=== PATIENT | male | born 1945 | race Caucasian/White ===

== ENCOUNTER 2020-09-01 19:18 | Inpatient (IN) | payer OTHER, SELFPAY ==
--- NOTE | ~2020-09-01 | CT_ITS ---
EXAMINATION: CT HEAD WITHOUT CONTRAST CLINICAL INFORMATION: Status post fall COMPARISON: None TECHNIQUE: Contiguous axial imaging was performed from the skull base to vertex without intravenous administration of contrast. This CT examination was performed using dose optimization techniques as appropriate, variously including the following: *Automated exposure control *Adjustment of mA and/or kV according to patient size (this includes techniques or standardized protocols for targeted exams where dose is matched to indication/reason for exam; i.e. extremities or head) *Use of iterative reconstruction technique DLP: 903 mGy-cm FINDINGS: No midline shift. No mass effect. No hemorrhage. Basal cisterns appear patent. The posterior fossa is grossly within normal limits. There is no extra-axial collection. There is atrophy and scattered white matter ischemic changes. 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 No evidence for fracture on the bone windows. The visualized airspaces are clear CT/CT head/brain wo con IMPRESSION: No acute intracranial pathology. Atrophy and white matter ischemic changes are present. 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
--- NOTE | ~2020-09-01 | XR_ITS ---
EXAMINATION: XR CHEST CLINICAL INFORMATION: CHF COMPARISON: None TECHNIQUE: Frontal view of the chest was obtained. FINDINGS: Mild prominence of the vasculature but no overt failure. There is no infiltrate. No effusion. The mediastinal contour within normal limits for AP study. XR/XR chest 1V IMPRESSION: Mild cephalization of the vasculature. No overt failure.
[2020-09-01 19:24] VITALS: BP 133/61; BP 142/78; PULSE 117; PULSE 91; RESP 20; TEMP 36.8; O2SAT 95; O2SAT 98; BMI 31.1
--- NOTE | 2020-09-01 19:43 | ECG_ITS ---
Test Reason : FALL Blood Pressure : / mmHG Vent. Rate : 095 BPM Atrial Rate : 227 BPM P-R Int : 000 ms QRS Dur : 152 ms QT Int : 364 ms P-R-T Axes : 000 -52 099 degrees QTc Int : 457 ms Atrial fibrillation with premature ventricular or aberrantly conducted complexes Left axis deviation Left bundle branch block Abnormal ECG No previous ECGs available Referred By: Pranay Green Electronically Signed By:ANABEL HAN MD
--- NOTE | 2020-09-01 19:59 | ED.FALL ---
HPI - Fall General Chief Complaint: Fall Stated Complaint: FALLS Time Seen by Provider: 09/01/20 19:59 Source: patient and family Mode of arrival: EMS Limitations: no limitations History of Present Illness HPI Narrative: patient is 75 years old with history of atrial fibrillation, diabetes on Eliquis been feeling weak for last 2 months used to live in [place] admitted to the hospital 2 months ago for weakness and fall sent to rehab, daughter brought him from [place] to [place] on 08/19 to keep him with her, since then patient felt to 3 times feels legs are weak walks with walker even then he cannot hold his body weight and falls, no significant head injury patient also complaining of increased leg swelling and shortness of breath on exertion. No chest pain no fever also patient has difficulty in memory. Family is looking for placement in rehab here Related Data Home Medications Medication Instructions Recorded Confirmed Eliquis 5 mg PO BID 09/01/20 09/01/20 Fish Oil 1,000 mg PO DAILY 09/01/20 09/01/20 atorvastatin 10 mg PO 09/01/20 digoxin 0.125 mg PO DAILY 09/01/20 09/01/20 glimepiride 2 mg PO 09/01/20 levothyroxine 88 mcg PO DAILY 09/01/20 09/01/20 pregabalin 100 mg PO DAILY 09/01/20 09/01/20 Senna with Docusate Sodium 8.6 - 50 mg PO NEEDED 09/02/20 09/02/20 Tylenol 650 mg PRN 09/02/20 polyethylene glycol 3350 09/02/20 Allergies Allergy/AdvReac Type Severity Reaction Status Date / Time epinephrine Allergy Anaphylaxis Verified 09/01/20 21:03 Review of Systems Review of Systems: Constitutional : No Weight loss, No Fever, No Chills ENT/Mouth : No sore throat, No Rhinorrhea Eyes: No Eye Pain, No Swelling Cardiovascular : No Chest Pain, no palpitations Respiratory : No Cough, No Sputum, no shortness of breath Gastrointestinal : no Nausea, No Vomiting, No Diarrhea, No abdominal Pain, no black stools Genitourinary : No Dysuria, No Urinary Frequency Musculoskeletal : No joint pain, No Myalgias, No Joint Swelling Skin : No Skin Lesions, No rash Neuro : ++ Weakness, No Numbness, No Dizziness, No Headache Psych : No Anxiety/Panic, No Depression Heme/Lymph: No Bruising, No Lymphadenopathy Endocrine : No Polyuria, No Polydipsia All other systems reviewed and are negative [facility] Past Medical History Medical History Afib CHF (congestive heart failure) Hematuria HTN (hypertension) Osteomyelitis Surgical History History of urostomy Social History Social History Advance Directives: No Advance Directives Information Provided: No Physical Exam Vital Signs: Vital Signs: Last Vital Signs Temp 98.3 F 09/01/20 19:24 Pulse 78 09/02/20 00:00 Resp 20 09/02/20 00:00 BP 111/58 L 09/02/20 00:00 Pulse Ox 96 09/02/20 00:00 Body Mass Index 31.1 Appearance: Alert. Oriented X3. No acute distress. Eyes: PERRLA, No Nystagmus ENT: Pharynx normal. Oral Mucosa moist Neck: Normal inspection. Neck supple. CVS: irregularly irregular heart rate, no murmur rub or gallop Pulses normal. Respiratory: No respiratory distress. Equal air entry bilateral, no wheezing/rhonchi , bilateral basal crackles+ Abdomen: Soft and nontender. Bowel sounds are present, no mass palpable, no CVA tenderness Skin: Skin warm and dry. Normal skin color. Normal skin turgor. Extremities: trace lower extremity edema. No calf tenderness Neuro: Oriented X 3. No motor deficit. No sensory deficit.No cerebellar signs , cranial nerves II-XII intact MDM - Fall MDM Narrative Medical decision making narrative: patient with frequent falls with chronic leg weakness unsteady on his feet was in rehab in [place] came here for stay with her daughter patient still been falling a lot, family and patient wants to go to rehab for strengthening patient denies any chest pain no significant delta change in troponin Lab Data Attestation: I reviewed the patient's lab results. Result diagrams: 09/01/20 20:42 09/01/20 20:41 Labs: Lab Results 09/01/20 09/01/20 09/01/20 Range/Units 20:41 20:41 20:41 WBC (4.8-10.8) X10*3/uL RBC (4.60-5.80) X10*6/uL Hgb (14.0-18.0) g/dl Hct (42-52) % MCV (80-98) fL MCH (27.0-33.0) pg MCHC (31.0-36.0) g/dl RDW (11.0-16.0) % Plt Count (160-400) X10*3/uL MPV (9.4-12.4) fL Immature Gran % (Auto) (0.0-0.4) % Neut % (Auto) (45-73) % Lymph % (Auto) (20-40) % [place] % (Auto) (2-11) % Eos % (Auto) (0-4) % Baso % (Auto) (0-2) % Lymph # (Auto) (1.2-4.9) X10*3/uL [place] # (Auto) (0.1-1.2) X10*3/uL Eos # (Auto) (0.0-0.4) X10*3/uL Baso # (Auto) (0.0-0.2) X10*3/uL Abs Immat Gran (auto) (0.00-0.03) X10*3/uL Absolute Neuts (auto) (2.0-8.3) X10*3/uL Absolute Nucleated RBC (0.0-0.012) X10*3/uL Nucleated RBC % (auto) (0.0-0.2) /100WBC PT 18.7 H (10.8-13.0) SEC INR 1.6 H (0.9-1.1) Sodium 141 (135-145) mmol/L Potassium 4.4 (3.3-5.1) mmol/L Chloride 110 H (96-108) mmol/L Carbon Dioxide 20 L (22-29) mmol/L Anion Gap 15 (12-20) BUN 14 (9-16) mg/dL Creatinine 1.32 (0.5-1.4) mg/dL Estim Creat Clear Calc 54.3 Estimated GFR 53 Random Glucose 77 (60-115) mg/dL Calcium 9.0 (8.4-10.2) mg/dL Total Bilirubin 1.7 H (0.0-1.0) mg/dL Direct Bilirubin 0.8 H (0.0-0.5) mg/dL AST 21 (5-37) U/L ALT 12 (0-40) U/L Alkaline Phosphatase 102 (39-117) U/L Troponin I High Sens (<3.5-35.0) ng/L B-Natriuretic Peptide (<100) pg/mL Total Protein 6.4 L (6.5-8.0) g/dL Albumin 3.4 L (3.5-5.0) g/dL Urine Color Urine Appearance Urine pH (5.0-8.0) Ur Specific [place] (1.005-1.025) Urine Protein (NEG-TRACE) MG/DL Urine Glucose (UA) (NEG) MG/DL Urine Ketones (NEG) MG/DL Urine Blood (NEG) Urine Nitrite (NEG) Ur Leukocyte Esterase (NEG) Urine RBC (0) /HPF Urine WBC (0-4) /HPF Urine WBC Clumps Ur Squamous Epith Cells /LPF Amorphous Sediment /LPF Urine Bacteria /LPF Digoxin 0.7 L (0.8-2.0) ng/mL COVID-19 ([facility]) (Negative) COVID-19 Clin Com 09/01/20 09/01/20 09/01/20 Range/Units 20:42 20:42 20:42 WBC 12.6 H (4.8-10.8) X10*3/uL RBC 4.65 (4.60-5.80) X10*6/uL Hgb 13.0 L (14.0-18.0) g/dl Hct 40.6 L (42-52) % MCV 87.3 (80-98) fL MCH 28.0 (27.0-33.0) pg MCHC 32.0 (31.0-36.0) g/dl RDW 16.6 H (11.0-16.0) % Plt Count 250 (160-400) X10*3/uL MPV 11.1 (9.4-12.4) fL Immature Gran % (Auto) 0.4 (0.0-0.4) % Neut % (Auto) 77.0 H (45-73) % Lymph % (Auto) 8.9 L (20-40) % [place] % (Auto) 11.2 H (2-11) % Eos % (Auto) 2.1 (0-4) % Baso % (Auto) 0.4 (0-2) % Lymph # (Auto) 1.1 L (1.2-4.9) X10*3/uL [place] # (Auto) 1.4 H (0.1-1.2) X10*3/uL Eos # (Auto) 0.3 (0.0-0.4) X10*3/uL Baso # (Auto) 0.1 (0.0-0.2) X10*3/uL Abs Immat Gran (auto) 0.05 H (0.00-0.03) X10*3/uL Absolute Neuts (auto) 9.7 H (2.0-8.3) X10*3/uL Absolute Nucleated RBC 0.000 (0.0-0.012) X10*3/uL Nucleated RBC % (auto) 0.0 (0.0-0.2) /100WBC PT (10.8-13.0) SEC INR (0.9-1.1) Sodium (135-145) mmol/L Potassium (3.3-5.1) mmol/L Chloride (96-108) mmol/L Carbon Dioxide (22-29) mmol/L Anion Gap (12-20) BUN (9-16) mg/dL Creatinine (0.5-1.4) mg/dL Estim Creat Clear Calc Estimated GFR Random Glucose (60-115) mg/dL Calcium (8.4-10.2) mg/dL Total Bilirubin (0.0-1.0) mg/dL Direct Bilirubin (0.0-0.5) mg/dL AST (5-37) U/L ALT (0-40) U/L Alkaline Phosphatase (39-117) U/L Troponin I High Sens 97.7 H* (<3.5-35.0) ng/L B-Natriuretic Peptide 360 H (<100) pg/mL Total Protein (6.5-8.0) g/dL Albumin (3.5-5.0) g/dL Urine Color Urine Appearance Urine pH (5.0-8.0) Ur Specific [place] (1.005-1.025) Urine Protein (NEG-TRACE) MG/DL Urine Glucose (UA) (NEG) MG/DL Urine Ketones (NEG) MG/DL Urine Blood (NEG) Urine Nitrite (NEG) Ur Leukocyte Esterase (NEG) Urine RBC (0) /HPF Urine WBC (0-4) /HPF Urine WBC Clumps Ur Squamous Epith Cells /LPF Amorphous Sediment /LPF Urine Bacteria /LPF Digoxin (0.8-2.0) ng/mL COVID-19 ([facility]) Negative (Negative) COVID-19 Clin Com See Note 09/01/20 09/01/20 Range/Units 23:49 23:55 WBC (4.8-10.8) X10*3/uL RBC (4.60-5.80) X10*6/uL Hgb (14.0-18.0) g/dl Hct (42-52) % MCV (80-98) fL MCH (27.0-33.0) pg MCHC (31.0-36.0) g/dl RDW (11.0-16.0) % Plt Count (160-400) X10*3/uL MPV (9.4-12.4) fL Immature Gran % (Auto) (0.0-0.4) % Neut % (Auto) (45-73) % Lymph % (Auto) (20-40) % [place] % (Auto) (2-11) % Eos % (Auto) (0-4) % Baso % (Auto) (0-2) % Lymph # (Auto) (1.2-4.9) X10*3/uL [place] # (Auto) (0.1-1.2) X10*3/uL Eos # (Auto) (0.0-0.4) X10*3/uL Baso # (Auto) (0.0-0.2) X10*3/uL Abs Immat Gran (auto) (0.00-0.03) X10*3/uL Absolute Neuts (auto) (2.0-8.3) X10*3/uL Absolute Nucleated RBC (0.0-0.012) X10*3/uL Nucleated RBC % (auto) (0.0-0.2) /100WBC PT (10.8-13.0) SEC INR (0.9-1.1) Sodium (135-145) mmol/L Potassium (3.3-5.1) mmol/L Chloride (96-108) mmol/L Carbon Dioxide (22-29) mmol/L Anion Gap (12-20) BUN (9-16) mg/dL Creatinine (0.5-1.4) mg/dL Estim Creat Clear Calc Estimated GFR Random Glucose (60-115) mg/dL Calcium (8.4-10.2) mg/dL Total Bilirubin (0.0-1.0) mg/dL Direct Bilirubin (0.0-0.5) mg/dL AST (5-37) U/L ALT (0-40) U/L Alkaline Phosphatase (39-117) U/L Troponin I High Sens 108.3 H* (<3.5-35.0) ng/L B-Natriuretic Peptide (<100) pg/mL Total Protein (6.5-8.0) g/dL Albumin (3.5-5.0) g/dL Urine Color YELLOW Urine Appearance HAZY Urine pH 6.0 (5.0-8.0) Ur Specific [place] 1.010 (1.005-1.025) Urine Protein TRACE (NEG-TRACE) MG/DL Urine Glucose (UA) NEG (NEG) MG/DL Urine Ketones NEG (NEG) MG/DL Urine Blood 1+ H (NEG) Urine Nitrite POS H (NEG) Ur Leukocyte Esterase 3+ H (NEG) Urine RBC 5-9 H (0) /HPF Urine WBC 15-29 H (0-4) /HPF Urine WBC Clumps NOTED Ur Squamous Epith Cells TRACE /LPF Amorphous Sediment 1+ /LPF Urine Bacteria 2+ /LPF Digoxin (0.8-2.0) ng/mL COVID-19 ([facility]) (Negative) COVID-19 Clin Com ECG Data Attestation: I personally reviewed and interpreted this ECG as follows: Interpretation: atrial fibrillation ventricular rate 95 beats per minute left axis deviation left bundle-branch block no acute ST T wave changes no acute ischemia Discharge Plan Discharge Clinical Impression: Multiple falls, Weakness Prescriptions: No Action atorvastatin 10 mg 10 mg PO RF: 0 glimepiride 2 mg powder 2 mg PO RF: 0 levothyroxine 88 mcg powder 88 mcg PO DAILY RF: 0 pregabalin 100 mg powder 100 mg PO DAILY RF: 0 Eliquis 5 mg powder 5 mg PO BID RF: 0 digoxin 0.125 mg powder 0.125 mg PO DAILY RF: 0 Fish Oil 1,000 mg bottle 1,000 mg PO DAILY RF: 0 Senna with Docusate Sodium 8.6 mg tablet 8.6 - 50 mg PO NEEDED RF: 0 polyethylene glycol 3350 RF: 0 Tylenol 650 mg tablet 650 mg PRN (Reason: Pain) RF: 0
[2020-09-01 20:47] LABS: MANUAL DIFF FLAG NO
[2020-09-01 20:49] LABS: Basophils Absolute Auto 0.1 X10*3/uL (0.0-0.2); Basophils Percent Auto 0.4 % (0-2); Eosinophils Absolute Auto 0.3 X10*3/uL (0.0-0.4); Eosinophils Percent Auto 2.1 % (0-4); Hematocrit 40.6 % (42-52); Imm Gran Abs Auto 0.05 X10*3/uL (0.00-0.03); Imm Gran Pct Auto 0.4 % (0.0-0.4); Lymphocytes Absolute Auto 1.1 X10*3/uL (1.2-4.9); Lymphocytes Percent Auto 8.9 % (20-40); Mean Corpuscular Volume 87.3 fL (80-98); Mean Platelet Volume 11.1 fL (9.4-12.4); Monocytes Absolute Auto 1.4 X10*3/uL (0.1-1.2); Monocytes Percent Auto 11.2 % (2-11); Neutrophils Absolute Auto 9.7 X10*3/uL (2.0-8.3); Platelet Count 250 X10*3/uL (160-400); Red Blood Count 4.65 X10*6/uL (4.60-5.80); Red Cell Distribution Width 16.6 % (11.0-16.0); White Blood Count 12.6 X10*3/uL (4.8-10.8)
[2020-09-01 20:55] LABS: INTERNATIONAL NORM RATIO 1.6 (0.9-1.1); Prothrombin Time 18.7 SEC (10.8-13.0)
[2020-09-01 21:06] LABS: COVID-19 Test Negative (Negative)
[2020-09-01 21:29] LABS: Alanine Aminotransferase 12 U/L (0-40); Albumin Level 3.4 g/dL (3.5-5.0); Alkaline Phosphatase 102 U/L (39-117); Anion Gap 15 (12-20); Aspartate Amino Transferase 21 U/L (5-37); Bilirubin Direct 0.8 mg/dL (0.0-0.5); Bilirubin Total 1.7 mg/dL (0.0-1.0); Blood Urea Nitrogen 14 mg/dL (9-16); Carbon Dioxide 20 mmol/L (22-29); Chloride 110 mmol/L (96-108); Creatinine Clr Calc Pharmacy 54.3; Estimated Glomerular Filt Rate 53; Glucose Random 77 mg/dL (60-115); Potassium 4.4 mmol/L (3.3-5.1); Sodium 141 mmol/L (135-145); Total Protein 6.4 g/dL (6.5-8.0)
[2020-09-01 21:31] LABS: Digoxin 0.7 ng/mL (0.8-2.0)
[2020-09-01 21:36] LABS: Troponin-I High Sensitivity 97.7 ng/L (<3.5-35.0)
[2020-09-01 21:37] LABS: B Type Natriuretic Peptide 360 pg/mL (<100)
[2020-09-01 22:00] VITALS: BP 121/54; PULSE 72; RESP 20; O2SAT 95
--- NOTE | 2020-09-01 22:49 | MHC.CM.ED ---
CM met with pt. Very pleasant. Has been falling, States his right side is weak and gives out on him. Pt recently moved here with daughter from [place] on August 22. States father fell in June at his home and was on the floor for 5 days. Pt was hospitalized and spent 1 month in a rehab facility in [place]. Daughter flew to [place] and bring her father here so she could better care for him. Pt is living with her partner in [place]. Pt lives in [place]. CM called and spoke to Leona Smith (daughter) [phone]. Leona tells CM that pt has fallen 6 times in past 2 weeks. There isn't any insurance listed. When CM asked, daughter stated she told them at the desk, but didn't given any insurance cards. CM explained that pt insurance cards are needed to put into system for STR facilities. Explained that pt is listed as self pay. Leona tells CM that her father has his insurance cards in his wallet. CM spoke with patient and he went through his entire wallet, without finding any insurance cards. CM called Leona back and left a message for her to bring her father's insurance cards to the hospital when she returns in the am. Leona tells CM she has POA. When asked if that includes HCP, Leona is unsure and a copy of the POA was also requested. If not, Leona reassured that a HCP can be completed tomorrow. PT evaluation is ordered for the am. Pt and daughter aware. Daughter has no choices for referrals to STR. Requests facilities in [place]. Referrals placed locally. CM to follow for d/c needs.
[2020-09-02] VITALS (12 sets, daily range): BP systolic 109–135; BP diastolic 48–93; PULSE 77–113; RESP 16–23; TEMP 36.3–37; O2SAT 90–99; BMI 32.2
[2020-09-02 00:01] LABS: Glucose Urine UA NEG (NEG); Leukocyte Esterase Urine 3+ (NEG); Nitrite Urine POS (NEG); UACC Culture Trigger YES; Urine Blood 1+ (NEG); Urine Ketones NEG (NEG); Urine Protein TRACE MG/DL (NEG-TRACE)
[2020-09-02 00:06] LABS: Appearance Urine HAZY; Color Urine YELLOW
[2020-09-02 00:20] LABS: Amorphous Sediment Urine 1+ /LPF; Bacteria Urine 2+ /LPF; Squamous Epithelial Cell Urine TRACE /LPF
[2020-09-02 00:20] LABS: Troponin-I High Sensitivity 108.3 ng/L (<3.5-35.0)
[2020-09-02 00:21] LABS: WBC Clumps Urine NOTED
[2020-09-02] MEDS: Furosemide 20 MG/2 ML VIAL IVPUSH (00:23)
[2020-09-02] MEDS: Apixaban 5 MG TABLET PO ×3 (02:19→20:34)
--- NOTE | 2020-09-02 04:30 | PC.NURSE ---
pt was incont of urine due to pt took his urostomy appliance off. bed change and new appliance applied pt annette well.
--- NOTE | 2020-09-02 04:53 | PC.NURSE ---
pt denies chest pain thur the night. pt has pulled the monitor leads off and are reapplied. pt has dementia and forgets. provider aware of the 10 beat vt that was not mentioned to either this rn or the provider.
[2020-09-02] MEDS: Levothyroxine Sodium 88 MCG TABLET PO (07:38)
[2020-09-02 08:36] LABS: Lactic Acid 1.6 mmol/L (0.5-2.0)
[2020-09-02 08:46] LABS: Troponin-I High Sensitivity 96.2 ng/L (<3.5-35.0)
[2020-09-02] MEDS: cefTRIAXone sodium 1 GM in 0.9 % Sodium Chloride 50 ML IV (08:49)
--- NOTE | 2020-09-02 08:50 | MHC.PT.DC ---
[facility] [place] [facility] [place] [facility] [place] [facility] [address] Gavin Johnston 140 [facility] [phone] F: [phone] F: [phone] F: [phone] F: [phone] Physical Therapy Discharge Report Diagnosis: Date of Surgery: Date of Evaluation: Date of Discharge: Treatments to Date: Cancellations to Date: No Shows to Date: Discharge Status: Discharge Summary: Electronically signed by: RAY THAKUR PT, DSc - 09/02/20 Please sign and return to therapist. Thank you for your referral.
--- NOTE | 2020-09-02 08:50 | PC.NURSE ---
blood cultures and lactic drawn and sent. Pt ambulated to bathroom, now back in room and ABX started
[2020-09-02] MEDS: Digoxin 0.125 MG TABLET PO (10:18)
[2020-09-02] MEDS: Pregabalin 100 MG CAPSULE PO (10:18)
--- NOTE | 2020-09-02 11:19 | P.HPHOSP_ITS ---
History of Present Illness Date of Service: 09/02/20 Chief Complaint: Falls This is a 75-year-old male with a past medical history of diabetes, atrial fibrillation, hypothyroid, bladder cancer status post resection and creation of a ostomy, probable undiagnosed dementia/ cognitive impairment who presents to the hospital after being brought in for frequent falls. History is obtained from the ED provider and the patient's daughter with minimal contribution from the patient himself. He endorses that he moved from [place] to [place] within the last 3-4 weeks but does not know why he moved here. He does report that he has had frequent falls but he is unable to tell me why these occur. He denies any loss of consciousness. He does endorse some right ankle pain but otherwise denies any chest pain, shortness of breath, headache. Upon further discussion with his daughter, she endorses that the patient was moved to the [place] due to further declining health. In regards to his medical history she reports that she has access to his medical records but she is not fully aware of his medical history. In the emergency room the patient was evaluated and found to have a UA suggestive of possible urinary tract infection, leukocytosis of 12,000 and elevated high sensitivity troponin ( 97, 108, 96). there was consideration for possible physical therapy evaluation case management consultation for placement, however patient was noted to have a short run of NSVT and so admission was re quested. Review of Systems Review of Systems: General - denies fevers or chills, denies weakness or fatigue, +falls HEENT -denies blurred vision, denies headache, denies sore throat Cardiovascular - denies chest pain or palpitations, denies edema Respiratory - denies shortness of breath, coughing, wheezing Gastrointestinal - denies abdominal pain, nausea, vomiting, diarrhea - denies flank pain, denies dysuria, denies frequency or urgency Musculoskeletal - denies back pain, denies hip pain, denies knee pain, denies shoulder pain; +R foot pain Neurological - denies any focal weakness or numbness Skin, denies any bruising or redness Psychiatric - denies any suicidal ideation, hallucinations, homicidal ideation Endocrinology - denies intolerance to hot / cold temperatures [facility] Medical History (Updated 09/02/20 @ 11:24 by Eitan Blanco MD) Afib CHF (congestive heart failure) Hematuria HTN (hypertension) Osteomyelitis Pertinent family history: unable to determined, patient does not know Surgical History History of urostomy Social History Alcohol intake: never Patient Tobacco Use Status: Never used Tobacco Use of substances other than those prescribed or required for medical reasons: No Advance Directives: No Advance Directives Information Provided: No Meds Allergies Allergy/AdvReac Type Severity Reaction Status Date / Time epinephrine Allergy Anaphylaxis Verified 09/01/20 21:03 Active Medications: Current Medications Generic Name Dose Route Start Last Admin Trade Name Freq PRN Reason Stop Dose Admin Apixaban 5 mg 09/02/20 01:00 09/02/20 07:38 Apixaban 5 Mg Tablet PO 5 mg BID SAMY Administration Digoxin 0.125 mg 09/02/20 10:00 09/02/20 10:18 Digoxin 0.125 Mg Tablet PO 0.125 mg DAILY@1000 SAMY Administration Levothyroxine Sodium 88 mcg 09/02/20 06:30 09/02/20 07:38 Levothyroxine Sodium 88 Mcg Tablet PO 88 mcg DAILY@0630 SAMY Administration Pregabalin 100 mg 09/02/20 09:00 09/02/20 10:18 Pregabalin 100 Mg Capsule PO 100 mg DAILY SAMY Administration Home Medications Medication Instructions Recorded Confirmed Last Taken Type Eliquis 5 mg PO BID 09/01/20 09/01/20 09/01/20 History 0800 Fish Oil 1,000 mg PO DAILY 09/01/20 09/01/20 09/01/20 History 0800 atorvastatin 10 mg PO 09/01/20 08/31/20 History 2200 digoxin 0.125 mg PO DAILY 09/01/20 09/01/20 09/01/20 History 0800 glimepiride 2 mg PO 09/01/20 09/01/20 History 0800 levothyroxine 88 mcg PO DAILY 09/01/20 09/01/20 09/01/20 History 0800 pregabalin 100 mg PO DAILY 09/01/20 09/01/20 09/01/20 History 0800 Senna with Docusate Sodium 8.6 - 50 mg PO NEEDED 09/02/20 09/02/20 Unknown History Tylenol 650 mg PRN 09/02/20 Unknown History polyethylene glycol 3350 09/02/20 Unknown History Physical Exam Vital Signs and Narrative: Vital Signs: Last Vital Signs Temp 98.3 F 09/01/20 19:24 Pulse 82 09/02/20 10:20 Resp 16 09/02/20 10:20 BP 114/52 L 09/02/20 10:20 Pulse Ox 97 09/02/20 10:20 Body Mass Index 31.1 Const: Other: Constitutional - Awake and Alert, No apparent distress Eyes - PERRLA, EOMI Cardiovascular - IRR Respiratory - No distress, lung diminished Gastrointestinal - NT / ND; +BS; No rebound or guarding - No CVA tenderness Extremities - no calf tenderness bilaterally, no swelling Musculoskeletal - Normal inspection, normal ROM; RLE -- no bony tenderness at ankle joint Skin - Warm/Dry Neurological - No focal deficits Psychological - Appropriate affect Results Labs CBC and Chem 7: 09/01/20 20:42 09/01/20 20:41 Labs: Laboratory Results - last 24 hr 09/01/20 09/01/20 09/01/20 20:41 20:41 20:41 MCV MCH MCHC RDW Plt Count MPV Immature Gran % (Auto) Neut % (Auto) Lymph % (Auto) [place] % (Auto) Eos % (Auto) Baso % (Auto) Lymph # (Auto) [place] # (Auto) Eos # (Auto) Baso # (Auto) Abs Immat Gran (auto) Absolute Neuts (auto) Absolute Nucleated RBC Nucleated RBC % (auto) PT 18.7 H INR 1.6 H Anion Gap 15 Estim Creat Clear Calc 54.3 Estimated GFR 53 Random Glucose 77 Lactic Acid Calcium 9.0 Total Bilirubin 1.7 H Direct Bilirubin 0.8 H AST 21 ALT 12 Alkaline Phosphatase 102 Troponin I High Sens B-Natriuretic Peptide Total Protein 6.4 L Albumin 3.4 L Urine Color Urine Appearance Urine pH Ur Specific [place] Urine Protein Urine Glucose (UA) Urine Ketones Urine Blood Urine Nitrite Ur Leukocyte Esterase Urine RBC Urine WBC Urine WBC Clumps Ur Squamous Epith Cells Amorphous Sediment Urine Bacteria Digoxin 0.7 L COVID-19 ([facility]) COVID-19 Clin Com 09/01/20 09/01/20 09/01/20 20:42 20:42 20:42 MCV 87.3 MCH 28.0 MCHC 32.0 RDW 16.6 H Plt Count 250 MPV 11.1 Immature Gran % (Auto) 0.4 Neut % (Auto) 77.0 H Lymph % (Auto) 8.9 L [place] % (Auto) 11.2 H Eos % (Auto) 2.1 Baso % (Auto) 0.4 Lymph # (Auto) 1.1 L [place] # (Auto) 1.4 H Eos # (Auto) 0.3 Baso # (Auto) 0.1 Abs Immat Gran (auto) 0.05 H Absolute Neuts (auto) 9.7 H Absolute Nucleated RBC 0.000 Nucleated RBC % (auto) 0.0 PT INR Anion Gap Estim Creat Clear Calc Estimated GFR Random Glucose Lactic Acid Calcium Total Bilirubin Direct Bilirubin AST ALT Alkaline Phosphatase Troponin I High Sens 97.7 H* B-Natriuretic Peptide 360 H Total Protein Albumin Urine Color Urine Appearance Urine pH Ur Specific [place] Urine Protein Urine Glucose (UA) Urine Ketones Urine Blood Urine Nitrite Ur Leukocyte Esterase Urine RBC Urine WBC Urine WBC Clumps Ur Squamous Epith Cells Amorphous Sediment Urine Bacteria Digoxin COVID-19 ([facility]) Negative COVID-19 Clin Com See Note 09/01/20 09/01/20 09/02/20 23:49 23:55 08:13 MCV MCH MCHC RDW Plt Count MPV Immature Gran % (Auto) Neut % (Auto) Lymph % (Auto) [place] % (Auto) Eos % (Auto) Baso % (Auto) Lymph # (Auto) [place] # (Auto) Eos # (Auto) Baso # (Auto) Abs Immat Gran (auto) Absolute Neuts (auto) Absolute Nucleated RBC Nucleated RBC % (auto) PT INR Anion Gap Estim Creat Clear Calc Estimated GFR Random Glucose Lactic Acid 1.6 Calcium Total Bilirubin Direct Bilirubin AST ALT Alkaline Phosphatase Troponin I High Sens 108.3 H* B-Natriuretic Peptide Total Protein Albumin Urine Color YELLOW Urine Appearance HAZY Urine pH 6.0 Ur Specific [place] 1.010 Urine Protein TRACE Urine Glucose (UA) NEG Urine Ketones NEG Urine Blood 1+ H Urine Nitrite POS H Ur Leukocyte Esterase 3+ H Urine RBC 5-9 H Urine WBC 15-29 H Urine WBC Clumps NOTED Ur Squamous Epith Cells TRACE Amorphous Sediment 1+ Urine Bacteria 2+ Digoxin COVID-19 ([facility]) COVID-19 Clin Com 09/02/20 08:13 MCV MCH MCHC RDW Plt Count MPV Immature Gran % (Auto) Neut % (Auto) Lymph % (Auto) [place] % (Auto) Eos % (Auto) Baso % (Auto) Lymph # (Auto) [place] # (Auto) Eos # (Auto) Baso # (Auto) Abs Immat Gran (auto) Absolute Neuts (auto) Absolute Nucleated RBC Nucleated RBC % (auto) PT INR Anion Gap Estim Creat Clear Calc Estimated GFR Random Glucose Lactic Acid Calcium Total Bilirubin Direct Bilirubin AST ALT Alkaline Phosphatase Troponin I High Sens 96.2 H* B-Natriuretic Peptide Total Protein Albumin Urine Color Urine Appearance Urine pH Ur Specific [place] Urine Protein Urine Glucose (UA) Urine Ketones Urine Blood Urine Nitrite Ur Leukocyte Esterase Urine RBC Urine WBC Urine WBC Clumps Ur Squamous Epith Cells Amorphous Sediment Urine Bacteria Digoxin COVID-19 ([facility]) COVID-19 Clin Com Imaging Radiologist's Impressions: Impressions Chest X-Ray 09/01/20 20:07 IMPRESSION: Mild cephalization of the vasculature. No overt failure. Head CT 09/01/20 20:08 IMPRESSION: No acute intracranial pathology. Atrophy and white matter ischemic changes are present. 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 Assessment and Plan (1) Diabetes mellitus: Status: Acute (2) Urinary tract infection: Status: Acute This is a 75 yo M with a presumed PMH of DM, A. Fib on ELiquis, ? 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 While awaiting in the ED, the patient was noted to have NSVT runs and will be subsequently admitted. 1. NSVT check lytes -- K / Mg daughter to bring in medical records -- if no recent echo, may need to evaluate if has multiple sustained runs 2. Possible UTI has chronic ostomy, so this may be colonization but given his confusion (no reported history of dementia) + mild leukocytosis -- jennifer empirically treat with rocephin and see what grows f/u urine and blood cx no evidence of sepsis 3. Toxic/Metabolic Encephalopathy again, could be from acute UTI vs undiagnosed dementia 4. Hypothyroidism synthroid 5. A. Fib continue dig and eliquis HCP unknown Presumed Full Code until daughter / patient have discussion Quality Stroke Does the patient have a stroke diagnosis?: No VTE Prior VTE?: No VTE Risk Level:: Medical - moderate - high VTE Device Contraindication: Treatment Not Tolerated VTE Drug Contraindication: N/A - Med Ordered
[2020-09-02 11:51] LABS: Anion Gap 14 (12-20); Blood Urea Nitrogen 16 mg/dL (9-16); Calcium 8.9 mg/dL (8.4-10.2); Carbon Dioxide 25 mmol/L (22-29); Chloride 106 mmol/L (96-108); Creatinine Clr Calc Pharmacy 53.1; Estimated Glomerular Filt Rate 52; Glucose Random 132 mg/dL (60-115); Magnesium 1.8 mg/dL (1.6-2.6); Potassium 3.9 mmol/L (3.3-5.1); Sodium 141 mmol/L (135-145)
--- NOTE | 2020-09-02 11:53 | MHC.CM.ED ---
Patient will be admitted to the hospital. Insurance information and copy of HCP obtained from SNF in [place] and added to chart. Continue to monitor for d/c needs.
--- NOTE | 2020-09-02 12:27 | CA_ITS ---
Transthoracic Echocardiogram Patient (Last, First, Middle): Nagi Roblero, Gender: Male Date of : 1945 Age: 75 Procedure Date: 09/02/2020 Procedure Type: Transthoracic Echocardiogram Location: [facility] [place] Height: 172.72 cm Weight: 92.99 kg BSA: 2.07 m2 Heart Rate: bpm BP: 114 / 52 mmHg Reports Analysis Manager: Referring MD: Eitan Blanco MD Consumer Affairs Director: Omar Ramos MD Symptoms: NSVT, eval for EF Study Quality: Fair ECG Rhythm: Atrial Fibrillation Conclusions: - 1. Severe LV systolic dysfunction with LVEF of 15-20% with mild LVH 2. Severely dilated left atrium 3. Mild aortic and mitral regurgitation 4. Moderately elevated right ventricular systolic pressure 5. No gross pericardial effusion Findings Left Ventricle Normal left ventricular cavity size. There is mildly increased left ventricular wall thickness. The left ventricular systolic function is severely decreased. The visually estimated ejection fraction is between 15 20%. There is severe global hypokinesis. Diastolic function is indeterminate on the basis of available data. Right Ventricle Mildly increased right ventricular cavity size. There is mild to moderately decreased right ventricular systolic function. Atria The left atrium is severely dilated. There is no evidence of interatrial shunt. The right atrium is mildly dilated. Aortic Valve There is mild calcification of the aortic valve. There is mild thickening of the aortic valve. There is no aortic valve stenosis. There is mild aortic valve regurgitation. Mitral Valve There is mild anterior and posterior mitral leaflet thickening. There is mild mitral annular calcification. There is mild mitral valve regurgitation. There is no mitral valve stenosis. Pulmonic Valve The pulmonic valve was not well visualized. Tricuspid Valve Likely normal tricuspid valve structure and function. There is mild tricuspid valve regurgitation. Mildly elevated right atrial pressure. Moderate pulmonary hypertension is present. Great Vessels All visible segments of the aorta are normal in size. The pulmonary artery was not well visualized. Venous The inferior vena cava is mildly dilated and collapses greater than 50% with inspiration. Pericardium/Pleural There is no evidence of pericardial effusion. Prior Study Comparison No prior study available for comparison. Measurements 2D Linear Measurements IVSd: 1.32 0.6-0.9/0.6-1.0 cm LVIDd: 5.49 3.9-5.3/4.2-5.9 cm LVIDd Index: 2.65 2.4-3.2/2.2-3.1 cm/m2 LVIDs: 4.83 2.0-3.6 cm LVPWd: 1.24 0.7-1.1 cm Ao Root: 3.50 2.1-3.5 cm LA Diam: 4.90 2.7-3.8/3.0-4.0 cm LAIDs Index: 2.37 1.5-2.3 cm/m2 LV Mass: 370.44 67-162/88-224 g LV Mass Index: 178.96 43-95/49-115 g/m2 LVOT Diam: 2.00 3.0+(-)1.3 cm 2D Systolic Function EF 4C: 16.90 >55% EF 2C: 10.80 >55% Mitral Valve MV Pk E: 1.07 MV Decel Time: 158.00 E'Lateral: 10.10 E'Medial: 3.15 E/E' Med: 34.00 E/E' Lat: 10.60 PHT: 46.00 MVA PHT: 4.78 Decel [place]: 6.76 Aortic Valve AoV Pk [place]: 1.79 AoV Mn [place]: 1.17 AoV VTI: 0.30 AoV Pk Grad: 13.00 Aov Mn Grad: 6.00 BREEZY Cont.VTI: 2.03 LVOT LVOT Pk [place]: 1.02 LVOT Mn [place]: 0.60 LVOT VTI: 0.20 LVOT Pk Grad: 4.00 LVOT Mn Grad: 2.00 LVOT Diam: 2.00 LVOT Area: 3.14 Diastolic Function MV Pk E: 1.07 E'Medial: 3.15 E/E' Med: 34.00 E' Laterial: 10.10 E/E' Lat: 10.60 Tricuspid Valve TR Pk [place]: 3.11 TR Pk Grad: 39.00 RA Press: 8.00 RVSP: 47.00 Great Vessels Aorta Ao Root-2D: 3.50 2.0-3.7 cm Pulmonary Valve PV Pk [place]: 1.09 Peak PV Grad: 5.00 Updated in Other Vendor System with Status of Final Omar Ramos MD electronically signed on 09/03/2020 12:27:32 PM with status of Final
--- NOTE | 2020-09-02 13:48 | PC.NURSE ---
pt has been ambulatory to bathroom with walker and steady gait. Attempted to call report to floor for admission. will reattempt
[2020-09-02] MEDS: Metoprolol Tartrate 12.5 MG HALFTAB PO ×2 (14:55→20:34)
[2020-09-02 16:30] LABS: Glucose, Whole Blood 76 mg/dL (60-115)
--- NOTE | 2020-09-02 17:47 | PC.NURSE ---
Pt arrived to unit 1500 from ED by sharron Noland. HOme meds accounted for and placed in locked cabinet at [facility]. Pt has a colostomy bag over his urostomy stoma that he refused to let me change. He states he is going to change it himself. Pt does appear to becoming somewhat confused as told in report from ED. Nurse. Pt highfall risk, bed locked and in lowest position, call flowers in reach.
[2020-09-02 20:17] LABS: Glucose, Whole Blood 140 mg/dL (60-115)
[2020-09-02] MEDS: 0.9 % Sodium Chloride Flush 3 ML SYRINGE IVFLUSH (20:35)
[2020-09-03] VITALS (8 sets, daily range): BP systolic 97–132; BP diastolic 51–60; PULSE 70–89; RESP 18–20; TEMP 36.2–36.9; O2SAT 95–97
[2020-09-03 06:44] LABS: MANUAL DIFF FLAG NO
[2020-09-03 06:54] LABS: Basophils Absolute Auto 0.1 X10*3/uL (0.0-0.2); Basophils Percent Auto 0.6 % (0-2); Eosinophils Absolute Auto 0.5 X10*3/uL (0.0-0.4); Eosinophils Percent Auto 6.1 % (0-4); Hematocrit 42.5 % (42-52); Hemoglobin 13.3 g/dl (14.0-18.0); Imm Gran Abs Auto 0.03 X10*3/uL (0.00-0.03); Imm Gran Pct Auto 0.3 % (0.0-0.4); Lymphocytes Absolute Auto 1.1 X10*3/uL (1.2-4.9); Lymphocytes Percent Auto 11.9 % (20-40); Mean Corpuscular HGB Conc 31.3 g/dl (31.0-36.0); Mean Corpuscular Hemoglobin 27.4 pg (27.0-33.0); Mean Corpuscular Volume 87.6 fL (80-98); Mean Platelet Volume 12.9 fL (9.4-12.4); Monocytes Absolute Auto 1.4 X10*3/uL (0.1-1.2); Monocytes Percent Auto 15.6 % (2-11); Neutrophils Absolute Auto 5.8 X10*3/uL (2.0-8.3); Neutrophils Percent Auto 65.5 % (45-73); Platelet Count 226 X10*3/uL (160-400); Red Blood Count 4.85 X10*6/uL (4.60-5.80); Red Cell Distribution Width 16.6 % (11.0-16.0); White Blood Count 8.9 X10*3/uL (4.8-10.8)
[2020-09-03] MEDS: Levothyroxine Sodium 88 MCG TABLET PO (07:00)
[2020-09-03 07:29] LABS: Anion Gap 18 (12-20); Blood Urea Nitrogen 18 mg/dL (9-16); Calcium 8.8 mg/dL (8.4-10.2); Carbon Dioxide 20 mmol/L (22-29); Chloride 106 mmol/L (96-108); Estimated Glomerular Filt Rate 50; Glucose Random 80 mg/dL (60-115); Potassium 4.8 mmol/L (3.3-5.1); Sodium 139 mmol/L (135-145)
[2020-09-03 07:33] LABS: Glucose, Whole Blood 98 mg/dL (60-115)
[2020-09-03] MEDS: cefTRIAXone sodium 1 GM in 0.9 % Sodium Chloride 50 ML IV (08:47)
[2020-09-03] MEDS: Pregabalin 100 MG CAPSULE PO (08:47)
[2020-09-03] MEDS: Metoprolol Tartrate 12.5 MG HALFTAB PO (08:47)
[2020-09-03] MEDS: 0.9 % Sodium Chloride Flush 3 ML SYRINGE IVFLUSH ×3 (08:47→23:51)
[2020-09-03] MEDS: Apixaban 5 MG TABLET PO ×2 (08:47→20:52)
[2020-09-03] MEDS: Digoxin 0.125 MG TABLET PO (08:47)
[2020-09-03 11:00] LABS: Glucose, Whole Blood 194 mg/dL (60-115)
[2020-09-03] MEDS: Insulin Lispro 100 UNIT/ML 3 ML VIAL SUBCUT (11:03)
--- NOTE | 2020-09-03 11:51 | HO.PM.IMPN ---
Subjective Subjective Date of Service: 09/03/20 Interval History: Seen in f/u AFIB, NSVT resolved. Review of Systems Gen: no fever Resp: no sob, no cough CV: no chest, no ODELL, no leg edema GI: No n/v, no abd pain Neuro: No confusion Physical Exam Vital Signs: Vital Signs: Last Vital Signs Temp 98.5 F 09/03/20 10:48 Pulse 74 09/03/20 10:48 Resp 20 09/03/20 10:48 BP 97/55 L 09/03/20 10:48 Pulse Ox 96 09/03/20 10:48 Body Mass Index 32.2 Const: Other: Constitutional Awake and Alert, No apparent distress Neck Supple, No lymphadenopathy Cardiovascular RRR, No M/R/G, S1 S2, No S3 S4, No pedal edema Respiratory Lungs clear, No respiratory distress Gastrointestinal Non tender, Non-distended Skin No rash Neurological Alert & oriented x3 Psychological Appropriate affect Objective Data Current Medications Generic Name Dose Route Start Last Admin Trade Name Freq PRN Reason Stop Dose Admin Acetaminophen 650 mg 09/02/20 13:36 Acetaminophen 325 Mg Tablet PO Q6H PRN Pain, Mild (Pain Scale 1-3) Apixaban 5 mg 09/02/20 01:00 09/03/20 08:47 Apixaban 5 Mg Tablet PO 5 mg BID SAMY Administration Digoxin 0.125 mg 09/02/20 10:00 09/03/20 08:47 Digoxin 0.125 Mg Tablet PO 0.125 mg DAILY@1000 SAMY Administration Ceftriaxone Sodium 1 gm/ 50 mls @ 100 mls/hr 09/03/20 08:00 09/03/20 09:20 Sodium Chloride IV Infused Q24H SAMY Infusion Insulin Human Lispro 0 unit 09/02/20 16:30 09/03/20 11:03 Insulin Lispro 100 Unit/Ml 3 Ml Vial SUBCUT 2 unit QIDACHS SAMY Administration Protocol Levothyroxine Sodium 88 mcg 09/02/20 06:30 09/03/20 07:00 Levothyroxine Sodium 88 Mcg Tablet PO 88 mcg DAILY@0630 SAMY Administration Metoprolol Tartrate 12.5 mg 09/02/20 15:00 09/03/20 08:47 Metoprolol Tartrate 12.5 Mg Halftab PO 12.5 mg TID SAMY Administration Protocol Ondansetron HCl 4 mg 09/02/20 13:36 Ondansetron Hcl 4 Mg/2 Ml Vial IVPUSH Q8H PRN Nausea and Vomiting Pharmacy Consult 1 each 09/02/20 13:36 Consult Rx Perform Med Rec MISCELLANE ONCE PRN Consult order Pregabalin 100 mg 09/02/20 09:00 09/03/20 08:47 Pregabalin 100 Mg Capsule PO 100 mg DAILY SAMY Administration Sodium Chloride 3 ml 09/02/20 16:00 09/03/20 08:47 0.9 % Sodium Chloride Flush 3 Ml Syringe IVFLUSH 3 ml QSHIFT SAMY Administration Labs CBC & Chem 7: 09/03/20 05:26 09/03/20 05:26 Labs: Laboratory Results - last 24 hr 09/02/20 09/02/20 09/02/20 11:14 16:24 20:13 WBC RBC Hgb Hct MCV MCH MCHC RDW Plt Count MPV Immature Gran % (Auto) Neut % (Auto) Lymph % (Auto) [place] % (Auto) Eos % (Auto) Baso % (Auto) Lymph # (Auto) [place] # (Auto) Eos # (Auto) Baso # (Auto) Abs Immat Gran (auto) Absolute Neuts (auto) Absolute Nucleated RBC Nucleated RBC % (auto) Sodium 141 Potassium 3.9 Chloride 106 Carbon Dioxide 25 Anion Gap 14 BUN 16 Creatinine 1.35 Estim Creat Clear Calc 53.1 Estimated GFR 52 POC Glucose 76 140 H Random Glucose 132 H D Calcium 8.9 Magnesium 1.8 09/03/20 09/03/20 09/03/20 05:26 05:26 07:20 WBC 8.9 RBC 4.85 Hgb 13.3 L Hct 42.5 MCV 87.6 MCH 27.4 MCHC 31.3 RDW 16.6 H Plt Count 226 MPV 12.9 H Immature Gran % (Auto) 0.3 Neut % (Auto) 65.5 Lymph % (Auto) 11.9 L [place] % (Auto) 15.6 H Eos % (Auto) 6.1 H Baso % (Auto) 0.6 Lymph # (Auto) 1.1 L [place] # (Auto) 1.4 H Eos # (Auto) 0.5 H Baso # (Auto) 0.1 Abs Immat Gran (auto) 0.03 Absolute Neuts (auto) 5.8 Absolute Nucleated RBC 0.000 Nucleated RBC % (auto) 0.0 Sodium 139 Potassium 4.8 D Chloride 106 Carbon Dioxide 20 L Anion Gap 18 BUN 18 H Creatinine 1.40 Estim Creat Clear Calc 52.0 Estimated GFR 50 POC Glucose 98 Random Glucose 80 D Calcium 8.8 Magnesium 09/03/20 10:47 WBC RBC Hgb Hct MCV MCH MCHC RDW Plt Count MPV Immature Gran % (Auto) Neut % (Auto) Lymph % (Auto) [place] % (Auto) Eos % (Auto) Baso % (Auto) Lymph # (Auto) [place] # (Auto) Eos # (Auto) Baso # (Auto) Abs Immat Gran (auto) Absolute Neuts (auto) Absolute Nucleated RBC Nucleated RBC % (auto) Sodium Potassium Chloride Carbon Dioxide Anion Gap BUN Creatinine Estim Creat Clear Calc Estimated GFR POC Glucose 194 H Random Glucose Calcium Magnesium Microbiology Microbiology Results: Microbiology 09/02/20 08:13 Blood Culture - Preliminary Blood - Venous No growth after 24 hours. 09/02/20 08:13 Blood Culture - Preliminary Blood - Venous No growth after 24 hours. 09/01/20 19:48 Urine Culture - Final Urine Other - Nephrostomy Quality Stroke Does the patient have a stroke diagnosis?: No VTE Prior VTE?: No VTE Risk Level:: Medical - moderate - high VTE Device Contraindication: Treatment Not Indicated VTE Drug Contraindication: N/A - Med Ordered Assessment and Plan (1) Diabetes mellitus: Status: Acute (2) Urinary tract infection: Status: Acute Assessment and Plan: 75 yo M with a presumed PMH of DM, A. Fib on ELiquis, ? 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 While awaiting in the ED, the patient was noted to have NSVT runs and will be subsequently admitted. 1. NSVT, normal mag. Starting on Metoprolol, may need echo. So far no further episode of arythmia 2. Possible UTI has chronic ostomy, so this may be colonization but given his confusion (no reported history of dementia) + mild leukocytosis -- jennifer empirically treat with rocephin and see what grows f/u urine and blood cx no evidence of sepsis 3. Toxic/Metabolic Encephalopathy again, could be from acute UTI vs undiagnosed dementia, seems to be very lucid today 4. Hypothyroidism synthroid 5. A. Fib continue dig and eliquis and now metoprolol HCP unknown Presumed Full Code until daughter / patient have discussion
--- NOTE | 2020-09-03 13:08 | P.CONCA_ITS ---
History of Present Illness History of Present Illness Date of Service: 09/03/20 Requesting physician: Eitan Blanco Consult reason: atrial fibrillation and other ( Nonsustained ventricular tachycardia) Chief complaint: FALLS, UTI, NSVT Narrative: I was requested to see Nagi in cardiology consultation today as he was noted on admission to have nonsustained ventricular tachycardia. He also has atrial fibrillation. He has recently moved from [place] to [place], most of his past medical history is not available to us. He said about 5 years ago is a last time he saw his survival equipment repairer in [place], he had cardioversion performed at that time for atrial fibrillation. He has been on oral anticoagulation with Eliquis since then. Since then he has been told that his heart has been in rhythm but he is not sure about the same. He also denies any prior history of congestive heart failure, coronary artery disease, myocardial infarction, stenting. He denies any hospitalization with congestive heart failure. He has history of hypertension. History of urostomy. He came to the hospital brought by the daughter because of frequent falls. No loss of consciousness reported. Patient says he has right ankle pain and numbness which prevents him from walking normally. He also has increased swelling in his right ankle. Patient on admission was noted to have UTI. Troponin was mildly elevated but flat. He was noted to be in atrial fibrillation and was also noted to have nonsustained VT about 10 beats. Cardiology consult was sought for the same. Denies any palpitations. Denies any recent worsening shortness of breath, orthopnea, PND, worsening leg edema. Denies any lightheadedness or loss of consciousness. Review of Systems Constitutional: Constitutional: Reports no additional constitutional complaints Cardiovascular: Cardiovascular: Reports no additional cardiovascular complaints Respiratory: Respiratory: Reports no additional respiratory complaints Gastrointestinal: Gastrointestinal: Reports no additional gastrointestinal complaints Neurologic: Reports system reviewed and no additional complaints, except as documented Psychiatric: Psychiatric: Reports no additional psychiatric complaints Endocrine: Endocrine: Reports no additional endocrine complaints Hematologic/Lymphatic: Hematologic/Lymphatic: Reports no additional hematologic/lymphatic complaints [facility] Past Medical History Medical History (Updated 09/03/20 @ 13:14 by Omar Ramos MD) Afib CHF (congestive heart failure) Hematuria HTN (hypertension) Osteomyelitis Surgical History Surgical History History of urostomy Social History Social History Household Members: Children Housing: House Alcohol intake: never Patient Tobacco Use Status: Never used Tobacco Use of substances other than those prescribed or required for medical reasons: No Currently Displaying Signs/Symptoms of Drug Intoxication Withdrawal: No Have you been hit, kicked, punched, or otherwise hurt by someone within the past year? If so, by whom?: No Do you feel safe in your current relationship?: No Current Relationship Is there a partner from a previous relationship who is making you feel unsafe now?: No Are you made to feel afraid or neglected: No Advance Directives: No Advance Directives Information Provided: No Do you have thoughts of harming others: None Do you have a plan to hurt others: No Plan Recently lost weight without trying: No Eating poorly because of decreased appetite: No Nutrition Risks: No Nutritional Risk Poor oral hygiene: No Meds Allergies Allergy/AdvReac Type Severity Reaction Status Date / Time epinephrine Allergy Anaphylaxis Verified 09/01/20 21:03 Active Medications: Current Medications Generic Name Dose Route Start Last Admin Trade Name Freq PRN Reason Stop Dose Admin Acetaminophen 650 mg 09/02/20 13:36 Acetaminophen 325 Mg Tablet PO Q6H PRN Pain, Mild (Pain Scale 1-3) Apixaban 5 mg 09/02/20 01:00 09/03/20 08:47 Apixaban 5 Mg Tablet PO 5 mg BID SAMY Administration Digoxin 0.125 mg 09/02/20 10:00 09/03/20 08:47 Digoxin 0.125 Mg Tablet PO 0.125 mg DAILY@1000 SAMY Administration Ceftriaxone Sodium 1 gm/ 50 mls @ 100 mls/hr 09/03/20 08:00 09/03/20 09:20 Sodium Chloride IV Infused Q24H SAMY Infusion Insulin Human Lispro 0 unit 09/02/20 16:30 09/03/20 11:03 Insulin Lispro 100 Unit/Ml 3 Ml Vial SUBCUT 2 unit QIDACHS SAMY Administration Protocol Levothyroxine Sodium 88 mcg 09/02/20 06:30 09/03/20 07:00 Levothyroxine Sodium 88 Mcg Tablet PO 88 mcg DAILY@0630 SAMY Administration Metoprolol Tartrate 12.5 mg 09/02/20 15:00 09/03/20 08:47 Metoprolol Tartrate 12.5 Mg Halftab PO 12.5 mg TID SAMY Administration Protocol Ondansetron HCl 4 mg 09/02/20 13:36 Ondansetron Hcl 4 Mg/2 Ml Vial IVPUSH Q8H PRN Nausea and Vomiting Pharmacy Consult 1 each 09/02/20 13:36 Consult Rx Perform Med Rec MISCELLANE ONCE PRN Consult order Pregabalin 100 mg 09/02/20 09:00 09/03/20 08:47 Pregabalin 100 Mg Capsule PO 100 mg DAILY [facility] Administration Sodium Chloride 3 ml 09/02/20 16:00 09/03/20 08:47 0.9 % Sodium Chloride Flush 3 Ml Syringe IVFLUSH 3 ml QSHIFT [facility] Administration Home Medications Medication Instructions Recorded Confirmed Last Taken Type apixaban [Eliquis] 5 mg PO BID 09/02/20 09/02/20 09/01/20 History atorvastatin 10 mg PO BEDTIME 09/02/20 09/02/20 08/31/20 History digoxin 125 mcg PO DAILY 09/02/20 09/02/20 09/01/20 History glimepiride 2 mg PO QAM 09/02/20 09/02/20 09/01/20 History levothyroxine 88 mcg PO DAILY 09/02/20 09/02/20 09/01/20 History omega [id number] oil [Fish Oil] 1 cap PO DAILY 09/02/20 09/02/20 09/01/20 History polyethylene glycol 3350 17 g PO DAILY PRN 09/02/20 09/02/20 09/01/20 History pregabalin 100 mg PO DAILY 09/02/20 09/02/20 09/01/20 History sennosides-docusate sodium [Senna 1 tab-cap PO BEDTIME PRN 09/02/20 09/02/20 09/01/20 History Laxative-Stool Softener] Physical Exam Vital Signs: Vital Signs: Last Vital Signs Temp 98.5 F 09/03/20 10:48 Pulse 74 09/03/20 10:48 Resp 20 09/03/20 10:48 BP 97/55 L 09/03/20 10:48 Pulse Ox 96 09/03/20 10:48 Body Mass Index 32.2 Const: General: cooperative, comfortable, no acute distress, alert and awake Nutritional Appearance: overweight Orientation/consciousness: patient oriented x3 HENMT: Head: Yes normocephalic and Yes atraumatic Neck: Neck: Yes trachea midline, Yes supple and Yes no JVD Resp: Effort & Inspection: normal respiratory effort Auscultation: clear to auscultation bilaterally Cardio: Jugular venous distension: no JVD Palpation: abnormal PMI displaced PMI Rhythm: abnormal rhythm irregularly irregular Heart sounds: S1 normal heart sound present and S2 normal heart sound present Skin: General skin exam: no rashes or lesions noted Neuro: General: patient oriented x3 and no focal motor deficits Extrem: General: Yes no clubbing, cyanosis or edema Results Labs and Meds Result diagrams: 09/03/20 05:26 09/03/20 05:26 Lab results: Laboratory Results - last 24 hr 09/02/20 09/02/20 09/03/20 16:24 20:13 05:26 WBC 8.9 RBC 4.85 Hgb 13.3 L Hct 42.5 MCV 87.6 MCH 27.4 MCHC 31.3 RDW 16.6 H Plt Count 226 MPV 12.9 H Immature Gran % (Auto) 0.3 Neut % (Auto) 65.5 Lymph % (Auto) 11.9 L Childress % (Auto) 15.6 H Eos % (Auto) 6.1 H Baso % (Auto) 0.6 Lymph # (Auto) 1.1 L Child[place] # (Auto) 1.4 H Eos # (Auto) 0.5 H Baso # (Auto) 0.1 Abs Immat Gran (auto) 0.03 Absolute Neuts (auto) 5.8 Absolute Nucleated RBC 0.000 Nucleated RBC % (auto) 0.0 Sodium Potassium Chloride Carbon Dioxide Anion Gap BUN Creatinine Estim Creat Clear Calc Estimated GFR POC Glucose 76 140 H Random Glucose Calcium 09/03/20 09/03/20 09/03/20 05:26 07:20 10:47 WBC RBC Hgb Hct MCV MCH MCHC RDW Plt Count MPV Immature Gran % (Auto) Neut % (Auto) Lymph % (Auto) Childress % (Auto) Eos % (Auto) Baso % (Auto) Lymph # (Auto) Childress # (Auto) Eos # (Auto) Baso # (Auto) Abs Immat Gran (auto) Absolute Neuts (auto) Absolute Nucleated RBC Nucleated RBC % (auto) Sodium 139 Potassium 4.8 D Chloride 106 Carbon Dioxide 20 L Anion Gap 18 BUN 18 H Creatinine 1.40 Estim Creat Clear Calc 52.0 Estimated GFR 50 POC Glucose 98 194 H Random Glucose 80 D Calcium 8.8 EKG shows atrial fibrillation with PVC with left bundle-branch block Assessment and Plan (1) Ventricular tachycardia: Status: Acute patient with nonsustained ventricular tachycardia noted on admission. No symptoms related to it. Noted to have severe LV systolic dysfunction which is most likely cause for his nonsustained ventricular tachycardia. Will require ischemic workup which can be performed as outpatient. Start on metoprolol low dose 12.5 mg b.i.d.. Monitor closely for blood pressure and maximize as tolerated. Will follow closely. Continue full disclosure cardiac telemetry. Follow electrolytes closely. (2) Cardiomyopathy: Status: Acute Cardiomyopathy, patient has no idea of prior LV systolic dysfunction. Will require ischemic workup. Add metoprolol for neurohormonal modulation as well as for arrhythmias. Will also add low-dose Diovan therapy for neurohormonal modulation. Continue monitor for blood pressure. Okay to have systolic blood pressure up to 90 as long as patient is asymptomatic. Clinically appears to be euvolemic. There is no clear need for diuretic therapy. Closely watch for fluid status. Signs and symptoms of heart failure were discussed. (3) Afib: Status: Acute Atrial fibrillation appears to be chronic. Patient is currently not having any symptoms. Unclear as how long as he has been in persistent chronic atrial fibrillation. Continue rate control strategy for now especially given severely dilated left atrium. Will need to obtain old records from his prior survival equipment repairer in [place]. Continue full oral anticoagulation, currently on Eliquis 5 mg b.i.d.. Continue to monitor renal function closely. Also on digoxin for rate control, use metoprolol as above. If becomes bradycardic discontinue digoxin therapy. Will follow the patient. Procedures Date of Service Date of Service: 09/03/20
[2020-09-03 15:58] LABS: Glucose, Whole Blood 111 mg/dL (60-115)
--- NOTE | 2020-09-03 18:11 | PC.NURSE ---
Patient in recliner for majority of the day. Empties urostomy independently, standby assist to bathroom with walker. No complaints, no complications.
[2020-09-03 20:11] LABS: Glucose, Whole Blood 107 mg/dL (60-115)
[2020-09-03] MEDS: Metoprolol Tartrate 25 MG TABLET PO (20:44)
[2020-09-03] MEDS: Valsartan 40 MG TABLET 20 MG PO (20:44)
[2020-09-04] VITALS (10 sets, daily range): BP systolic 97–115; BP diastolic 47–58; PULSE 69–86; RESP 18–20; TEMP 36.2–37.4; O2SAT 95–99
[2020-09-04] MEDS: Levothyroxine Sodium 88 MCG TABLET PO (05:45)
[2020-09-04 07:31] LABS: Glucose, Whole Blood 89 mg/dL (60-115)
[2020-09-04] MEDS: Valsartan 40 MG TABLET 20 MG PO (08:22)
[2020-09-04] MEDS: 0.9 % Sodium Chloride Flush 3 ML SYRINGE IVFLUSH ×3 (08:22→21:12)
[2020-09-04] MEDS: cefTRIAXone sodium 1 GM in 0.9 % Sodium Chloride 50 ML IV (08:22)
[2020-09-04] MEDS: Apixaban 5 MG TABLET PO ×2 (08:23→21:11)
[2020-09-04] MEDS: Metoprolol Tartrate 25 MG TABLET PO (08:23)
[2020-09-04] MEDS: Pregabalin 100 MG CAPSULE PO (08:23)
[2020-09-04] MEDS: Digoxin 0.125 MG TABLET PO (08:23)
[2020-09-04 11:13] LABS: Glucose, Whole Blood 206 mg/dL (60-115)
--- NOTE | 2020-09-04 12:09 | P.PNCA_ITS ---
Subjective Subjective Date of Service: 09/04/20 Principal diagnosis: Atrial fibrillation, cardiomyopathy, nonsustained VT Interval history: atrial fibrillation rate overall is well control and at nighttime slightly on the bradycardic side. No further ventricular tachycardia noted. Echocardiogram shows severely depressed LV ejection fraction. Patient has no ID or clue about it. Denies any cardiovascular symptoms at current time. Review of Systems Constitutional: Reports no additional constitutional complaints Cardiovascular: Reports no additional cardiovascular complaints Respiratory: Reports no additional respiratory complaints Gastrointestinal: Reports no additional gastrointestinal complaints Genitourinary: Reports no additional male genitourinary complaints Reports system reviewed and no additional complaints, except as documented Psychiatric: Reports no additional psychiatric complaints Endocrine: Reports no additional endocrine complaints Physical Exam Vital Signs: Last Vital Signs Temp 98.2 F 09/04/20 08:00 Pulse 76 09/04/20 08:23 Resp 18 09/04/20 08:00 BP 115/57 L 09/04/20 08:23 Pulse Ox 95 09/04/20 08:00 Body Mass Index 32.2 Const General: cooperative, comfortable, no acute distress, alert, awake and tired a ppearing Nutritional Appearance: overweight Orientation/consciousness: patient oriented x3 Neck Neck: Yes trachea midline, Yes supple and Yes no JVD Resp Effort & Inspection: decreased respiratory effort Auscultation: clear to auscultation bilaterally Cardio Palpation: abnormal PMI displaced PMI Rhythm: abnormal rhythm irregularly irregular Heart sounds: S1 normal heart sound present and S2 normal heart sound present GI Auscultation: normal bowel sounds Skin General skin exam: no rashes or lesions noted Neuro General: patient oriented x3 Extrem General: Yes no clubbing, cyanosis or edema Results Labs and Meds Result diagrams: 09/03/20 05:26 09/03/20 05:26 Lab results: Laboratory Results - last 24 hr 09/03/20 09/03/20 09/04/20 15:52 19:59 07:24 POC Glucose 111 107 89 09/04/20 11:02 POC Glucose 206 H Progress Note: A&P Assessment and plan (1) Ventricular tachycardia: Status: Acute Assessment and Plan: Nonsustained ventricular tachycardia without any recurrence. Continue maximize metoprolol therapy. Will increase to 50 mg b.i.d.. Outpatient ischemic workup will be pursued. (2) Cardiomyopathy: Status: Acute Assessment and Plan: Cardiomyopathy of unclear etiology. Patient is not aware of his prior diagnosis of cardiomyopathy. He does carry diagnosis of CHF. Currently not on diuretic therapy. Clinically euvolemic and well compensated. Heart failure symptoms were discussed. Continue maximize neurohormonal modulation. Will incr ease valsartan to 40 mg b.i.d. and metoprolol to 50 mg b.i.d.. Outpatient ischemic workup. (3) Afib: Status: Acute Assessment and Plan: Atrial fibrillation, currently rate control may be over rate control. Discontinue digoxin therapy. Maximize metoprol[facility] therapy. [facility] Continue full oral anticoagulation as prescribed. PT consultation for fall prevention. Will sign of the case. Will follow up as outpatient. Fall Risk Details Current Medications: Current Medications Generic Name Dose Route Start Last Admin Trade Name Freq PRN Reason Stop Dose Admin Acetaminophen 650 mg 09/02/20 13:36 Acetaminophen 325 Mg Tablet PO Q6H PRN Pain, Mild (Pain Scale 1-3) Apixaban 5 mg 09/02/20 01:00 09/04/20 08:23 Apixaban 5 Mg Tablet PO 5 mg BID SAMY Administration Digoxin 0.125 mg 09/02/20 10:00 09/04/20 08:23 Digoxin 0.125 Mg Tablet PO 0.125 mg DAILY@1000 SAMY Administration Ceftriaxone Sodium 1 gm/ 50 mls @ 100 mls/hr 09/03/20 08:00 09/04/20 09:35 Sodium Chloride IV Infused Q24H SAMY Infusion Insulin Human Lispro 0 unit 09/02/20 16:30 09/04/20 08:13 Insulin Lispro 100 Unit/Ml 3 Ml Vial SUBCUT Not Given QIDACHS SAMY Protocol Levothyroxine Sodium 88 mcg 09/02/20 06:30 09/04/20 05:45 Levothyroxine Sodium 88 Mcg Tablet PO 88 mcg DAILY@0630 SAMY Administration Metoprolol Tartrate 25 mg 09/03/20 21:00 09/04/20 08:23 Metoprolol Tartrate 25 Mg Tablet PO 25 mg BID SAMY Administration Protocol Ondansetron HCl 4 mg 09/02/20 13:36 Ondansetron Hcl 4 Mg/2 Ml Vial IVPUSH Q8H PRN Nausea and Vomiting Pharmacy Consult 1 each 09/02/20 13:36 Consult Rx Perform Med Rec MISCELLANE ONCE PRN Consult order Pregabalin 100 mg 09/02/20 09:00 09/04/20 08:23 Pregabalin 100 Mg Capsule PO 100 mg DAILY [facility]Y Administration Sodium Chloride 3 ml 09/02/20 16:00 09/04/20 08:22 0.9 % Sodium Chloride Flush 3 Ml Syringe IVFLUSH 3 ml QSHIFT [facility] Administration Valsartan 20 mg 09/03/20 21:00 09/04/20 08:22 Valsartan 40 Mg Tablet PO 20 mg BID SAMY Administration Protocol Time Spent With Patient Time: Total time spent is greater than 50% in coordination of care (as documented) at patient's floor/unit and/or counseling patient: Time with patient: 25 - 35 minutes Progress Note: Quality Stroke Does the patient have a stroke diagnosis?: No Procedures Date of Service Date of Service: 09/04/20
--- NOTE | 2020-09-04 12:25 | HO.PM.IMPN ---
Subjective Subjective Date of Service: 09/04/20 Interval History: Seen in f/u AFIB, NSVT--no further episodes Review of Systems Gen: no fever Resp: no sob, no cough CV: no chest, no ODELL, no leg edema GI: No n/v, no abd pain Neuro: No confusion Physical Exam Vital Signs: Vital Signs: Last Vital Signs Temp 98.2 F 09/04/20 08:00 Pulse 76 09/04/20 08:23 Resp 18 09/04/20 08:00 BP 115/57 L 09/04/20 08:23 Pulse Ox 95 09/04/20 08:00 Body Mass Index 32.2 Const: Other: Constitutional Awake and Alert, No apparent distress Neck Supple, No lymphadenopathy Cardiovascular RRR, No M/R/G, S1 S2, No S3 S4, No pedal edema Respiratory Lungs clear, No respiratory distress Gastrointestinal Non tender, Non-distended Skin No rash Neurological Alert & oriented x3 Psychological Appropriate affect Objective Data Current Medications Generic Name Dose Route Start Last Admin Trade Name Freq PRN Reason Stop Dose Admin Acetaminophen 650 mg 09/02/20 13:36 Acetaminophen 325 Mg Tablet PO Q6H PRN Pain, Mild (Pain Scale 1-3) Apixaban 5 mg 09/02/20 01:00 09/04/20 08:23 Apixaban 5 Mg Tablet PO 5 mg BID SAMY Administration Ceftriaxone Sodium 1 gm/ 50 mls @ 100 mls/hr 09/03/20 08:00 09/04/20 09:35 Sodium Chloride IV Infused Q24H SAMY Infusion Insulin Human Lispro 0 unit 09/02/20 16:30 09/04/20 08:13 Insulin Lispro 100 Unit/Ml 3 Ml Vial SUBCUT Not Given QIDACHS [facility] Protocol Levothyroxine Sodium 88 mcg 09/02/20 06:30 09/04/20 05:45 Levothyroxine Sodium 88 Mcg Tablet PO 88 mcg DAILY@0630 SAMY Administration Metoprolol Tartrate 50 mg 09/04/20 21:00 Metoprolol Tartrate 50 Mg Tablet PO BID [facility] Protocol Ondansetron HCl 4 mg 09/02/20 13:36 Ondansetron Hcl 4 Mg/2 Ml Vial IVPUSH Q8H PRN Nausea and Vomiting Pharmacy Consult 1 each 09/02/20 13:36 Consult Rx Perform Med Rec MISCELLANE ONCE PRN Consult order Pregabalin 100 mg 09/02/20 09:00 09/04/20 08:23 Pregabalin 100 Mg Capsule PO 100 mg DAILY SAMY Administration Sodium Chloride 3 ml 09/02/20 16:00 09/04/20 08:22 0.9 % Sodium Chloride Flush 3 Ml Syringe IVFLUSH 3 ml QSHIFT SAMY Administration Valsartan 40 mg 09/04/20 21:00 Valsartan 40 Mg Tablet PO BID [facility] Protocol Labs CBC & Chem 7: 09/03/20 05:26 09/03/20 05:26 Labs: Laboratory Results - last 24 hr 09/03/20 09/03/20 09/04/20 15:52 19:59 07:24 POC Glucose 111 107 89 09/04/20 11:02 POC Glucose 206 H Microbiology Microbiology Results: Microbiology 09/02/20 08:13 Blood Culture - Preliminary Blood - Venous No growth after 48 hours. 09/02/20 08:13 Blood Culture - Preliminary Blood - Venous No growth after 48 hours. Quality Stroke Does the patient have a stroke diagnosis?: No VTE Prior VTE?: No VTE Risk Level:: Medical - moderate - high VTE Device Contraindication: Treatment Not Indicated VTE Drug Contraindication: N/A - Med Ordered Assessment and Plan (1) Diabetes mellitus: Status: Acute (2) Urinary tract infection: Status: Acute Assessment and Plan: 75 yo M with a presumed PMH of DM, A. Fib on ELiquis, ? 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 While awaiting in the ED, the patient was noted to have NSVT runs and will be subsequently admitted. 1. NSVT, normal mag. Started on Metoprolol, increasing dose to 50 bid 2. Possible UTI has chronic ostomy, so this may be colonization but given his confusion (no reported history of dementia) + mild leukocytosis -- emparic rocephin and see what grows f/u urine and blood cx no evidence of sepsis 3. Toxic/Metabolic Encephalopathy again, could be from acute UTI vs undiagnosed dementia, seems to be very lucid now 4. Hypothyroidism synthroid 5. A. Fib continue eliquis and now metoprolol. DC dig with increasing dose of Metoprolol HCP unknown Presumed Full Code until, probably home tomorrow
[2020-09-04] MEDS: Insulin Lispro 100 UNIT/ML 3 ML VIAL SUBCUT (12:30)
[2020-09-04 16:07] LABS: Glucose, Whole Blood 104 mg/dL (60-115)
[2020-09-04 20:05] LABS: Glucose, Whole Blood 148 mg/dL (60-115)
[2020-09-05] VITALS (10 sets, daily range): BP systolic 101–124; BP diastolic 50–63; PULSE 58–89; RESP 18–20; TEMP 36.1–36.9; O2SAT 95–98
[2020-09-05] MEDS: Levothyroxine Sodium 88 MCG TABLET PO (06:04)
[2020-09-05 07:18] LABS: Glucose, Whole Blood 98 mg/dL (60-115)
[2020-09-05] MEDS: Apixaban 5 MG TABLET PO ×2 (08:30→21:27)
[2020-09-05] MEDS: 0.9 % Sodium Chloride Flush 3 ML SYRINGE IVFLUSH ×3 (08:30→21:28)
[2020-09-05] MEDS: Pregabalin 100 MG CAPSULE PO (08:30)
[2020-09-05] MEDS: cefTRIAXone sodium 1 GM in 0.9 % Sodium Chloride 50 ML IV (08:31)
[2020-09-05] MEDS: Valsartan 40 MG TABLET PO (08:31)
[2020-09-05] MEDS: Metoprolol Tartrate 50 MG TABLET PO (08:31)
--- NOTE | 2020-09-05 11:10 | PM.PNCARD ---
Subjective Subjective Date of Service: 09/05/20 Principal diagnosis: Atrial fibrillation, cardiomyopathy, nonsustained VT Interval history: No further ventricular arrhythmias. Remains in atrial fibrillation with controlled ventricular response. No heart failure symptoms. Review of Systems Constitutional: Reports no additional constitutional complaints Cardiovascular: Reports no additional cardiovascular complaints Respiratory: Reports no additional respiratory complaints Gastrointestinal: Reports no additional gastrointestinal complaints Reports system reviewed and no additional complaints, except as documented Physical Exam Vital Signs: Last Vital Signs Temp 98.4 F 09/05/20 08:00 Pulse 76 09/05/20 08:31 Resp 20 09/05/20 08:00 BP 110/60 09/05/20 08:31 Pulse Ox 96 09/05/20 08:00 Body Mass Index 32.2 Const General: cooperative, comfortable, alert and awake Nutritional Appearance: overweight Neck Neck: Yes trachea midline, Yes supple and Yes no JVD Resp Effort & Inspection: normal respiratory effort Auscultation: clear to auscultation bilaterally Cardio Palpation: abnormal PMI displaced PMI Rhythm: abnormal rhythm irregularly irregular Heart sounds: S1 normal heart sound present, S2 normal heart sound present, no click, no gallops and no murmurs GI Auscultation: normal bowel sounds Neuro General: no focal motor deficits Extrem General: Yes no clubbing, cyanosis or edema Results Labs and Meds Result diagrams: 09/03/20 05:26 09/03/20 05:26 Lab results: Laboratory Results - last 24 hr 09/04/20 09/04/20 09/04/20 11:02 16:02 20:00 POC Glucose 206 H 104 148 H 09/05/20 07:13 POC Glucose 98 Progress Note: A&P Assessment and plan (1) Cardiomyopathy: Status: Acute Assessment and Plan: Cardiomyopathy without overt congestive heart failure. Etiology is unclear. Will workup outpatient with ischemic workup. continue neurohormonal modulation with valsartan as well as metoprolol therapy. Discontinue digoxin therapy. (2) Afib: Status: Acute Assessment and Plan: Chronic atrial fibrillation, currently rate control. Discontinue digoxin. Continue metoprolol therapy for rate control. Will follow up with outpatient Holter monitor. Continue full oral anticoagulation with Eliquis 5 mg b.i.d.. PT consultation for gait evaluation and fall prevention. Will follow up as outpatient. Thank you for allowing me to partake in his care Fall Risk Details Current Medications: Current Medications Generic Name Dose Route Start Last Admin Trade Name Johann PRN Reason Stop Dose Admin Acetaminophen 650 mg 09/02/20 13:36 Acetaminophen 325 Mg Tablet PO Q6H PRN Pain, Mild (Pain Scale 1-3) Apixaban 5 mg 09/02/20 01:00 09/05/20 08:30 Apixaban 5 Mg Tablet PO 5 mg BID SAMY Administration Ceftriaxone Sodium 1 gm/ 50 mls @ 100 mls/hr 09/03/20 08:00 09/05/20 09:32 Sodium Chloride IV Infused Q24H [facility]Y Infusion Insulin Human Lispro 0 unit 09/02/20 16:30 09/05/20 07:23 Insulin Lispro 100 Unit/Ml 3 Ml Vial SUBCUT Not Given QIDACHS [facility] Protocol Levothyroxine Sodium 88 mcg 09/02/20 06:30 09/05/20 06:04 Levothyroxine Sodium 88 Mcg Tablet PO 88 mcg DAILY@0630 SAMY Administration Metoprolol Tartrate 50 mg 09/04/20 21:00 09/05/20 08:31 Metoprolol Tartrate 50 Mg Tablet PO 50 mg BID [facility]Y Administration Protocol Ondansetron HCl 4 mg 09/02/20 13:36 Ondansetron Hcl 4 Mg/2 Ml Vial IVPUSH Q8H PRN Nausea and Vomiting Pharmacy Consult 1 each 09/02/20 13:36 Consult Rx Perform Med Rec MISCELLANE ONCE PRN Consult order Pregabalin 100 mg 09/02/20 09:00 09/05/20 08:30 Pregabalin 100 Mg Capsule PO 100 mg DAILY [facility] Administration Sodium Chloride 3 ml 09/02/20 16:00 09/05/20 08:30 0.9 % Sodium Chloride Flush 3 Ml Syringe IVFLUSH 3 ml QSHIFT [facility] Administration Valsartan 40 mg 09/04/20 21:00 09/05/20 08:31 Valsartan 40 Mg Tablet PO 40 mg BID SAMY Administration Protocol Time Spent With Patient Time: Total time spent is greater than 50% in coordination of care (as documented) at patient's floor/unit and/or counseling patient: Time with patient: 25 - 35 minutes Progress Note: Quality Stroke Does the patient have a stroke diagnosis?: No Procedures Date of Service Date of Service: 09/05/20
[2020-09-05 11:17] LABS: Glucose, Whole Blood 245 mg/dL (60-115)
[2020-09-05] MEDS: Insulin Lispro 100 UNIT/ML 3 ML VIAL SUBCUT (12:15)
--- NOTE | 2020-09-05 13:10 | P.DS_ITS ---
DS: Providers Provider Date of Service: 09/07/20 Date of admission: 09/02/20 12:09 Primary care physician: Unknown Physician Consults: 09/02/20 12:26 Consult to Cardiology Routine Consulting Provider: [facility] Cardiovascular Services Reason for consultation: NSVT, Elevated trop-I, PAF DS: Diagnosis Discharge Diagnosis (1) Cardiomyopathy: Status: Acute (2) Afib: Status: Acute DS: Medications Discharge Medications Home Medications: Home Medications Medication Instructions Recorded Confirmed apixaban [Eliquis] 5 mg PO BID 09/02/20 09/02/20 atorvastatin 10 mg PO BEDTIME 09/02/20 09/02/20 digoxin 125 mcg PO DAILY 09/02/20 09/02/20 glimepiride 2 mg PO QAM 09/02/20 09/02/20 levothyroxine 88 mcg PO DAILY 09/02/20 09/02/20 omega 9-xew-mjf-fish oil [Fish Oil] 1 cap PO DAILY 09/02/20 09/02/20 polyethylene glycol 3350 17 g PO DAILY PRN 09/02/20 09/02/20 pregabalin 100 mg PO DAILY 09/02/20 09/02/20 sennosides-docusate sodium [Senna 1 tab-cap PO BEDTIME PRN 09/02/20 09/02/20 Laxative-Stool Softener] DS: Summary Hospital Course Hospital Course: Chief Complaint: Falls This is a 75-year-old male with a past medical history of diabetes, atrial fibrillation, hypothyroid, bladder cancer status post resection and creation of a ostomy, probable undiagnosed dementia/ cognitive impairment who presents to the hospital after being brought in for frequent falls. History is obtained from the ED provider and the patient's daughter with minimal contribution from the patient himself. He endorses that he moved from [place] to [place] within the last 3-4 weeks but does not know why he moved here. He does report that he has had frequent falls but he is unable to tell me why these occur. He denies any loss of consciousness. He does endorse some right ankle pain but otherwise denies any chest pain, shortness of breath, headache. Upon further discussion with his daughter, she endorses that the patient was moved to the [place] due to further declining health. In regards to his medical history she reports that she has access to his medical records but she is not fully aware of his medical history. In the emergency room the patient was evaluated and found to have a UA suggestive of possible urinary tract infection, leukocytosis of 12,000 and elevated high sensitivity troponin ( 97, 108, 96). there was consideration for possible physical therapy evaluation case management consultation for placement, however patient was noted to have a short run of NSVT and so admission was requested. Hospital course: NSVT work up included normal magnesium, Echo showed 1. Severe LV systolic dysfunction with LVEF of 15-20% with mild LVH 2. Severely dilated left atrium 3. Mild aortic and mitral regurgitation 4. Moderately elevated right ventricular systolic pressure 5. No gross pericardial effusion He was seen by Dr. Ramos and treated with metoprolol that has been adjusted up to 50 mg bid. He was on telemetry and has not had any further episodes Possible UTI has chronic ostomy, so this may be colonization but given his confusion (no reported history of dementia) + mild leukocytosis --Treated with Rocephin for possible UTI for 3 days, has no fever. Urine culture is negative and so no further antibiotics Toxic/Metabolic Encephalopathy--proably from underlying dementia and resolved and appear to be at his baseline Hypothyroidism--continue synthroid A. Fib--continue eliquis and now metoprolol. DC dig with increasing dose of Metoprolol Cardiomyopathy with low EF as stated above, euvolemic. Started Metorprolol 50 bid and Diovan 40 bid and should follow up with Dr. Ramos for further management and work up. Falls, PT is recommending STR Final Diagnoses: Non sustained Ventricular tachycardia Possible UTI Cardiomyopathy with chronic systolic heart failure Falls toxic metabolic encephalopathy This summery was prepare in advance and has been update today 09/07/20 to reflect current clinical cause and Date of Service is today 09/07/20, Time Spent with Patient Time attestation: Total time spent providing and/or coordinating discharge services: Discharge coordination time: Greater than 30 minutes Quality: Stroke Does the patient have a stroke diagnosis?: No Physical Exam Vital Signs: Vital Signs: Selected Entries 09/07/20 07:20 Temperature 96.6 F L Pulse Rate 66 Respiratory Rate 14 Blood Pressure 100/50 L Pulse Oximetry 98 Oxygen Delivery Me thod Room Air Body Mass Index 32.2 Const: Other: General: AO X 2, no acute distress Resp: CTA bilateral CVS: S1,S2,RRR GI: +BS, NT, no distention Skin: No rash Neuro: motor grossly intact Psych: appropriate affect DS: Data Data Completed and Pending Labs on day of discharge: Laboratory Results - last 24 hr 09/04/20 09/04/20 09/05/20 16:02 20:00 07:13 POC Glucose 104 148 H 98 09/05/20 11:14 POC Glucose 245 H Preliminary micro results at discharge 09/02/20 08:13 Blood Culture - Preliminary Blood - Venous No growth after 48 hours. 09/02/20 08:13 Blood Culture - Preliminary Blood - Venous No growth after 48 hours. Discharge Plan Discharge Anticipated Discharge Date/Time: 09/07/20 09:26 Patient Disposition: er [facility] Discharge Diagnosis: Ventricular Tachycardia, UTI Referrals: Kamran Acosta [Outside] - 1 Week Physician,Unknown [Primary Care Provider] - 1 Week Discharge Medications: New metoprolol tartrate 50 mg Tablet 50 mg PO BID Qty: 60 RF: 0 valsartan 40 mg Tablet 40 mg PO BID Qty: 60 RF: 0 Continued atorvastatin 10 mg Tablet 10 mg PO BEDTIME RF: 0 digoxin 125 mcg (0.125 mg) Tablet 125 mcg PO DAILY RF: 0 Eliquis 5 mg Tablet 5 mg PO BID RF: 0 omega 3-log-qdb-fish oil [Fish Oil] 1,000 mg (120 mg-180 mg) Capsule 1 cap PO DAILY RF: 0 polyethylene glycol 3350 17 gram Powder In Packet 17 g PO DAILY PRN (Reason: Constipation) RF: 0 pregabalin 100 mg Capsule 100 mg PO DAILY RF: 0 sennosides-docusate sodium 8.6-50 mg Tablet 1 tab-cap PO BEDTIME PRN (Reason: Constipation) RF: 0 glimepiride 2 mg Tablet 2 mg PO QAM RF: 0 levothyroxine 88 mcg Tablet 88 mcg PO DAILY RF: 0 Discharge Orders: Discharge Order (Routine); Ordered 09/07/20 Ordered By: Chaz Wei Diet: diabetic diet Activity on Discharge: As tolerated Stand Alone Forms: Patient Portal Discharge page Care Plan Goals: Full recovery from UTI, and ventricular tachycrdia Health Concerns: Ventricular tachyhcardia, falls, and UTI Plan of Treatment: Take Cefuroxime for UTI and follow up with your Doctor in a week Assessment: As above
--- NOTE | 2020-09-05 13:33 | HO.PM.IMPN ---
Subjective Subjective Date of Service: 09/05/20 Interval History: Seen in f/u AFIB, NSVT--no further episodes Physical Exam Vital Signs: Vital Signs: Last Vital Signs Temp 97.9 F 09/05/20 11:41 Pulse 62 09/05/20 11:41 Resp 20 09/05/20 11:41 BP 101/50 L 09/05/20 11:41 Pulse Ox 96 09/05/20 11:41 Body Mass Index 32.2 Const: Other: General: AO X 2, no acute distress Resp: CTA bilateral CVS: S1,S2,RRR GI: +BS, NT, no distention Skin: No rash Neuro: motor grossly intact Psych: appropriate affect Objective Data Current Medications Generic Name Dose Route Start Last Admin Trade Name Freq PRN Reason Stop Dose Admin Acetaminophen 650 mg 09/02/20 13:36 Acetaminophen 325 Mg Tablet PO Q6H PRN Pain, Mild (Pain Scale 1-3) Apixaban 5 mg 09/02/20 01:00 09/05/20 08:30 Apixaban 5 Mg Tablet PO 5 mg BID SAMY Administration Ceftriaxone Sodium 1 gm/ 50 mls @ 100 mls/hr 09/03/20 08:00 09/05/20 09:32 Sodium Chloride IV Infused Q24H SAMY Infusion Insulin Human Lispro 0 unit 09/02/20 16:30 09/05/20 12:15 Insulin Lispro 100 Unit/Ml 3 Ml Vial SUBCUT 4 unit QIDACHS SAMY Administration Protocol Levothyroxine Sodium 88 mcg 09/02/20 06:30 09/05/20 06:04 Levothyroxine Sodium 88 Mcg Tablet PO 88 mcg DAILY@0630 SAMY Administration Metoprolol Tartrate 50 mg 09/04/20 21:00 09/05/20 08:31 Metoprolol Tartrate 50 Mg Tablet PO 50 mg BID SAMY Administration Protocol Ondansetron HCl 4 mg 09/02/20 13:36 Ondansetron Hcl 4 Mg/2 Ml Vial IVPUSH Q8H PRN Nausea and Vomiting Pharmacy Consult 1 each 09/02/20 13:36 Consult Rx Perform Med Rec MISCELLANE ONCE PRN Consult order Pregabalin 100 mg 09/02/20 09:00 09/05/20 08:30 Pregabalin 100 Mg Capsule PO 100 mg DAILY SAMY Administration Sodium Chloride 3 ml 09/02/20 16:00 09/05/20 08:30 0.9 % Sodium Chloride Flush 3 Ml Syringe IVFLUSH 3 ml QSHIFT SAMY Administration Valsartan 40 mg 09/04/20 21:00 09/05/20 08:31 Valsartan 40 Mg Tablet PO 40 mg BID SAMY Administration Protocol Labs CBC & Chem 7: 09/03/20 05:26 09/03/20 05:26 Labs: Laboratory Results - last 24 hr 09/04/20 09/04/20 09/05/20 16:02 20:00 07:13 POC Glucose 104 148 H 98 09/05/20 11:14 POC Glucose 245 H Microbiology Microbiology Results: Microbiology 09/02/20 08:13 Blood Culture - Preliminary Blood - Venous No growth after 48 hours. 09/02/20 08:13 Blood Culture - Preliminary Blood - Venous No growth after 48 hours. Quality Stroke Does the patient have a stroke diagnosis?: No VTE Prior VTE?: No VTE Risk Level:: Medical - moderate - high VTE Device Contraindication: Treatment Not Indicated VTE Drug Contraindication: N/A - Med Ordered Assessment and Plan (1) Cardiomyopathy: Status: Acute (2) Afib: Status: Acute Assessment and Plan: 75 yo M with a presumed PMH of DM, A. Fib on ELiquis, ? 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 While awaiting in the ED, the patient was noted to have NSVT runs and will be subsequently admitted. NSVT work up included normal magnesium, Echo showed 1. Severe LV systolic dysfunction with LVEF of 15-20% with mild LVH 2. Severely dilated left atrium 3. Mild aortic and mitral regurgitation 4. Moderately elevated right ventricular systolic pressure 5. No gross pericardial effusion He was seen by Dr. Ramos and treated with metoprolol that has been adjusted up to 50 mg bid. He was on telemetry and has not had any further episodes Possible UTI has chronic ostomy, so this may be colonization but given his confusion (no reported history of dementia) + mild leukocytosis --Treated with Rocephin for possible UTI for 3 days, has no fever. Urine culture is negative and so no further antibiotics Toxic/Metabolic Encephalopathy--proably from underlying dementia and resolved and appear to be at his baseline Hypothyroidism--continue synthroid A. Fib--continue eliquis and now metoprolol. DC dig stopped with addition of Metoprolol Cardiomyopathy with low EF as stated above, euvolemic. Started Metorprolol 50 bid and Diovan 40 bid and should follow up with Dr. Ramos for further management and work up for ischemia. Falls, PT is recommending STR
[2020-09-05 16:09] LABS: Glucose, Whole Blood 74 mg/dL (60-115)
[2020-09-05 20:04] LABS: Glucose, Whole Blood 111 mg/dL (60-115)
[2020-09-06] VITALS (11 sets, daily range): BP systolic 91–134; BP diastolic 43–86; PULSE 57–79; RESP 18–20; TEMP 36.3–37.2; O2SAT 96–98
[2020-09-06] MEDS: Levothyroxine Sodium 88 MCG TABLET PO (06:07)
[2020-09-06 07:26] LABS: Glucose, Whole Blood 92 mg/dL (60-115)
[2020-09-06] MEDS: 0.9 % Sodium Chloride Flush 3 ML SYRINGE IVFLUSH ×3 (09:16→21:12)
[2020-09-06] MEDS: cefTRIAXone sodium 1 GM in 0.9 % Sodium Chloride 50 ML IV (09:16)
[2020-09-06] MEDS: Metoprolol Tartrate 50 MG TABLET PO ×2 (09:17→21:11)
[2020-09-06] MEDS: Apixaban 5 MG TABLET PO ×2 (09:17→21:11)
[2020-09-06] MEDS: Valsartan 40 MG TABLET PO ×2 (09:17→21:10)
[2020-09-06] MEDS: Pregabalin 100 MG CAPSULE PO (09:17)
[2020-09-06 11:13] LABS: Glucose, Whole Blood 132 mg/dL (60-115)
[2020-09-06 16:19] LABS: Glucose, Whole Blood 95 mg/dL (60-115)
--- NOTE | 2020-09-06 17:24 | HO.PM.IMPN ---
Subjective Subjective Date of Service: 09/06/20 Interval History: Seen in f/u AFIB, NSVT--no new issues Review of Systems Gen: no fever Resp: no sob, no cough CV: no chest, no ODELL, no leg edema GI: No n/v, no abd pain Neuro: No confusion Physical Exam Vital Signs: Vital Signs: Last Vital Signs Temp 97.6 F 09/06/20 15:27 Pulse 68 09/06/20 15:27 Resp 20 09/06/20 15:27 BP 114/43 L 09/06/20 15:27 Pulse Ox 98 09/06/20 15:27 Body Mass Index 32.2 Const: Other: General: AO X 2, no acute distress Resp: CTA bilateral CVS: S1,S2,RRR GI: +BS, NT, no distention Skin: No rash Neuro: motor grossly intact Psych: appropriate affect Objective Data Current Medications Generic Name Dose Route Start Last Admin Trade Name Freq PRN Reason Stop Dose Admin Acetaminophen 650 mg 09/02/20 13:36 Acetaminophen 325 Mg Tablet PO Q6H PRN Pain, Mild (Pain Scale 1-3) Apixaban 5 mg 09/02/20 01:00 09/06/20 09:17 Apixaban 5 Mg Tablet PO 5 mg BID SAMY Administration Ceftriaxone Sodium 1 gm/ 50 mls @ 100 mls/hr 09/03/20 08:00 09/06/20 10:41 Sodium Chloride IV Infused Q24H SAMY Infusion Insulin Human Lispro 0 unit 09/02/20 16:30 09/06/20 16:59 Insulin Lispro 100 Unit/Ml 3 Ml Vial SUBCUT Not Given QIDACHS SAMY Protocol Levothyroxine Sodium 88 mcg 09/02/20 06:30 09/06/20 06:07 Levothyroxine Sodium 88 Mcg Tablet PO 88 mcg DAILY@0630 SAMY Administration Metoprolol Tartrate 50 mg 09/04/20 21:00 09/06/20 09:17 Metoprolol Tartrate 50 Mg Tablet PO 50 mg BID SAMY Administration Protocol Ondansetron HCl 4 mg 09/02/20 13:36 Ondansetron Hcl 4 Mg/2 Ml Vial IVPUSH Q8H PRN Nausea and Vomiting Pharmacy Consult 1 each 09/02/20 13:36 Consult Rx Perform Med Rec MISCELLANE ONCE PRN Consult order Pregabalin 100 mg 09/02/20 09:00 09/06/20 09:17 Pregabalin 100 Mg Capsule PO 100 mg DAILY SAMY Administration Sodium Chloride 3 ml 09/02/20 16:00 09/06/20 09:16 0.9 % Sodium Chloride Flush 3 Ml Syringe IVFLUSH 3 ml QSHIFT SAMY Administration Valsartan 40 mg 09/04/20 21:00 09/06/20 09:17 Valsartan 40 Mg Tablet PO 40 mg BID SAMY Administration Protocol Labs CBC & Chem 7: 09/03/20 05:26 09/03/20 05:26 Labs: Laboratory Results - last 24 hr 09/05/20 09/06/20 09/06/20 19:58 07:16 11:09 POC Glucose 111 92 132 H 09/06/20 16:16 POC Glucose 95 Quality Stroke Does the patient have a stroke diagnosis?: No VTE Prior VTE?: No VTE Risk Level:: Medical - moderate - high VTE Device Contraindication: Treatment Not Indicated VTE Drug Contraindication: N/A - Med Ordered Assessment and Plan (1) Cardiomyopathy: Status: Acute (2) Afib: Status: Acute Assessment and Plan: 75 yo M with a presumed PMH of DM, A. Fib on ELiquis, ? 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 While awaiting in the ED, the patient was noted to have NSVT runs and will be subsequently admitted. NSVT work up included normal magnesium, Echo showed 1. Severe LV systolic dysfunction with LVEF of 15-20% with mild LVH 2. Severely dilated left atrium 3. Mild aortic and mitral regurgitation 4. Moderately elevated right ventricular systolic pressure 5. No gross pericardial effusion He was seen by Dr. Ramos and being managed with metoprolol which seem to have suppresed arrythmia. Possible UTI has chronic ostomy, so this may be colonization but given his confusion (no reported history of dementia) + mild leukocytosis --Treated with Rocephin for possible UTI for 3 days, has no fever. Urine culture is negative and so no further antibiotics Toxic/Metabolic Encephalopathy--proably from underlying dementia and resolved and appear to be at his baseline Hypothyroidism--continue synthroid A. Fib--continue eliquis and now metoprolol. DC dig stopped with addition of Metoprolol Cardiomyopathy with low EF as stated above, euvolemic. Started Metorprolol 50 bid and Diovan 40 bid and should follow up with Dr. Ramos for further management and work up for ischemia. Falls, to short term rehab tomorrow
[2020-09-06 19:59] LABS: Glucose, Whole Blood 149 mg/dL (60-115)
[2020-09-07 03:20] VITALS: BP 106/53; PULSE 64; RESP 18; TEMP 36.6; O2SAT 95
[2020-09-07] MEDS: Levothyroxine Sodium 88 MCG TABLET PO (06:20)
[2020-09-07 07:20] VITALS: BP 100/50; PULSE 66; RESP 14; TEMP 35.9; O2SAT 98
[2020-09-07 07:53] LABS: Glucose, Whole Blood 107 mg/dL (60-115)
--- NOTE | 2020-09-07 08:32 | MHC.CM.PN ---
dc plan is to go [facility] [place]. ref. has been made. cm to cont. to follow.
[2020-09-07] MEDS: cefTRIAXone sodium 1 GM in 0.9 % Sodium Chloride 50 ML IV (09:18)
[2020-09-07] MEDS: Pregabalin 100 MG CAPSULE PO (09:18)
[2020-09-07] MEDS: Apixaban 5 MG TABLET PO (09:18)
[2020-09-07] MEDS: Valsartan 40 MG TABLET PO (09:18)
[2020-09-07] MEDS: 0.9 % Sodium Chloride Flush 3 ML SYRINGE IVFLUSH (09:18)
[2020-09-07] MEDS: Metoprolol Tartrate 50 MG TABLET PO (09:18)
[2020-09-07 11:36] VITALS: BP 90/51; PULSE 50; RESP 18; TEMP 36.8; O2SAT 98
[2020-09-07 11:42] LABS: Glucose, Whole Blood 181 mg/dL (60-115)
[2020-09-07] MEDS: Insulin Lispro 100 UNIT/ML 3 ML VIAL SUBCUT (11:59)
[2020-09-07 12:37] LABS: COVID-19 Test Negative (Negative); IDNOW Serial# 9DD0AD1C
[2020-09-07 15:16] VITALS: BP 120/57; PULSE 77; RESP 20; TEMP 36.2; O2SAT 98
[2020-09-07 16:05] LABS: Glucose, Whole Blood 95 mg/dL (60-115)
== END 2020-09-07 17:00 | disposition skilled nursing facility (03) | DRG 309 ==
LOC: HO.ED 09-02 10:53 → HO.IMC 09-02 12:11
PROVIDERS: Internal Medicine; Student in an Organized Health Care Education/Training Program; Admitting Provider Family Medicine; Emergency Provider Emergency Medicine Emergency Medical Services; Visit Provider Internal Medicine
DX: I47.1 Supraventricular tachycardia (principal); N39.0 Urinary tract infection, site not specified; I42.9 Cardiomyopathy, unspecified; I50.22 Chronic systolic (congestive) heart failure; I48.20 Chronic atrial fibrillation, unspecified; E11.9 Type 2 diabetes mellitus without complications; R29.6 Repeated falls; F03.90 Unspecified dementia, unspecified severity, without behavioral disturbance, psychotic disturbance, mood disturbance, and anxiety; E03.9 Hypothyroidism, unspecified; Z20.822 Contact with and (suspected) exposure to COVID-19; Z93.6 Other artificial openings of urinary tract status; Z91.81 History of falling; Z79.01 Long term (current) use of anticoagulants; Z79.890 Hormone replacement therapy; Z79.899 Other long term (current) drug therapy
CPT/HCPCS: 36415; 70450; 71045; 80048; 80076; 80162; 81001; 81003; 82947; 83605; 83735; 83880; 84484; 85025; 85610; 87040; 87086; 87635; 93005; 93306; 97110; 97116; 97163; 99285; J0696; J1940; Q9957

== ENCOUNTER → 2020-09-27 10:02 | Outpatient (REF) | payer OTHER, SELFPAY ==
--- NOTE | ~2020-09-27 | NM_ITS ---
Myocardial perfusion study Indication: Cardiomyopathy and atrial fibrillation to evaluate for myocardial ischemia Technique: The patient was brought in for a Lexiscan perfusion study on 09/27/2020. Patient performed low-level exercise and was injected 0.4 mg of Lexiscan intravenously. Within a minute of injection, 30 mCi of sestamibi was given intravenously. Images were obtained using the SPECT gamma camera interlaced with the gating device. Images were obtained in supine position. Resting perfusion study was performed on 09/28/2020. Patient was administered 30 mCi of sestamibi intravenously at rest. Images were then obtained in supine position. Images obtained with and without CT attenuation. Total DLP 109 mGy-cm. Images were processed with the software and compared side to side in short axis, horizontal long axis and vertical long axis views. Findings: The stress perfusion study showed nonattenuated images show moderate to severely reduced uptake in the inferior wall, severely reduced uptake in the inferoapical and apical wall of the LV myocardium as well as mildly reduced uptake in the basal inferolateral wall of the LV myocardium. Attenuation corrected images show severely reduced uptake in the apex extending into the inferoapical wall of the LV myocardium. Inferior wall uptake. There is normal with some thinning of the basal inferior wall, particularly corrected. The gated study shows reduced LV systolic function with calculated LVEF of 42%. LV cavity is mildly to moderately dilated size. The gated study shows reduced inferior wall thickening and contraction of segments. Resting study shows nonattenuated images show moderately to severely reduced uptake in the inferior wall and severely reduced uptake in the inferoapical and apical wall of the LV myocardium with mild reversibility in the inferoapical wall.. Gating at rest reveals inferior wall motion with ejection fraction at 44%. The findings are consistent with mostly fixed inferior and inferoapical and apical defect suggestive of infarcted myocardium, nontransmural in the basal and mid inferior wall no clear reversible ischemia. NM/NM ruel perf SPECT rest & str Impression: 1. Myocardial perfusion imaging study shows fixed defect suggestive microinfarction of the inferior and inferoapical and apical wall in the RCA distribution reversible ischemia 2. Gated LVEF is 42% 3. Transient ischemic dilatation present with mildly dilated LV cavity EKG is nondiagnostic for ischemia
--- NOTE | 2020-09-27 10:07 | CA_ITS ---
Acquisition Time: 2020-09-27 10:35:34 Total Exercise Time: 00:02:00 Test Indications: unspecified afib, ventricular ta Medications: Protocol: LEXISCAN Max HR: 080 BPM 54% of Pred: 146 BPM Max BP: 102/056 mmHG Max Work Load: 1.0 METS Pharmacological stres test wth Lexiscan injection, while sitting, without anginal symptoms, with isolated PVC, with normotensive response to injection, with nondiagnostic EKG for ischemia. In recover BP was on low side which was treated with Aminophyllne 75mg IVP and 150cc of normal saline. Nuclear images pending. Test reviewed with Dr Chou. Referred By: Omar Ramos Overread By: ERNIE JOHNSTON
--- NOTE | 2020-09-27 14:50 | ECG_ITS ---
Hook-up date: 2020-09-27 09:46:00 Duration: 46:02:00 Test Indications: UNSPEC. AFIB Medications: 373028 QRS complexes 1503 Ventricular ectopics which represent 1 % of total QRS comp. * Supraventricular ectopics which represent % of total QRS comp. * Paced QRS complexs which represent % of total QRS comp. VENTRICULAR ECTOPY 1451 Isolated 0 Bigeminal Cycles 16 Couplets 4 Runs 20 Beats in Runs 7 Beats LONGEST at 98 BPM at 15:14:58 2020-09-27 3 Beats FASTEST at 202 BPM at 12:00:40 2020-09-28 SUPRAVENTRICULAR ECTOPY * Isolated * Couplets * Runs * Beats in Runs * Beats LONGEST at * BPM at :: -- * Beats FASTEST at * BPM at :: -- HEART RATES 36 MIN at 22:43:34 2020-09-27 69 AVG 157 MAX at 14:23:45 2020-09-28 LONGEST RR 2.8240 secs at 03:28:00 2020-09-28 S-T LEVELS Channel 1 - 128 mm at 09:46:00 2020-09-27 - 128 mm at 09:46:00 2020-09-27 Channel 2 - 128 mm at 09:46:00 2020-09-27 - 128 mm at 09:46:00 2020-09-27 Channel 3 - 128 mm at 02:90:51 -- - 128 mm at 02:90:51 Underlying rhyhm is atrial fibrillation; Average ventricular rate 69/min; range 36-157/min; About 4% of the time, rate >100/min; Longest pause 2.8 sec during sleep hours; Frequent Premature ventricular complexes (1%); mostly isolated, longest run 7 beats; Patient did not return diary Referred By: Omar Ramos Overread By: NUBIA RICHMOND
== END ==
LOC: HO.CARD 10:02
PROVIDERS: Visit Provider Internal Medicine Cardiovascular Disease
DX: I48.91 Unspecified atrial fibrillation (principal); I47.2 Ventricular tachycardia; I42.9 Cardiomyopathy, unspecified
CPT/HCPCS: 78452; 93017; 93226; A9500; J0280; J2785

== ENCOUNTER 2021-01-03 14:11 | Outpatient (REF) | payer OTHER, SELFPAY ==
[2021-01-03 15:27] LABS: MANUAL DIFF FLAG NO
[2021-01-03 15:35] LABS: Basophils Percent Auto 0.5 % (0-2); Eosinophils Absolute Auto 0.6 X10*3/uL (0.0-0.4); Eosinophils Percent Auto 6.6 % (0-4); Hematocrit 42.1 % (42.0-52.0); Hemoglobin 13.4 g/dl (14.0-18.0); Imm Gran Abs Auto 0.04 X10*3/uL (0.00-0.03); Imm Gran Pct Auto 0.5 % (0.0-0.4); Lymphocytes Absolute Auto 1.4 X10*3/uL (1.2-4.9); Lymphocytes Percent Auto 16.7 % (20-40); Mean Corpuscular HGB Conc 31.8 g/dl (31.0-36.0); Mean Corpuscular Hemoglobin 27.6 pg (27.0-33.0); Mean Corpuscular Volume 86.6 fL (80.0-98.0); Mean Platelet Volume 11.1 fL (9.4-12.4); Monocytes Absolute Auto 1.3 X10*3/uL (0.1-1.2); Monocytes Percent Auto 15.5 % (2-11); Neutrophils Percent Auto 60.2 % (45-73); Platelet Count 184 X10*3/uL (160-400); Red Blood Count 4.86 X10*6/uL (4.60-5.80); Red Cell Distribution Width 15.5 % (11.0-16.0); White Blood Count 8.5 X10*3/uL (4.8-10.8)
[2021-01-03 15:38] LABS: INTERNATIONAL NORM RATIO 1.5 (0.9-1.1); Prothrombin Time 17.5 SEC (9.9-13.0)
[2021-01-03 15:56] LABS: Anion Gap 12 (12-20); Blood Urea Nitrogen 35 mg/dL (9-16); Calcium 8.8 mg/dL (8.4-10.2); Carbon Dioxide 21 mmol/L (22-29); Chloride 112 mmol/L (96-108); Estimated Glomerular Filt Rate 38; Glucose Random 136 mg/dL (60-115); Potassium 5.2 mmol/L (3.3-5.1); Sodium 140 mmol/L (135-145)
== END 2021-01-03 14:12 | disposition home or self-care (01) ==
LOC: HO.LAB 14:11
PROVIDERS: PCP Family Medicine; Visit Provider Nurse Practitioner Family
DX: I42.9 Cardiomyopathy, unspecified (principal); I47.2 Ventricular tachycardia; I50.9 Heart failure, unspecified; I48.91 Unspecified atrial fibrillation; R94.39 Abnormal result of other cardiovascular function study; Z79.899 Other long term (current) drug therapy
CPT/HCPCS: 36415; 80048; 85025; 85610

== ENCOUNTER 2021-01-10 11:01 | Outpatient (REF) | payer MEDICARE, SELFPAY ==
[2021-01-10 12:39] LABS: Anion Gap 14 (12-20); Blood Urea Nitrogen 34 mg/dL (9-16); Calcium 9.1 mg/dL (8.4-10.2); Carbon Dioxide 19 mmol/L (22-29); Chloride 111 mmol/L (96-108); Estimated Glomerular Filt Rate 40; Glucose Fasting 271 mg/dL (60-99); Potassium 5.6 mmol/L (3.3-5.1); Sodium 138 mmol/L (135-145)
== END 2021-01-10 11:02 | disposition home or self-care (01) ==
LOC: HO.LAB 11:01
PROVIDERS: PCP Family Medicine; Visit Provider Internal Medicine Cardiovascular Disease
DX: I50.9 Heart failure, unspecified (principal)
CPT/HCPCS: 36415; 80048

== ENCOUNTER → 2021-02-14 14:01 | Outpatient (BNVA) | payer MEDICARE, BC, SELFPAY | PROVIDERS: PCP Family Medicine; Visit Provider Nurse Practitioner Family | DX: I42.9 Cardiomyopathy, unspecified (principal); I50.9 Heart failure, unspecified; I47.2 Ventricular tachycardia; I48.91 Unspecified atrial fibrillation; I44.7 Left bundle-branch block, unspecified; R94.39 Abnormal result of other cardiovascular function study; Z98.890 Other specified postprocedural states | CPT/HCPCS: 99212 ==

== ENCOUNTER → 2021-04-20 11:29 | Outpatient (REF) | payer OTHER, SELFPAY ==
--- NOTE | 2021-04-20 11:35 | CA_ITS ---
Transthoracic Echocardiogram Patient (Last, First, Middle): Nagi Roblero, Gender: Male Date of : 1945 Age: 76 Procedure Date: 04/20/2021 Procedure Type: Transthoracic Echocardiogram Location: OP Height: 177.8 cm Weight: 93.9 kg BSA: 2.12 m2 Heart Rate: bpm BP: 126 / 70 mmHg Wire Communications Engineer: ASIF Referring MD: Mariana Rodriguez POLE SETTER-C Process Control Specialist: Omar Ramos MD Symptoms: I50.9 - Heart failure, unspecified Study Quality: Fair/contrast ECG Rhythm: Atrial Fibrillation Conclusions: - Mildly reduced LVEF of 45-50% Findings Procedure Information Contrast agent, definity, is being given per protocol without apparent complications. Left Ventricle Normal left ventricular cavity size. There is mildly increased left ventricular wall thickness. The left ventricular systolic function is mildly decreased. The visually estimated ejection fraction is between 45-50%. Diastolic function is indeterminate on the basis of available data. Pericardium/Pleural There is no evidence of pericardial effusion. Prior Study Comparison Changes noted compared to prior study dated: 09/02/2020. LV systolic function is improved Measurements 2D Linear Measurements IVSd: 1.32 0.6-0.9/0.6-1.0 cm LVIDd: 4.57 3.9-5.3/4.2-5.9 cm LVIDd Index: 2.16 2.4-3.2/2.2-3.1 cm/m2 LVIDs: 3.70 2.0-3.6 cm LVPWd: 1.20 0.7-1.1 cm LV Mass: 271.40 67-162/88-224 g LV Mass Index: 128.02 43-95/49-115 g/m2 2D Systolic Function EF 4C: 45.80 >55% EF 2C: 53.40 >55% Mitral Valve MV Pk E: 1.24 MV PK A: 0.53 MV Decel Time: 230.00 E/A: 2.30 E'Lateral: 10.80 E'Medial: 5.77 E/E' Med: 21.50 E/E' Lat: 11.50 PHT: 67.00 MVA PHT: 3.28 Decel Van Zandt: 5.42 Diastolic Function MV Pk E: 1.24 MV Pk A: 0.53 E/A: 2.30 E'Medial: 5.77 E/E' Med: 21.50 E' Laterial: 10.80 E/E' Lat: 11.50 Updated in Other Vendor System with Status of Final Omar Ramos MD electronically signed on 04/21/2021 4:09:39 PM with status of Final
== END ==
LOC: HO.CARD 11:29
PROVIDERS: Visit Provider Nurse Practitioner Family
DX: I50.9 Heart failure, unspecified (principal)
CPT/HCPCS: 93005; 93308; 99212; Q9957

== ENCOUNTER 2021-07-26 17:07 | Emergency (ER) | payer OTHER, SELFPAY ==
--- NOTE | ~2021-07-26 | CT_ITS ---
EXAMINATION: CT CERVICAL SPINE WITHOUT CONTRAST CLINICAL INFORMATION: Increasing pain and paresthesias of neck and arms COMPARISON: None TECHNIQUE: Axial images through cervical spine without contrast. Sagittal and coronal reconstructions on the technologist workstation were performed. This CT examination was performed using dose optimization techniques as appropriate, variously including the following: *Automated exposure control *Adjustment of mA and/or kV according to patient size (this includes techniques or standardized protocols for targeted exams where dose is matched to indication/reason for exam; i.e. extremities or head) *Use of iterative reconstruction technique DLP: 673 mGy-cm FINDINGS: There is mild 2 mm anterior subluxation of C4 with respect to C5. Bone alignment is otherwise normal. No fracture or dislocation is seen. There is degenerative spondylosis and degenerative disc disease at C3-C4 C5-C6 and C6-C7. At C2-C3 there is no disc herniation protrusion or bulge. Spinal canal, lateral recesses and neural foramen are patent. At C3-C4 there is left paracentral disc osteophyte complex. There is bilateral lateral recess narrowing from bony osteophyte. At C4-C5 there is no disc herniation protrusion or bulge. Spinal canal and neural foramen are patent. C5-C6 there is left paracentral disc osteophyte complex. There is left lateral recess neural foraminal narrowing from bony osteophyte. At C6-C7 there is mild disc bulge osteophyte complex. Spinal canal neuroforamen lateral recesses and neural foramen are patent. C7-T1 there is left paracentral disc bulge. Spinal canal, lateral recesses and neural foramen are patent There is aberrant medial course of the right internal carotid artery. Prevertebral soft tissues are otherwise normal. Lung apices are clear. CT/CT cervical spine wo con IMPRESSION: Degenerative changes changes. Fleischner guidelines were followed.
--- NOTE | ~2021-07-26 | XR_ITS ---
EXAMINATION: XR CHEST CLINICAL INFORMATION: Chest pain COMPARISON: X-ray 09/01/2020 TECHNIQUE: Frontal view of the chest was obtained. FINDINGS: The cardiomediastinal silhouette is within normal limits. The lungs are well expanded. There is no focal consolidation, edema, or effusion. No pneumothorax. No acute osseous abnormality. XR/XR chest 1V IMPRESSION: No acute pulmonary finding seen.
[2021-07-26 17:14] VITALS: BP 147/93; PULSE 100; RESP 18; TEMP 36.7; O2SAT 98; BMI 33.1
--- NOTE | 2021-07-26 17:18 | ECG_ITS ---
Test Reason : chest pain Blood Pressure : / mmHG Vent. Rate : 093 BPM Atrial Rate : 000 BPM P-R Int : 000 ms QRS Dur : 154 ms QT Int : 376 ms P-R-T Axes : 000 -62 103 degrees QTc Int : 467 ms Atrial fibrillation Left axis deviation Left bundle branch block Abnormal ECG When compared with ECG of 01-SEP-2020 19:47, No significant change was found Referred By: Generic ED Physician Electronically Signed By:Arya Galicia
[2021-07-26 18:18] LABS: MANUAL DIFF FLAG NO
[2021-07-26 18:29] LABS: Basophils Percent Auto 0.4 % (0-2); Eosinophils Absolute Auto 0.4 X10*3/uL (0.0-0.4); Hematocrit 48.5 % (42.0-52.0); Hemoglobin 15.8 g/dl (14.0-18.0); Imm Gran Abs Auto 0.04 X10*3/uL (0.00-0.03); Imm Gran Pct Auto 0.4 % (0.0-0.4); Lymphocytes Percent Auto 9.4 % (20-40); Mean Corpuscular HGB Conc 32.6 g/dl (31.0-36.0); Mean Corpuscular Hemoglobin 29.6 pg (27.0-33.0); Mean Corpuscular Volume 90.8 fL (80.0-98.0); Mean Platelet Volume 10.8 fL (9.4-12.4); Monocytes Absolute Auto 1.5 X10*3/uL (0.1-1.2); Monocytes Percent Auto 14.6 % (2-11); Neutrophils Absolute Auto 7.5 x10*3/uL (2.0-8.3); Neutrophils Percent Auto 71.2 % (45-73); Platelet Count 211 X10*3/uL (160-400); Red Blood Count 5.34 X10*6/uL (4.60-5.80); Red Cell Distribution Width 13.6 % (11.0-16.0); SCAN SMEAR FLAG 1; White Blood Count 10.5 X10*3/uL (4.8-10.8)
[2021-07-26 18:41] LABS: COVID-19 Test Invalid (Negative)
[2021-07-26 18:42] LABS: Anion Gap 13 (12-20); Blood Urea Nitrogen 36 mg/dL (9-16); Calcium 9.4 mg/dL (8.4-10.2); Carbon Dioxide 21 mmol/L (22-29); Chloride 111 mmol/L (96-108); Creatinine Clr Calc Pharmacy 40.7; Estimated Glomerular Filt Rate 36; Glucose Random 193 mg/dL (60-115); Potassium 5.9 mmol/L (3.3-5.1); Sodium 139 mmol/L (135-145)
[2021-07-26 18:47] LABS: Troponin-I High Sensitivity 40.9 ng/L (<3.5-35.0)
[2021-07-26 19:49] LABS: COVID-19 Test Invalid (Negative); IDNOW Serial# 55D5AD1C
--- NOTE | 2021-07-26 20:11 | PC.NURSE ---
patient had a second covid swab done, lab called a second time stating that the test was invalid with the aden swab, if provider wants a covid test the lab suggests doing a sars/cov/flu test instead
--- NOTE | 2021-07-26 21:39 | ED.CHESTPAIN ---
HPI - Chest Pain General Chief Complaint: Chest Pain Stated Complaint: burning feeling in shoulders and neck Time Seen by Provider: 07/26/21 21:39 Source: patient Mode of arrival: ambulatory Limitations: no limitations History of Present Illness HPI narrative: neck pain 2 months, patient comes because he was not sleeping. patient having radiation to both arms, it was worst last night. No history of chest pain Timing of current episode: episodic Prior episodes: Yes Onset: other (moving neck) Pain radiation: right arm and left arm Severity: moderate Risk Factors Coronary artery disease risk factors: diabetes, hyperlipidemia and hypertension Related Data Home Medications Medication Instructions Recorded Confirmed digoxin 125 mcg (0.125 mg) tablet 125 mcg PO DAILY 09/02/20 04/20/21 glimepiride 2 mg tablet 2 mg PO QAM 09/02/20 04/20/21 levothyroxine 88 mcg tablet 88 mcg PO DAILY 09/02/20 04/20/21 omega 9-icp-pdv-fish oil 1,000 mg 1 cap PO DAILY 09/02/20 04/20/21 (120 mg-180 mg) capsule (Fish Oil) polyethylene glycol 3350 17 gram 17 g PO DAILY PRN Constipation 09/02/20 04/20/21 oral powder packet pregabalin 100 mg capsule 100 mg PO DAILY 09/02/20 04/20/21 sennosides 8.6 mg-docusate sodium 1 tab-cap PO BEDTIME PRN 09/02/20 04/20/21 50 mg tablet Constipation Previous Rx's Medication Instructions Recorded apixaban 5 mg tablet (Eliquis) 5 mg PO BID 90 days #180 tabs 09/19/20 metoprolol tartrate 50 mg tablet 50 mg PO BID 90 days #180 tabs 09/19/20 furosemide 20 mg tablet (Lasix) 20 mg PO DAILY PRN edema #30 tabs 02/14/21 atorvastatin 10 mg tablet 10 mg PO BEDTIME 90 days #90 tabs 07/26/21 valsartan 40 mg tablet 40 mg PO BID 90 days #180 tabs 07/26/21 cyclobenzaprine 10 mg tablet 10 mg PO TID #10 tabs 07/27/21 Allergies Allergy/AdvReac Type Severity Reaction Status Date / Time epinephrine Allergy Anaphylaxis Verified 07/26/21 17:13 - Pt states he can have in low doses Review of Systems Constitutional: Constitutional: Reports no additional constitutional complaints Eyes: Eyes: Reports no additional eye complaints ENT: Denies dizziness Cardiovascular: Cardiovascular: Reports no additional cardiovascular complaints Respiratory: Respiratory: Reports as per HPI Gastrointestinal: Gastrointestinal: Reports no additional gastrointestinal complaints Musculoskeletal: Musculoskeletal: Reports no additional musculoskeletal complaints Integumentary/Breasts: Skin/Breast: Denies rash Neurologic: Reports system reviewed and no additional complaints, except as documented, Denies dizziness and Denies Sensory deficit (Neuro) Psychiatric: Psychiatric: Denies anxiety [facility] Past Medical History Medical History Afib Bladder cancer Cardiomyopathy CHF (congestive heart failure) Diabetes mellitus Hematuria HTN (hypertension) Osteomyelitis Surgical History History of cardiac catheterization (~01/31/21) History of urostomy Status post cardiac catheterization Family History Family History Father No problems noted. Mother No problems noted. Social History Social History Household Members: Children Housing: House Alcohol intake: never Patient Tobacco Use Status: Former Tobacco user Physical Exam Vital Signs: Vital Signs: Last Vital Signs Temp 99.1 F 07/27/21 02:00 Pulse 83 07/27/21 02:00 Resp 14 07/27/21 02:00 BP 95/58 L 07/27/21 02:00 Pulse Ox 97 07/27/21 02:00 O2 Del Method 07/27/21 02:00 BMI result Body Mass Index 33.1 Const: Other: elderly male Nutritional Appearance: average body habitus Orientation/consciousness: oriented to person and patient oriented x3 Limitations: no limitations HEENT: Head: Yes normal to inspection Ears: external ears normal General nose exam: Normal external nose present Mouth: Normal oral and palatal mucosa present and oropharynx normal Throat: Yes posterior oropharynx normal Eyes: General: appearance normal, both eyes and all related structures Neck: Other: radicular pain with movement Neck: Yes normal visual inspection Chest: Chest palpation & inspection: normal inspection of the chest Resp: Auscultation: clear to auscultation bilaterally Cardio: Jugular venous distension: no JVD Rate: regular rate Rhythm: regular rhythm Heart sounds: S1 normal heart sound present and S2 normal heart sound present GI: Inspection: Yes normal to inspection Palpation (GI): Soft to palpation, nontender and No hepatosplenomegaly present Auscultation: normal bowel sounds : General: Yes no CVA tenderness Back/Spine/Pelvis: Back: no CVA tenderness Skin: General skin exam: no rashes or lesions noted Neuro: General: oriented to person and patient oriented x3 Cranial nerves: Yes CN's II-XII intact bilaterally Motor exam (neuro): 5/5 motor strength present throughout Sensory Exam: No Sensory deficit (Neuro) Extrem: General: Yes normal to inspection Psych: Appearance: grossly normal Course Reevaluation(s) Reevaluation #1: Patients potassium and troponin are trending down, will treat cspine pain with NSAIDs and flexeril and dc home Time: 05:36 MDM - Chest Pain Lab Data Result diagrams: 07/26/21 18:11 07/27/21 03:19 Labs: Lab Results 07/26/21 07/26/21 07/26/21 Range/Units 18:11 18:11 18:11 WBC 10.5 (4.8-10.8) X10*3/uL RBC 5.34 (4.60-5.80) X10*6/uL Hgb 15.8 (14.0-18.0) g/dl Hct 48.5 (42.0-52.0) % MCV 90.8 (80.0-98.0) fL MCH 29.6 (27.0-33.0) pg MCHC 32.6 (31.0-36.0) g/dl RDW 13.6 (11.0-16.0) % Plt Count 211 (160-400) X10*3/uL MPV 10.8 (9.4-12.4) fL Immature Gran % (Auto) 0.4 (0.0-0.4) % Neut % (Auto) 71.2 (45-73) % Lymph % (Auto) 9.4 L (20-40) % [place] % (Auto) 14.6 H (2-11) % Eos % (Auto) 4.0 (0-4) % Baso % (Auto) 0.4 (0-2) % Lymph # (Auto) 1.0 L (1.2-4.9) X10*3/uL [place] # (Auto) 1.5 H (0.1-1.2) X10*3/uL Eos # (Auto) 0.4 (0.0-0.4) X10*3/uL Baso # (Auto) 0.0 (0.0-0.2) X10*3/uL Abs Immat Gran (auto) 0.04 H (0.00-0.03) X10*3/uL Absolute Neuts (auto) 7.5 (2.0-8.3) x10*3/uL Absolute Nucleated RBC 0.000 (0.0-0.012) X10*3/uL Nucleated RBC % (auto) 0.0 (0.0-0.2) /100WBC Sodium 139 (135-145) mmol/L Potassium 5.9 H (3.3-5.1) mmol/L Chloride 111 H (96-108) mmol/L Carbon Dioxide 21 L (22-29) mmol/L Anion Gap 13 (12-20) BUN 36 H (9-16) mg/dL Creatinine 1.84 H (0.5-1.4) mg/dL Estim Creat Clear Calc 40.7 Estimated GFR 36 Random Glucose 193 H D (60-115) mg/dL Calcium 9.4 (8.4-10.2) mg/dL Troponin I High Sens 40.9 H (<3.5-35.0) ng/L Digoxin (0.8-2.0) ng/mL COVID-19 ([facility]) (Negative) COVID-19 Clin Com Influenza Type A (PCR) (Negative) Influenza Type B (PCR) (Negative) RSV RNA Qual (PCR) (Negative) SARS-CoV-2 RNA (RT-PCR) (Negative) 07/26/21 07/26/21 07/26/21 Range/Units 18:11 19:14 21:27 WBC (4.8-10.8) X10*3/uL RBC (4.60-5.80) X10*6/uL Hgb (14.0-18.0) g/dl Hct (42.0-52.0) % MCV (80.0-98.0) fL MCH (27.0-33.0) pg MCHC (31.0-36.0) g/dl RDW (11.0-16.0) % Plt Count (160-400) X10*3/uL MPV (9.4-12.4) fL Immature Gran % (Auto) (0.0-0.4) % Neut % (Auto) (45-73) % Lymph % (Auto) (20-40) % [place] % (Auto) (2-11) % Eos % (Auto) (0-4) % Baso % (Auto) (0-2) % Lymph # (Auto) (1.2-4.9) X10*3/uL [place] # (Auto) (0.1-1.2) X10*3/uL Eos # (Auto) (0.0-0.4) X10*3/uL Baso # (Auto) (0.0-0.2) X10*3/uL Abs Immat Gran (auto) (0.00-0.03) X10*3/uL Absolute Neuts (auto) (2.0-8.3) x10*3/uL Absolute Nucleated RBC (0.0-0.012) X10*3/uL Nucleated RBC % (auto) (0.0-0.2) /100WBC Sodium (135-145) mmol/L Potassium (3.3-5.1) mmol/L Chloride (96-108) mmol/L Carbon Dioxide (22-29) mmol/L Anion Gap (12-20) BUN (9-16) mg/dL Creatinine (0.5-1.4) mg/dL Estim Creat Clear Calc Estimated GFR Random Glucose (60-115) mg/dL Calcium (8.4-10.2) mg/dL Troponin I High Sens (<3.5-35.0) ng/L Digoxin (0.8-2.0) ng/mL COVID-19 ([facility]) Invalid Invalid (Negative) COVID-19 Clin Com See Note See Note Influenza Type A (PCR) NEGATIVE (Negative) Influenza Type B (PCR) NEGATIVE (Negative) RSV RNA Qual (PCR) NEGATIVE (Negative) SARS-CoV-2 RNA (RT-PCR) NEGATIVE (Negative) 05/25/22 05/25/22 05/25/22 Range/Units 22:32 22:32 22:32 WBC (4.8-10.8) X10*3/uL RBC (4.60-5.80) X10*6/uL Hgb (14.0-18.0) g/dl Hct (42.0-52.0) % MCV (80.0-98.0) fL MCH (27.0-33.0) pg MCHC (31.0-36.0) g/dl RDW (11.0-16.0) % Plt Count (160-400) X10*3/uL MPV (9.4-12.4) fL Immature Gran % (Auto) (0.0-0.4) % Neut % (Auto) (45-73) % Lymph % (Auto) (20-40) % [place] % (Auto) (2-11) % Eos % (Auto) (0-4) % Baso % (Auto) (0-2) % Lymph # (Auto) (1.2-4.9) X10*3/uL [place] # (Auto) (0.1-1.2) X10*3/uL Eos # (Auto) (0.0-0.4) X10*3/uL Baso # (Auto) (0.0-0.2) X10*3/uL Abs Immat Gran (auto) (0.00-0.03) X10*3/uL Absolute Neuts (auto) (2.0-8.3) x10*3/uL Absolute Nucleated RBC (0.0-0.012) X10*3/uL Nucleated RBC % (auto) (0.0-0.2) /100WBC Sodium 140 (135-145) mmol/L Potassium 4.8 (3.3-5.1) mmol/L Chloride 111 H (96-108) mmol/L Carbon Dioxide 20 L (22-29) mmol/L Anion Gap 14 (12-20) BUN 34 H (9-16) mg/dL Creatinine 1.74 H (0.5-1.4) mg/dL Estim Creat Clear Calc 43.1 Estimated GFR 38 Random Glucose 97 D (60-115) mg/dL Calcium 9.2 (8.4-10.2) mg/dL Troponin I High Sens 61.7 H D (<3.5-35.0) ng/L Digoxin 0.6 L (0.8-2.0) ng/mL COVID-19 ([facility]) (Negative) COVID-19 Clin Com Influenza Type A (PCR) (Negative) Influenza Type B (PCR) (Negative) RSV RNA Qual (PCR) (Negative) SARS-CoV-2 RNA (RT-PCR) (Negative) 07/27/21 07/27/21 07/27/21 Range/Units 01:59 03:19 03:19 WBC (4.8-10.8) X10*3/uL RBC (4.60-5.80) X10*6/uL Hgb (14.0-18.0) g/dl Hct (42.0-52.0) % MCV (80.0-98.0) fL MCH (27.0-33.0) pg MCHC (31.0-36.0) g/dl RDW (11.0-16.0) % Plt Count (160-400) X10*3/uL MPV (9.4-12.4) fL Immature Gran % (Auto) (0.0-0.4) % Neut % (Auto) (45-73) % Lymph % (Auto) (20-40) % [place] % (Auto) (2-11) % Eos % (Auto) (0-4) % Baso % (Auto) (0-2) % Lymph # (Auto) (1.2-4.9) X10*3/uL [place] # (Auto) (0.1-1.2) X10*3/uL Eos # (Auto) (0.0-0.4) X10*3/uL Baso # (Auto) (0.0-0.2) X10*3/uL Abs Immat Gran (auto) (0.00-0.03) X10*3/uL Absolute Neuts (auto) (2.0-8.3) x10*3/uL Absolute Nucleated RBC (0.0-0.012) X10*3/uL Nucleated RBC % (auto) (0.0-0.2) /100WBC Sodium 138 (135-145) mmol/L Potassium 4.4 (3.3-5.1) mmol/L Chloride 112 H (96-108) mmol/L Carbon Dioxide 17 L (22-29) mmol/L Anion Gap 13 (12-20) BUN 31 H (9-16) mg/dL Creatinine 1.56 H (0.5-1.4) mg/dL Estim Creat Clear Calc 48.1 Estimated GFR 44 Random Glucose 145 H D (60-115) mg/dL Calcium 9.5 (8.4-10.2) mg/dL Troponin I High Sens 78.9 H 75.9 H (<3.5-35.0) ng/L Digoxin (0.8-2.0) ng/mL COVID-19 ([facility]) (Negative) COVID-19 Clin Com Influenza Type A (PCR) (Negative) Influenza Type B (PCR) (Negative) RSV RNA Qual (PCR) (Negative) SARS-CoV-2 RNA (RT-PCR) (Negative) Imaging Data cervical CT: Radiologist's impression: FINDINGS: There is mild 2 mm anterior subluxation of C4 with respect to C5. Bone alignment is otherwise normal. No fracture or dislocation is seen. There is degenerative spondylosis and degenerative disc disease at C3-C4 C5-C6 and C6-C7. At C2-C3 there is no disc herniation protrusion or bulge. Spinal canal, lateral recesses and neural foramen are patent. At C3-C4 there is left paracentral disc osteophyte complex. There is bilateral lateral recess narrowing from bony osteophyte. At C4-C5 there is no disc herniation protrusion or bulge. Spinal canal and neural foramen are patent. C5-C6 there is left paracentral disc osteophyte complex. There is left lateral recess neural foraminal narrowing from bony osteophyte. At C6-C7 there is mild disc bulge osteophyte complex. Spinal canal neuroforamen lateral recesses and neural foramen are patent. C7-T1 there is left paracentral disc bulge. Spinal canal, lateral recesses and neural foramen are patent There is aberrant medial course of the right internal carotid artery. Prevertebral soft tissues are otherwise normal. Lung apices are clear. CT/CT cervical spine wo con IMPRESSION: Degenerative changes changes. ? Fleischner guidelines were followed. Discharge Plan Discharge Clinical Impression: Cervical radiculopathy, Acute hyperkalemia Patient Disposition: Home, Self-Care Instructions: Hyperkalemia (ED), Cervical Radiculopathy (ED), Chronic Neck Pain (DC) Prescriptions: New cyclobenzaprine 10 mg tablet 10 mg PO TID Qty: 10 0RF No Action Eliquis 5 mg tablet 5 mg PO BID 90 Days Qty: 180 0RF metoprolol tartrate 50 mg tablet 50 mg PO BID 90 Days Qty: 180 0RF Protocol: Hold for SBP/HR < HOLD for SBP < : 90 HOLD for HR < : 60 atorvastatin 10 mg tablet 10 mg PO BEDTIME 90 Days Qty: 90 2RF valsartan 40 mg tablet 40 mg PO BID 90 Days Qty: 180 2RF Protocol: Hold for SBP< HOLD for SBP < : 90 digoxin 125 mcg (0.125 mg) Tablet 125 mcg PO DAILY omega 8-pwr-wig-fish oil [Fish Oil] 1,000 mg (120 mg-180 mg) Capsule 1 cap PO DAILY polyethylene glycol 3350 17 gram Powder In Packet 17 g PO DAILY PRN (Reason: Constipation) pregabalin 100 mg Capsule 100 mg PO DAILY sennosides-docusate sodium 8.6-50 mg Tablet 1 tab-cap PO BEDTIME PRN (Reason: Constipation) glimepiride 2 mg Tablet 2 mg PO QAM levothyroxine 88 mcg Tablet 88 mcg PO DAILY furosemide [Lasix] 20 mg tablet 20 mg PO DAILY PRN (Reason: edema) Qty: 30 1RF Referrals: Indu Swain MD [Primary Care Provider] - Interventions: ED Discharge Assessment Last Done: 07/27/21 07:08 Discharge Date/Time: 07/27/21 07:09
[2021-07-26 22:25] LABS: Influenza A PCR NEGATIVE (Negative); Influenza B PCR NEGATIVE (Negative); Resp Syncy Virus RNA Qual PCR NEGATIVE (Negative); SARS COV2 PCR INHOUSE NEGATIVE (Negative)
[2021-07-26] MEDS: Sodium Bicarbonate 8.4% 50 MEQ/50 ML SYRINGE IVPUSH (22:48)
[2021-07-26] MEDS: Calcium Chloride 1 GM/10 ML SYRINGE IVPUSH (22:50)
[2021-07-26] MEDS: Dextrose 50 % 25 GM/50 ML SYRINGE IVPUSH (22:51)
[2021-07-26] MEDS: Insulin Regular, Human 100 UNIT/ML 3 ML VIAL 10 UNIT IVPUSH (22:53)
[2021-07-26] MEDS: Sodium Polystyrene Sulfon/Sorb 15 GM/60 ML ORAL.SUSP 30 GM PO (22:54)
[2021-07-26 22:56] LABS: Anion Gap 14 (12-20); Blood Urea Nitrogen 34 mg/dL (9-16); Calcium 9.2 mg/dL (8.4-10.2); Carbon Dioxide 20 mmol/L (22-29); Chloride 111 mmol/L (96-108); Creatinine Clr Calc Pharmacy 43.1; Estimated Glomerular Filt Rate 38; Glucose Random 97 mg/dL (60-115); Potassium 4.8 mmol/L (3.3-5.1); Sodium 140 mmol/L (135-145)
[2021-07-26 23:00] LABS: Digoxin 0.6 ng/mL (0.8-2.0)
[2021-07-26 23:02] LABS: Troponin-I High Sensitivity 61.7 ng/L (<3.5-35.0)
[2021-07-27] VITALS: BP 110/44; PULSE 76; RESP 16; TEMP 36.9; O2SAT 97
[2021-07-27 02:00] VITALS: BP 95/58; PULSE 83; RESP 14; TEMP 37.3; O2SAT 97
--- NOTE | 2021-07-27 02:15 | PC.NURSE ---
Patient during rounds said I have neck pain all around giving the pain a # 10. Nurse aware.
[2021-07-27 02:26] LABS: Troponin-I High Sensitivity 78.9 ng/L (<3.5-35.0)
[2021-07-27 03:40] LABS: Anion Gap 13 (12-20); Blood Urea Nitrogen 31 mg/dL (9-16); Calcium 9.5 mg/dL (8.4-10.2); Carbon Dioxide 17 mmol/L (22-29); Chloride 112 mmol/L (96-108); Creatinine Clr Calc Pharmacy 48.1; Estimated Glomerular Filt Rate 44; Glucose Random 145 mg/dL (60-115); Potassium 4.4 mmol/L (3.3-5.1); Sodium 138 mmol/L (135-145)
[2021-07-27 03:43] LABS: Troponin-I High Sensitivity 75.9 ng/L (<3.5-35.0)
[2021-07-27] MEDS: Ketorolac Tromethamine 30 MG/ML VIAL IVPUSH (05:48)
[2021-07-27] MEDS: Cyclobenzaprine HCl 10 MG TABLET PO (05:48)
== END 2021-07-27 07:09 | disposition home or self-care (01) ==
PROVIDERS: Emergency Provider Emergency Medicine; PCP Family Medicine
DX: R07.89 Other chest pain (principal); M54.2 Cervicalgia; M79.602 Pain in left arm; M79.601 Pain in right arm; I10 Essential (primary) hypertension; Z79.899 Other long term (current) drug therapy; Z87.891 Personal history of nicotine dependence; Z20.822 Contact with and (suspected) exposure to COVID-19
CPT/HCPCS: 0241U; 36415; 71045; 72125; 80048; 80162; 84484; 85025; 87635; 93005; 96374; 96375; 99283; 99284; J1885

== ENCOUNTER → 2021-09-25 15:00 | Outpatient (BNVA) | payer OTHER, SELFPAY | PROVIDERS: PCP Family Medicine; Referring Provider Family Medicine; Visit Provider Internal Medicine Cardiovascular Disease | DX: I42.9 Cardiomyopathy, unspecified (principal); I48.91 Unspecified atrial fibrillation; Z79.01 Long term (current) use of anticoagulants; Z79.899 Other long term (current) drug therapy | CPT/HCPCS: 99212 ==

== ENCOUNTER 2021-12-03 14:15 | Inpatient (IN) | payer OTHER, SELFPAY ==
--- NOTE | 2021-12-03 | ECG_ITS ---
Test Reason : LOW HEART RAT Blood Pressure : / mmHG Vent. Rate : 052 BPM Atrial Rate : 000 BPM P-R Int : 000 ms QRS Dur : 166 ms QT Int : 488 ms P-R-T Axes : 000 -61 135 degrees QTc Int : 453 ms Atrial fibrillation with slow ventricular response Left axis deviation Left bundle branch block Abnormal ECG When compared with ECG of 03-DEC-2021 16:23, Vent. rate has decreased BY 61 BPM T wave inversion more evident in Lateral leads Referred By: Brody Collado Electronically Signed By:WILY WALLS
--- NOTE | ~2021-12-03 | CT_ITS ---
EXAMINATION: CT HEAD WITHOUT CONTRAST CLINICAL INFORMATION: Head injury. COMPARISON: 09/01/[address] scan. TECHNIQUE: Contiguous axial imaging was performed from the skull base to vertex without intravenous administration of contrast. Coronal and sagittal reformatted images were obtained. This CT examination was performed using dose optimization techniques as appropriate, variously including the following: *Automated exposure control *Adjustment of mA and/or kV according to patient size (this includes techniques or standardized protocols for targeted exams where dose is matched to indication/reason for exam; i.e. extremities or head) *Use of iterative reconstruction technique DLP: 1672 mGy-cm FINDINGS: There is mild widening of the cortical sulci and associated ventriculomegaly. The lateral ventricles are symmetrical. The third and fourth ventricles are in their normal midline position. The basilar and prepontine cisterns are unremarkable. There is no acute intra or extracerebral abnormality. There is no mass effect or midline shift. Sections through the bony calvarium are unremarkable. The orbits are intact. The paranasal sinuses show complete opacification of the left maxillary sinus extending to the ostiomeatal complex. Mild mucosal thickening in the left ethmoid air cells. Small retention cyst versus inflammatory polyp in the left sphenoid sinus. The mastoid air cells are clear. Old mid nasal septal deviation, apex the left. CT/CT head/brain wo IV con IMPRESSION: 1. No acute intracranial abnormality. 2. Complete opacification of the left maxillary sinus. There is possible communication with a left posterior molar apex suggesting this is odontogenic. Dental consultation is recommended.
--- NOTE | ~2021-12-03 | CT_ITS ---
EXAMINATION: CT CERVICAL SPINE WITHOUT CONTRAST CLINICAL INFORMATION: Neck pain. COMPARISON: Cervical spine CT scan dated 07/26/2021. TECHNIQUE: Multiple axial images of the cervical spine were obtained without the administration of intravenous contrast. Coronal and sagittal reformatted images were obtained. This CT examination was performed using dose optimization techniques as appropriate, variously including the following: *Automated exposure control *Adjustment of mA and/or kV according to patient size (this includes techniques or standardized protocols for targeted exams where dose is matched to indication/reason for exam; i.e. extremities or head) *Use of iterative reconstruction technique DLP: 1672 mGy-cm with PET CT scan from today. FINDINGS: There is straightening of the normal cervical lordosis with normal spinal alignment. Mild to moderate degenerative disc disease is seen most pronounced at C3-C4 and C6-C7. Mild bilateral neural foraminal narrowing is seen at C5-C6 and C6-C7. Facet joints are unremarkable. The spinous processes are intact. The odontoid process is intact. The cervical soft tissues are unremarkable. There is no lymphadenopathy. The thyroid gland is unremarkable. The visualized lung apices are clear. CT/CT cervical spine wo IV con IMPRESSION: 1. Straightening of the normal cervical lordosis may be secondary to positioning and/or muscle spasm. 2. Mild to moderate degenerative disc disease. No acute abnormality. No significant change.
--- NOTE | ~2021-12-03 | XR_ITS ---
EXAMINATION: XR CHEST CLINICAL INFORMATION: Chest pain COMPARISON: 07/26/2021 TECHNIQUE: Frontal view of the chest was obtained. FINDINGS: No significant abnormality is noted involving the heart, lungs, mediastinum, bony thorax or soft tissues. XR/XR chest 1V IMPRESSION: No acute pulmonary disease.
--- NOTE | 2021-12-03 11:13 | ECG_ITS ---
Test Reason : arrhythmia Blood Pressure : / mmHG Vent. Rate : 113 BPM Atrial Rate : 000 BPM P-R Int : 000 ms QRS Dur : 158 ms QT Int : 362 ms P-R-T Axes : 000 -77 096 degrees QTc Int : 496 ms Atrial fibrillation with rapid ventricular response Left axis deviation Non-specific intra-ventricular conduction block Minimal voltage criteria for LVH, may be normal variant ( Usraj product ) Abnormal ECG When compared with ECG of 03-DEC-2021 15:22, Vent. rate has increased BY 42 BPM Referred By: Tara Dougherty Electronically Signed By:WILY WALLS
[2021-12-03 14:27] VITALS: BP 130/70; PULSE 90; O2SAT 96
[2021-12-03 14:28] VITALS: BP 133/66; PULSE 88; RESP 20; TEMP 36.5; O2SAT 96; BMI 30.2
--- NOTE | 2021-12-03 14:35 | ECG_ITS ---
Test Reason : Syncope Blood Pressure : / mmHG Vent. Rate : 071 BPM Atrial Rate : 000 BPM P-R Int : 000 ms QRS Dur : 160 ms QT Int : 426 ms P-R-T Axes : 000 264 118 degrees QTc Int : 462 ms Atrial fibrillation Right superior axis deviation Left bundle branch block Minimal voltage criteria for LVH, may be normal variant ( Suraj product ) Abnormal ECG When compared with ECG of 26-JUL-2021 17:19, No significant change was found Referred By: Tara Dougherty Electronically Signed By:WILY WALLS
--- NOTE | 2021-12-03 14:48 | ED_ITS ---
HPI - Syncope General Chief Complaint: Syncope Stated Complaint: syncope Time Seen by Provider: 12/03/21 14:28 History of Present Illness HPI narrative: This is a 76-year-old male with a history atrial fibrillation history of left bundle-branch block history of nonsustained V-tach, history of being on Eliquis. Patient had a syncopal episode today. Did not have any chest pain or shortness of breath prior. Had the syncopal same episode. No chest pain or shortness breath no nausea no vomiting no diaphoresis. Positive hitting his head. Unsure of his tetanus status. No abdominal pain. Patient had a history of colostomy. History of bladder cancer over 10 years ago. Related Data Home Medications Medication Instructions Recorded Confirmed digoxin 125 mcg (0.125 mg) tablet 125 mcg PO DAILY 09/02/20 12/03/21 glimepiride 2 mg tablet 2 mg PO DAILY 09/02/20 12/03/21 levothyroxine 88 mcg tablet 88 mcg PO DAILY 09/02/20 12/03/21 omega 3-ghf-fgc-fish oil 1,000 mg 1 cap PO DAILY 09/02/20 12/03/21 (120 mg-180 mg) capsule (Fish Oil) pregabalin 100 mg capsule 100 mg PO DAILY 09/02/20 12/03/21 sennosides 8.6 mg-docusate sodium 1 tab-cap PO BEDTIME PRN 09/02/20 12/03/21 50 mg tablet Constipation Previous Rx's Medication Instructions Recorded apixaban 5 mg tablet (Eliquis) 5 mg PO BID 90 days #180 tabs 09/19/20 metoprolol tartrate 50 mg tablet 50 mg PO BID 90 days #180 tabs 09/19/20 atorvastatin 10 mg tablet 10 mg PO BEDTIME 90 days #90 tabs 07/26/21 Allergies Allergy/AdvReac Type Severity Reaction Status Date / Time epinephrine Allergy Anaphylaxis Verified 07/26/21 17:13 - Pt states he can have in low doses Review of Systems Review of Systems: Positive syncope Positive head injury Yes all other systems are reviewed and are negative [facility] Past Medical History Attestation statement: The following information was validated with the patient. Medical History Afib Bladder cancer Cardiomyopathy CHF (congestive heart failure) Diabetes mellitus Hematuria HTN (hypertension) Osteomyelitis Surgical History History of cardiac catheterization (~01/31/21) History of urostomy Status post cardiac catheterization Family History Family History Father No problems noted. Mother No problems noted. Social History Social History Household Members: Children Housing: House Alcohol intake: current Alcohol intake frequency: a few times a week Alcohol type: wine Patient Tobacco Use Status: Former Tobacco user Advance Directives: Yes Advance Directives Information Provided: No Advance Directives on File: No Physical Exam Vital Signs: Vital Signs: Last Vital Signs Temp 97.7 F 12/03/21 14:28 Pulse 88 12/03/21 14:28 Resp 20 12/03/21 14:28 BP 133/66 12/03/21 14:28 Pulse Ox 96 12/03/21 14:28 O2 Del Method 12/03/21 14:28 BMI result Body Mass Index 30.2 Appearance: Alert. Oriented X3. No acute distress. Eyes: Pupils equal, round and reactive to light. ENT: Pharynx normal. Positive abrasion to the left maxillary area Neck: Normal inspection. Neck supple. No lymph nodes noted. No crepitus CVS: Normal heart rate and rhythm. Pulses normal. Normal S1 and S2 Respiratory: No respiratory distress. Breath sounds normal. No Wheezing. No rales Abdomen: Soft and nontender. No rigidity. No distention. good BS x4 Skin: Skin warm and dry. Normal skin color. Normal skin turgor. Extremities: No lower extremity edema. Neurovascular intact to all extremities. No Lacerations. No Rash Neuro: Oriented X 3. No motor deficit. No sensory deficit. Moving all extermities. No slurred speech MDM - Syncope MDM Narrative Medical decision making narrative: Patient's EKG shows an atrial fibrillation pattern. Heart rate was approximately 70. There is LVH. There is a left bundle branch block which is old. The EKG is grossly approximately the same compared to 1 from July 2021. Patient had a syncopal episode. On blood thinners. Had no prodrome. Has a history of nonsustained V-tach. Will require admission for further monitoring. In stable condition. CT scan the head showed no evidence of acute bleeding. No acute fracture. Question opacifications secondary to dental issues to the left maxillary sinuses. Scan of the C-spine showed no acute fracture no malalignment. Labs are pending. Will most likely require admission. Patient case discussed with hospitalist team preliminarily. Will require additional phone call after labs come back. Medical Records Attestation: I reviewed the patient's medical records. Lab Data Attestation: I reviewed the patient's lab results. Result diagrams: 12/03/21 15:53 12/03/21 15:52 Labs: Lab Results 12/03/21 Range/Units 15:53 WBC 13.3 H (4.8-10.8) X10*3/uL RBC 5.02 (4.60-5.80) X10*6/uL Hgb 13.6 L (14.0-18.0) g/dl Hct 43.6 (42.0-52.0) % MCV 86.9 (80.0-98.0) fL MCH 27.1 (27.0-33.0) pg MCHC 31.2 (31.0-36.0) g/dl RDW 17.1 H (11.0-16.0) % Plt Count 182 (160-400) X10*3/uL MPV 11.4 (9.4-12.4) fL Immature Gran % (Auto) 0.5 H (0.0-0.4) % Neut % (Auto) 81.8 H (45-73) % Lymph % (Auto) 6.9 L (20-40) % [place] % (Auto) 8.6 (2-11) % Eos % (Auto) 1.7 (0-4) % Baso % (Auto) 0.5 (0-2) % Lymph # (Auto) 0.9 L (1.2-4.9) X10*3/uL [place] # (Auto) 1.2 (0.1-1.2) X10*3/uL Eos # (Auto) 0.2 (0.0-0.4) X10*3/uL Baso # (Auto) 0.1 (0.0-0.2) X10*3/uL Abs Immat Gran (auto) 0.07 H (0.00-0.03) X10*3/uL Absolute Neuts (auto) 10.9 H (2.0-8.3) x10*3/uL Absolute Nucleated RBC 0.000 (0.0-0.012) X10*3/uL Nucleated RBC % (auto) 0.0 (0.0-0.2) /100WBC ECG Data Attestation: I personally reviewed and interpreted this ECG as follows: Discharge Plan Discharge Clinical Impression: Afib, Syncope Patient Disposition: Admitted As Inpatient
--- NOTE | 2021-12-03 15:06 | PC.NURSE ---
Pt is A/O x 4. Respiration is even and non labored. Lung sounds clear in all lobes, heart sound regular,C-COLLAR intact, skin is pink, warm and dry. + 1 edema noted in both ankles and cool to touch, strength equal in all extremities. approximately 1 inch of abrasion noted at the corner of the right eye. Bowel sounds present in all quads, pt has a urostomy, which is draining light yellow. Pt Denies SOB or dizziness. Pt aware of plan of care.
[2021-12-03 15:58] LABS: MANUAL DIFF FLAG NO
[2021-12-03 16:02] LABS: Basophils Absolute Auto 0.1 X10*3/uL (0.0-0.2); Basophils Percent Auto 0.5 % (0-2); Eosinophils Absolute Auto 0.2 X10*3/uL (0.0-0.4); Eosinophils Percent Auto 1.7 % (0-4); Hematocrit 43.6 % (42.0-52.0); Hemoglobin 13.6 g/dl (14.0-18.0); Imm Gran Abs Auto 0.07 X10*3/uL (0.00-0.03); Imm Gran Pct Auto 0.5 % (0.0-0.4); Lymphocytes Absolute Auto 0.9 X10*3/uL (1.2-4.9); Lymphocytes Percent Auto 6.9 % (20-40); Mean Corpuscular HGB Conc 31.2 g/dl (31.0-36.0); Mean Corpuscular Hemoglobin 27.1 pg (27.0-33.0); Mean Corpuscular Volume 86.9 fL (80.0-98.0); Mean Platelet Volume 11.4 fL (9.4-12.4); Monocytes Absolute Auto 1.2 X10*3/uL (0.1-1.2); Monocytes Percent Auto 8.6 % (2-11); Neutrophils Absolute Auto 10.9 x10*3/uL (2.0-8.3); Neutrophils Percent Auto 81.8 % (45-73); Platelet Count 182 X10*3/uL (160-400); Red Blood Count 5.02 X10*6/uL (4.60-5.80); Red Cell Distribution Width 17.1 % (11.0-16.0); White Blood Count 13.3 X10*3/uL (4.8-10.8)
--- NOTE | 2021-12-03 16:10 | PHA.MEDREC ---
Pharmacy Consult ? Medication Reconciliation Pharmacy has completed the medication reconciliation. Patient's daughter Leona ([phone]) was at bedside with pillbox of medications. Knew patient's medications and was able to cross-verify meds.
[2021-12-03 16:19] LABS: B Type Natriuretic Peptide 383 pg/mL (<100)
[2021-12-03 16:20] LABS: Digoxin 0.9 ng/mL (0.8-2.0); Troponin-I High Sensitivity 56.4 ng/L (<3.5-35.0)
[2021-12-03 16:21] LABS: COVID-19 Test Negative (Negative); IDNOW Serial# 16C4AD1C
[2021-12-03 16:27] LABS: Glucose, Whole Blood 170 mg/dL (60-115)
[2021-12-03] MEDS: levETIRAcetam in NaCl (iso-os) 500 MG/100 ML PIGGYBACK 400 MG IV (16:29)
[2021-12-03] MEDS: 0.9 % Sodium Chloride 500 ML 999 ML IV ×2 (16:31→17:39)
[2021-12-03 16:35] LABS: Alanine Aminotransferase 18 U/L (0-40); Albumin Level 4.1 g/dL (3.5-5.0); Alkaline Phosphatase 93 U/L (39-117); Anion Gap 18 (12-20); Aspartate Amino Transferase 25 U/L (5-37); Bilirubin Direct 0.4 mg/dL (0.0-0.5); Bilirubin Total 0.6 mg/dL (0.0-1.0); Blood Urea Nitrogen 34 mg/dL (9-16); Calcium 9.2 mg/dL (8.4-10.2); Carbon Dioxide 15 mmol/L (22-29); Chloride 111 mmol/L (96-108); Creatinine Clr Calc Pharmacy 34.4; Estimated Glomerular Filt Rate 30; Glucose Random 166 mg/dL (60-115); Potassium 6.4 mmol/L (3.3-5.1); Sodium 138 mmol/L (135-145); Total Protein 8.2 g/dL (6.5-8.0)
[2021-12-03] MEDS: Sodium Polystyrene Sulfon/Sorb 15 GM/60 ML ORAL.SUSP 30 GM PO (16:45)
[2021-12-03] MEDS: Insulin Regular, Human 100 UNIT/ML 3 ML VIAL IVPUSH (16:46)
[2021-12-03] MEDS: Dextrose 50 % 25 GM/50 ML SYRINGE IVPUSH ×2 (16:46→18:40)
--- NOTE | 2021-12-03 16:59 | PM.IMHP ---
History of Present Illness Date of Service: 12/03/21 Chief Complaint: syncope 76M with a past medical history of nonischemic cardiomyopathy, permanent atrial fibrillation, left bundle-branch block, NSVT, bladder cancer status post urostomy, diabetes, and CKD 3, presented with syncope. Patient does not remember event. He says he was at home. Most of passed out. He hit his head and had a laceration and left eye. He denies any chest pain, shortness of breath, fever, chills. Patient is on Eliquis for atrial fibrillation, CT head was negative, C-spine was negative. EKG showed left bundle-branch block, AFib. In ED patient had another syncopal episode, fortunately he was not on the monitor during this episode. It was brief, came back to baseline fairly quickly. Labs significant for a potassium of 6.4, creatinine 2.15 higher than baseline of about 1.5. Review of Systems Review of Systems: Constitutional: Denies fever, denies Chills Eyes: denies blurry vision ENT: denies sore throat CVS: denies chest pain Respiratory: Denies dyspnea GI: no abdominal pain : denies dysuria MSK: denies neck pain Skin: denies rash Neuro: denies specific motor weakness Psych: denies suicidal ideation Endocrine: denies heat/cold intolerance Hematologic: denies easy bleeding Allergy: denies hives [facility] Medical History Afib Bladder cancer Cardiomyopathy CHF (congestive heart failure) Diabetes mellitus Hematuria HTN (hypertension) Osteomyelitis Family History Father No problems noted. Mother No problems noted. Surgical History History of cardiac catheterization (~01/31/21) History of urostomy Status post cardiac catheterization Social History Household Members: Children Housing: House Alcohol intake: current Alcohol intake frequency: a few times a week Alcohol type: wine Patient Tobacco Use Status: Former Tobacco user Advance Directives: Yes Advance Directives Information Provided: No Advance Directives on File: No Meds Allergies Allergy/AdvReac Type Severity Reaction Status Date / Time epinephrine Allergy Anaphylaxis Verified 07/26/21 17:13 - Pt states he can have in low doses Active Medications: Current Medications Apixaban (Apixaban 5 Mg Tablet) 5 mg PO BID [facility] Atorvastatin Calcium (Atorvastatin Calcium 10 Mg Tablet) 10 mg PO BEDTIME [facility] Dextrose (Dextrose 50 % 25 Gm/50 Ml Syringe) 25 gm IVPUSH Q15M PRN; Protocol PRN Reason: per Hypoglycemia Standing Ord. Digoxin (Digoxin 0.125 Mg Tablet) 0.125 mg PO DAILY [facility] Glucose (Glucose Gel 15 Gm Gel..Gram.) 15 gm PO Q15M PRN; Protocol PRN Reason: per Hypoglycemia Standing Ord. Sodium Chloride (Ns) 500 mls @ 999 mls/hr IV .Q31M [facility] Stop: 12/03/21 17:15 Insulin Human Lispro (Insulin Lispro 100 Unit/Ml 3 Ml Vial) 0 unit SUBCUT QIDACHS [facility]; Protocol Levothyroxine Sodium (Levothyroxine Sodium 88 Mcg Tablet) 88 mcg PO DAILY@0600 [facility] Metoprolol Tartrate (Metoprolol Tartrate 50 Mg Tablet) 50 mg PO BID [facility]; Protocol Pharmacy Consult (Consult Rx Perform Med Rec) 1 each MISCELLANE ONCE PRN PRN Reason: Consult order Pregabalin (Pregabalin 100 Mg Capsule) 100 mg PO DAILY [facility] Senna/Docusate Sodium (Sennosides/Docusate Sodium Tablet) 1 tab PO BEDTIME PRN PRN Reason: Constipation Home Medications Medication Instructions Recorded Confirmed Last Taken Type digoxin 125 mcg (0.125 mg) tablet 125 mcg PO DAILY 09/02/20 12/03/21 12/03/21 History glimepiride 2 mg tablet 2 mg PO DAILY 09/02/20 12/03/21 12/03/21 History levothyroxine 88 mcg tablet 88 mcg PO DAILY 09/02/20 12/03/21 12/03/21 History omega 9-kil-dqu-fish oil 1,000 mg 1 cap PO DAILY 09/02/20 12/03/21 12/03/21 History (120 mg-180 mg) capsule (Fish Oil) pregabalin 100 mg capsule 100 mg PO DAILY 09/02/20 12/03/21 12/03/21 History sennosides 8.6 mg-docusate sodium 1 tab-cap PO BEDTIME PRN 0712/03/21 09/01/20 History 50 mg tablet Constipation Physical Exam Vital Signs and Narrative: Vital Signs: Last Vital Signs Temp 97.7 F 12/03/21 14:28 Pulse 88 12/03/21 14:28 Resp 20 12/03/21 14:28 BP 133/66 12/03/21 14:28 Pulse Ox 96 12/03/21 14:28 O2 Del Method 12/03/21 14:28 BMI result Body Mass Index 30.2 General: no acute distress HEENT: left eye abrasion Neck: normal to visual inspection CVS: S1, S2, RRR Resp: CTA bilateral Chest: non tender GI: soft, non tender, non distended : urostomy Skin: no rashes Extremities: no edema Neuro: Oriented X3, grossly intact Psych: cooperative Results Labs CBC and Chem 7: 12/03/21 15:53 12/03/21 15:52 Labs: Laboratory Results - last 24 hr 12/03/21 12/03/21 12/03/21 15:52 15:52 15:52 MCV MCH MCHC RDW Plt Count MPV Immature Gran % (Auto) Neut % (Auto) Lymph % (Auto) [place] % (Auto) Eos % (Auto) Baso % (Auto) Lymph # (Auto) [place] # (Auto) Eos # (Auto) Baso # (Auto) Abs Immat Gran (auto) Absolute Neuts (auto) Absolute Nucleated RBC Nucleated RBC % (auto) Anion Gap 18 Estim Creat Clear Calc 34.4 Estimated GFR 30 POC Glucose Random Glucose 166 H Calcium 9.2 Total Bilirubin 0.6 Direct Bilirubin 0.4 AST 25 ALT 18 Alkaline Phosphatase 93 Troponin I High Sens 56.4 H B-Natriuretic Peptide Total Protein 8.2 H D Albumin 4.1 D Digoxin COVID-19 ([facility]) Negative COVID-19 Clin Com See Note 12/03/21 12/03/21 12/03/21 15:52 15:52 15:53 MCV 86.9 MCH 27.1 MCHC 31.2 RDW 17.1 H Plt Count 182 MPV 11.4 Immature Gran % (Auto) 0.5 H Neut % (Auto) 81.8 H Lymph % (Auto) 6.9 L [place] % (Auto) 8.6 Eos % (Auto) 1.7 Baso % (Auto) 0.5 Lymph # (Auto) 0.9 L [place] # (Auto) 1.2 Eos # (Auto) 0.2 Baso # (Auto) 0.1 Abs Immat Gran (auto) 0.07 H Absolute Neuts (auto) 10.9 H Absolute Nucleated RBC 0.000 Nucleated RBC % (auto) 0.0 Anion Gap Estim Creat Clear Calc Estimated GFR POC Glucose Random Glucose Calcium Total Bilirubin Direct Bilirubin AST ALT Alkaline Phosphatase Troponin I High Sens B-Natriuretic Peptide 383 H Total Protein Albumin Digoxin 0.9 COVID-19 ([facility]) COVID-19 Clin Com 12/03/21 16:23 MCV MCH MCHC RDW Plt Count MPV Immature Gran % (Auto) Neut % (Auto) Lymph % (Auto) [place] % (Auto) Eos % (Auto) Baso % (Auto) Lymph # (Auto) [place] # (Auto) Eos # (Auto) Baso # (Auto) Abs Immat Gran (auto) Absolute Neuts (auto) Absolute Nucleated RBC Nucleated RBC % (auto) Anion Gap Estim Creat Clear Calc Estimated GFR POC Glucose 170 H Random Glucose Calcium Total Bilirubin Direct Bilirubin AST ALT Alkaline Phosphatase Troponin I High Sens B-Natriuretic Peptide Total Protein Albumin Digoxin COVID-19 ([facility]) COVID-19 Clin Com Imaging Radiologist's Impressions: Impressions Cervical Spine CT 12/03/21 15:14 IMPRESSION: 1. Straightening of the normal cervical lordosis may be secondary to positioning and/or muscle spasm. 2. Mild to moderate degenerative disc disease. No acute abnormality. No significant change. Head CT 12/03/21 15:14 IMPRESSION: 1. No acute intracranial abnormality. 2. Complete opacification of the left maxillary sinus. There is possible communication with a left posterior molar apex suggesting this is odontogenic. Dental consultation is recommended. Assessment and Plan (1) Syncope: Status: Acute Plan 76M with a past medical history of nonischemic cardiomyopathy, permanent atrial fibrillation, left bundle-branch block, NSVT, bladder cancer status post urostomy, diabetes, and CKD 3, presented with syncope. syncope in the setting of non ischemic cardiomyopathy concerning for cardiac arrythmia telemetry, echo, cardiology continue beta jamie follow electrolytes hyperkalemia given kayexylate and insulin follow up repeat cesario on ckd III given ivf in ED, monitor permanent afib metoprolol, eliquis, digoxin hypothyroid synthroid bladder ca s/p urostomy DM holding glimerpiride insulin sliding scale full code patient with syncopal episode concerning for life threatening cardiac arrythmia, severe hyperkalemia, CESARIO requiring close monitoring, with risk factors of advanced age, DM, cardiomyopathy therefore, expected to require atleast 2 midnights in hospital Quality Stroke Does the patient have a stroke diagnosis?: No VTE Prior VTE?: No VTE Risk Level:: Medical - moderate - high VTE Device Contraindication: Treatment Not Indicated VTE Drug Contraindication: N/A - Med Ordered
[2021-12-03 17:56] LABS: Anion Gap 18 (12-20); Blood Urea Nitrogen 35 mg/dL (9-16); Calcium 8.6 mg/dL (8.4-10.2); Carbon Dioxide 11 mmol/L (22-29); Chloride 114 mmol/L (96-108); Creatinine Clr Calc Pharmacy 36.3; Estimated Glomerular Filt Rate 32; Glucose Random 235 mg/dL (60-115); Potassium 6.3 mmol/L (3.3-5.1); Sodium 137 mmol/L (135-145)
[2021-12-03] MEDS: Sodium Bicarbonate 8.4% 150 MEQ in Dextrose 5 % 850 ML 100 MEQ IV (18:40)
[2021-12-03] MEDS: Insulin Regular, Human 100 UNIT/ML 3 ML VIAL 10 UNIT IVPUSH (18:41)
[2021-12-03 20:16] LABS: Anion Gap 18 (12-20); Blood Urea Nitrogen 33 mg/dL (9-16); Calcium 8.7 mg/dL (8.4-10.2); Carbon Dioxide 13 mmol/L (22-29); Chloride 113 mmol/L (96-108); Creatinine Clr Calc Pharmacy 36.5; Estimated Glomerular Filt Rate 32; Glucose Random 226 mg/dL (60-115); Potassium 5.2 mmol/L (3.3-5.1); Sodium 139 mmol/L (135-145)
[2021-12-03 21:08] VITALS: BP 134/62; PULSE 52; RESP 16; TEMP 36.4; O2SAT 97
[2021-12-03] MEDS: Apixaban 5 MG TABLET PO (21:16)
[2021-12-03] MEDS: Atorvastatin Calcium 10 MG TABLET PO (21:16)
[2021-12-03 21:46] LABS: Glucose, Whole Blood 167 mg/dL (60-115)
[2021-12-03 22:32] LABS: Potassium 5.9 mmol/L (3.3-5.1)
[2021-12-03 23:42] VITALS: BP 131/54; PULSE 53; RESP 19; TEMP 37.1; O2SAT 97
[2021-12-04] VITALS (9 sets, daily range): BP systolic 112–139; BP diastolic 50–65; PULSE 71–84; RESP 12–20; TEMP 36.4; O2SAT 96
[2021-12-04] MEDS: Insulin Regular, Human 100 UNIT/ML 3 ML VIAL IVPUSH (01:10)
[2021-12-04] MEDS: Dextrose 50 % 25 GM/50 ML SYRINGE IVPUSH (01:10)
[2021-12-04 05:04] LABS: Appearance Urine Cloudy; Color Urine Yellow; Glucose Urine UA Negative (Negative); Leukocyte Esterase Urine Moderate (2+) (Negative); Nitrite Urine Positive (Negative); Specific Gravity - Urine 1.015 (1.005-1.025); UMIC TRIGGER UACC YES; Urine Blood Moderate (2+) (Negative); Urine Ketones Negative (Negative); Urine Protein 30 (1+) mg/dL (Neg-Trace)
[2021-12-04 05:16] LABS: Bacteria Urine 4+ (None Seen); UACC Culture Trigger YES; WBC Urine 21-50 /HPF (0-5)
[2021-12-04 05:20] LABS: Hematocrit 42.6 % (42.0-52.0); Hemoglobin 13.1 g/dl (14.0-18.0); Mean Corpuscular HGB Conc 30.8 g/dl (31.0-36.0); Mean Corpuscular Hemoglobin 26.6 pg (27.0-33.0); Mean Corpuscular Volume 86.6 fL (80.0-98.0); Mean Platelet Volume 11.1 fL (9.4-12.4); Platelet Count 150 X10*3/uL (160-400); Red Blood Count 4.92 X10*6/uL (4.60-5.80); Red Cell Distribution Width 17.1 % (11.0-16.0); White Blood Count 8.4 X10*3/uL (4.8-10.8)
[2021-12-04] MEDS: Levothyroxine Sodium 88 MCG TABLET PO (05:37)
[2021-12-04 05:46] LABS: Anion Gap 15 (12-20); Blood Urea Nitrogen 32 mg/dL (9-16); Calcium 8.6 mg/dL (8.4-10.2); Carbon Dioxide 20 mmol/L (22-29); Chloride 111 mmol/L (96-108); Creatinine Clr Calc Pharmacy 42.1; Estimated Glomerular Filt Rate 38; Glucose Fasting 85 mg/dL (60-99); Magnesium 1.8 mg/dL (1.6-2.6); Potassium 4.2 mmol/L (3.3-5.1); Sodium 142 mmol/L (135-145)
--- NOTE | 2021-12-04 07:00 | CA_ITS ---
Transthoracic Echocardiogram Patient (Last, First, Middle): Nagi Roblero, Gender: Male Date of : 1945 Age: 76 Procedure Date: 12/04/2021 Procedure Type: Transthoracic Echocardiogram Location: ER Height: 177.8 cm Weight: 95.71 kg BSA: 2.14 m2 Heart Rate: bpm BP: 125 / 65 mmHg Quality Control Microbiology Supervisor: Referring MD: Eber Schmitt MD Delinquency Prevention Social Worker: Omar Ramos MD Symptoms: sycnope, history of cardiomyopathy Study Quality: Fair ECG Rhythm: Sinus with extra beats Conclusions: - 1. Moderately reduced LV systolic function with LVEF of 35-40% 2. Moderate left atrial enlargement 3. [id number] tricuspid regurgitation 4. Cnoa-nv-fsnnovsw elevation of right ventricular systolic pressure 5. Mildly dilated ascending aorta at 3.9 cm 6. No gross pericardial effusion Findings Procedure Information Contrast agent, definity, is being given per protocol without apparent complications. Left Ventricle Normal left ventricular cavity size. There is mildly increased left ventricular wall thickness. The left ventricular systolic function is moderately decreased. The visually estimated ejection fraction is between 35 40%. There is moderate global hypokinesis. There is paradoxical septal motion consistent with a left bundle branch block. E/E prime ratio is between 8 and 15 consistent with indeterminate filling pressures. Right Ventricle Mildly increased right ventricular cavity size. There is normal right ventricular systolic function. Atria The left atrium is moderately dilated. Interatrial shunt cannot be excluded. The right atrium was not well visualized. Aortic Valve The aortic valve was not well visualized. There is mild calcification of the aortic valve. There is no aortic valve stenosis. There is mild aortic valve regurgitation. Mitral Valve The mitral valve was not well visualized. There is mild anterior and posterior mitral leaflet thickening. There is mild mitral annular calcification. There is trace mitral valve regurgitation. There is no mitral valve stenosis. Tricuspid Valve Likely normal tricuspid valve structure and function. There is mild to moderate tricuspid valve regurgitation. Mildly elevated right atrial pressure. Mild to moderate pulmonary hypertension is present. Great Vessels The pulmonary artery was not well visualized. There is mild dilatation of the ascending aorta measuring 3.90 cm. Venous The inferior vena cava is moderately dilated and collapses less than 50% with inspiration. Pericardium/Pleural There is no evidence of pericardial effusion. Prior Study Comparison Changes noted compared to prior study dated: 04/20/2021. LV systolic function is further depressed Measurements 2D Linear Measurements IVSd: 1.21 0.6-0.9/0.6-1.0 cm LVIDd: 5.27 3.9-5.3/4.2-5.9 cm LVIDd Index: 2.46 2.4-3.2/2.2-3.1 cm/m2 LVIDs: 3.75 2.0-3.6 cm LVPWd: 1.23 0.7-1.1 cm Ao Root: 3.30 2.1-3.5 cm LA Diam: 5.50 2.7-3.8/3.0-4.0 cm LAIDs Index: 2.57 1.5-2.3 cm/m2 LV Mass: 324.43 67-162/88-224 g LV Mass Index: 151.60 43-95/49-115 g/m2 LVOT Diam: 2.00 3.0+(-)1.3 cm 2D Systolic Function EF 4C: 31.10 >55% EF 2C: 47.40 >55% EF BiP: 37.20 >55% Mitral Valve MV Pk E: 1.11 MV Decel Time: 162.00 E'Lateral: 10.20 E'Medial: 5.33 E/E' Med: 20.80 E/E' Lat: 10.90 PHT: 47.00 MVA PHT: 4.68 Decel Bladen: 6.87 Aortic Valve AoV Pk Faraz: 1.60 AoV Mn Faraz: 1.20 AoV VTI: 0.31 AoV Pk Grad: 10.00 Aov Mn Grad: 6.00 BREEZY Cont.VTI: 1.86 LVOT LVOT Pk [place]az: 0.98 LVOT Mn Faraz: 0.60 LVOT VTI: 0.18 LVOT Pk Grad: 4.00 LVOT Mn Grad: 2.00 LVOT Diam: 2.00 LVOT Area: 3.14 Diastolic Function MV Pk E: 1.11 E'Medial: 5.33 E/E' Med: 20.80 E' Laterial: 10.20 E/E' Lat: 10.90 Right Ventricle TAPSE (mm): 20.00 Tricuspid Valve TR Pk Faraz: 3.07 TR Pk Grad: 38.00 RA Press: 8.00 RVSP: 46.00 Great Vessels Aorta Ao Root-2D: 3.30 2.0-3.7 cm Ao Asc: 3.90 2.1-3.4 cm Pulmonary Valve PV Pk Faraz: 0.93 Peak PV Grad: 3.00 Updated in Other Vendor System with Status of Final Omar Ramos MD electronically signed on 12/04/2021 5:43:04 PM with status of Final
[2021-12-04 07:08] LABS: Glucose, Whole Blood 51 mg/dL (60-115)
[2021-12-04 07:53] LABS: Glucose, Whole Blood 91 mg/dL (60-115)
[2021-12-04] MEDS: Metoprolol Tartrate 50 MG TABLET PO ×2 (08:27→20:59)
[2021-12-04] MEDS: Pregabalin 100 MG CAPSULE PO (08:27)
[2021-12-04] MEDS: Apixaban 5 MG TABLET PO ×2 (08:27→21:00)
[2021-12-04] MEDS: 0.9 % Sodium Chloride Flush 3 ML SYRINGE IVFLUSH ×2 (08:28→14:51)
--- NOTE | 2021-12-04 10:07 | PM.CNCAR ---
History of Present Illness History of Present Illness Date of Service: 12/04/21 Requesting physician: Brody Collado Consult reason: other (Syncope) Chief complaint: Syncope Nathan Hyperkalemia Narrative: I was consulted to see Nagi in cardiology consultation today for syncope. Patient came to the hospital yesterday after coming from grocery shop he was carrying the groceries into the house he got short of breath. He said down and any started to go to the kitchen and then he does not remember passing out. He said when he woke up his sister and [id number] our next to him and multiple police officers and ambulant dressed with therapy. He does not recall the event exactly. He has had history of chronic atrial fibrillation mild cardiomyopathy with left bundle-branch block. Last echocardiogram was April of this year which had shown LVEF of 45-50% which has significantly improved compared to the past and is LVEF of 15-20%. Undergone cardiac catheterization for that reason and he had normal coronary arteries. Was managed medically for nonischemic cardiomyopathy. He has never had any history of overt heart failure. He has had history of hyperkalemia for which is valsartan was withheld. I had seen him recently in September in the office and he was doing well except for complain of NYHA class 2 shortness of breath which is chronic related to deconditioning. He had no heart failure symptoms at that point in time. He had no lightheadedness or syncope or palpitations. He is managed with rate control with metoprolol and digoxin and his digoxin level yesterday was 0.9. He is also on oral anticoagulation Eliquis. Denies any recent illness with no while syndrome or nausea vomiting diarrhea. Denies any recent bleeding. He denies any recent changes in medications. When he came in yesterday was noted to have atrial fibrillation slightly rapid ventricular response. Subsequently his heart rate was in the 50s. However overnight on monitoring there is no significant tachy or Griffin arrhythmias noted. Isolated PVCs noted. He does say that he drinks enough fluids in the day. However he was noted to have a care with creatinine up to 2. He has received IV fluids and his creatinine is down trended more closer to his baseline. Review of Systems Constitutional: Constitutional: Reports no additional constitutional complaints Eyes: Eyes: Reports no additional eye complaints Cardiovascular: Cardiovascular: Denies chest pain, Reports syncope, Denies lightheadedness, Reports Loss of Consciousness, Denies palpitations and Reports dyspnea on exertion Respiratory: Respiratory: Reports no additional respiratory complaints and Reports dyspnea on exertion Gastrointestinal: Gastrointestinal: Reports no additional gastrointestinal complaints Genitourinary: Genitourinary: Reports no additional male genitourinary complaints Musculoskeletal: Musculoskeletal: Reports no additional musculoskeletal complaints Integumentary/Breasts: Skin/Breast: Reports system reviewed and no additional complaints, except as docu Neurologic: Reports system reviewed and no additional complaints, except as documented and Reports syncope Psychiatric: Psychiatric: Reports no additional psychiatric complaints Endocrine: Endocrine: Reports no additional endocrine complaints and Denies palpitations Hematologic/Lymphatic: Hematologic/Lymphatic: Reports no additional hematologic/lymphatic complaints Allergic/Immunologic: Allergic/Immunologic: Reports no additional allergic/immunologic complaints PMFSH Past Medical History Medical History Afib Bladder cancer Cardiomyopathy CHF (congestive heart failure) Diabetes mellitus Hematuria HTN (hypertension) Osteomyelitis Family History Family History Father No problems noted. Mother No problems noted. Surgical History Surgical History History of cardiac catheterization (~01/31/21) History of urostomy Status post cardiac catheterization Social History Social History Household Members: Children Housing: House Alcohol intake: current Alcohol intake frequency: a few times a week Alcohol type: wine Patient Tobacco Use Status: Former Tobacco user Advance Directives: Yes Advance Directives Information Provided: No Advance Directives on File: No Meds Allergies Allergy/AdvReac Type Severity Reaction Status Date / Time No Known Allergies Allergy Verified 12/04/21 10:09 Active Medications: Current Medications Apixaban (Apixaban 5 Mg Tablet) 5 mg PO BID [facility] Last Admin: 12/04/21 08:27 Dose: 5 mg Atorvastatin Calcium (Atorvastatin Calcium 10 Mg Tablet) 10 mg PO BEDTIME [facility] Last Admin: 12/03/21 21:16 Dose: 10 mg Dextrose (Dextrose 50 % 25 Gm/50 Ml Syringe) 25 gm IVPUSH Q15M PRN; Protocol PRN Reason: per Hypoglycemia Standing Ord. Glucose (Glucose Gel 15 Gm Gel..Gram.) 15 gm PO Q15M PRN; Protocol PRN Reason: per Hypoglycemia Standing Ord. Insulin Human Lispro (Insulin Lispro 100 Unit/Ml 3 Ml Vial) 0 unit SUBCUT QIDACHS [facility]; Protocol Last Admin: 12/04/21 07:22 Dose: Not Given Levothyroxine Sodium (Levothyroxine Sodium 88 Mcg Tablet) 88 mcg PO DAILY@0600 [facility] Last Admin: 12/04/21 05:37 Dose: 88 mcg Metoprolol Tartrate (Metoprolol Tartrate 50 Mg Tablet) 50 mg PO BID [facility]; Protocol Last Admin: 12/04/21 08:27 Dose: 50 mg Pharmacy Consult (Consult Rx Perform Med Rec) 1 each MISCELLANE ONCE PRN PRN Reason: Consult order Pregabalin (Pregabalin 100 Mg Capsule) 100 mg PO DAILY [facility] Last Admin: 12/04/21 08:27 Dose: 100 mg Senna/Docusate Sodium (Sennosides/Docusate Sodium Tablet) 1 tab PO BEDTIME PRN PRN Reason: Constipation Sodium Chloride (0.9 % Sodium Chloride Flush 3 Ml Syringe) 3 ml IVFLUSH QSHIFT [facility] Last Admin: 12/04/21 08:28 Dose: 3 ml Home Medications Medication Instructions Recorded Confirmed Last Taken Type digoxin 125 mcg (0.125 mg) tablet 125 mcg PO DAILY 09/02/20 12/03/21 12/03/21 History glimepiride 2 mg tablet 2 mg PO DAILY 09/02/20 12/03/21 12/03/21 History levothyroxine 88 mcg tablet 88 mcg PO DAILY 09/02/20 12/03/21 12/03/21 History omega [id number]-[id number]-fish oil 1,000 mg 1 cap PO DAILY 09/02/20 12/03/21 12/03/21 History (120 mg-180 mg) capsule (Fish Oil) pregabalin 100 mg capsule 100 mg PO DAILY 09/02/20 12/03/21 12/03/21 History sennosides 8.6 mg-docusate sodium 1 tab-cap PO BEDTIME PRN 09/02/20 12/03/21 09/01/20 History 50 mg tablet Constipation Physical Exam Vital Signs: Vital Signs: Last Vital Signs Temp 97.5 F 12/04/21 06:19 Pulse 79 12/04/21 07:45 Resp 20 12/04/21 07:45 BP 126/62 12/04/21 07:45 Pulse Ox 96 12/04/21 07:45 O2 Del Method 12/04/21 07:45 BMI result Body Mass Index 30.2 Const: General: cooperative, comfortable, no acute distress, alert and awake Nutritional Appearance: obese Orientation/consciousness: patient oriented x3 HEENT: Head: Yes normocephalic, Yes laceration and Yes other Neck: Neck: Yes trachea midline, Yes supple and Yes no JVD Resp: Effort & Inspection: normal respiratory effort Auscultation: clear to auscultation bilaterally Cardio: Jugular venous distension: no JVD Palpation: normal PMI Rate: regular rate Rhythm: abnormal rhythm irregularly irregular Heart sounds: S1 normal heart sound present, S2 normal heart sound present, no click, no gallops and no murmurs GI: Inspection: Yes obesity Auscultation: normal bowel sounds Skin: General skin exam: no rashes or lesions noted Neuro: General: patient oriented x3 and no focal motor deficits Extrem: General: Yes no clubbing, cyanosis or edema Objective Labs and Meds Result diagrams: 12/04/21 05:14 12/04/21 05:14 Lab results: Laboratory Results - last 24 hr 12/03/21 12/03/21 12/03/21 15:52 15:52 15:52 WBC RBC Hgb Hct MCV MCH MCHC RDW Plt Count MPV Immature Gran % (Auto) Neut % (Auto) Lymph % (Auto) [place] % (Auto) Eos % (Auto) Baso % (Auto) Lymph # (Auto) [place] # (Auto) Eos # (Auto) Baso # (Auto) Abs Immat Gran (auto) Absolute Neuts (auto) Absolute Nucleated RBC Nucleated RBC % (auto) Sodium 138 Potassium 6.4 H* D Chloride 111 H Carbon Dioxide 15 L Anion Gap 18 BUN 34 H Creatinine 2.15 H Estim Creat Clear Calc 34.4 Estimated GFR 30 POC Glucose Random Glucose 166 H Fasting Glucose Calcium 9.2 Magnesium Total Bilirubin 0.6 Direct Bilirubin 0.4 AST 25 ALT 18 Alkaline Phosphatase 93 Troponin I High Sens 56.4 H B-Natriuretic Peptide Total Protein 8.2 H D Albumin 4.1 D Urine Color Urine Appearance Urine pH Ur Specific [place] Urine Protein Urine Glucose (UA) Urine Ketones Urine Blood Urine Nitrite Ur Leukocyte Esterase Urine RBC Urine WBC Ur Squamous Epith Cells Urine Bacteria Hyaline Casts Digoxin COVID-19 ([facility]) Negative COVID-19 Clin Com See Note 12/03/21 12/03/21 12/03/21 15:52 15:52 15:53 WBC 13.3 H RBC 5.02 Hgb 13.6 L Hct 43.6 MCV 86.9 MCH 27.1 MCHC 31.2 RDW 17.1 H Plt Count 182 MPV 11.4 Immature Gran % (Auto) 0.5 H Neut % (Auto) 81.8 H Lymph % (Auto) 6.9 L [place] % (Auto) 8.6 Eos % (Auto) 1.7 Baso % (Auto) 0.5 Lymph # (Auto) 0.9 L [place] # (Auto) 1.2 Eos # (Auto) 0.2 Baso # (Auto) 0.1 Abs Immat Gran (auto) 0.07 H Absolute Neuts (auto) 10.9 H Absolute Nucleated RBC 0.000 Nucleated RBC % (auto) 0.0 Sodium Potassium Chloride Carbon Dioxide Anion Gap BUN Creatinine Estim Creat Clear Calc Estimated GFR POC Glucose Random Glucose Fasting Glucose Calcium Magnesium Total Bilirubin Direct Bilirubin AST ALT Alkaline Phosphatase Troponin I High Sens B-Natriuretic Peptide 383 H Total Protein Albumin Urine Color Urine Appearance Urine pH Ur Specific [place] Urine Protein Urine Glucose (UA) Urine Ketones Urine Blood Urine Nitrite Ur Leukocyte Esterase Urine RBC Urine WBC Ur Squamous Epith Cells Urine Bacteria Hyaline Casts Digoxin 0.9 COVID-19 ([facility]) COVID-19 Clin Com 12/03/21 12/03/21 12/03/21 16:23 17:30 19:52 WBC RBC Hgb Hct MCV MCH MCHC RDW Plt Count MPV Immature Gran % (Auto) Neut % (Auto) Lymph % (Auto) [place] % (Auto) Eos % (Auto) Baso % (Auto) Lymph # (Auto) [place] # (Auto) Eos # (Auto) Baso # (Auto) Abs Immat Gran (auto) Absolute Neuts (auto) Absolute Nucleated RBC Nucleated RBC % (auto) Sodium 137 139 Potassium 6.3 H* 5.2 H Chloride 114 H 113 H Carbon Dioxide 11 L 13 L Anion Gap 18 18 BUN 35 H 33 H Creatinine 2.04 H 2.03 H Estim Creat Clear Calc 36.3 36.5 Estimated GFR 32 32 POC Glucose 170 H Random Glucose 235 H D 226 H Fasting Glucose Calcium 8.6 D 8.7 Magnesium 2.0 Total Bilirubin Direct Bilirubin AST ALT Alkaline Phosphatase Troponin I High Sens B-Natriuretic Peptide Total Protein Albumin Urine Color Urine Appearance Urine pH Ur Specific [place] Urine Protein Urine Glucose (UA) Urine Ketones Urine Blood Urine Nitrite Ur Leukocyte Esterase Urine RBC Urine WBC Ur Squamous Epith Cells Urine Bacteria Hyaline Casts Digoxin COVID-19 ([facility]) COVID-19 [facility] Com 12/03/21 12/03/21 12/04/21 21:41 22:08 04:55 WBC RBC Hgb Hct MCV MCH MCHC RDW Plt Count MPV Immature Gran % (Auto) Neut % (Auto) Lymph % (Auto) [place] % (Auto) Eos % (Auto) Baso % (Auto) Lymph # (Auto) [place] # (Auto) Eos # (Auto) Baso # (Auto) Abs Immat Gran (auto) Absolute Neuts (auto) Absolute Nucleated RBC Nucleated RBC % (auto) Sodium Potassium 5.9 H Chloride Carbon Dioxide Anion Gap BUN Creatinine Estim Creat Clear Calc Estimated GFR POC Glucose 167 H Random Glucose Fasting Glucose Calcium Magnesium Total Bilirubin Direct Bilirubin AST ALT Alkaline Phosphatase Troponin I High Sens B-Natriuretic Peptide Total Protein Albumin Urine Color Yellow Urine Appearance Cloudy Urine pH 7.0 Ur Specific [place] 1.015 Urine Protein 30 (1+) H Urine Glucose (UA) Negative Urine Ketones Negative Urine Blood Moderate (2+) H Urine Nitrite Positive H Ur Leukocyte Esterase Moderate (2+) H Urine RBC 6-10 H Urine WBC 21-50 H Ur Squamous Epith Cells 3-5 Urine Bacteria 4+ Hyaline Casts 3-5 Digoxin COVID-19 ([facility]) COVID-19 [facility] 12/04/21 12/04/21 12/04/21 05:14 05:14 07:02 WBC 8.4 RBC 4.92 Hgb 13.1 L Hct 42.6 MCV 86.6 MCH 26.6 L MCHC 30.8 L RDW 17.1 H Plt Count 150 L MPV 11.1 Immature Gran % (Auto) Neut % (Auto) Lymph % (Auto) [place] % (Auto) Eos % (Auto) Baso % (Auto) Lymph # (Auto) [place] # (Auto) Eos # (Auto) Baso # (Auto) Abs Immat Gran (auto) Absolute Neuts (auto) Absolute Nucleated RBC 0.000 Nucleated RBC % (auto) 0.0 Sodium 142 Potassium 4.2 D Chloride 111 H Carbon Dioxide 20 L Anion Gap 15 BUN 32 H Creatinine 1.76 H Estim Creat Clear Calc 42.1 Estimated GFR 38 POC Glucose 51 L* Random Glucose Fasting Glucose 85 D Calcium 8.6 Magnesium 1.8 Total Bilirubin Direct Bilirubin AST ALT Alkaline Phosphatase Troponin I High Sens B-Natriuretic Peptide Total Protein Albumin Urine Color Urine Appearance Urine pH Ur Specific [place] Urine Protein Urine Glucose (UA) Urine Ketones Urine Blood Urine Nitrite Ur Leukocyte Esterase Urine RBC Urine WBC Ur Squamous Epith Cells Urine Bacteria Hyaline Casts Digoxin COVID-19 ([facility]) COVID-19 Clin Com 12/04/21 07:41 WBC RBC Hgb Hct MCV MCH MCHC RDW Plt Count MPV Immature Gran % (Auto) Neut % (Auto) Lymph % (Auto) [place] % (Auto) Eos % (Auto) Baso % (Auto) Lymph # (Auto) [place] # (Auto) Eos # (Auto) Baso # (Auto) Abs Immat Gran (auto) Absolute Neuts (auto) Absolute Nucleated RBC Nucleated RBC % (auto) Sodium Potassium Chloride Carbon Dioxide Anion Gap BUN Creatinine Estim Creat Clear Calc Estimated GFR POC Glucose 91 Random Glucose Fasting Glucose Calcium Magnesium Total Bilirubin Direct Bilirubin AST ALT Alkaline Phosphatase Troponin I High Sens B-Natriuretic Peptide Total Protein Albumin Urine Color Urine Appearance Urine pH Ur Specific [place] Urine Protein Urine Glucose (UA) Urine Ketones Urine Blood Urine Nitrite Ur Leukocyte Esterase Urine RBC Urine WBC Ur Squamous Epith Cells Urine Bacteria Hyaline Casts Digoxin COVID-19 ([facility]) COVID-19 Clin Com Imaging Radiologist's impression: Impressions Cervical Spine CT 12/03/21 15:14 IMPRESSION: 1. Straightening of the normal cervical lordosis may be secondary to positioning and/or muscle spasm. 2. Mild to moderate degenerative disc disease. No acute abnormality. No significant change. Head CT 12/03/21 15:14 IMPRESSION: 1. No acute intracranial abnormality. 2. Complete opacification of the left maxillary sinus. There is possible communication with a left posterior molar apex suggesting this is odontogenic. Dental consultation is recommended. Chest X-Ray 12/03/21 17:00 IMPRESSION: No acute pulmonary disease. Assessment and Plan (1) Syncope: Status: Acute Syncope in this elderly gentleman could be due to multiple different reasons. He present with acute kidney injury and there is high likelihood of underlying poor oral intake and dehydration and likelihood of orthostatic hypotension. He has been hydrated his creatinine is improved. Please check orthostatic vitals and assess for evidence of orthostatic hypertension that may need to be treated alternatively. He is currently blood pressure is well optimized. Other possible etiologies including tachy-griffin arrhythmias up possible and may require pacing therapy. Also possible lady of ventricular arrhythmias is high given his prior history of cardiomyopathy. Agree with echocardiogram to assess LV systolic function. If his significant recurrent LV systolic dysfunction which is likely given his prior history of severe LV systolic dysfunction left bundle-branch block and currently not being on valsartan therapy. He may require further treatment options with ICD placement at that point time. If his LV systolic function is reasonable consider implantable loop recorder placement on discharge. Continue metoprolol and digoxin therapy. Digoxin levels are within therapeutic range. Continue full oral anticoagulation with Eliquis. Continue full disclosure cardiac telemetry for 24-48 hours for syncopal as he is at high risk for cardiac arrhythmias. Will continue to follow with you. Thank you for allowing me to partake in his care Procedures Date of Service Date of Service: 12/04/21
--- NOTE | 2021-12-04 10:10 | P.PNIM_ITS ---
Subjective Subjective Date of Service: 12/04/21 Interval History: cc: syncope interval history: no further events Cardiovascular Cardiovascular: Reports no additional cardiovascular complaints Respiratory Respiratory: Reports no additional respiratory complaints Physical Exam Vital Signs: Vital Signs: Last Vital Signs Temp 97.5 F 12/04/21 06:19 Pulse 79 12/04/21 07:45 Resp 20 12/04/21 07:45 BP 126/62 12/04/21 07:45 Pulse Ox 96 12/04/21 07:45 O2 Del Method 12/04/21 07:45 BMI result Body Mass Index 30.2 General: AO X 3, no acute distress Resp: CTA bilateral, no accessory muscles used CVS: S1,S2,RRR GI: soft, non tender, non distended Neuro: motor grossly intact, alert Psych: appropriate affect, appropriate insight Objective Data Active Medications Apixaban (Apixaban 5 Mg Tablet) 5 mg PO BID [facility] Last Admin: 12/04/21 08:27 Dose: 5 mg Documented By: TIGIST Atorvastatin Calcium (Atorvastatin Calcium 10 Mg Tablet) 10 mg PO BEDTIME [facility] Last Admin: 12/03/21 21:16 Dose: 10 mg Documented By: JORDI Dextrose (Dextrose 50 % 25 Gm/50 Ml Syringe) 25 gm IVPUSH Q15M PRN; Protocol PRN Reason: per Hypoglycemia Standing Ord. Glucose (Glucose Gel 15 Gm Gel..Gram.) 15 gm PO Q15M PRN; Protocol PRN Reason: per Hypoglycemia Standing Ord. Insulin Human Lispro (Insulin Lispro 100 Unit/Ml 3 Ml Vial) 0 unit SUBCUT QIDACHS [facility]; Protocol Last Admin: 12/04/21 07:22 Dose: Not Given Documented By: NEERU Non-Admin Reason: No Insulin Coverage Levothyroxine Sodium (Levothyroxine Sodium 88 Mcg Tablet) 88 mcg PO DAILY@0600 [facility] Last Admin: 12/04/21 05:37 Dose: 88 mcg Documented By: NEERU Metoprolol Tartrate (Metoprolol Tartrate 50 Mg Tablet) 50 mg PO BID [facility]; Protocol Last Admin: 12/04/21 08:27 Dose: 50 mg Documented By: TIGIST Pharmacy Consult (Consult Rx Perform Med Rec) 1 each MISCELLANE ONCE PRN PRN Reason: Consult order Pregabalin (Pregabalin 100 Mg Capsule) 100 mg PO DAILY [facility] Last Admin: 12/04/21 08:27 Dose: 100 mg Documented By: TIGIST Senna/Docusate Sodium (Sennosides/Docusate Sodium Tablet) 1 tab PO BEDTIME PRN PRN Reason: Constipation Sodium Chloride (0.9 % Sodium Chloride Flush 3 Ml Syringe) 3 ml IVFLUSH QSHIFT [facility] Last Admin: 12/04/21 08:28 Dose: 3 ml Documented By: TIGIST Labs CBC & Chem 7: 12/04/21 05:14 12/04/21 05:14 Labs: Laboratory Results - last 24 hr 12/03/21 12/03/21 12/03/21 15:52 15:52 15:52 MCV MCH MCHC RDW Plt Count MPV Immature Gran % (Auto) Neut % (Auto) Lymph % (Auto) [place] % (Auto) Eos % (Auto) Baso % (Auto) Lymph # (Auto) [place] # (Auto) Eos # (Auto) Baso # (Auto) Abs Immat Gran (auto) Absolute Neuts (auto) Absolute Nucleated RBC Nucleated RBC % (auto) Anion Gap 18 Estim Creat Clear Calc 34.4 Estimated GFR 30 POC Glucose Random Glucose 166 H Fasting Glucose Calcium 9.2 Magnesium Total Bilirubin 0.6 Direct Bilirubin 0.4 AST 25 ALT 18 Alkaline Phosphatase 93 Troponin I High Sens 56.4 H B-Natriuretic Peptide Total Protein 8.2 H D Albumin 4.1 D Urine Color Urine Appearance Urine pH Ur Specific [place] Urine Protein Urine Glucose (UA) Urine Ketones Urine Blood Urine Nitrite Ur Leukocyte Esterase Urine RBC Urine WBC Ur Squamous Epith Cells Urine Bacteria Hyaline Casts Digoxin COVID-19 ([facility]) Negative COVID-19 Clin Com See Note 12/03/21 12/03/21 12/03/21 15:52 15:52 15:53 MCV 86.9 MCH 27.1 MCHC 31.2 RDW 17.1 H Plt Count 182 MPV 11.4 Immature Gran % (Auto) 0.5 H Neut % (Auto) 81.8 H Lymph % (Auto) 6.9 L [place] % (Auto) 8.6 Eos % (Auto) 1.7 Baso % (Auto) 0.5 Lymph # (Auto) 0.9 L [place] # (Auto) 1.2 Eos # (Auto) 0.2 Baso # (Auto) 0.1 Abs Immat Gran (auto) 0.07 H Absolute Neuts (auto) 10.9 H Absolute Nucleated RBC 0.000 Nucleated RBC % (auto) 0.0 Anion Gap Estim Creat Clear Calc Estimated GFR POC Glucose Random Glucose Fasting Glucose Calcium Magnesium Total Bilirubin Direct Bilirubin AST ALT Alkaline Phosphatase Troponin I High Sens B-Natriuretic Peptide 383 H Total Protein Albumin Urine Color Urine Appearance Urine pH Ur Specific [place] Urine Protein Urine Glucose (UA) Urine Ketones Urine Blood Urine Nitrite Ur Leukocyte Esterase Urine RBC Urine WBC Ur Squamous Epith Cells Urine Bacteria Hyaline Casts Digoxin 0.9 COVID-19 ([facility]) COVID-19 Clin Com 12/03/21 12/03/21 12/03/21 16:23 17:30 19:52 MCV MCH MCHC RDW Plt Count MPV Immature Gran % (Auto) Neut % (Auto) Lymph % (Auto) [place] % (Auto) Eos % (Auto) Baso % (Auto) Lymph # (Auto) [place] # (Auto) Eos # (Auto) Baso # (Auto) Abs Immat Gran (auto) Absolute Neuts (auto) Absolute Nucleated RBC Nucleated RBC % (auto) Anion Gap 18 18 Estim Creat Clear Calc 36.3 36.5 Estimated GFR 32 32 POC Glucose 170 H Random Glucose 235 H D 226 H Fasting Glucose Calcium 8.6 D 8.7 Magnesium 2.0 Total Bilirubin Direct Bilirubin AST ALT Alkaline Phosphatase Troponin I High Sens B-Natriuretic Peptide Total Protein Albumin Urine Color Urine Appearance Urine pH Ur Specific [place] Urine Protein Urine Glucose (UA) Urine Ketones Urine Blood Urine Nitrite Ur Leukocyte Esterase Urine RBC Urine WBC Ur Squamous Epith Cells Urine Bacteria Hyaline Casts Digoxin COVID-19 ([facility]) COVID-19 Clin Com 12/03/21 12/04/21 12/04/21 21:41 04:55 05:14 MCV 86.6 MCH 26.6 L MCHC 30.8 L RDW 17.1 H Plt Count 150 L MPV 11.1 Immature Gran % (Auto) Neut % (Auto) Lymph % (Auto) [place] % (Auto) Eos % (Auto) Baso % (Auto) Lymph # (Auto) [place] # (Auto) Eos # (Auto) Baso # (Auto) Abs Immat Gran (auto) Absolute Neuts (auto) Absolute Nucleated RBC 0.000 Nucleated RBC % (auto) 0.0 Anion Gap Estim Creat Clear Calc Estimated GFR POC Glucose 167 H Random Glucose Fasting Glucose Calcium Magnesium Total Bilirubin Direct Bilirubin AST ALT Alkaline Phosphatase Troponin I High Sens B-Natriuretic Peptide Total Protein Albumin Urine Color Yellow Urine Appearance Cloudy Urine pH 7.0 Ur Specific [place] 1.015 Urine Protein 30 (1+) H Urine Glucose (UA) Negative Urine Ketones Negative Urine Blood Moderate (2+) H Urine Nitrite Positive H Ur Leukocyte Esterase Moderate (2+) H Urine RBC 6-10 H Urine WBC 21-50 H Ur Squamous Epith Cells 3-5 Urine Bacteria 4+ Hyaline Casts 3-5 Digoxin COVID-19 ([facility]) COVID-19 Clin Com 12/04/21 12/04/21 12/04/21 05:14 07:02 07:41 MCV MCH MCHC RDW Plt Count MPV Immature Gran % (Auto) Neut % (Auto) Lymph % (Auto) [place] % (Auto) Eos % (Auto) Baso % (Auto) Lymph # (Auto) [place] # (Auto) Eos # (Auto) Baso # (Auto) Abs Immat Gran (auto) Absolute Neuts (auto) Absolute Nucleated RBC Nucleated RBC % (auto) Anion Gap 15 Estim Creat Clear Calc 42.1 Estimated GFR 38 POC Glucose 51 L* 91 Random Glucose Fasting Glucose 85 D Calcium 8.6 Magnesium 1.8 Total Bilirubin Direct Bilirubin AST ALT Alkaline Phosphatase Troponin I High Sens B-Natriuretic Peptide Total Protein Albumin Urine Color Urine Appearance Urine pH Ur Specific [place] Urine Protein Urine Glucose (UA) Urine Ketones Urine Blood Urine Nitrite Ur Leukocyte Esterase Urine RBC Urine WBC Ur Squamous Epith Cells Urine Bacteria Hyaline Casts Digoxin COVID-19 ([facility]) COVID-19 Clin Com Assessment and Plan (1) Syncope: Status: Acute Plan 76M with a past medical history of nonischemic cardiomyopathy, permanent atrial fibrillation, left bundle-branch block, NSVT, bladder cancer status post urostomy, diabetes, and CKD 3, presented with syncope. syncope in the setting of non ischemic cardiomyopathy concerning for cardiac arrythmia, rule out orthostasis telemetry, echo, cardiology appreciated continue beta jamie follow electrolytes hyperkalemia given kayexylate and insulin resolved, monitor louis on ckd III given ivf, improving, monitor permanent afib metoprolol, eliquis, digoxin hypothyroid synthroid bladder ca s/p urostomy DM holding glimerpiride insulin sliding scale full code reason for continued hospitalization:ocntinued monitoring for high risk syncope, louis Quality Stroke Does the patient have a stroke diagnosis?: No VTE Prior VTE?: No VTE Risk Level:: Medical - moderate - high VTE Device Contraindication: Treatment Not Indicated VTE Drug Contraindication: N/A - Med Ordered
--- NOTE | 2021-12-04 11:47 | MHC.CM.PN ---
Met with patient in regards to discharge planning. Patient lives alone. However daughter and son-in-law visit almost daily. Patient ambulates independently and had no services prior to coming to the hospital. PCP verified. HCP verified to be on file. [facility] IMM explained and signed. Patient's daughter will transport patient home when medically stable. Continue to monitor for d/c needs.
[2021-12-04 12:11] LABS: Glucose, Whole Blood 74 mg/dL (60-115)
[2021-12-04 14:47] LABS: Glucose, Whole Blood 144 mg/dL (60-115)
--- NOTE | 2021-12-04 15:45 | PC.NURSE ---
Attempted to walk pt to the bathroom, pt reported being too dizzy. Able to transport with wheelchair.
[2021-12-04 16:56] LABS: Glucose, Whole Blood 131 mg/dL (60-115)
--- NOTE | 2021-12-04 20:09 | PC.NURSE ---
Assumed care of pt. at 1900. Pt. is currently sleeping in bed. No distress noted. Will continue to monitor.
[2021-12-04] MEDS: Atorvastatin Calcium 10 MG TABLET PO (21:00)
[2021-12-04 21:30] LABS: Glucose, Whole Blood 119 mg/dL (60-115)
[2021-12-05] VITALS (9 sets, daily range): BP systolic 105–141; BP diastolic 43–73; PULSE 50–92; RESP 11–18; TEMP 36.3–36.8; O2SAT 95–98; BMI 29.8
--- NOTE | 2021-12-05 03:08 | PC.NURSE ---
Pt. resting in bed watching tv. Requested lakshmi morales Will provide.
--- NOTE | 2021-12-05 03:29 | PC.NURSE ---
Pt up and walking around in room. Offered warm blankets. He'd like to walk around a bit.
[2021-12-05 04:56] LABS: Hematocrit 42.7 % (42.0-52.0); Hemoglobin 13.3 g/dl (14.0-18.0); Mean Corpuscular HGB Conc 31.1 g/dl (31.0-36.0); Mean Corpuscular Volume 86.8 fL (80.0-98.0); Mean Platelet Volume 11.2 fL (9.4-12.4); Platelet Count 147 X10*3/uL (160-400); Red Blood Count 4.92 X10*6/uL (4.60-5.80); Red Cell Distribution Width 17.3 % (11.0-16.0); White Blood Count 9.4 X10*3/uL (4.8-10.8)
[2021-12-05 05:20] LABS: Anion Gap 17 (12-20); Blood Urea Nitrogen 36 mg/dL (9-16); Calcium 9.2 mg/dL (8.4-10.2); Carbon Dioxide 20 mmol/L (22-29); Chloride 111 mmol/L (96-108); Creatinine Clr Calc Pharmacy 38.3; Estimated Glomerular Filt Rate 34; Glucose Fasting 122 mg/dL (60-99); Potassium 4.7 mmol/L (3.3-5.1); Sodium 143 mmol/L (135-145)
[2021-12-05 07:25] LABS: Glucose, Whole Blood 99 mg/dL (60-115)
[2021-12-05] MEDS: Metoprolol Tartrate 50 MG TABLET PO ×2 (07:25→21:51)
[2021-12-05] MEDS: Apixaban 5 MG TABLET PO ×2 (07:26→21:51)
[2021-12-05] MEDS: Pregabalin 100 MG CAPSULE PO (07:26)
[2021-12-05] MEDS: Levothyroxine Sodium 88 MCG TABLET PO (07:26)
[2021-12-05] MEDS: 0.9 % Sodium Chloride Flush 3 ML SYRINGE IVFLUSH ×2 (07:28→21:51)
--- NOTE | 2021-12-05 09:23 | PM.PNCARD ---
Subjective Subjective Date of Service: 12/05/21 Principal diagnosis: Syncope Interval history: Patient remains in atrial fibrillation controlled ventricular response. No reported significant arrhythmias. Blood pressures been stable. Echocardiogram shows reduced LV systolic function with LVEF of 35-40%. Review of Systems Review of Systems Yes all other systems are reviewed and are negative Physical Exam Vital Signs: Last Vital Signs Temp 97.6 F 12/05/21 07:22 Pulse 69 12/05/21 07:22 Resp 18 12/05/21 07:22 BP 137/73 12/05/21 07:22 Pulse Ox 95 12/05/21 07:22 O2 Del Method 12/05/21 07:22 BMI result Body Mass Index 30.2 Const General: cooperative, comfortable, no acute distress, alert and awake Nutritional Appearance: obese Orientation/consciousness: patient oriented x3 Neck Neck: Yes trachea midline, Yes supple and Yes no JVD Resp Effort & Inspection: normal respiratory effort Auscultation: clear to auscultation bilaterally Cardio Jugular venous distension: no JVD Rhythm: abnormal rhythm irregularly irregular Heart sounds: S1 normal heart sound present and S2 normal heart sound present GI Auscultation: normal bowel sounds Neuro General: patient oriented x3 Extrem General: Yes no clubbing, cyanosis or edema Objective Labs and Meds Result diagrams: 12/05/21 04:31 12/05/21 04:31 Lab results: Laboratory Results - last 24 hr 12/04/21 12/04/21 12/04/21 12:07 14:42 16:51 WBC RBC Hgb Hct MCV MCH MCHC RDW Plt Count MPV Absolute Nucleated RBC Nucleated RBC % (auto) Sodium Potassium Chloride Carbon Dioxide Anion Gap BUN Creatinine Estim Creat Clear Calc Estimated GFR POC Glucose 74 144 H 131 H Fasting Glucose Calcium 12/04/21 12/05/21 12/05/21 21:27 04:31 04:31 WBC 9.4 RBC 4.92 Hgb 13.3 L Hct 42.7 MCV 86.8 MCH 27.0 MCHC 31.1 RDW 17.3 H Plt Count 147 L MPV 11.2 Absolute Nucleated RBC 0.000 Nucleated RBC % (auto) 0.0 Sodium 143 Potassium 4.7 Chloride 111 H Carbon Dioxide 20 L Anion Gap 17 BUN 36 H Creatinine 1.93 H Estim Creat Clear Calc 38.3 Estimated GFR 34 POC Glucose 119 H Fasting Glucose 122 H D Calcium 9.2 D 12/05/21 07:19 WBC RBC Hgb Hct MCV MCH MCHC RDW Plt Count MPV Absolute Nucleated RBC Nucleated RBC % (auto) Sodium Potassium Chloride Carbon Dioxide Anion Gap BUN Creatinine Estim Creat Clear Calc Estimated GFR POC Glucose 99 Fasting Glucose Calcium Progress Note: A&P Assessment and plan (1) Syncope: Status: Acute Assessment and Plan: Syncope, unexplained in this elderly gentleman with reduced LV ejection fraction to 35-40%. He has underlying left bundle-branch block. No significant ventricular arrhythmia or tachy or Griffin arrhythmias have been noted. Patient is also not orthostatic. Will discuss with EPS about these findings especially given that he has severe LV systolic dysfunction the past and has underlying left bundle-branch block rate as likelihood of ventricular arrhythmias. If he is not a candidate for ICD placement with at least put in implantable loop recorder. Continue cardiac monitoring for 1 more day. (2) Cardiomyopathy: Status: Acute Assessment and Plan: Cardiomyopathy with moderate LV systolic dysfunction without any overt signs of heart failure. Could not tolerate valsartan therapy due to hyperkalemia and renal insufficiency. Continue metoprolol for neurohormonal modulation. No signs or symptoms of heart failure no diuretics needed. Signs and symptoms of heart failure were discussed. Avoid salt loading. (3) Afib: Status: Acute Assessment and Plan: Atrial fibrillation rate controlled. Continue current therapy. Continue rate control therapy given chronic atrial fibrillation significant biatrial enlargement. Continue full oral anticoagulation with Eliquis. Will continue to follow with you Time Spent With Patient Time: Total time spent is greater than 50% in coordination of care (as documented) at patient's floor/unit and/or counseling patient: Progress Note: Quality Stroke Does the patient have a stroke diagnosis?: No Procedures Date of Service Date of Service: 12/05/21
--- NOTE | 2021-12-05 10:06 | P.PNIM_ITS ---
Subjective Subjective Date of Service: 12/05/21 Interval History: cc: syncope interval history: no further events Cardiovascular Cardiovascular: Reports no additional cardiovascular complaints Respiratory Respiratory: Reports no additional respiratory complaints Physical Exam Vital Signs: Vital Signs: Last Vital Signs Temp 97.6 F 12/05/21 07:22 Pulse 57 12/05/21 09:47 Resp 14 12/05/21 09:47 BP 116/43 L 12/05/21 09:47 Pulse Ox 95 12/05/21 09:47 O2 Del Method 12/05/21 09:47 BMI result Body Mass Index 30.2 Const: General: cooperative, comfortable, no acute distress, alert and awake Nutritional Appearance: obese Orientation/consciousness: patient oriented x3 Neck: Neck: Yes trachea midline, Yes supple and Yes no JVD Resp: Effort & Inspection: normal respiratory effort Auscultation: clear to auscultation bilaterally Cardio: Jugular venous distension: no JVD Rhythm: abnormal rhythm irregularly irregular Heart sounds: S1 normal heart sound present and S2 normal heart sound present GI: Auscultation: normal bowel sounds Neuro: General: patient oriented x3 Extrem: General: Yes no clubbing, cyanosis or edema Objective Data Active Medications Apixaban (Apixaban 5 Mg Tablet) 5 mg PO BID [facility] Last Admin: 12/05/21 07:26 Dose: 5 mg Documented By: DAVID Atorvastatin Calcium (Atorvastatin Calcium 10 Mg Tablet) 10 mg PO BEDTIME [facility] Last Admin: 12/04/21 21:00 Dose: 10 mg Documented By: NIEVES Dextrose (Dextrose 50 % 25 Gm/50 Ml Syringe) 25 gm IVPUSH Q15M PRN; Protocol PRN Reason: per Hypoglycemia Standing Ord. Glucose (Glucose Gel 15 Gm Gel..Gram.) 15 gm PO Q15M PRN; Protocol PRN Reason: per Hypoglycemia Standing Ord. Insulin Human Lispro (Insulin Lispro 100 Unit/Ml 3 Ml Vial) 0 unit SUBCUT QIDACHS [facility]; Protocol Last Admin: 12/05/21 07:26 Dose: Not Given Documented By: DAVID Non-Admin Reason: See Note Levothyroxine Sodium (Levothyroxine Sodium 88 Mcg Tablet) 88 mcg PO DAILY@0600 [facility] Last Admin: 12/05/21 07:26 Dose: 88 mcg Documented By: DAVID Metoprolol Tartrate (Metoprolol Tartrate 50 Mg Tablet) 50 mg PO BID [facility]; Protocol Last Admin: 12/05/21 07:25 Dose: 50 mg Documented By: DAVID Pharmacy Consult (Consult Rx Perform Med Rec) 1 each MISCELLANE ONCE PRN PRN Reason: Consult order Pregabalin (Pregabalin 100 Mg Capsule) 100 mg PO DAILY [facility] Last Admin: 12/05/21 07:26 Dose: 100 mg Documented By: DAVID Senna/Docusate Sodium (Sennosides/Docusate Sodium Tablet) 1 tab PO BEDTIME PRN PRN Reason: Constipation Sodium Chloride (0.9 % Sodium Chloride Flush 3 Ml Syringe) 3 ml IVFLUSH QSHIFT [facility] Last Admin: 12/05/21 07:28 Dose: 3 ml Documented By: DAVID Labs CBC & Chem 7: 12/05/21 04:31 12/05/21 04:31 Labs: Laboratory Results - last 24 hr 12/04/21 12/04/21 12/04/21 12:07 14:42 16:51 MCV MCH MCHC RDW Plt Count MPV Absolute Nucleated RBC Nucleated RBC % (auto) Anion Gap Estim Creat Clear Calc Estimated GFR POC Glucose 74 144 H 131 H Fasting Glucose Calcium 12/04/21 12/05/21 12/05/21 21:27 04:31 04:31 MCV 86.8 MCH 27.0 MCHC 31.1 RDW 17.3 H Plt Count 147 L MPV 11.2 Absolute Nucleated RBC 0.000 Nucleated RBC % (auto) 0.0 Anion Gap 17 Estim Creat Clear Calc 38.3 Estimated GFR 34 POC Glucose 119 H Fasting Glucose 122 H D Calcium 9.2 D 12/05/21 07:19 MCV MCH MCHC RDW Plt Count MPV Absolute Nucleated RBC Nucleated RBC % (auto) Anion Gap Estim Creat Clear Calc Estimated GFR POC Glucose 99 Fasting Glucose Calcium Assessment and Plan (1) Syncope: Status: Acute Plan 76M with a past medical history of nonischemic cardiomyopathy, permanent atrial fibrillation, left bundle-branch block, NSVT, bladder cancer status post urostomy, diabetes, and CKD 3, presented with syncope. syncope in the setting of non ischemic cardiomyopathy concerning for cardiac arrythmia continue telemetry - no significant events so far echo with ef 35-40% continue beta jamie cardio appreciated - plan for either ICD or ILD orthostatic hyotension will give 1 more L F3cncter, doubt cause of syncope hyperkalemia given kayexylate and insulin resolved, monitor louis on ckd III given ivf, improving, monitor permanent afib metoprolol, eliquis, digoxin hypothyroid synthroid bladder ca s/p urostomy DM holding glimerpiride insulin sliding scale full code reason for continued hospitalization:continued monitoring for high risk syncope, louis Quality Stroke Does the patient have a stroke diagnosis?: No VTE Prior VTE?: No VTE Risk Level:: Medical - moderate - high VTE Device Contraindication: Treatment Not Indicated VTE Drug Contraindication: N/A - Med Ordered
[2021-12-05] MEDS: Sodium Bicarbonate 8.4% 150 MEQ in Dextrose 5 % 850 ML 100 MEQ IV (11:33)
[2021-12-05 12:12] LABS: Glucose, Whole Blood 115 mg/dL (60-115)
--- NOTE | 2021-12-05 12:31 | PC.NURSE ---
insulin held as patients poc is 115
--- NOTE | 2021-12-05 13:18 | PC.NURSE ---
EATING LUNCH, NAD, NO COMPLAINTS, AFIB ON MONITOR IN 70'S, WAS LOW 45 WHILE SLEEPING AND ASYMPTOMATIC WHEN WOKEN
--- NOTE | 2021-12-05 16:04 | PC.NURSE ---
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
[2021-12-05 16:57] LABS: Glucose, Whole Blood 150 mg/dL (60-115)
--- NOTE | 2021-12-05 18:29 | PC.NURSE ---
new iv inserted left upper arm
--- NOTE | 2021-12-05 20:02 | PC.NURSE ---
This RN gave report to [facility] over [facility], Pt is a/o x 3, Pt V/S are stable. Pt will be transported by Transporter Fernando.
[2021-12-05] MEDS: Atorvastatin Calcium 10 MG TABLET PO (21:51)
[2021-12-05 21:58] LABS: Glucose, Whole Blood 155 mg/dL (60-115)
[2021-12-06 03:32] VITALS: BP 95/65; PULSE 82; RESP 18; TEMP 36.6; O2SAT 93
[2021-12-06] MEDS: Levothyroxine Sodium 88 MCG TABLET PO (05:51)
[2021-12-06 05:52] VITALS: BP 127/61; PULSE 85
[2021-12-06 05:56] VITALS: BP 112/67; PULSE 92
[2021-12-06 06:29] LABS: Hematocrit 39.8 % (42.0-52.0); Hemoglobin 12.8 g/dl (14.0-18.0); Mean Corpuscular HGB Conc 32.2 g/dl (31.0-36.0); Mean Corpuscular Hemoglobin 26.9 pg (27.0-33.0); Mean Corpuscular Volume 83.6 fL (80.0-98.0); Mean Platelet Volume 11.7 fL (9.4-12.4); Platelet Count 163 X10*3/uL (160-400); Red Blood Count 4.76 X10*6/uL (4.60-5.80); Red Cell Distribution Width 17.2 % (11.0-16.0); White Blood Count 8.9 X10*3/uL (4.8-10.8)
[2021-12-06 06:39] LABS: Anion Gap 15 (12-20); Blood Urea Nitrogen 34 mg/dL (9-16); Calcium 9.1 mg/dL (8.4-10.2); Carbon Dioxide 21 mmol/L (22-29); Chloride 109 mmol/L (96-108); Creatinine Clr Calc Pharmacy 45.7; Estimated Glomerular Filt Rate 42; Glucose Fasting 116 mg/dL (60-99); Potassium 4.2 mmol/L (3.3-5.1); Sodium 141 mmol/L (135-145)
[2021-12-06 07:37] VITALS: BP 116/77; PULSE 72; RESP 18; TEMP 36.4; O2SAT 96
[2021-12-06 07:44] LABS: Glucose, Whole Blood 112 mg/dL (60-115)
[2021-12-06] MEDS: Pregabalin 100 MG CAPSULE PO (09:44)
[2021-12-06] MEDS: Apixaban 5 MG TABLET PO (09:44)
[2021-12-06] MEDS: 0.9 % Sodium Chloride Flush 3 ML SYRINGE IVFLUSH (09:44)
[2021-12-06] MEDS: Metoprolol Tartrate 50 MG TABLET PO (09:44)
[2021-12-06 11:10] VITALS: BP 116/63; PULSE 71; RESP 20; TEMP 36.8; O2SAT 97
[2021-12-06 11:16] LABS: Glucose, Whole Blood 156 mg/dL (60-115)
--- NOTE | 2021-12-06 11:22 | PM.PNCARD ---
Subjective Subjective Date of Service: 12/06/21 Principal diagnosis: Syncope Interval history: patient had no events overnight. No significant tachy or Griffin arrhythmias. Heart rate is controlled. No syncopal episodes. Blood pressures been stable. Review of Systems Review of Systems Yes all other systems are reviewed and are negative Physical Exam Vital Signs: Last Vital Signs Temp 98.2 F 12/06/21 11:10 Pulse 71 12/06/21 11:10 Resp 20 12/06/21 11:10 BP 116/63 12/06/21 11:10 Pulse Ox 97 12/06/21 11:10 O2 Del Method 12/06/21 11:10 BMI result Body Mass Index 29.8 Const General: cooperative, comfortable, no acute distress, alert and awake Nutritional Appearance: obese Orientation/consciousness: patient oriented x3 Neck Neck: Yes trachea midline, Yes supple and Yes no JVD Resp Effort & Inspection: normal respiratory effort Auscultation: clear to auscultation bilaterally Cardio Jugular venous distension: no JVD Rhythm: abnormal rhythm irregularly irregular Heart sounds: S1 normal heart sound present and S2 normal heart sound present GI Auscultation: normal bowel sounds Neuro General: patient oriented x3 Extrem General: Yes no clubbing, cyanosis or edema Objective Labs and Meds Result diagrams: 12/06/21 05:51 12/06/21 05:51 Lab results: Laboratory Results - last 24 hr 12/05/21 12/05/21 12/05/21 12:03 16:53 21:19 WBC RBC Hgb Hct MCV MCH MCHC RDW Plt Count MPV Absolute Nucleated RBC Nucleated RBC % (auto) Sodium Potassium Chloride Carbon Dioxide Anion Gap BUN Creatinine Estim Creat Clear Calc Estimated GFR POC Glucose 115 150 H 155 H Fasting Glucose Calcium 12/06/21 12/06/21 12/06/21 05:51 05:51 07:39 WBC 8.9 RBC 4.76 Hgb 12.8 L Hct 39.8 L MCV 83.6 MCH 26.9 L MCHC 32.2 RDW 17.2 H Plt Count 163 MPV 11.7 Absolute Nucleated RBC 0.000 Nucleated RBC % (auto) 0.0 Sodium 141 Potassium 4.2 Chloride 109 H Carbon Dioxide 21 L Anion Gap 15 BUN 34 H Creatinine 1.61 H Estim Creat Clear Calc 45.7 Estimated GFR 42 POC Glucose 112 Fasting Glucose 116 H Calcium 9.1 12/06/21 11:13 WBC RBC Hgb Hct MCV MCH MCHC RDW Plt Count MPV Absolute Nucleated RBC Nucleated RBC % (auto) Sodium Potassium Chloride Carbon Dioxide Anion Gap BUN Creatinine Estim Creat Clear Calc Estimated GFR POC Glucose 156 H Fasting Glucose Calcium Progress Note: A&P Assessment and plan (1) Syncope: Status: Acute Assessment and Plan: Patient present with syncope of unclear etiology. As underlying left bundle-branch block as well as now moderate LV systolic dysfunction. Has underlying atrial fibrillation but has not had any Griffin or tachyarrhythmias. There is some evidence of nonsustained VT. Discussed with electrophysiology at [facility]. Will transfer to [facility] for further evaluation for risk for ventricular arrhythmia with invasive EP studies. Discussed with the patient about management plan. He is agreeable to this management plan. Continue metoprolol therapy for now. Hold Eliquis for possible invasive procedure. (2) Cardiomyopathy: Status: Acute Assessment and Plan: Cardiomyopathy could not tolerate valsartan due to hyperkalemia. Currently on metoprolol therapy. No signs or symptoms of heart failure. Continue digoxin as well. No need for diuretic regimen. (3) Afib: Status: Acute Assessment and Plan: Chronic atrial fibrillation, currently rate controlled. Continue rate control strategy. Continue full oral anticoagulation in the long run. For now hold Eliquis for possible invasive procedure. Switch to IV heparin at the next dose of Eliquis is due. Patient being transferred to [facility]. Time Spent With Patient Time: Total time spent is greater than 50% in coordination of care (as documented) at patient's floor/unit and/or counseling patient: Progress Note: Quality Stroke Does the patient have a stroke diagnosis?: No Procedures Date of Service Date of Service: 12/06/21
--- NOTE | 2021-12-06 11:55 | MHC.CM.PN ---
ppt dcd home no skilled servceis ordered by
--- NOTE | 2021-12-06 11:59 | P.DS_ITS ---
DS: Providers Provider Date of Service: 12/06/21 Date of admission: 12/03/21 16:58 Primary care physician: Indu Swain MD Consults: 12/03/21 16:57 Consult to Cardiology Routine Consulting Provider: Arya Galicia Reason for consultation: NICM, syncope DS: Diagnosis Discharge Diagnosis (1) Syncope: Status: Acute (2) Cardiomyopathy: Status: Acute (3) Afib: Status: Acute (4) Acute hyperkalemia: Status: Acute (5) Acute renal failure superimposed on chronic kidney disease: Status: Acute DS: Summary Hospital Course Hospital Course: Admission note HPI 76M with a past medical history of nonischemic cardiomyopathy, permanent atrial fibrillation, left bundle-branch block, NSVT, bladder cancer status post urostomy, diabetes, and CKD 3, presented with syncope.? Patient does not remember event.? He says he was at home.? Most of passed out.? He hit his head and had a laceration and left eye.? He denies any chest pain, shortness of breath, fever, chills.? Patient is on Eliquis for atrial fibrillation, CT head was negative, C-spine was negative.? EKG showed left bundle-branch block, AFib.? In ED patient had another syncopal episode, fortunately he was not on the monitor during this episode.? It was brief, came back to baseline fairly quickly.? Labs significant for a potassium of 6.4, creatinine 2.15 higher than baseline of about 1.5. Hospital course The patient presented with episode of syncope. Monitored on telemetry with no OBS cardiac arrhythmia noted. Echo was done showing EF of almost 30% with mild reduction from baseline. Noted to have acute kidney injury on top of CKD stage 3 with associated hyperkalemia that resolved with IV fluid and holding Nephrotoxic medications. Evaluated by Cardiology who recommended transfer to [facility] for further evaluation with electrophysiology cool study given no obvious arrhythmia noted in the hospital for possible placement of AICD. The hold Eliquis at time of discharge. Time Spent with Patient Time attestation: Total time spent providing and/or coordinating discharge services: Discharge coordination time: Greater than 30 minutes Quality: Safe Use of Opioids Does Pt have an Active Cancer Diagnosis on the Problem List?: No Quality: Stroke Does the patient have a stroke diagnosis?: No Physical Exam Vital Signs: Vital Signs: Last Vital Signs Temp 98.2 F 12/06/21 11:10 Pulse 71 12/06/21 11:10 Resp 20 12/06/21 11:10 BP 116/63 12/06/21 11:10 Pulse Ox 97 12/06/21 11:10 O2 Del Method 12/06/21 11:10 BMI result Body Mass Index 29.8 Const: Other: Constitutional : Alert, oriented, not in distress Neck : Normal inspection, Supple Cardiovascular : RRR, no JVP, no lower extremity edema Respiratory : fair bilateral air entry, no crackles, wheezes or rhonchi Gastrointestinal: soft, lax, Normal bowel sounds, Non tender Skin : Warm, Dry Neurological : Alert & oriented x3, No focal deficit , CN 2-12 within normal DS: Data Data Completed and Pending Labs on day of discharge: Laboratory Results - last 24 hr 12/05/21 12/05/21 12/05/21 12:03 16:53 21:19 WBC RBC Hgb Hct MCV MCH MCHC RDW Plt Count MPV Absolute Nucleated RBC Nucleated RBC % (auto) Sodium Potassium Chloride Carbon Dioxide Anion Gap BUN Creatinine Estim Creat Clear Calc Estimated GFR POC Glucose 115 150 H 155 H Fasting Glucose Calcium 12/06/21 12/06/21 12/06/21 05:51 05:51 07:39 WBC 8.9 RBC 4.76 Hgb 12.8 L Hct 39.8 L MCV 83.6 MCH 26.9 L MCHC 32.2 RDW 17.2 H Plt Count 163 MPV 11.7 Absolute Nucleated RBC 0.000 Nucleated RBC % (auto) 0.0 Sodium 141 Potassium 4.2 Chloride 109 H Carbon Dioxide 21 L Anion Gap 15 BUN 34 H Creatinine 1.61 H Estim Creat Clear Calc 45.7 Estimated GFR 42 POC Glucose 112 Fasting Glucose 116 H Calcium 9.1 12/06/21 11:13 WBC RBC Hgb Hct MCV MCH MCHC RDW Plt Count MPV Absolute Nucleated RBC Nucleated RBC % (auto) Sodium Potassium Chloride Carbon Dioxide Anion Gap BUN Creatinine Estim Creat Clear Calc Estimated GFR POC Glucose 156 H Fasting Glucose Calcium Imaging Chest x-ray: Radiologist's impression: ITS Impressions Cervical Spine CT 12/03/21 15:14 IMPRESSION: 1. Straightening of the normal cervical lordosis may be secondary to positioning and/or muscle spasm. 2. Mild to moderate degenerative disc disease. No acute abnormality. No significant change. Head CT 12/03/21 15:14 IMPRESSION: 1. No acute intracranial abnormality. 2. Complete opacification of the left maxillary sinus. There is possible communication with a left posterior molar apex suggesting this is odontogenic. Dental consultation is recommended. Chest X-Ray 12/03/21 17:00 IMPRESSION: No acute pulmonary disease. Discharge Plan Discharge Anticipated Discharge Date/Time: 12/06/21 11:48 Patient Disposition: [facility] Discharge Diagnosis: cardiomyopathy, syncope Referrals: [facility] [Other] - 1 Week Indu Swain MD [Primary Care Provider] - 1 Week Discharge Medications: Continued metoprolol tartrate 50 mg tablet 50 mg PO BID 90 Days Qty: 180 0RF Protocol: Hold for SBP/HR < HOLD for SBP < : 90 HOLD for HR < : 60 atorvastatin 10 mg tablet 10 mg PO BEDTIME 90 Days Qty: 90 2RF omega [id number]-fish oil [Fish Oil] 1,000 mg (120 mg-180 mg) Capsule 1 cap PO DAILY pregabalin 100 mg Capsule 100 mg PO DAILY sennosides-docusate sodium 8.6-50 mg Tablet 1 tab-cap PO BEDTIME PRN (Reason: Constipation) glimepiride 2 mg Tablet 2 mg PO DAILY levothyroxine 88 mcg Tablet 88 mcg PO DAILY Held Eliquis 5 mg tablet 5 mg PO BID 90 Days Qty: 180 0RF Hold Instructions: restart per digoxin 125 mcg (0.125 mg) Tablet 125 mcg PO DAILY Hold Instructions: restart per MD Discharge Orders: Discharge Order (Routine); Ordered 12/06/21 Ordered By: Sammie Lujan Diet: Advance to usual diet Activity on Discharge: As tolerated Stand Alone Forms: Patient Portal Discharge page Care Plan Goals: Read below Health Concerns: Read below Plan of Treatment: Read below Assessment: you were admitted to the hospital for evaluation of syncope. Found to have acute kidney injury with elevated potassium level. Monitored on telemetry with no obvious abnormal rhythm. Evaluated by Cardiology as an echo showed reduction in your heart function recommending transferred to [facility] for electrophysiology study. Discharge Date/Time: 12/06/21 16:45
[2021-12-06] MEDS: Insulin Lispro 100 UNIT/ML 3 ML VIAL SUBCUT (12:06)
[2021-12-06 13:14] VITALS: BP 116/68; PULSE 89
--- NOTE | 2021-12-06 13:29 | MHC.CM.PN ---
pt transferred to [facility] [place]
[2021-12-06 16:17] LABS: Glucose, Whole Blood 144 mg/dL (60-115)
--- NOTE | 2021-12-06 16:55 | PC.NURSE ---
Report received from overnight RN, pt a+ox4, no c/o pain, states he slept well overnight. data administrator per MAY. Pt to be transfered to [facility] today, pt updated on plan and discharge instructions given. Pt states no further questions. EMS to transport to [facility]. Called report and spoke to frankvillestate RN.
== END 2021-12-06 16:45 | disposition short-term general hospital (02) | DRG 315 ==
LOC: HO.ED 16:29 → HO.EDOVER 17:05 → HO.IMC 12-05 19:40
PROVIDERS: Hospitalist; Admitting Provider Internal Medicine; Emergency Provider Emergency Medicine Emergency Medical Services; PCP Family Medicine; Visit Provider Student in an Organized Health Care Education/Training Program
DX: I42.8 Other cardiomyopathies (principal); I13.0 Hypertensive heart and chronic kidney disease with heart failure and stage 1 through stage 4 chronic kidney disease, or unspecified chronic kidney disease; I48.21 Permanent atrial fibrillation; N17.9 Acute kidney failure, unspecified; E87.5 Hyperkalemia; E03.9 Hypothyroidism, unspecified; I95.1 Orthostatic hypotension; E11.22 Type 2 diabetes mellitus with diabetic chronic kidney disease; N18.30 Chronic kidney disease, stage 3 unspecified; Z20.822 Contact with and (suspected) exposure to COVID-19; Z85.51 Personal history of malignant neoplasm of bladder; Z87.891 Personal history of nicotine dependence; Z79.01 Long term (current) use of anticoagulants; Z79.84 Long term (current) use of oral hypoglycemic drugs; Z79.890 Hormone replacement therapy; Z79.899 Other long term (current) drug therapy
CPT/HCPCS: 36415; 70450; 71045; 72125; 80048; 80076; 80162; 81001; 82947; 83735; 83880; 84132; 84484; 85025; 85027; 87086; 87635; 93005; 93306; 96365; 96375; 99285; J1953; Q9957

== ENCOUNTER → 2022-04-02 09:45 | Outpatient (BNVA) | payer OTHER, SELFPAY | PROVIDERS: PCP Family Medicine; Referring Provider Family Medicine; Visit Provider Internal Medicine Cardiovascular Disease | DX: I42.9 Cardiomyopathy, unspecified (principal); I48.91 Unspecified atrial fibrillation; Z95.810 Presence of automatic (implantable) cardiac defibrillator | CPT/HCPCS: 93005; 99212 ==

== ENCOUNTER 2022-05-02 15:56 | Outpatient (REF) | payer OTHER, SELFPAY ==
[2022-05-02 17:40] LABS: B Type Natriuretic Peptide 159 pg/mL (<100)
[2022-05-02 18:25] LABS: Anion Gap 13 (12-20); Blood Urea Nitrogen 27 mg/dL (9-16); Calcium 8.6 mg/dL (8.4-10.2); Carbon Dioxide 21 mmol/L (22-29); Chloride 109 mmol/L (96-108); Estimated Glomerular Filt Rate 35; Glucose Random 205 mg/dL (60-115); Potassium 5.2 mmol/L (3.3-5.1); Sodium 138 mmol/L (135-145)
[2022-05-02 20:19] LABS: Digoxin 0.7 ng/mL (0.8-2.0)
== END 2022-05-02 15:57 | disposition home or self-care (01) ==
LOC: HO.LAB 15:56
PROVIDERS: PCP Family Medicine; Visit Provider Internal Medicine Cardiovascular Disease
DX: I48.20 Chronic atrial fibrillation, unspecified (principal); I50.9 Heart failure, unspecified
CPT/HCPCS: 36415; 80048; 80162; 83880

== ENCOUNTER 2022-05-09 13:26 | Observation (INO) | payer OTHER, SELFPAY ==
[2022-05-09] VITALS (10 sets, daily range): BP systolic 117–152; BP diastolic 35–66; PULSE 79–91; RESP 16–18; TEMP 36.3–36.9; O2SAT 100; BMI 31.5
--- NOTE | 2022-05-09 13:33 | ECG_ITS ---
Test Reason : dyspnea Blood Pressure : / mmHG Vent. Rate : 083 BPM Atrial Rate : 000 BPM P-R Int : 000 ms QRS Dur : 140 ms QT Int : 390 ms P-R-T Axes : 000 127 -38 degrees QTc Int : 458 ms Ventricular-paced rhythm Nonspecific ST and T wave abnormality Abnormal ECG When compared with ECG of 03-DEC-2021 19:28, RHythm change. Referred By: Dilcia Wiley Electronically Signed By:NUBIA RICHMOND
--- NOTE | 2022-05-09 13:50 | ED.GENADULT ---
HPI - General Adult General Chief complaint: Recheck/Abnormal Lab/Rx Stated complaint: Needs blood transfusion Time Seen by Provider: 05/09/22 15:33 Related Data Home Medications Medication Instructions Recorded Confirmed digoxin 125 mcg (0.125 mg) tablet 125 mcg PO DAILY 09/02/20 05/09/22 glimepiride 2 mg tablet 2 mg PO DAILY 09/02/20 05/09/22 levothyroxine 88 mcg tablet 88 mcg PO DAILY@0600 09/02/20 05/09/22 omega 9-fce-kjt-fish oil 1,000 mg 1 cap PO DAILY 09/02/20 05/09/22 (120 mg-180 mg) capsule (Fish Oil) pregabalin 100 mg capsule 100 mg PO DAILY 09/02/20 05/09/22 sennosides 8.6 mg-docusate sodium 1 tab-cap PO BEDTIME PRN 09/02/20 04/02/22 50 mg tablet Constipation Previous Rx's Medication Instructions Recorded metoprolol tartrate 50 mg tablet 50 mg PO BID 90 days #180 tabs 09/19/20 atorvastatin 10 mg tablet 10 mg PO BEDTIME 90 days #90 tabs 07/26/21 Allergies Allergy/AdvReac Type Severity Reaction Status Date / Time No Known Allergies Allergy Verified 12/04/21 10:09 [facility] Past Medical History Medical History Afib Biventricular implantable cardioverter-defibrillator (ICD) in situ Bladder cancer Cardiomyopathy CHF (congestive heart failure) Diabetes mellitus Hematuria HTN (hypertension) Osteomyelitis Syncope Surgical History History of cardiac catheterization (~01/31/21) History of urostomy S/P AV jake ablation Status post cardiac catheterization Family History Family History Father No problems noted. Mother No problems noted. Social History Social History Household Members: Children Housing: House Alcohol intake: current Alcohol intake frequency: does not drink Alcohol type: wine Patient Tobacco Use Status: Former Tobacco user Smoked in Last 30 Days: No Use of substances other than those prescribed or required for medical reasons: No Advance Directives: Yes Advance Directives on File: Yes Advance Directives Date on File: 12/05/21 service: Yes Current occupational status: retired Physical Exam ED Vital Signs: BMI result Body Mass Index 31.5 Course Course Course Narrative: RME - 77 y/o female with history of Afib not on anticoagulation, CHF, cardiomyopathy w/ EF 35-40%, with history of bladder cancer s/p urostomy with recent significant bleeding from the urostomy requiring blood transfusion early Apr and embolization 04/16 who [place] for evaluation of symptomatic anemia, H/H 08/22 today. Has been weak and having ODELL. Daughter reports 2 episodes of hematuia last week, no GI bleeding. Reportedly had blood work 04/[address] Ramos that was fine. Clear urine in the bag right now. Plan: labs, T&S, transfusion. Medications Administered Generic Name Dose Route Start Last Admin Trade Name Freq PRN Reason Stop Dose Admin Atorvastatin Calcium 10 mg 05/09/22 21:00 05/10/22 21:19 Atorvastatin Calcium 10 Mg Tablet PO 10 mg BEDTIME SAMY Administration Digoxin 0.125 mg 05/10/22 09:00 05/11/22 08:13 Digoxin 0.125 Mg Tablet PO 0.125 mg DAILY SAMY Administration Insulin Human Lispro 0 unit 05/09/22 21:00 05/11/22 11:09 Insulin Lispro 100 Unit/Ml 3 Ml Vial SUBCUT Not Given QIDACHS [facility] Protocol Levothyroxine Sodium 88 mcg 05/10/22 06:00 05/11/22 05:15 Levothyroxine Sodium 88 Mcg Tablet PO 88 mcg DAILY@0600 SAMY Administration Metoprolol Tartrate 50 mg 05/09/22 21:00 05/11/22 08:12 Metoprolol Tartrate 50 Mg Tablet PO 50 mg BID SAMY Administration Protocol Pregabalin 100 mg 05/10/22 09:00 05/11/22 08:12 Pregabalin 100 Mg Capsule PO 100 mg DAILY SAMY Administration Sodium Chloride 3 ml 05/10/22 00:00 05/11/22 08:12 0.9 % Sodium Chloride Flush 3 Ml Syringe IVFLUSH 3 ml QSHIFT SAMY Administration Discontinued Medications Generic Name Dose Route Start Last Admin Trade Name Freq PRN Reason Stop Dose Admin Furosemide 20 mg 05/10/22 09:48 05/10/22 14:58 Furosemide 20 Mg/2 Ml Vial IVPUSH 05/10/22 09:49 20 mg ONCE ONE Administration Protocol Medical Decision Making Lab Data 05/11/22 07:42 05/11/22 07:42 Labs: Lab Results 05/09/22 05/09/22 05/09/22 Range/Units 14:31 14:31 14:31 WBC 9.0 (4.8-10.8) X10*3/uL RBC 2.54 L D (4.60-5.80) X10*6/uL Hgb 6.0 L* D (14.0-18.0) g/dl Hct 20.7 L* D (42.0-52.0) % MCV 81.5 (80.0-98.0) fL MCH 23.6 L (27.0-33.0) pg MCHC 29.0 L (31.0-36.0) g/dl RDW 19.9 H (11.0-16.0) % Plt Count 229 D (160-400) X10*3/uL MPV 11.1 (9.4-12.4) fL Immature Gran % (Auto) 0.7 H (0.0-0.4) % Neut % (Auto) 75.8 H (45-73) % Lymph % (Auto) 10.7 L (20-40) % [place] % (Auto) 8.6 (2-11) % Eos % (Auto) 3.6 (0-4) % Baso % (Auto) 0.6 (0-2) % Lymph # (Auto) 1.0 L (1.2-4.9) X10*3/uL [place] # (Auto) 0.8 (0.1-1.2) X10*3/uL Eos # (Auto) 0.3 (0.0-0.4) X10*3/uL Baso # (Auto) 0.1 (0.0-0.2) X10*3/uL Abs Immat Gran (auto) 0.06 H (0.00-0.03) X10*3/uL Absolute Neuts (auto) 6.8 (2.0-8.3) x10*3/uL Absolute Nucleated RBC 0.030 H (0.0-0.012) X10*3/uL Nucleated RBC % (auto) 0.3 H (0.0-0.2) /100WBC Smear Path Review SEE NOTE PT 14.8 H (10.0-13.1) SEC INR 1.3 H (0.9-1.1) APTT 30.1 (26.0-36.4) SEC Sodium 139 (135-145) mmol/L Potassium 5.1 (3.3-5.1) mmol/L Chloride 111 H (96-108) mmol/L Carbon Dioxide 19 L (22-29) mmol/L Anion Gap 14 (12-20) BUN 32 H (9-16) mg/dL Creatinine 1.93 H (0.5-1.4) mg/dL Estim Creat Clear Calc 38.5 Estimated GFR 34 Random Glucose 220 H (60-115) mg/dL Calcium 8.4 (8.4-10.2) mg/dL Magnesium 1.9 (1.6-2.6) mg/dL Total Bilirubin 1.0 (0.0-1.0) mg/dL Direct Bilirubin 0.4 (0.0-0.5) mg/dL AST 15 (5-37) U/L ALT 8 (0-40) U/L Alkaline Phosphatase 91 (39-117) U/L Total Protein 6.8 (6.5-8.0) g/dL Albumin 3.5 (3.5-5.0) g/dL Stool Occult Blood (NEGATIVE) COVID-19 ([facility]) (Negative) COVID-19 Clin Com Blood Type Antibody Screen Crossmatch 05/09/22 05/09/22 05/09/22 Range/Units 14:31 14:31 16:05 WBC 9.7 (4.8-10.8) X10*3/uL RBC 2.67 L (4.60-5.80) X10*6/uL Hgb 6.2 L* (14.0-18.0) g/dl Hct 21.6 L (42.0-52.0) % MCV 80.9 (80.0-98.0) fL MCH 23.2 L (27.0-33.0) pg MCHC 28.7 L (31.0-36.0) g/dl RDW 20.1 H (11.0-16.0) % Plt Count 264 (160-400) X10*3/uL MPV 11.5 (9.4-12.4) fL Immature Gran % (Auto) 0.5 H (0.0-0.4) % Neut % (Auto) 70.3 (45-73) % Lymph % (Auto) 13.7 L (20-40) % [place] % (Auto) 10.3 (2-11) % Eos % (Auto) 4.6 H (0-4) % Baso % (Auto) 0.6 (0-2) % Lymph # (Auto) 1.3 (1.2-4.9) X10*3/uL [place] # (Auto) 1.0 (0.1-1.2) X10*3/uL Eos # (Auto) 0.5 H (0.0-0.4) X10*3/uL Baso # (Auto) 0.1 (0.0-0.2) X10*3/uL Abs Immat Gran (auto) 0.05 H (0.00-0.03) X10*3/uL Absolute Neuts (auto) 6.9 (2.0-8.3) x10*3/uL Absolute Nucleated RBC 0.030 H (0.0-0.012) X10*3/uL Nucleated RBC % (auto) 0.3 H (0.0-0.2) /100WBC Smear Path Review PT (10.0-13.1) SEC INR (0.9-1.1) APTT (26.0-36.4) SEC Sodium (135-145) mmol/L Potassium (3.3-5.1) mmol/L Chloride (96-108) mmol/L Carbon Dioxide (22-29) mmol/L Anion Gap (12-20) BUN (9-16) mg/dL Creatinine (0.5-1.4) mg/dL Estim Creat Clear Calc Estimated GFR Random Glucose (60-115) mg/dL Calcium (8.4-10.2) mg/dL Magnesium (1.6-2.6) mg/dL Total Bilirubin (0.0-1.0) mg/dL Direct Bilirubin (0.0-0.5) mg/dL AST (5-37) U/L ALT (0-40) U/L Alkaline Phosphatase (39-117) U/L Total Protein (6.5-8.0) g/dL Albumin (3.5-5.0) g/dL Stool Occult Blood (NEGATIVE) COVID-19 ([facility]) Negative (Negative) COVID-19 Clin Com See Note Blood Type A Positive Antibody Screen NEGATIVE Crossmatch See Detail 05/09/22 Range/Units 16:10 WBC (4.8-10.8) X10*3/uL RBC (4.60-5.80) X10*6/uL Hgb (14.0-18.0) g/dl Hct (42.0-52.0) % MCV (80.0-98.0) fL MCH (27.0-33.0) pg MCHC (31.0-36.0) g/dl RDW (11.0-16.0) % Plt Count (160-400) X10*3/uL MPV (9.4-12.4) fL Immature Gran % (Auto) (0.0-0.4) % Neut % (Auto) (45-73) % Lymph % (Auto) (20-40) % [place] % (Auto) (2-11) % Eos % (Auto) (0-4) % Baso % (Auto) (0-2) % Lymph # (Auto) (1.2-4.9) X10*3/uL [place] # (Auto) (0.1-1.2) X10*3/uL Eos # (Auto) (0.0-0.4) X10*3/uL Baso # (Auto) (0.0-0.2) X10*3/uL Abs Immat Gran (auto) (0.00-0.03) X10*3/uL Absolute Neuts (auto) (2.0-8.3) x10*3/uL Absolute Nucleated RBC (0.0-0.012) X10*3/uL Nucleated RBC % (auto) (0.0-0.2) /100WBC Smear Path Review PT (10.0-13.1) SEC INR (0.9-1.1) APTT (26.0-36.4) SEC Sodium (135-145) mmol/L Potassium (3.3-5.1) mmol/L Chloride (96-108) mmol/L Carbon Dioxide (22-29) mmol/L Anion Gap (12-20) BUN (9-16) mg/dL Creatinine (0.5-1.4) mg/dL Estim Creat Clear Calc Estimated GFR Random Glucose (60-115) mg/dL Calcium (8.4-10.2) mg/dL Magnesium (1.6-2.6) mg/dL Total Bilirubin (0.0-1.0) mg/dL Direct Bilirubin (0.0-0.5) mg/dL AST (5-37) U/L ALT (0-40) U/L Alkaline Phosphatase (39-117) U/L Total Protein (6.5-8.0) g/dL Albumin (3.5-5.0) g/dL Stool Occult Blood NEGATIVE (NEGATIVE) COVID-19 ([facility]) (Negative) COVID-19 Clin Com Blood Type Antibody Screen Crossmatch Discharge Plan Discharge Clinical Impression: Anemia Patient Disposition: Admitted As Inpatient Interventions: Admission Worksheet (ED) Last Done: 05/09/22 18:15 Discharge Date/Time: 05/09/22 18:16
[2022-05-09 14:40] LABS: MANUAL DIFF FLAG NO
[2022-05-09 14:42] LABS: Basophils Absolute Auto 0.1 X10*3/uL (0.0-0.2); Basophils Percent Auto 0.6 % (0-2); Eosinophils Absolute Auto 0.3 X10*3/uL (0.0-0.4); Eosinophils Percent Auto 3.6 % (0-4); Imm Gran Abs Auto 0.06 X10*3/uL (0.00-0.03); Imm Gran Pct Auto 0.7 % (0.0-0.4); Lymphocytes Percent Auto 10.7 % (20-40); Mean Corpuscular Hemoglobin 23.6 pg (27.0-33.0); Mean Corpuscular Volume 81.5 fL (80.0-98.0); Mean Platelet Volume 11.1 fL (9.4-12.4); Monocytes Absolute Auto 0.8 X10*3/uL (0.1-1.2); Monocytes Percent Auto 8.6 % (2-11); NRBC Pct Auto 0.3 /100WBC (0.0-0.2); Neutrophils Absolute Auto 6.8 x10*3/uL (2.0-8.3); Neutrophils Percent Auto 75.8 % (45-73); Platelet Count 229 X10*3/uL (160-400); Red Blood Count 2.54 X10*6/uL (4.60-5.80); Red Cell Distribution Width 19.9 % (11.0-16.0)
[2022-05-09 14:47] LABS: Hematocrit 20.7 % (42.0-52.0)
[2022-05-09 14:55] LABS: Alanine Aminotransferase 8 U/L (0-40); Albumin Level 3.5 g/dL (3.5-5.0); Alkaline Phosphatase 91 U/L (39-117); Anion Gap 14 (12-20); Aspartate Amino Transferase 15 U/L (5-37); Bilirubin Direct 0.4 mg/dL (0.0-0.5); Blood Urea Nitrogen 32 mg/dL (9-16); Calcium 8.4 mg/dL (8.4-10.2); Carbon Dioxide 19 mmol/L (22-29); Chloride 111 mmol/L (96-108); Creatinine Clr Calc Pharmacy 38.5; Estimated Glomerular Filt Rate 34; Glucose Random 220 mg/dL (60-115); Magnesium 1.9 mg/dL (1.6-2.6); Potassium 5.1 mmol/L (3.3-5.1); Sodium 139 mmol/L (135-145); Total Protein 6.8 g/dL (6.5-8.0)
[2022-05-09 14:58] LABS: IDNOW Serial# 16C4AD1C
[2022-05-09 14:59] LABS: COVID-19 Test Negative (Negative)
[2022-05-09 15:10] LABS: INTERNATIONAL NORM RATIO 1.3 (0.9-1.1); Prothrombin Time 14.8 SEC (10.0-13.1)
[2022-05-09 15:12] LABS: Partial Thromboplastin Time 30.1 SEC (26.0-36.4)
--- NOTE | 2022-05-09 15:53 | ED.RECABL ---
HPI - Recheck/Abnormal Lab/Rx General Chief Complaint: Recheck/Abnormal Lab/Rx Stated Complaint: Needs blood transfusion Time Seen by Provider: 05/09/22 15:33 History of Present Illness HPI narrative: Patient is a 77-year-old male with a history of congestive heart failure history of atrial fibrillation history of AICD history of urostomy. Patient has a history of having stomal bleed. Having procedure done at [facility] multiple times. Patient had a hemoglobin done at OR. Was noted to have a low hemoglobin in the 6 range. Patient was sent to the emergency department for further evaluation he feels generally malaise. Weak. Short of breath when he ambulates. He denies having any chest pain. Denies having any black stool all aden color stool. His stool is hard. No fever no chills no coughing or congestion or upper respiratory symptoms. Related Data Home Medications Medication Instructions Recorded Confirmed digoxin 125 mcg (0.125 mg) tablet 125 mcg PO DAILY 09/02/20 04/02/22 glimepiride 2 mg tablet 2 mg PO DAILY 09/02/20 04/02/22 levothyroxine 88 mcg tablet 88 mcg PO DAILY 09/02/20 04/02/22 omega 1-neo-uvf-fish oil 1,000 mg 1 cap PO DAILY 09/02/20 04/02/22 (120 mg-180 mg) capsule (Fish Oil) pregabalin 100 mg capsule 100 mg PO DAILY 09/02/20 04/02/22 sennosides 8.6 mg-docusate sodium 1 tab-cap PO BEDTIME PRN 09/02/20 04/02/22 50 mg tablet Constipation Previous Rx's Medication Instructions Recorded apixaban 5 mg tablet (Eliquis) 5 mg PO BID 90 days #180 tabs 09/19/20 metoprolol tartrate 50 mg tablet 50 mg PO BID 90 days #180 tabs 09/19/20 atorvastatin 10 mg tablet 10 mg PO BEDTIME 90 days #90 tabs 07/26/21 Allergies Allergy/AdvReac Type Severity Reaction Status Date / Time No Known Allergies Allergy Verified 12/04/21 10:09 Review of Systems Review of Systems: Positive generalized malaise weakness Yes all other systems are reviewed and are negative [facility] Past Medical History Attestation statement: The following information was validated with the patient. Medical History Afib Biventricular implantable cardioverter-defibrillator (ICD) in situ Bladder cancer Cardiomyopathy CHF (congestive heart failure) Diabetes mellitus Hematuria HTN (hypertension) Osteomyelitis Syncope Surgical History History of cardiac catheterization (~01/31/21) History of urostomy S/P AV jake ablation Status post cardiac catheterization Family History Family History Father No problems noted. Mother No problems noted. Social History Social History Household Members: Children Housing: House Alcohol intake: current Alcohol intake frequency: a few times a week Alcohol type: wine Patient Tobacco Use Status: Former Tobacco user Advance Directives: Yes Advance Directives on File: Yes Advance Directives Date on File: 12/05/21 service: Yes Current occupational status: retired Physical Exam Vital Signs: Vital Signs: Last Vital Signs Temp 98.5 F 05/09/22 13:47 Pulse 82 05/09/22 13:47 Resp 17 05/09/22 13:47 BP 135/43 L 05/09/22 13:47 Pulse Ox 100 05/09/22 13:47 O2 Del Method 05/09/22 13:47 BMI result Body Mass Index 31.5 Appearance: Alert. Oriented X3. No acute distress. Eyes: Pupils equal, round and reactive to light. ENT: Pharynx normal. Neck: Normal inspection. Neck supple. No lymph nodes noted. No crepitus CVS: Normal heart rate and rhythm. Pulses normal. Normal S1 and S2 Respiratory: No respiratory distress. Breath sounds normal. No Wheezing. No rales Abdomen: Soft and nontender. No rigidity. No distention. good BS x4 Skin: Skin warm and dry. Normal skin color. Normal skin turgor. Rectal exam done it was brown stool hard Extremities: No lower extremity edema. Neurovascular intact to all extremities. No Lacerations. No Rash Neuro: Oriented X 3. No motor deficit. No sensory deficit. Moving all extermities. No slurred speech Medical Decision Making Medical Decision Making MDM Narrative: Patient had hemoglobin drawn. Hemoglobin came back at less than 7. Baseline hemoglobin at over 12. Luckily patient is no longer on Eliquis due to stomal bleeding. Will still require transfusion with a history of cardiac issues in the past. Risk and benefit of transfusion discussed with patient. Risk including infection and human error. Patient states understanding. Stool sent for guaiac. Patient's blood type and screen. Will transfused x2 units. Will discuss the patient's case with hospitalist service. He denies having any chest pain. No diaphoresis. No blood from the stomal site. Likely the bleed is more chronic in nature. Patient's case discussed with the hospitalist team. Differential Diagnosis Differential Diagnoses: The differential diagnosis associated with the presentation includes Anemia, GI bleed, stomal bleed Admission/Observation Consideration of admission/observation: Escalation of care including admission/observation considered Consult Healthcare Provider Management of the patient was discussed with: Hospitalist For admission Lab Data MDM Lab Attestation statement: I reviewed the patient's lab results. 05/09/22 14:31 05/09/22 14:31 Labs: Lab Results 05/09/22 05/09/22 05/09/22 Range/Units 14:31 14:31 14:31 WBC 9.0 (4.8-10.8) X10*3/uL RBC 2.54 L D (4.60-5.80) X10*6/uL Hgb 6.0 L* D (14.0-18.0) g/dl Hct 20.7 L* D (42.0-52.0) % MCV 81.5 (80.0-98.0) fL MCH 23.6 L (27.0-33.0) pg MCHC 29.0 L (31.0-36.0) g/dl RDW 19.9 H (11.0-16.0) % Plt Count 229 D (160-400) X10*3/uL MPV 11.1 (9.4-12.4) fL Immature Gran % (Auto) 0.7 H (0.0-0.4) % Neut % (Auto) 75.8 H (45-73) % Lymph % (Auto) 10.7 L (20-40) % [place] % (Auto) 8.6 (2-11) % Eos % (Auto) 3.6 (0-4) % Baso % (Auto) 0.6 (0-2) % Lymph # (Auto) 1.0 L (1.2-4.9) X10*3/uL [place] # (Auto) 0.8 (0.1-1.2) X10*3/uL Eos # (Auto) 0.3 (0.0-0.4) X10*3/uL Baso # (Auto) 0.1 (0.0-0.2) X10*3/uL Abs Immat Gran (auto) 0.06 H (0.00-0.03) X10*3/uL Absolute Neuts (auto) 6.8 (2.0-8.3) x10*3/uL Absolute Nucleated RBC 0.030 H (0.0-0.012) X10*3/uL Nucleated RBC % (auto) 0.3 H (0.0-0.2) /100WBC PT 14.8 H (10.0-13.1) SEC INR 1.3 H (0.9-1.1) APTT 30.1 (26.0-36.4) SEC Sodium 139 (135-145) mmol/L Potassium 5.1 (3.3-5.1) mmol/L Chloride 111 H (96-108) mmol/L Carbon Dioxide 19 L (22-29) mmol/L Anion Gap 14 (12-20) BUN 32 H (9-16) mg/dL Creatinine 1.93 H (0.5-1.4) mg/dL Estim Creat Clear Calc 38.5 Estimated GFR 34 Random Glucose 220 H (60-115) mg/dL Calcium 8.4 (8.4-10.2) mg/dL Magnesium 1.9 (1.6-2.6) mg/dL Total Bilirubin 1.0 (0.0-1.0) mg/dL Direct Bilirubin 0.4 (0.0-0.5) mg/dL AST 15 (5-37) U/L ALT 8 (0-40) U/L Alkaline Phosphatase 91 (39-117) U/L Total Protein 6.8 (6.5-8.0) g/dL Albumin 3.5 (3.5-5.0) g/dL COVID-19 ([facility]) (Negative) COVID-19 Clin Com Blood Type Antibody Screen Crossmatch 05/09/22 05/09/22 Range/Units 14:31 14:31 WBC (4.8-10.8) X10*3/uL RBC (4.60-5.80) X10*6/uL Hgb (14.0-18.0) g/dl Hct (42.0-52.0) % MCV (80.0-98.0) fL MCH (27.0-33.0) pg MCHC (31.0-36.0) g/dl RDW (11.0-16.0) % Plt Count (160-400) X10*3/uL MPV (9.4-12.4) fL Immature Gran % (Auto) (0.0-0.4) % Neut % (Auto) (45-73) % Lymph % (Auto) (20-40) % [place] % (Auto) (2-11) % Eos % (Auto) (0-4) % Baso % (Auto) (0-2) % Lymph # (Auto) (1.2-4.9) X10*3/uL [place] # (Auto) (0.1-1.2) X10*3/uL Eos # (Auto) (0.0-0.4) X10*3/uL Baso # (Auto) (0.0-0.2) X10*3/uL Abs Immat Gran (auto) (0.00-0.03) X10*3/uL Absolute Neuts (auto) (2.0-8.3) x10*3/uL Absolute Nucleated RBC (0.0-0.012) X10*3/uL Nucleated RBC % (auto) (0.0-0.2) /100WBC PT (10.0-13.1) SEC INR (0.9-1.1) APTT (26.0-36.4) SEC Sodium (135-145) mmol/L Potassium (3.3-5.1) mmol/L Chloride (96-108) mmol/L Carbon Dioxide (22-29) mmol/L Anion Gap (12-20) BUN (9-16) mg/dL Creatinine (0.5-1.4) mg/dL Estim Creat Clear Calc Estimated GFR Random Glucose (60-115) mg/dL Calcium (8.4-10.2) mg/dL Magnesium (1.6-2.6) mg/dL Total Bilirubin (0.0-1.0) mg/dL Direct Bilirubin (0.0-0.5) mg/dL AST (5-37) U/L ALT (0-40) U/L Alkaline Phosphatase (39-117) U/L Total Protein (6.5-8.0) g/dL Albumin (3.5-5.0) g/dL COVID-19 ([facility]) Negative (Negative) COVID-19 Clin Com See Note Blood Type A Positive Antibody Screen NEGATIVE Crossmatch See Detail Independent Interpretation I performed an independent interpretation of an: EKG Interpretation: My independent interpretation of patient's EKG showed a sinus pattern positive left bundle branch block no scalp ulcer criteria noted. No significant changes Independent Historian Patient's daughter External Record Review External record reviewed: Outpatient record Chronic Conditions Patient?s care impacted by: Diabetes, Hypertension and Cancer Previous history of bladder cancer Critical Care Time Critical Care Time Critical Care Time: Yes Total Critical Care Time: 35 Attestation: I have personally provided 35 minutes of critical care time exclusive of time spent on separately billable procedures. Time includes review of lab data, radiology results, discussion with consultants, and monitoring for potential decompensation. Interventions were performed as documented above Discharge Plan Discharge Clinical Impression: Anemia Patient Disposition: Admitted As Inpatient
[2022-05-09 16:10] LABS: MANUAL DIFF FLAG NO
[2022-05-09 16:11] LABS: Basophils Absolute Auto 0.1 X10*3/uL (0.0-0.2); Basophils Percent Auto 0.6 % (0-2); Eosinophils Absolute Auto 0.5 X10*3/uL (0.0-0.4); Eosinophils Percent Auto 4.6 % (0-4); Hematocrit 21.6 % (42.0-52.0); Imm Gran Abs Auto 0.05 X10*3/uL (0.00-0.03); Imm Gran Pct Auto 0.5 % (0.0-0.4); Lymphocytes Absolute Auto 1.3 X10*3/uL (1.2-4.9); Lymphocytes Percent Auto 13.7 % (20-40); Mean Corpuscular HGB Conc 28.7 g/dl (31.0-36.0); Mean Corpuscular Hemoglobin 23.2 pg (27.0-33.0); Mean Corpuscular Volume 80.9 fL (80.0-98.0); Mean Platelet Volume 11.5 fL (9.4-12.4); Monocytes Percent Auto 10.3 % (2-11); NRBC Pct Auto 0.3 /100WBC (0.0-0.2); Neutrophils Absolute Auto 6.9 x10*3/uL (2.0-8.3); Neutrophils Percent Auto 70.3 % (45-73); Platelet Count 264 X10*3/uL (160-400); Red Blood Count 2.67 X10*6/uL (4.60-5.80); Red Cell Distribution Width 20.1 % (11.0-16.0); White Blood Count 9.7 X10*3/uL (4.8-10.8)
--- NOTE | 2022-05-09 16:14 | P.HPHOSP_ITS ---
History of Present Illness Date of Service: 05/09/22 Attending physician on admission: Nitish Luu Chief Complaint: Bleeding from ostomy Pt is a 77-year-old male with a PMH significant for?nonischemic cardiomyopathy, permanent atrial fibrillation no longer on anticoagulation, HFrEF, left bundle- branch block, NSVT, bladder cancer s/p urostomy, diabetes, and CKD 3 who p resents to the ED from [place] for evaluation of symptomatic anemia after labs revealed an H&H or 6.0/21. Pt has recently had episodes of gurwinder bleeding from the area surrounding his ostomy during the first week of April. His daughter, who is at bedside, describes the blood as just shooting out and forming large pools of blood on the bathroom floor. Pt was treated at [facility], where they were transfused two units of PRBC, and referred to an endovascular specialist who performed a cauterization procedure on 04/16/2022 on a collection of blood vessels superior to urostomy.. Since then the pt has had two other incidents of bleeding that he was able to stop on his own. He is scheduled for another endovascular cauterization procedure this coming 05/14/2022. Today, pt's only complaints are generalized weakness and SOB with exertion. Denies recent profuse bleeding from urostomy, no lightheadedness or dizziness. Denies chest pain/pressure, palpitations. No fever, chills, nausea, vomiting, diarrhea, abdominal pain. In the ED labs were significant for H&H of 6.0/20.7, BUN of 32 (near baseline), creatinine of 1.93 (near baseline), and random glucose 220. Stool negative for occult blood. EKG demonstrated atrial fibrillation without evidence of ST elevations or depressions. Pt was treated with 2 units of PRBC. Pt will be admitted under observation on telemetry for treatment of symptomatic anemia. Review of Systems Review of Systems: Shortness of breath with exertion Generalized weakness, fatigue Denies chest pain/pressure, palpitations No fever, chills, nausea, vomiting, abdominal pain Denies lightheadedness, dizziness Yes all other systems are reviewed and are negative [facility] Medical History Afib Biventricular implantable cardioverter-defibrillator (ICD) in situ Bladder cancer Cardiomyopathy CHF (congestive heart failure) Diabetes mellitus Hematuria HTN (hypertension) Osteomyelitis Syncope Family History Father No problems noted. Mother No problems noted. Surgical History History of cardiac catheterization (~01/31/21) History of urostomy S/P AV jake ablation Status post cardiac catheterization Social History Household Members: Children Housing: House Alcohol intake: current Alcohol intake frequency: a few times a week Alcohol type: wine Patient Tobacco Use Status: Former Tobacco user Advance Directives: Yes Advance Directives on File: Yes Advance Directives Date on File: 12/05/21 service: Yes Current occupational status: retired [employer] Allergies Allergy/AdvReac Type Severity Reaction Status Date / Time No Known Allergies Allergy Verified 12/04/21 10:09 Active Medications: Current Medications Pharmacy Consult (Consult Rx Perform Med Rec) 1 each MISCELLANE ONCE PRN PRN Reason: Consult order Home Medications Medication Instructions Recorded Confirmed Last Taken Type digoxin 125 mcg (0.125 mg) tablet 125 mcg PO DAILY 09/02/20 05/09/22 05/09/22 History glimepiride 2 mg tablet 2 mg PO DAILY 09/02/20 05/09/22 05/09/22 History levothyroxine 88 mcg tablet 88 mcg PO DAILY@0600 09/02/20 05/09/22 05/09/22 History omega 2-zux-dzg-fish oil 1,000 mg 1 cap PO DAILY 09/02/20 05/09/22 05/09/22 History (120 mg-180 mg) capsule (Fish Oil) pregabalin 100 mg capsule 100 mg PO DAILY 09/02/20 05/09/22 05/09/22 History sennosides 8.6 mg-docusate sodium 1 tab-cap PO BEDTIME PRN 09/02/20 04/02/22 09/01/20 History 50 mg tablet Constipation Physical Exam Vital Signs and Narrative: Vital Signs: Last Vital Signs Temp 98.5 F 05/09/22 13:47 Pulse 82 05/09/22 13:47 Resp 17 05/09/22 13:47 BP 135/43 L 05/09/22 13:47 Pulse Ox 100 05/09/22 13:47 O2 Del Method 05/09/22 13:47 BMI result Body Mass Index 31.5 Constitutional: Alert, in no acute distress. Mental Status: Oriented to person, place and time. Eyes: Pupils are equal, round, and reactive to light. Ear, Nose, and Throat: Oropharynx clear, mucous membranes moist. Ears and nose without deformities. Trachea midline. Respiratory: Clear to auscultation bilaterally. No wheezing, rales, or rhonchi. Cardiovascular: Irregulary irregular rhythm. No murmurs, rubs, or gallops. Gastrointestinal: Abdomen soft, non-tender, non-distended. Normal bowel sounds. Neurologic: Cranial nerves II-XII are grossly intact bilaterally. No focal neurological deficits. Moves all extremities spontaneously. Skin: No rashes or lesions noted. Genitourinary: Urostomy in place. No hematuria. No bleeding around urostomy. Extremities: No edema. Psychiatric: Normal mood and affect. Results Labs 05/09/22 14:31 05/09/22 14:31 Labs: Laboratory Results - last 24 hr 05/09/22 05/09/22 05/09/22 14:31 14:31 14:31 MCV 81.5 MCH 23.6 L MCHC 29.0 L RDW 19.9 H Plt Count 229 D MPV 11.1 Immature Gran % (Auto) 0.7 H Neut % (Auto) 75.8 H Lymph % (Auto) 10.7 L [place] % (Auto) 8.6 Eos % (Auto) 3.6 Baso % (Auto) 0.6 Lymph # (Auto) 1.0 L [place] # (Auto) 0.8 Eos # (Auto) 0.3 Baso # (Auto) 0.1 Abs Immat Gran (auto) 0.06 H Absolute Neuts (auto) 6.8 Absolute Nucleated RBC 0.030 H Nucleated RBC % (auto) 0.3 H PT 14.8 H INR 1.3 H APTT 30.1 Anion Gap 14 Estim Creat Clear Calc 38.5 Estimated GFR 34 Random Glucose 220 H Calcium 8.4 Magnesium 1.9 Total Bilirubin 1.0 Direct Bilirubin 0.4 AST 15 ALT 8 Alkaline Phosphatase 91 Total Protein 6.8 Albumin 3.5 COVID-19 ([facility]) COVID-19 Clin Com Blood Type Antibody Screen Crossmatch 05/09/22 05/09/22 14:31 14:31 MCV MCH MCHC RDW Plt Count MPV Immature Gran % (Auto) Neut % (Auto) Lymph % (Auto) [place] % (Auto) Eos % (Auto) Baso % (Auto) Lymph # (Auto) [place] # (Auto) Eos # (Auto) Baso # (Auto) Abs Immat Gran (auto) Absolute Neuts (auto) Absolute Nucleated RBC Nucleated RBC % (auto) PT INR APTT Anion Gap Estim Creat Clear Calc Estimated GFR Random Glucose Calcium Magnesium Total Bilirubin Direct Bilirubin AST ALT Alkaline Phosphatase Total Protein Albumin COVID-19 ([facility]) Negative COVID-19 Clin Com See Note Blood Type A Positive Antibody Screen NEGATIVE Crossmatch See Detail Assessment and Plan (1) Symptomatic anemia: Status: Acute Plan Pt is a 77-year-old male with a PMH significant for?nonischemic cardiomyopathy, permanent atrial fibrillation no longer on anticoagulation, HFrEF, left bundle- branch block, NSVT, bladder cancer s/p urostomy, diabetes, and CKD 3 who presents [place] the ED from [place] for evaluation of symptomatic anemia after labs revealed an H&H or 6.0/21. Pt will be admitted under observation on telemetry for treatment of symptomatic anemia. Symptomatic anemia Patient's H&H 6.0 over 20.7 Patient with recent propulsive bleeding from area surrounding urostomy, cauterization procedure by endovascular specialist on 04/16/2022 Patient to receive 2 units of PRBC F/U with endovascular specialist outpatient, another cauterization procedure scheduled for next 05/14/2022 Pneumatic boots for DVT prophylaxis Admit to telemetry Permanent AFib Not on anticoagulation d/t recent bleeding Continue metoprolol, digoxin CKD stage III Patient's creatinine 1.93 Seems stable, near baseline Hypothyroidism Continue levothyroxine Jkj-ehkmlxa-wnnxchpvh diabetes Hold home meds SSI HLD Continue statin Full Code Attending:?Dr. Luu DVT Prophylaxis: Pneumatic boots Patient will be admitted to observation on telemetry for treatment and evaluation of symptomatic anemia. Time Spent With Patient Time: Total time managing care of this patient today ____ minutes. Quality Stroke Does the patient have a stroke diagnosis?: No VTE Prior VTE?: No VTE Risk Level:: Medical - moderate - high VTE Device Contraindication: N/A - Device Ordered VTE Drug Contraindication: Treatment Not Indicated
[2022-05-09 16:16] LABS: Hemoglobin 6.2 g/dl (14.0-18.0)
[2022-05-09 16:17] LABS: OBS Int Ctl Valid YES; OBS1 NEGATIVE (NEGATIVE)
--- NOTE | 2022-05-09 17:24 | PHA.MEDREC ---
Pharmacy Consult ? Medication Reconciliation Pharmacy has completed the medication reconciliation. Confirmed home medications with daughter at bedside. She doesn't know doses, but does know names of medications and states he takes them as directed. Used claim history to fill in gaps of doses.
[2022-05-09 19:52] LABS: Glucose, Whole Blood 78 mg/dL (60-115)
[2022-05-09 20:18] LABS: Appearance Urine Clear; Color Urine Yellow; Glucose Urine UA Negative (Negative); Leukocyte Esterase Urine Large (3+) (Negative); Nitrite Urine Positive (Negative); UMIC TRIGGER UACC YES; Urine Blood Moderate (2+) (Negative); Urine Ketones Negative (Negative); Urine Protein 100 (2+) mg/dL (Neg-Trace)
[2022-05-09 20:38] LABS: Bacteria Urine 1+ (None Seen); Squamous Epithelial Cell Urine 0-2 /HPF (0-2); UACC Culture Trigger YES; WBC Urine >50 /HPF (0-5)
[2022-05-09] MEDS: Metoprolol Tartrate 50 MG TABLET PO (20:57)
[2022-05-09] MEDS: Atorvastatin Calcium 10 MG TABLET PO (20:58)
[2022-05-09] MEDS: 0.9 % Sodium Chloride Flush 3 ML SYRINGE IVFLUSH (20:59)
[2022-05-09 22:44] LABS: Glucose, Whole Blood 107 mg/dL (60-115)
[2022-05-10] VITALS (13 sets, daily range): BP systolic 104–150; BP diastolic 57–70; PULSE 79–88; RESP 16–20; TEMP 36.1–37.4; O2SAT 96–99
[2022-05-10] MEDS: Levothyroxine Sodium 88 MCG TABLET PO (06:36)
[2022-05-10 07:01] LABS: Hematocrit 23.7 % (42.0-52.0); Hemoglobin 7.2 g/dl (14.0-18.0); Mean Corpuscular HGB Conc 30.4 g/dl (31.0-36.0); Mean Corpuscular Hemoglobin 24.4 pg (27.0-33.0); Mean Corpuscular Volume 80.3 fL (80.0-98.0); Mean Platelet Volume 11.1 fL (9.4-12.4); NRBC Pct Auto 0.6 /100WBC (0.0-0.2); Platelet Count 202 X10*3/uL (160-400); Red Blood Count 2.95 X10*6/uL (4.60-5.80); Red Cell Distribution Width 19.5 % (11.0-16.0); White Blood Count 10.1 X10*3/uL (4.8-10.8)
[2022-05-10 07:16] LABS: Anion Gap 13 (12-20); Blood Urea Nitrogen 29 mg/dL (9-16); Calcium 8.1 mg/dL (8.4-10.2); Carbon Dioxide 20 mmol/L (22-29); Chloride 110 mmol/L (96-108); Creatinine Clr Calc Pharmacy 44.8; Estimated Glomerular Filt Rate 40; Glucose Random 143 mg/dL (60-115); Potassium 4.8 mmol/L (3.3-5.1); Sodium 138 mmol/L (135-145)
[2022-05-10 07:47] LABS: Glucose, Whole Blood 137 mg/dL (60-115)
[2022-05-10] MEDS: Metoprolol Tartrate 50 MG TABLET PO ×2 (08:29→21:19)
[2022-05-10] MEDS: Digoxin 0.125 MG TABLET PO (08:29)
[2022-05-10] MEDS: 0.9 % Sodium Chloride Flush 3 ML SYRINGE IVFLUSH ×3 (08:29→21:23)
[2022-05-10] MEDS: Pregabalin 100 MG CAPSULE PO (08:29)
--- NOTE | 2022-05-10 09:05 | MHC.CM.PN ---
CM met with Patient at bedside and addressed JAMISON with him, providing Patient with the original and placing a copy on the chart. Patient lives alone in an [place] apartment at [facility] and returning there is the goal. CM has initiated and will follow for dc planning. Patient has received 5 Covid vax and his PCP/[facility] ATTENDANT is Fox Tran. Patient's Daughter is his POA.
[2022-05-10 10:59] LABS: Glucose, Whole Blood 187 mg/dL (60-115)
--- NOTE | 2022-05-10 11:06 | MHC.CLN ---
NUTRITION DIET=DIABETIC 2000 KCAL. ADDING 2 GRAM SODIUM TO DIET ORDER DUE TO HX CHF AND CKD.
[2022-05-10] MEDS: Insulin Lispro 100 UNIT/ML 3 ML VIAL SUBCUT ×3 (11:56→21:18)
--- NOTE | 2022-05-10 14:13 | HO.PM.IMPN ---
Subjective Subjective Date of Service: 05/10/22 Interval History: No active bleeding overnight. Modest response to transfusion Review of Systems Denies chest pain Denies shortness of breath Denies nausea vomiting diarrhea Denies fever chills Physical Exam Vital Signs: Vital Signs: Last Vital Signs Temp 98.2 F 05/10/22 11:15 Pulse 81 05/10/22 11:15 Resp 16 05/10/22 11:15 BP 128/61 05/10/22 11:15 Pulse Ox 97 05/10/22 11:15 O2 Del Method 05/10/22 11:15 BMI result Body Mass Index 31.5 Const: Other: Awake alert oriented x3 no acute distress Resp: Other: Clear to auscultation bilaterally no rales rhonchi or wheezes Cardio: Other: No S4; positive S1-S2 is; no S3 murmurs rubs or gallops GI: Other: Soft nontender nondistended normoactive bowel sounds. No bleeding from stoma site Extrem: Other: No edema bilaterally Objective Data Active Medications Acetaminophen (Acetaminophen 325 Mg Tablet) 650 mg PO Q6H PRN PRN Reason: Pain, Mild (Pain Scale 1-3) Atorvastatin Calcium (Atorvastatin Calcium 10 Mg Tablet) 10 mg PO BEDTIME [facility] Last Admin: 05/09/22 20:58 Dose: 10 mg Documented By: ANDERSON Digoxin (Digoxin 0.125 Mg Tablet) 0.125 mg PO DAILY [facility] Last Admin: 05/10/22 08:29 Dose: 0.125 mg Documented By: BONNIE Docusate Sodium (Docusate Sodium 100 Mg Capsule) 100 mg PO DAILY PRN PRN Reason: Constipation Glucose (Glucose Gel 15 Gm Gel..Gram.) 15 gm PO Q15M PRN; Protocol PRN Reason: per Hypoglycemia Standing Ord. Dextrose (D10) 250 mls @ 750 mls/hr IV Q15M PRN; Protocol PRN Reason: per Hypoglycemia Standing Ord. Insulin Human Lispro (Insulin Lispro 100 Unit/Ml 3 Ml Vial) 0 unit SUBCUT QIDACHS [facility]; Protocol Last Admin: 05/10/22 11:56 Dose: 2 unit Documented By: BONNIE Levothyroxine Sodium (Levothyroxine Sodium 88 Mcg Tablet) 88 mcg PO DAILY@0600 [facility] Last Admin: 05/10/22 06:36 Dose: 88 mcg Documented By: ANDERSON Metoprolol Tartrate (Metoprolol Tartrate 50 Mg Tablet) 50 mg PO BID [facility]; Protocol Last Admin: 05/10/22 08:29 Dose: 50 mg Documented By: BONNIE Ondansetron HCl (Ondansetron Hcl 4 Mg/2 Ml Vial) 4 mg IVPUSH Q8H PRN PRN Reason: Nausea and Vomiting Pharmacy Consult (Consult Rx Perform Med Rec) 1 each MISCELLANE ONCE PRN PRN Reason: Consult order Pregabalin (Pregabalin 100 Mg Capsule) 100 mg PO DAILY [facility] Last Admin: 05/10/22 08:29 Dose: 100 mg Documented By: BONNIE Sodium Chloride (0.9 % Sodium Chloride Flush 3 Ml Syringe) 3 ml IVFLUSH QSHIFT [facility] Last Admin: 05/10/22 08:29 Dose: 3 ml Documented By: BONNIE Labs 05/10/22 06:39 05/10/22 06:39 Labs: Laboratory Results - last 24 hr 05/09/22 05/09/22 05/09/22 14:31 14:31 14:31 MCV 81.5 MCH 23.6 L MCHC 29.0 L RDW 19.9 H Plt Count 229 D MPV 11.1 Immature Gran % (Auto) 0.7 H Neut % (Auto) 75.8 H Lymph % (Auto) 10.7 L [place] % (Auto) 8.6 Eos % (Auto) 3.6 Baso % (Auto) 0.6 Lymph # (Auto) 1.0 L [place] # (Auto) 0.8 Eos # (Auto) 0.3 Baso # (Auto) 0.1 Abs Immat Gran (auto) 0.06 H Absolute Neuts (auto) 6.8 Absolute Nucleated RBC 0.030 H Nucleated RBC % (auto) 0.3 H Smear Path Review SEE NOTE PT 14.8 H INR 1.3 H APTT 30.1 Anion Gap 14 Estim Creat Clear Calc 38.5 Estimated GFR 34 POC Glucose Random Glucose 220 H Calcium 8.4 Magnesium 1.9 Total Bilirubin 1.0 Direct Bilirubin 0.4 AST 15 ALT 8 Alkaline Phosphatase 91 Total Protein 6.8 Albumin 3.5 Urine Color Urine Appearance Urine pH Ur Specific [place] Urine Protein Urine Glucose (UA) Urine Ketones Urine Blood Urine Nitrite Ur Leukocyte Esterase Urine RBC Urine WBC Ur Squamous Epith Cells Urine Bacteria Hyaline Casts Stool Occult Blood COVID-19 ([facility]) COVID-19 Clin Com Blood Type Antibody Screen Crossmatch 05/09/22 05/09/22 05/09/22 14:31 14:31 16:05 MCV 80.9 MCH 23.2 L MCHC 28.7 L RDW 20.1 H Plt Count 264 MPV 11.5 Immature Gran % (Auto) 0.5 H Neut % (Auto) 70.3 Lymph % (Auto) 13.7 L [place] % (Auto) 10.3 Eos % (Auto) 4.6 H Baso % (Auto) 0.6 Lymph # (Auto) 1.3 [place] # (Auto) 1.0 Eos # (Auto) 0.5 H Baso # (Auto) 0.1 Abs Immat Gran (auto) 0.05 H Absolute Neuts (auto) 6.9 Absolute Nucleated RBC 0.030 H Nucleated RBC % (auto) 0.3 H Smear Path Review PT INR APTT Anion Gap Estim Creat Clear Calc Estimated GFR POC Glucose Random Glucose Calcium Magnesium Total Bilirubin Direct Bilirubin AST ALT Alkaline Phosphatase Total Protein Albumin Urine Color Urine Appearance Urine pH Ur Specific [place] Urine Protein Urine Glucose (UA) Urine Ketones Urine Blood Urine Nitrite Ur Leukocyte Esterase Urine RBC Urine WBC Ur Squamous Epith Cells Urine Bacteria Hyaline Casts Stool Occult Blood COVID-19 ([facility]) Negative COVID-19 Clin Com See Note Blood Type A Positive Antibody Screen NEGATIVE Crossmatch See Detail 05/09/22 05/09/22 05/09/22 16:10 18:20 19:32 MCV MCH MCHC RDW Plt Count MPV Immature Gran % (Auto) Neut % (Auto) Lymph % (Auto) [place] % (Auto) Eos % (Auto) Baso % (Auto) Lymph # (Auto) [place] # (Auto) Eos # (Auto) Baso # (Auto) Abs Immat Gran (auto) Absolute Neuts (auto) Absolute Nucleated RBC Nucleated RBC % (auto) Smear Path Review PT INR APTT Anion Gap Estim Creat Clear Calc Estimated GFR POC Glucose 78 Random Glucose Calcium Magnesium Total Bilirubin Direct Bilirubin AST ALT Alkaline Phosphatase Total Protein Albumin Urine Color Yellow Urine Appearance Clear Urine pH 7.0 Ur Specific [place] 1.010 Urine Protein 100 (2+) H Urine Glucose (UA) Negative Urine Ketones Negative Urine Blood Moderate (2+) H Urine Nitrite Positive H Ur Leukocyte Esterase Large (3+) H Urine RBC 11-20 H Urine WBC >50 H Ur Squamous Epith Cells 0-2 Urine Bacteria 1+ Hyaline Casts 3-5 Stool Occult Blood NEGATIVE COVID-19 ([facility]) COVID-19 Clin Com Blood Type Antibody Screen Crossmatch 05/09/22 05/10/22 05/10/22 22:40 06:39 06:39 MCV 80.3 MCH 24.4 L MCHC 30.4 L RDW 19.5 H Plt Count 202 MPV 11.1 Immature Gran % (Auto) Neut % (Auto) Lymph % (Auto) [place] % (Auto) Eos % (Auto) Baso % (Auto) Lymph # (Auto) [place] # (Auto) Eos # (Auto) Baso # (Auto) Abs Immat Gran (auto) Absolute Neuts (auto) Absolute Nucleated RBC 0.060 H Nucleated RBC % (auto) 0.6 H Smear Path Review PT INR APTT Anion Gap 13 Estim Creat Clear Calc 44.8 Estimated GFR 40 POC Glucose 107 Random Glucose 143 H Calcium 8.1 L Magnesium Total Bilirubin Direct Bilirubin AST ALT Alkaline Phosphatase Total Protein Albumin Urine Color Urine Appearance Urine pH Ur Specific [place] Urine Protein Urine Glucose (UA) Urine Ketones Urine Blood Urine Nitrite Ur Leukocyte Esterase Urine RBC Urine WBC Ur Squamous Epith Cells Urine Bacteria Hyaline Casts Stool Occult Blood COVID-19 ([facility]) COVID-19 Clin Com Blood Type Antibody Screen Crossmatch 05/10/22 05/10/22 07:23 10:51 MCV MCH MCHC RDW Plt Count MPV Immature Gran % (Auto) Neut % (Auto) Lymph % (Auto) [place] % (Auto) Eos % (Auto) Baso % (Auto) Lymph # (Auto) [place] # (Auto) Eos # (Auto) Baso # (Auto) Abs Immat Gran (auto) Absolute Neuts (auto) Absolute Nucleated RBC Nucleated RBC % (auto) Smear Path Review PT INR APTT Anion Gap Estim Creat Clear Calc Estimated GFR POC Glucose 137 H 187 H Random Glucose Calcium Magnesium Total Bilirubin Direct Bilirubin AST ALT Alkaline Phosphatase Total Protein Albumin Urine Color Urine Appearance Urine pH Ur Specific [place] Urine Protein Urine Glucose (UA) Urine Ketones Urine Blood Urine Nitrite Ur Leukocyte Esterase Urine RBC Urine WBC Ur Squamous Epith Cells Urine Bacteria Hyaline Casts Stool Occult Blood COVID-19 ([facility]) COVID-19 Clin Com Blood Type Antibody Screen Crossmatch Microbiology Microbiology Results: Microbiology 05/09/22 20:42 Urine Culture - Preliminary Urine clean catch - Urine butcher top Culture too young to evaluate. Assessment and Plan (1) Symptomatic anemia: Status: Acute (2) Afib: Status: Acute (3) CKD (chronic kidney disease): Status: Acute Plan Pt is a 77-year-old male with a PMH significant for?nonischemic cardiomyopathy, permanent atrial fibrillation no longer on anticoagulation, HFrEF, left bundle-branch block, NSVT, bladder cancer s/p urostomy, diabetes, and CKD 3 who presents to the ED from [place] for evaluation of symptomatic anemia after labs revealed an H&H or 6.0/21. Pt will be admitted under observation on telemetry for treatment of symptomatic anemia. 1.Symptomatic anemia -will transfuse 2 additional units this a.m. -follow CBC daily 2.Permanent AFib -rate control adequate -no anticoagulation secondary to bleeding 3.CKD stage III -at baseline -follow renals/divalents 4.Hypothyroidism -Continue levothyroxine 5. Dm 2 -acceptable control on current therapies -add back outpatient therapies as indicated Full Code DVT Prophylaxis: Pneumatic boots Patient will require ongoing hospitalization for blood transfusion to Time Spent With Patient Time: Total time managing care of this patient today ____ minutes. Quality Stroke Does the patient have a stroke diagnosis?: No VTE Prior VTE?: No VTE Risk Level:: Medical - moderate - high VTE Device Contraindication: N/A - Device Ordered VTE Drug Contraindication: Treatment Not Indicated
[2022-05-10] MEDS: Furosemide 20 MG/2 ML VIAL IVPUSH (14:58)
[2022-05-10 16:14] LABS: Glucose, Whole Blood 176 mg/dL (60-115)
[2022-05-10 20:16] LABS: Glucose, Whole Blood 158 mg/dL (60-115)
[2022-05-10] MEDS: Atorvastatin Calcium 10 MG TABLET PO (21:19)
[2022-05-11 03:45] VITALS: BP 115/53; PULSE 81; RESP 19; TEMP 37.1; O2SAT 96
[2022-05-11] MEDS: Levothyroxine Sodium 88 MCG TABLET PO (05:15)
[2022-05-11 07:15] VITALS: BP 139/66; PULSE 82; RESP 14; TEMP 36.5; O2SAT 98
[2022-05-11 07:59] LABS: Glucose, Whole Blood 131 mg/dL (60-115)
[2022-05-11 07:59] LABS: MANUAL DIFF FLAG NO
[2022-05-11 08:01] LABS: Basophils Absolute Auto 0.1 X10*3/uL (0.0-0.2); Basophils Percent Auto 0.8 % (0-2); Eosinophils Absolute Auto 0.6 X10*3/uL (0.0-0.4); Eosinophils Percent Auto 5.8 % (0-4); Hematocrit 29.5 % (42.0-52.0); Hemoglobin 9.2 g/dl (14.0-18.0); Imm Gran Abs Auto 0.13 X10*3/uL (0.00-0.03); Imm Gran Pct Auto 1.3 % (0.0-0.4); Lymphocytes Absolute Auto 1.1 X10*3/uL (1.2-4.9); Lymphocytes Percent Auto 11.2 % (20-40); Mean Corpuscular HGB Conc 31.2 g/dl (31.0-36.0); Mean Corpuscular Hemoglobin 25.3 pg (27.0-33.0); Mean Platelet Volume 11.4 fL (9.4-12.4); Monocytes Percent Auto 9.9 % (2-11); NRBC Pct Auto 0.6 /100WBC (0.0-0.2); Neutrophils Absolute Auto 7.3 x10*3/uL (2.0-8.3); Platelet Count 195 X10*3/uL (160-400); Red Blood Count 3.64 X10*6/uL (4.60-5.80); Red Cell Distribution Width 18.7 % (11.0-16.0); White Blood Count 10.2 X10*3/uL (4.8-10.8)
[2022-05-11] MEDS: 0.9 % Sodium Chloride Flush 3 ML SYRINGE IVFLUSH (08:12)
[2022-05-11] MEDS: Pregabalin 100 MG CAPSULE PO (08:12)
[2022-05-11] MEDS: Metoprolol Tartrate 50 MG TABLET PO (08:12)
[2022-05-11] MEDS: Digoxin 0.125 MG TABLET PO (08:13)
[2022-05-11 08:23] LABS: Alanine Aminotransferase 7 U/L (0-40); Albumin Level 3.2 g/dL (3.5-5.0); Alkaline Phosphatase 88 U/L (39-117); Anion Gap 12 (12-20); Aspartate Amino Transferase 13 U/L (5-37); Bilirubin Total 5.4 mg/dL (0.0-1.0); Blood Urea Nitrogen 33 mg/dL (9-16); Calcium 8.5 mg/dL (8.4-10.2); Carbon Dioxide 22 mmol/L (22-29); Chloride 110 mmol/L (96-108); Creatinine Clr Calc Pharmacy 42.7; Estimated Glomerular Filt Rate 38; Glucose Random 120 mg/dL (60-115); Potassium 4.3 mmol/L (3.3-5.1); Sodium 140 mmol/L (135-145); Total Protein 6.3 g/dL (6.5-8.0)
[2022-05-11 10:43] VITALS: BP 125/60; PULSE 79; RESP 14; TEMP 36.7; O2SAT 98
[2022-05-11 11:06] LABS: Glucose, Whole Blood 174 mg/dL (60-115)
--- NOTE | 2022-05-11 11:23 | PM.DS ---
DS: Providers Provider Date of Service: 05/11/22 Date of admission: 05/09/22 16:53 Date of discharge: 05/11/22 Primary care physician: Fox Tran NP DS: Diagnosis Discharge Diagnosis (1) Symptomatic anemia: Status: Acute (2) Afib: Status: Acute (3) CKD (chronic kidney disease): Status: Acute DS: Summary Hospital Course Hospital Course: 77-year-old male with a PMH significant for?nonischemic cardiomyopathy, permanent atrial fibrillation no longer on anticoagulation, HFrEF, left bundle-branch block, NSVT, bladder cancer s/p urostomy, diabetes, and CKD 3?who presents to the ED from [place] for evaluation of symptomatic anemia after labs revealed an H&H or 6.0/21. Pt has recently had episodes of gurwinder bleeding from the area surrounding his ostomy during the first week of April. His daughter, who is at bedside, describes the blood as just shooting out and forming large pools of blood on the bathroom floor. Pt was treated at [facility], where they were transfused two units of PRBC, and referred to an endovascular specialist who performed a cauterization procedure on 04/16/2022 on a collection of blood vessels superior to urostomy.. Since then the pt has had two other incidents of bleeding that he was able to stop on his own. He is scheduled for another endovascular cauterization procedure this coming 05/14/2022. Today, pt's only complaints are generalized weakness and SOB with exertion. Denies recent profuse bleeding from urostomy, no lightheadedness or dizziness. Denies chest pain/pressure, palpitations. No fever, chills, nausea, vomiting, diarrhea, abdominal pain. Hospital Course Patient admitted to telemetry and transfused a total of 4 units during his stay. At no time did his stoma bleed and he handled the blood well. On the day of discharge his hemoglobin was 9.2. At this point he is medically acceptable for discharge to follow-up 313 as scheduled Time Spent with Patient Time attestation: Total time managing care of this patient today ____ minutes. Discharge coordination time: Greater than 30 minutes Quality: Safe Use of Opioids Does Pt have an Active Cancer Diagnosis on the Problem List?: No Quality: Stroke Does the patient have a stroke diagnosis?: No Physical Exam Vital Signs: Vital Signs: Last Vital Signs Temp 98.1 F 05/11/22 10:43 Pulse 79 05/11/22 10:43 Resp 14 05/11/22 10:43 BP 125/60 05/11/22 10:43 Pulse Ox 98 05/11/22 10:43 O2 Del Method 05/11/22 10:43 BMI result Body Mass Index 31.5 Const: Other: Awake alert oriented x3 no acute distress Resp: Other: Clear to auscultation bilaterally no rales rhonchi or wheezes Cardio: Other: No S4; positive S1-S2 is; no S3 murmurs rubs or gallops GI: Other: Soft nontender nondistended normoactive bowel sounds. No bleeding from stoma site Extrem: Other: No edema bilaterally DS: Data Data Completed and Pending Labs on day of discharge: Laboratory Results - last 24 hr 05/09/22 05/10/22 05/10/22 14:31 16:10 20:13 WBC RBC Hgb Hct MCV MCH MCHC RDW Plt Count MPV Immature Gran % (Auto) Neut % (Auto) Lymph % (Auto) Whitfield % (Auto) Eos % (Auto) Baso % (Auto) Lymph # (Auto) Whitfield # (Auto) Eos # (Auto) Baso # (Auto) Abs Immat Gran (auto) Absolute Neuts (auto) Absolute Nucleated RBC Nucleated RBC % (auto) Sodium Potassium Chloride Carbon Dioxide Anion Gap BUN Creatinine Estim Creat Clear Calc Estimated GFR POC Glucose 176 H 158 H Random Glucose Calcium Total Bilirubin AST ALT Alkaline Phosphatase Total Protein Albumin Blood Type A Positive Antibody Screen NEGATIVE Crossmatch See Detail 05/11/22 05/11/22 05/11/22 07:42 07:42 07:52 WBC 10.2 RBC 3.64 L D Hgb 9.2 L D Hct 29.5 L D MCV 81.0 MCH 25.3 L MCHC 31.2 RDW 18.7 H Plt Count 195 MPV 11.4 Immature Gran % (Auto) 1.3 H Neut % (Auto) 71.0 Lymph % (Auto) 11.2 L Whitfield % (Auto) 9.9 Eos % (Auto) 5.8 H Baso % (Auto) 0.8 Lymph # (Auto) 1.1 L Whitfield # (Auto) 1.0 Eos # (Auto) 0.6 H Baso # (Auto) 0.1 Abs Immat Gran (auto) 0.13 H Absolute Neuts (auto) 7.3 Absolute Nucleated RBC 0.060 H Nucleated RBC % (auto) 0.6 H Sodium 140 Potassium 4.3 Chloride 110 H Carbon Dioxide 22 Anion Gap 12 BUN 33 H Creatinine 1.74 H Estim Creat Clear Calc 42.7 Estimated GFR 38 POC Glucose 131 H Random Glucose 120 H Calcium 8.5 Total Bilirubin 5.4 H AST 13 ALT 7 Alkaline Phosphatase 88 Total Protein 6.3 L Albumin 3.2 L Blood Type Antibody Screen Crossmatch 05/11/22 10:42 WBC RBC Hgb Hct MCV MCH MCHC RDW Plt Count MPV Immature Gran % (Auto) Neut % (Auto) Lymph % (Auto) Whitfield % (Auto) Eos % (Auto) Baso % (Auto) Lymph # (Auto) Whitfield # (Auto) Eos # (Auto) Baso # (Auto) Abs Immat Gran (auto) Absolute Neuts (auto) Absolute Nucleated RBC Nucleated RBC % (auto) Sodium Potassium Chloride Carbon Dioxide Anion Gap BUN Creatinine Estim Creat Clear Calc Estimated GFR POC Glucose 174 H Random Glucose Calcium Total Bilirubin AST ALT Alkaline Phosphatase Total Protein Albumin Blood Type Antibody Screen Crossmatch Preliminary micro results at discharge 05/09/22 20:42 Urine Culture - Preliminary Urine clean catch - Urine butcher top Culture too young to evaluate. Discharge Plan Discharge Anticipated Discharge Date/Time: 05/11/22 11:19 Patient Disposition: Xfer Other Discharge Diagnosis: Symptomatic anemia Referrals: Fox Tran, ELECTRIC CUTTER OPERATOR [Primary Care Provider] - 1 Week Discharge Medications: Continued metoprolol tartrate 50 mg tablet 50 mg PO BID 90 Days Qty: 180 0RF Protocol: Hold for SBP/HR < HOLD for SBP < : 90 HOLD for HR < : 60 atorvastatin 10 mg tablet 10 mg PO BEDTIME 90 Days Qty: 90 2RF digoxin 125 mcg (0.125 mg) Tablet 125 mcg PO DAILY Hold Instructions: restart per omega 0-vzb-szn-fish oil [Fish Oil] 1,000 mg (120 mg-180 mg) Capsule 1 cap PO DAILY pregabalin 100 mg Capsule 100 mg PO DAILY sennosides-docusate sodium 8.6-50 mg Tablet 1 tab-cap PO BEDTIME PRN (Reason: Constipation) glimepiride 2 mg Tablet 2 mg PO DAILY levothyroxine 88 mcg Tablet 88 mcg PO DAILY@0600 Discharge Orders: Discharge Order (Routine); Ordered 05/11/22 Ordered By: Nitish Luu Diet: Advance to usual diet Activity on Discharge: As tolerated Stand Alone Forms: Patient Portal Discharge page Care Plan Goals: Resume all pre-hospital meds Health Concerns: Follow-up with her physician to address the bleeding your stoma as scheduled Plan of Treatment: He received a total of 4 units of packed red cells with good response severe hemoglobin. Assessment: See discharge summary
--- NOTE | 2022-05-11 11:30 | MHC.CM.PN ---
Per MD, Patient is medically cleared for dc to home([facility]) today.
--- NOTE | 2022-05-11 16:06 | P.CDIM_ITS ---
PROVIDER RESPONSE TEXT: To clarify, the appropriate diagnosis supported by the clinical indicators: Acute blood loss anemia QUERY TEXT: PHYSICIAN'S DOCUMENTATION REQUEST Date of Query: 05/11/2022 10:44 AM EST Patient Name: Nagi Roblero Admit Date: 05/09/2022 Dear Nitish Luu, A review of the medical record indicates additional documentation may be needed. Please review below and update the documentation accordingly. Is there a diagnosis that correlates with the findings below: Clinical Indicators: Per provider H&P: Symptomatic anemia Patient's H&H 6.0 over 20.7 Patient with recent propulsive bleeding from area surrounding urostomy, cauterization procedure by en dovascular specialist on 04/16/2022 Patient to receive 2 units of PRBC Per provider progress note on 05/10: Modest response to transfusion Labs Hgb: 05/09 - 6.0 05/10 - 7.2 Hct: 05/09 - 20.7 05/10 - 23.7 Transfusions received: 4 units of Leukocyte-Reduced Red Blood Cells Based on the above, could you clarify which of the following is the most likely type of anemia you ar e evaluating, treating, and/or monitoring? Acute blood loss anemia Acute blood loss anemia with baseline chronic anemia (specify type) Other Other (explain) Clinically unable to determine (explain) Thank you, Cassy Wright, MS, RN, CCRN Use of terms such as suspected, likely, concern for, or probable (associated with a specific diagnosi s that is being evaluated, monitored, or treated as if it exists) are acceptable and can be coded in the inpatient se tting, when documented at the time of discharge. Please use your independent medical judgment in providing your response. THIS QUERY IS PART OF THE PERMANENT MEDICAL RECORD
[2022-05-11 16:12] LABS: Glucose, Whole Blood 139 mg/dL (60-115)
== END 2022-05-11 16:41 | disposition other institution (70) ==
LOC: HO.ED 16:13 → HO.IMC 17:39 → HO.EDOVER 05-10 16:08 → HO.IMC 05-10 16:08
PROVIDERS: Physician Assistant; Admitting Provider Student in an Organized Health Care Education/Training Program; Emergency Provider Emergency Medicine Emergency Medical Services; PCP Nurse Practitioner Family; Visit Provider Hospitalist
DX: D64.9 Anemia, unspecified (principal); I48.21 Permanent atrial fibrillation; R06.02 Shortness of breath; Z20.822 Contact with and (suspected) exposure to COVID-19; E11.22 Type 2 diabetes mellitus with diabetic chronic kidney disease; I13.0 Hypertensive heart and chronic kidney disease with heart failure and stage 1 through stage 4 chronic kidney disease, or unspecified chronic kidney disease; N18.30 Chronic kidney disease, stage 3 unspecified; I50.9 Heart failure, unspecified; E78.5 Hyperlipidemia, unspecified; E03.9 Hypothyroidism, unspecified; I44.7 Left bundle-branch block, unspecified; Z93.6 Other artificial openings of urinary tract status; Z95.810 Presence of automatic (implantable) cardiac defibrillator; Z85.51 Personal history of malignant neoplasm of bladder; Z87.891 Personal history of nicotine dependence; Z79.899 Other long term (current) drug therapy; Z79.02 Long term (current) use of antithrombotics/antiplatelets
CPT/HCPCS: 36415; 36430; 80048; 80053; 80076; 81001; 82272; 82947; 83735; 85025; 85027; 85610; 85730; 86850; 86900; 86901; 86923; 87086; 87635; 93005; 96374; 99222; 99285; J1940; P9016

== ENCOUNTER → 2022-05-28 08:48 | Outpatient (REF) | payer OTHER, SELFPAY ==
--- NOTE | 2022-05-28 09:03 | CA_ITS ---
Transthoracic Echocardiogram Patient (Last, First, Middle): Nagi Roblero, Gender: Male Date of : 1945 Age: 77 Procedure Date: 05/28/2022 Procedure Type: Transthoracic Echocardiogram Location: OP Height: 177.8 cm Weight: 95.26 kg BSA: 2.13 m2 Heart Rate: bpm BP: 114 / 60 mmHg Research Laboratory Manager: ASIF Referring MD: Fox Tran LOCKSTITCH TOPSTITCHER Symptoms: R01.1 CA MURMUR, I42.9 CARDIOMYOPATHY Study Quality: Technically Difficult, contrast ECG Rhythm: Atrial Fibrillation/V paced Conclusions: - The left ventricular systolic function is moderately decreased. The visually estimated ejection fraction is between 35-40%. - Moderately increased right ventricular cavity size. - The left atrium is severely dilated. - There is mild calcification of the aortic valve. - There is mild aortic valve regurgitation. - There is mild mitral annular calcification. - There is mild tricuspid valve regurgitation. - Mild to moderate pulmonary hypertension is present. Findings Procedure Information Contrast agent, definity, is being given per protocol without apparent complications. Left Ventricle Normal left ventricular cavity size. There is mildly increased left ventricular wall thickness. The left ventricular systolic function is moderately decreased. The visually estimated ejection fraction is between 35 40%. There is moderate global hypokinesis. Diastolic function is indeterminate on the basis of available data. Right Ventricle Moderately increased right ventricular cavity size. There is normal right ventricular systolic function. There is an ICD wire seen in the right ventricle. Atria The left atrium is severely dilated. The right atrium is moderately dilated. Aortic Valve There is a normal trileaflet aortic valve. There is mild calcification of the aortic valve. There is no aortic valve stenosis. There is mild aortic valve regurgitation. Mitral Valve There is mild mitral annular calcification. There is trace mitral valve regurgitation. There is no mitral valve stenosis. Pulmonic Valve The pulmonic valve is likely normal. Tricuspid Valve There is mild tricuspid valve regurgitation. Mild to moderate pulmonary hypertension is present. Great Vessels The asc aorta is normal in size. Venous The inferior vena cava is mildly dilated and collapses less than 50% with inspiration. Pericardium/Pleural There is no evidence of pericardial effusion. Prior Study Comparison No significant change compared to prior study dated: 12/04/2021. Measurements 2D Linear Measurements IVSd: 1.25 0.6-0.9/0.6-1.0 cm LVIDd: 5.16 3.9-5.3/4.2-5.9 cm LVIDd Index: 2.42 2.4-3.2/2.2-3.1 cm/m2 LVIDs: 4.05 2.0-3.6 cm LVPWd: 1.26 0.7-1.1 cm LA Diam: 5.10 2.7-3.8/3.0-4.0 cm LAIDs Index: 2.39 1.5-2.3 cm/m2 LV Mass: 326.38 67-162/88-224 g LV Mass Index: 153.23 43-95/49-115 g/m2 LVOT Diam: 2.00 3.0+(-)1.3 cm 2D Systolic Function EF 4C: 41.10 >55% EF 2C: 52.00 >55% EF BiP: 45.70 >55% Mitral Valve MV Pk E: 1.18 MV Decel Time: 238.00 E'Lateral: 9.46 E'Medial: 5.87 E/E' Med: 20.10 E/E' Lat: 12.50 PHT: 70.00 MVA PHT: 3.14 Decel [place]: 4.97 Aortic Valve AoV Pk Faraz: 1.98 AoV Mn Faraz: 1.38 AoV VTI: 0.37 AoV Pk Grad: 16.00 Aov Mn Grad: 9.00 BREEZY Cont.VTI: 1.89 AI Pk Faraz: 3.61 AI [place]: 2.87 LVOT LVOT Pk Faraz: 1.18 LVOT Mn Faraz: 0.76 LVOT VTI: 0.22 LVOT Pk Grad: 6.00 LVOT Mn Grad: 3.00 LVOT Diam: 2.00 LVOT Area: 3.14 Diastolic Function MV Pk E: 1.18 E'Medial: 5.87 E/E' Med: 20.10 E' Laterial: 9.46 E/E' Lat: 12.50 Right Ventricle TAPSE (mm): 18.00 TVS' Faraz: 13.70 Tricuspid Valve TR Pk Faraz: 2.92 TR Pk Grad: 34.00 RA Press: 15.00 RVSP: 49.00 Great Vessels Aorta Sinus of Valsalva: 3.72 2.0-3.[address] [place]: 2.98 1.7-3.4 cm Ao Asc: 3.90 2.1-3.4 cm Updated in Other Vendor System with Status of Final Rick Chou MD electronically signed on 05/28/2022 12:46:37 PM with status of Final
== END ==
LOC: HO.CARD 08:48
PROVIDERS: Visit Provider Nurse Practitioner Family
DX: R01.1 Cardiac murmur, unspecified (principal); I42.9 Cardiomyopathy, unspecified
CPT/HCPCS: 93306; Q9957

== ENCOUNTER 2022-08-20 08:23 | Outpatient (REF) | payer OTHER, SELFPAY ==
[2022-08-20 09:40] LABS: Hemoglobin 11.3 g/dl (14.0-18.0); Mean Corpuscular HGB Conc 29.7 g/dl (31.0-36.0); Mean Corpuscular Hemoglobin 23.8 pg (27.0-33.0); Platelet Count 139 X10*3/uL (160-400); Red Blood Count 4.75 X10*6/uL (4.60-5.80); Red Cell Distribution Width 19.2 % (11.0-16.0); White Blood Count 8.8 X10*3/uL (4.8-10.8)
[2022-08-20 09:53] LABS: B Type Natriuretic Peptide 166 pg/mL (<100)
[2022-08-20 10:39] LABS: Anion Gap 13 (12-20); Blood Urea Nitrogen 36 mg/dL (9-16); Calcium 9.5 mg/dL (8.4-10.2); Carbon Dioxide 21 mmol/L (22-29); Chloride 105 mmol/L (96-108); Estimated Glomerular Filt Rate 31; Glucose Random 464 mg/dL (60-115); Potassium 5.8 mmol/L (3.3-5.1); Sodium 133 mmol/L (135-145)
== END 2022-08-20 08:24 | disposition home or self-care (01) ==
LOC: HO.LAB 08:23
PROVIDERS: PCP Internal Medicine Endocrinology, Diabetes & Metabolism; Referring Provider Internal Medicine Endocrinology, Diabetes & Metabolism; Visit Provider Internal Medicine Cardiovascular Disease
DX: I50.20 Unspecified systolic (congestive) heart failure (principal); I48.91 Unspecified atrial fibrillation; Z95.810 Presence of automatic (implantable) cardiac defibrillator
CPT/HCPCS: 36415; 80048; 83880; 85027; 99212

== ENCOUNTER 2022-08-23 07:55 | Outpatient (REF) | payer OTHER, SELFPAY ==
[2022-08-23 08:57] LABS: Anion Gap 14 (12-20); Blood Urea Nitrogen 35 mg/dL (9-16); Calcium 9.6 mg/dL (8.4-10.2); Carbon Dioxide 22 mmol/L (22-29); Chloride 108 mmol/L (96-108); Estimated Glomerular Filt Rate 34; Glucose Random 346 mg/dL (60-115); Potassium 5.6 mmol/L (3.3-5.1); Sodium 138 mmol/L (135-145)
== END 2022-08-23 07:56 | disposition home or self-care (01) ==
LOC: HO.LAB 07:55
PROVIDERS: PCP Nurse Practitioner Family; Visit Provider Internal Medicine Cardiovascular Disease
DX: N18.9 Chronic kidney disease, unspecified (principal); E87.5 Hyperkalemia
CPT/HCPCS: 36415; 80048

== ENCOUNTER → 2022-09-01 23:59 | Outpatient (BNV) | payer OTHER, SELFPAY ==
--- NOTE | 2022-09-11 11:23 | MHC.OFFVIS ---
Intake Intake Visit Reasons: Remote HF Monitoring- [employer] Allergies No Known Allergies Allergy (Verified 08/20/22 08:31) [facility] Medical History (Updated 08/20/22 @ 08:53 by Omar Ramos MD) Afib Biventricular implantable cardioverter-defibrillator (ICD) in situ Bladder cancer Cardiomyopathy CHF (congestive heart failure) Diabetes mellitus Hematuria HTN (hypertension) Osteomyelitis Syncope Surgical History History of cardiac catheterization (~01/31/21) History of urostomy S/P AV jake ablation Status post cardiac catheterization Family History Father No problems noted. Mother No problems noted. Social History Household Members: Children Housing: House Alcohol intake: current Alcohol intake frequency: does not drink Alcohol type: wine Patient Tobacco Use Status: Former Tobacco user Quit Date: 30 years ago Advance Directives Date on File: 12/05/21 service: Yes Current occupational status: retired Office Procedures Cardiac Device Check Cardiac Device Check Details: Remote heart failure report generated shows elevated heart failure parameters. Will follow-up with patient clinically [id number] Cardiac Device Interrogation, cardio physiologic monitor Procedure code (CPT) selection complete Coding Level of Care Code Procedure Only Diagnoses CPT Codes Cardiac Device Check - Cardiac Device 15: [id number] Cardiac Device Interrogation, cardio physiologic monitor ([id number])
== END ==
PROVIDERS: PCP Nurse Practitioner Family; Visit Provider Internal Medicine Cardiovascular Disease
DX: I50.20 Unspecified systolic (congestive) heart failure (principal); Z95.810 Presence of automatic (implantable) cardiac defibrillator
CPT/HCPCS: 93297

== ENCOUNTER 2022-09-17 08:08 | Emergency (ER) | payer OTHER, SELFPAY ==
--- NOTE | 2022-09-17 08:11 | ECG_ITS ---
Test Reason : sob Blood Pressure : / mmHG Vent. Rate : 071 BPM Atrial Rate : 063 BPM P-R Int : 000 ms QRS Dur : 132 ms QT Int : 432 ms P-R-T Axes : 000 136 -28 degrees QTc Int : 469 ms Ventricular-paced rhythm Abnormal ECG When compared with ECG of 09-MAY-2022 14:08, Vent. rate has decreased BY 12 BPM Referred By: Ramy Jaramillo Electronically Signed By:Arya Galicia
--- NOTE | 2022-09-17 08:27 | ED_ITS ---
HPI - GI Bleed General Stated complaint: rectal bleeding Time Seen by Provider: 09/17/22 08:10 Source: patient and family Mode of arrival: ambulatory Limitations: no limitations History of Present Illness HPI Narrative: 77-year-old male presents with bright red blood per rectum. Patient has a history of cardiac dysrhythmia and on a pacemaker but no anticoagulation. Presents with 24 hours of bright red blood per rectum. He does have an ostomy for history of bladder cancer. Patient reports possible losing as much as 4 pt of blood. He does have some chronic shortness of breath which appears to be slightly worsened since yesterday. He denies any palpitations or lightheadedness. Denies any chest pain. He denies any abdominal pain. The etiology of the bleeding is unclear and he has never had this before. There is no clear relieving or exacerbating features. He does reported as bright red blood. Patient denies any nausea vomiting. Related Data Home Medications Medication Instructions Recorded Confirmed glimepiride 2 mg tablet 2 mg PO DAILY 09/02/20 08/20/22 levothyroxine 88 mcg tablet 88 mcg PO DAILY@0600 09/02/20 08/20/22 omega 1-hfe-rkd-fish oil 1,000 mg 1 cap PO DAILY 09/02/20 08/20/22 (120 mg-180 mg) capsule (Fish Oil) pregabalin 100 mg capsule 100 mg PO DAILY 09/02/20 08/20/22 sennosides 8.6 mg-docusate sodium 1 tab-cap PO BEDTIME PRN 09/02/20 08/20/22 50 mg tablet Constipation sodium polystyrene sulfonate 15 g PO ONCE 08/20/22 Previous Rx's Medication Instructions Recorded metoprolol tartrate 50 mg tablet 50 mg PO BID 90 days #180 tabs 09/19/20 atorvastatin 10 mg tablet 10 mg PO BEDTIME 90 days #90 tabs 07/26/21 Allergies Allergy/AdvReac Type Severity Reaction Status Date / Time No Known Allergies Allergy Verified 08/20/22 08:31 Review of Systems Review of Systems: CONSTITUTIONAL: Denies weight loss, fever and chills. HEENT: Denies changes in vision and hearing. RESPIRATORY: Denies SOB and cough. CV: Denies palpitations no CP. GI: Denies abdominal pain, nausea, vomiting and diarrhea. : Denies dysuria and urinary frequency. MSK: Denies myalgia and joint pain. SKIN: Denies rash and pruritus. NEUROLOGICAL: Denies headache and syncope. PSYCHIATRIC: Denies recent changes in mood. Denies anxiety and depression. All other ROS are negative unless in HPI [facility] Past Medical History Medical History (Updated 09/17/22 @ 08:31 by Ramy Jaramillo MD) Afib Biventricular implantable cardioverter-defibrillator (ICD) in situ Bladder cancer Cardiomyopathy CHF (congestive heart failure) Diabetes mellitus Hematuria HTN (hypertension) Osteomyelitis Syncope Surgical History History of cardiac catheterization (~01/31/21) History of urostomy S/P AV jake ablation Status post cardiac catheterization Family History Family History Father No problems noted. Mother No problems noted. Social History Social History Household Members: Children Housing: House Alcohol intake: current Alcohol intake frequency: does not drink Alcohol type: wine Patient Tobacco Use Status: Former Tobacco user Quit Date: 30 years ago Advance Directives Date on File: 12/05/21 service: Yes Current occupational status: retired Physical Exam Vital Signs: Vital Signs: GEN: Well developed, no acute distress, alert, oriented HEENT: Normocephalic, atraumatic, normal external ears, nose appears normal, no oropharyngeal edema or exudates Eyes: Normal to appearance Neck: Supple, no lymphadenopathy Respiratory: Talks in complete sentences, no respiratory distress, clear to auscultation bilaterally Cardiovascular: Regular rate and rhythm, no murmurs rubs or gallops Abdomen: Soft, nontender, nondistended, no guarding, no rebound, right lower quadrant urinary ostomy Back: No CVA tenderness Extremities: No clubbing cyanosis or edema Neurologic: No focal neurologic deficits, cranial nerves 2-12 intact, strength is 5/5 bilaterally Skin: No rash Medical Decision Making Medical Decision Making MDM Narrative: Patient presents with bright red blood per rectum not on blood thinning m edications. He has mild increase in shortness of breath. Differential diagnosis includes lower GI bleed, hemorrhoidal bleeding, diverticular bleeding, colitis, diverticulitis Plan: Patient's abdomen is benign. There is no definite indication for emergent CT scan of the abdomen pelvis. There is no surgical acute findings. Will check a CBC to check for anemia, PT, PTT to check for any possible concerns for bleeding risk. Will order a type and screen pending a possible transfusion. Disposition: Patient may need hospitalization monitor acute lower GI bleeding Differential Diagnosis Differential Diagnoses: The differential diagnosis associated with the presentation includes (See above) Admission/Observation Consideration of admission/observation: Escalation of care including admission/observation considered Lab Data MDM Lab Attestation statement: I reviewed the patient's lab results. 09/17/22 08:41 09/17/22 08:41 Independent Interpretation I performed an independent interpretation of an: EKG (Ventricularly paced rhythm 71) and Rhythm Strip Independent Historian Clinical information obtained from an independent historian. History obtained from or confirmed by: Other (Child) Tests considered The following testing was considered but not selected: CT scan the abdomen and pelvis considered however, patient's abdomen is benign without tenderness, rebound or guarding. Prescription Management I considered prescription management with: Other (Blood transfusion) Chronic Conditions Patient?s care impacted by: Other (Cardiac history) Discharge Plan Discharge Clinical Impression: Acute lower GI bleeding Patient Disposition: Still a Patient Prescriptions: No Action metoprolol tartrate 50 mg tablet 50 mg PO BID 90 Days Qty: 180 0RF Protocol: Hold for SBP/HR < HOLD for SBP < : 90 HOLD for HR < : 60 atorvastatin 10 mg tablet 10 mg PO BEDTIME 90 Days Qty: 90 2RF sodium polystyrene sulfonate Powder 15 g PO ONCE omega 1-nnj-mst-fish oil [Fish Oil] 1,000 mg (120 mg-180 mg) Capsule 1 cap PO DAILY pregabalin 100 mg Capsule 100 mg PO DAILY sennosides-docusate sodium 8.6-50 mg Tablet 1 tab-cap PO BEDTIME PRN (Reason: Constipation) glimepiride 2 mg Tablet 2 mg PO DAILY levothyroxine 88 mcg Tablet 88 mcg PO DAILY@0600
[2022-09-17 08:47] LABS: MANUAL DIFF FLAG NO
[2022-09-17 08:53] VITALS: BP 134/61; PULSE 76; RESP 18; TEMP 36.8; O2SAT 97; BMI 38.0
[2022-09-17 09:01] LABS: INTERNATIONAL NORM RATIO 1.3 (0.9-1.1); Prothrombin Time 15.4 SEC (10.0-13.1)
[2022-09-17 09:02] LABS: Basophils Absolute Auto 0.1 X10*3/uL (0.0-0.2); Basophils Percent Auto 0.8 % (0-2); Eosinophils Absolute Auto 0.4 X10*3/uL (0.0-0.4); Eosinophils Percent Auto 5.2 % (0-4); Hematocrit 36.5 % (42.0-52.0); Hemoglobin 10.8 g/dl (14.0-18.0); Imm Gran Abs Auto 0.02 X10*3/uL (0.00-0.03); Imm Gran Pct Auto 0.3 % (0.0-0.4); Lymphocytes Absolute Auto 0.6 X10*3/uL (1.2-4.9); Lymphocytes Percent Auto 8.2 % (20-40); Mean Corpuscular HGB Conc 29.6 g/dl (31.0-36.0); Mean Corpuscular Hemoglobin 23.5 pg (27.0-33.0); Mean Corpuscular Volume 79.5 fL (80.0-98.0); Mean Platelet Volume 11.1 fL (9.4-12.4); Monocytes Percent Auto 12.5 % (2-11); Neutrophils Absolute Auto 5.6 x10*3/uL (2.0-8.3); Platelet Count 138 X10*3/uL (160-400); Red Blood Count 4.59 X10*6/uL (4.60-5.80); Red Cell Distribution Width 18.8 % (11.0-16.0); White Blood Count 7.7 X10*3/uL (4.8-10.8)
[2022-09-17 09:03] LABS: Partial Thromboplastin Time 34.6 SEC (26.0-36.4)
[2022-09-17 09:06] LABS: Alanine Aminotransferase 13 U/L (0-40); Albumin Level 3.7 g/dL (3.5-5.0); Alkaline Phosphatase 114 U/L (39-117); Anion Gap 12 (12-20); Aspartate Amino Transferase 19 U/L (5-37); Bilirubin Total 1.1 mg/dL (0.0-1.0); Blood Urea Nitrogen 35 mg/dL (9-16); Calcium 9.2 mg/dL (8.4-10.2); Carbon Dioxide 19 mmol/L (22-29); Chloride 111 mmol/L (96-108); Creatinine Clr Calc Pharmacy 40.8; Estimated Glomerular Filt Rate 35; Glucose Random 132 mg/dL (60-115); Potassium 5.2 mmol/L (3.3-5.1); Sodium 137 mmol/L (135-145); Total Protein 7.7 g/dL (6.5-8.0)
[2022-09-17 11:04] VITALS: BP 115/63; PULSE 70; RESP 16; TEMP 36.8; O2SAT 96
[2022-09-17 11:11] VITALS: BP 118/68; BP 119/70; PULSE 71; PULSE 76
[2022-09-17 11:14] VITALS: BP 114/65; PULSE 73
[2022-09-17 12:06] LABS: MANUAL DIFF FLAG NO
[2022-09-17 12:20] LABS: Basophils Absolute Auto 0.1 X10*3/uL (0.0-0.2); Basophils Percent Auto 0.7 % (0-2); Eosinophils Absolute Auto 0.4 X10*3/uL (0.0-0.4); Eosinophils Percent Auto 5.3 % (0-4); Hematocrit 36.1 % (42.0-52.0); Hemoglobin 10.6 g/dl (14.0-18.0); Imm Gran Abs Auto 0.03 X10*3/uL (0.00-0.03); Imm Gran Pct Auto 0.4 % (0.0-0.4); Lymphocytes Absolute Auto 0.8 X10*3/uL (1.2-4.9); Lymphocytes Percent Auto 11.8 % (20-40); Mean Corpuscular HGB Conc 29.4 g/dl (31.0-36.0); Mean Corpuscular Hemoglobin 23.3 pg (27.0-33.0); Mean Corpuscular Volume 79.5 fL (80.0-98.0); Monocytes Absolute Auto 0.9 X10*3/uL (0.1-1.2); Monocytes Percent Auto 12.1 % (2-11); Neutrophils Percent Auto 69.7 % (45-73); Platelet Count 129 X10*3/uL (160-400); Red Blood Count 4.54 X10*6/uL (4.60-5.80); Red Cell Distribution Width 18.6 % (11.0-16.0); White Blood Count 7.1 X10*3/uL (4.8-10.8)
== END 2022-09-17 13:02 | disposition home or self-care (01) ==
PROVIDERS: Emergency Provider Emergency Medicine; PCP Nurse Practitioner Family
DX: K92.2 Gastrointestinal hemorrhage, unspecified (principal); R06.02 Shortness of breath; E11.22 Type 2 diabetes mellitus with diabetic chronic kidney disease; I13.0 Hypertensive heart and chronic kidney disease with heart failure and stage 1 through stage 4 chronic kidney disease, or unspecified chronic kidney disease; N18.9 Chronic kidney disease, unspecified; I50.9 Heart failure, unspecified; C67.9 Malignant neoplasm of bladder, unspecified; Z95.810 Presence of automatic (implantable) cardiac defibrillator; Z79.899 Other long term (current) drug therapy
CPT/HCPCS: 36415; 80053; 85025; 85610; 85730; 86850; 86900; 86901; 93005; 99284; 99285

== ENCOUNTER → 2022-09-17 08:11 | Outpatient (BNV) | payer OTHER, SELFPAY | PROVIDERS: Emergency Provider Emergency Medicine; PCP Nurse Practitioner Family; Visit Provider Internal Medicine Cardiovascular Disease | DX: R94.31 Abnormal electrocardiogram [ECG] [EKG] (principal) | CPT/HCPCS: 93010 ==

== ENCOUNTER → 2022-10-02 23:59 | Outpatient (BNV) | payer OTHER, SELFPAY ==
--- NOTE | 2022-10-02 15:44 | A.OFFVIS_ITS ---
Intake Intake Visit Reasons: Remote HF Monitoring- [employer] Allergies No Known Allergies Allergy (Verified 08/20/22 08:31) [facility] Medical History (Updated 09/18/22 @ 00:01 by Roger Hayes) Afib Biventricular implantable cardioverter-defibrillator (ICD) in situ Bladder cancer Cardiomyopathy CHF (congestive heart failure) Diabetes mellitus Hematuria HTN (hypertension) Osteomyelitis Syncope Surgical History History of cardiac catheterization (~01/31/21) History of urostomy S/P AV jake ablation Status post cardiac catheterization Family History Father No problems noted. Mother No problems noted. Social History Household Members: Children Housing: House Alcohol intake: current Alcohol intake frequency: does not drink Alcohol type: wine Patient Tobacco Use Status: Former Tobacco user Quit Date: 30 years ago Advance Directives: Yes Advance Directives on File: Yes Advance Directives Date on File: 12/05/21 service: Yes Current occupational status: retired Office Procedures Cardiac Device Check Cardiac Device Check Details: Remote heart failure report generated 10/02/2022. OptiVol is increased. Will follow-up with patient is for heart failure symptoms [id number] Cardiac Device Interrogation, cardio physiologic monitor Procedure code (CPT) selection complete Coding Level of Care Code Procedure Only Diagnoses CPT Codes Cardiac Device Check - Cardiac Device 15: [id number] Cardiac Device Interrogation, cardio physiologic monitor ([id number])
== END ==
PROVIDERS: PCP Nurse Practitioner Family; Visit Provider Internal Medicine Cardiovascular Disease
DX: I42.9 Cardiomyopathy, unspecified (principal); Z95.810 Presence of automatic (implantable) cardiac defibrillator
CPT/HCPCS: 93297

== ENCOUNTER → 2022-11-02 23:59 | Outpatient (BNV) | payer OTHER, SELFPAY ==
--- NOTE | 2022-11-02 15:24 | A.OFFVIS_ITS ---
Intake Intake Visit Reasons: Remote HF monitoring- [employer] Allergies No Known Allergies Allergy (Verified 08/20/22 08:31) [facility] Medical History (Updated 09/18/22 @ 00:01 by Roger Hayes) Afib Biventricular implantable cardioverter-defibrillator (ICD) in situ Bladder cancer Cardiomyopathy CHF (congestive heart failure) Diabetes mellitus Hematuria HTN (hypertension) Osteomyelitis Syncope Surgical History History of cardiac catheterization (~01/31/21) History of urostomy S/P AV jake ablation Status post cardiac catheterization Family History Father No problems noted. Mother No problems noted. Social History Household Members: Children Housing: House Alcohol intake: current Alcohol intake frequency: does not drink Alcohol type: wine Patient Tobacco Use Status: Former Tobacco user Quit Date: 30 years ago Advance Directives: Yes Advance Directives on File: Yes Advance Directives Date on File: 12/05/21 service: Yes Current occupational status: retired Office Procedures Cardiac Device Check Cardiac Device Check Details: Remote heart failure report generated 11/02/2022. Heart failure parameters are within normal limits [id number] Cardiac Device Interrogation, cardio physiologic monitor Procedure code (CPT) selection complete Coding Level of Care Code Procedure Only Diagnoses CPT Codes Cardiac Device Check - Cardiac Device 15: [id number] Cardiac Device Interrogation, cardio physiologic monitor ([id number])
== END ==
PROVIDERS: PCP Nurse Practitioner Family; Visit Provider Internal Medicine Cardiovascular Disease
DX: I50.20 Unspecified systolic (congestive) heart failure (principal); Z95.810 Presence of automatic (implantable) cardiac defibrillator
CPT/HCPCS: 93297

== ENCOUNTER 2022-11-12 12:53 | Outpatient (AMB) | payer OTHER, SELFPAY ==
[2022-11-12 13:00] VITALS: BP 120/74; PULSE 74; BMI 37.2
--- NOTE | 2022-11-12 13:00 | A.OFFVIS_ITS ---
Intake Vital Signs 11/12/22 13:00 Height 5 ft 8 in Weight 244 lb 11.41 oz BMI 37.2 BP 120/74 Blood Pressure Location Lt brachial Position Sitting Pulse 74 Intake Visit Reasons: 3 mth fu with Medtronic Intake Note: 3 month follow-up with Medtronic check c/o increase sob, weight gain, and lack of energy Teacher Of The Visually Impaired Required: No Grievance And Appeals Specialist: Grievance And Appeals Specialist Present Accompanied by: Daughter Allergies No Known Allergies Allergy (Verified 08/20/22 08:31) Medication List - Last Reconciled 11/12/22 by Omar Ramos MD atorvastatin 10 mg PO BEDTIME 90 days bumetanide 1 mg PO DAILY PRN glimepiride 2 mg PO DAILY levothyroxine 88 mcg PO DAILY@0600 metoprolol tartrate 50 mg See Protocol PO BID 90 days omega 7-gwg-vtd-fish oil 1,000 mg (120 mg-180 mg) (Fish Oil) 1 cap PO DAILY pregabalin 100 mg PO DAILY sennosides-docusate sodium 8.6-50 mg 1 tab-cap PO BEDTIME PRN HPI HPI Comments History of Present Illness Details Nagi comes for follow-up. His pacemaker heart failure markers shows higher OptiVol finding. He does not notice any worsening shortness of breath but has noticed some increased leg swelling around the left ankle. He does not monitor his weight on a regular basis. He had other presentation to ED with bright red blood per rectum. He did not require hospitalization during that time as as no significant drop in his hematocrit. He was discharged. Subsequently he has not had any other bleeding issues. Takes his medications. No prolonged palpitations irregular heartbeat. No lightheadedness, syncope. No clear worsening orthopnea, PND. [facility] Medical History Biventricular implantable cardioverter-defibrillator (ICD) in situ Syncope Bladder cancer Cardiomyopathy Diabetes mellitus Hematuria Osteomyelitis HTN (hypertension) CHF (congestive heart failure) Afib Surgical History S/P AV jake ablation Status post cardiac catheterization History of cardiac catheterization (~01/31/21) History of urostomy Family History Father No problems noted. Mother No problems noted. Social History Household Members: Children Housing: House Alcohol intake: current Alcohol intake frequency: does not drink Alcohol type: wine Patient Tobacco Use Status: Former Tobacco user Quit Date: 30 years ago Advance Directives Date on File: 12/05/21 service: Yes Current occupational status: retired Review of Systems Const Denies chills, Denies fatigue, Denies fever(s), Denies frequent falls, Denies weakness, Denies weight gain and Denies weight loss ENT Denies dizziness Card Denies chest pain, Denies leg edema, Denies lightheadedness, Denies palpitations, Denies dyspnea, Denies dyspnea on exertion, Denies orthopnea and Denies other (loss of consciousness) Resp Denies cough, Denies dyspnea and Denies dyspnea on exertion GI Denies hematochezia and Denies change in stool character Musc Denies abnormal gait, Denies muscle weakness, Denies numbness, Denies radiating pain into limb and Denies tingling Neuro Denies abnormal gait, Denies dizziness, Denies frequent falls, Denies numbness, Denies tingling and Denies weakness Endo Denies fatigue and Denies palpitations Physical Exam Vital Signs: Last Vital Signs Pulse 74 11/12/22 13:00 BP 120/74 11/12/22 13:00 BMI result Body Mass Index 37.2 Const General: cooperative, comfortable and no acute distress Orientation/consciousness: patient oriented x3 Neck Neck: Yes trachea midline, Yes supple and Yes no JVD Chest Chest palpation & inspection: other (Device pocket is benign) Resp Effort & Inspection: normal respiratory effort Auscultation: clear to auscultation bilaterally, no crackles, no rales, no rhonchi and no wheezes Cardio Jugular venous distension: no JVD Rate: regular rate Rhythm: regular rhythm Heart sounds: S1 normal heart sound present, S2 normal heart sound present, no gallops, no murmurs and no rubs Peripheral pulses: Peripheral pulses 2+ throughout GI Inspection: Yes normal to inspection Neuro General: patient oriented x3 Extrem Other: No ankle edema General: Yes normal to inspection, No clubbing, No cyanosis and Yes edema Office Procedures Cardiac Device Check Cardiac Device Check Details: Biventricular Medtronic ICD in place programmed in VVIR at 70 beats per minute. Battery life is excellent at 7.1 years. Biventricular pacing 100% of the time. RV and LV pacing thresholds are excellent. Pacing and shock lead impedance is stable. For episodes of nonsustained VT noted lasting 2 seconds at 202 beats per minute [id number] Cardiac Device Check, multi lead implantable defibrillator Procedure code (CPT) selection complete Assessment & Plan Assessment & Plan (1) Heart failure with reduced ejection fraction: Code(s): I50.20 - Unspecified systolic (congestive) heart failure Plan: Heart failure with reduced ejection fraction secondary to nonischemic cardiomyopathy. He had LV systolic dysfunction which is of moderate severity. Follow-up echocardiogram near future. Currently clinically appears to be mildly fluid overloaded. Advised to take Bumex 1 mg daily for the next few days for by 0.5 mg daily. Importance of daily weight monitoring was discussed and additional diuretics as need be. Advised to call me with any progressive symptoms. Currently on metoprolol therapy for neurohormonal modulation. Cannot take renin angiotensin antagonist due to hyperkalemia and kidney disease. Also would avoid spironolactone and SGLT2 inhibitor therapy given his renal dysfunction. Blood pressure would not support additional therapy at this point time. Importance of regular physical activity and weight loss was discussed. Follow up in clinic in 6 months time. Will follow-up for heart failure monitoring remotely on a monthly basis. (2) Afib: Code(s): I48.91 - Unspecified atrial fibrillation Plan: Chronic atrial fibrillation status post ablation for rate control. Continue metoprolol therapy. Has had recurrent GI bleed and does not want to discuss oral anticoagulation therapy. Also discussed about Watchman device, he is currently not interested. Follow-up with GI. (3) Biventricular implantable cardioverter-defibrillator (ICD) in situ: Comment: Medtronic biventricular ICD placed in December 2021 for syncope with cardiomyopathic process with nonsustained VT Code(s): Z95.810 - Presence of automatic (implantable) cardiac defibrillator Plan: Biventricular ICD in place, working well. Reprogrammed for adequate function. Follow remotely every month for heart failure and every 3 months for device function. Follow up in the clinic in 6 months time. Will follow up in the clinic in 6 months time, sooner p.r.n.. Will follow-up echocardiogram at that time. Thank you for allowing me to partake in his care Medications: New bumetanide 0.5 mg PO DAILY 50 tabs 5RF Coding Level of Care Code Est Pt Level 4 (52504) Diagnoses Heart failure with reduced ejection fraction I50.20 Afib I48.91 Biventricular implantable cardioverter-defibrillator (ICD) in situ Z95.810 CPT Codes Cardiac Device Check - Cardiac Device 6: [id number] Cardiac Device Check, multi lead implantable defibrillator ([id number])
== END 2022-11-12 13:20 | disposition home or self-care (01) ==
PROVIDERS: PCP Internal Medicine Endocrinology, Diabetes & Metabolism; Visit Provider Internal Medicine Cardiovascular Disease
DX: I50.20 Unspecified systolic (congestive) heart failure (principal); I48.20 Chronic atrial fibrillation, unspecified; Z95.810 Presence of automatic (implantable) cardiac defibrillator
CPT/HCPCS: 93284; 99214

== ENCOUNTER → 2022-11-12 12:53 | Outpatient (BNVA) | payer OTHER, SELFPAY | PROVIDERS: PCP Internal Medicine Endocrinology, Diabetes & Metabolism; Visit Provider Internal Medicine Cardiovascular Disease | DX: I50.20 Unspecified systolic (congestive) heart failure (principal); I48.20 Chronic atrial fibrillation, unspecified; Z79.899 Other long term (current) drug therapy; Z45.02 Encounter for adjustment and management of automatic implantable cardiac defibrillator | CPT/HCPCS: 99212 ==

== ENCOUNTER → 2022-12-03 23:59 | Outpatient (BNV) | payer OTHER, SELFPAY ==
--- NOTE | 2022-12-03 15:57 | MHC.OFFVIS ---
Intake Intake Visit Reasons: Remote HF Monitoring- Medtronic Allergies No Known Allergies Allergy (Verified 08/20/22 08:31) [facility] Medical History Biventricular implantable cardioverter-defibrillator (ICD) in situ Syncope Bladder cancer Cardiomyopathy Diabetes mellitus Hematuria Osteomyelitis HTN (hypertension) CHF (congestive heart failure) Afib Surgical History S/P AV jake ablation Status post cardiac catheterization History of cardiac catheterization (~01/31/21) History of urostomy Family History Father No problems noted. Mother No problems noted. Social History Household Members: Children Housing: House Alcohol intake: current Alcohol intake frequency: does not drink Alcohol type: wine Patient Tobacco Use Status: Former Tobacco user Quit Date: 30 years ago Advance Directives Date on File: 12/05/21 service: Yes Current occupational status: retired Office Procedures Cardiac Device Check Cardiac Device Check Details: Remote heart failure monitoring report generated 12/03/2022. OptiVol is significantly elevated. Will follow-up with patient clinically [id number] Cardiac Device Interrogation, cardio physiologic monitor Procedure code (CPT) selection complete Coding Level of Care Code Procedure Only CPT Codes Cardiac Device Check - Cardiac Device 15: [id number] Cardiac Device Interrogation, cardio physiologic monitor ([id number])
== END ==
PROVIDERS: PCP Internal Medicine Endocrinology, Diabetes & Metabolism; Visit Provider Internal Medicine Cardiovascular Disease
DX: I50.20 Unspecified systolic (congestive) heart failure (principal); Z95.810 Presence of automatic (implantable) cardiac defibrillator
CPT/HCPCS: 93297

== ENCOUNTER → 2022-12-03 23:59 | Outpatient (BNV) | payer OTHER, SELFPAY ==
--- NOTE | 2022-12-03 12:59 | MHC.OFFVIS ---
Intake Intake Visit Reasons: Remote ICD Check- Medtronic Allergies No Known Allergies Allergy (Verified 08/20/22 08:31) [facility] Medical History Biventricular implantable cardioverter-defibrillator (ICD) in situ Syncope Bladder cancer Cardiomyopathy Diabetes mellitus Hematuria Osteomyelitis HTN (hypertension) CHF (congestive heart failure) Afib Surgical History S/P AV jake ablation Status post cardiac catheterization History of cardiac catheterization (~01/31/21) History of urostomy Family History Father No problems noted. Mother No problems noted. Social History Household Members: Children Housing: House Alcohol intake: current Alcohol intake frequency: does not drink Alcohol type: wine Patient Tobacco Use Status: Former Tobacco user Quit Date: 30 years ago Advance Directives Date on File: 12/05/21 service: Yes Current occupational status: retired Office Procedures Cardiac Device Check Cardiac Device Check Details: Remote ICD report generated 12/03/2022. Bi V pacing 99.4% of time. ICD function is adequate [id number] Cardiac Interrogation, implant defibrillator w/interim Procedure code (CPT) selection complete Coding Level of Care Code Procedure Only CPT Codes Cardiac Device Check - Cardiac Device 13: [id number] Cardiac Interrogation, implant defibrillator w/interim ([id number])
== END ==
PROVIDERS: PCP Internal Medicine Endocrinology, Diabetes & Metabolism; Visit Provider Internal Medicine Cardiovascular Disease
DX: I42.9 Cardiomyopathy, unspecified (principal); Z95.810 Presence of automatic (implantable) cardiac defibrillator
CPT/HCPCS: 93295

== ENCOUNTER → 2023-01-03 23:59 | Outpatient (BNV) | payer OTHER, SELFPAY ==
--- NOTE | 2023-01-03 15:48 | MHC.OFFVIS ---
Intake Intake Visit Reasons: Remote HF Monitoring- Medtronic Allergies No Known Allergies Allergy (Verified 08/20/22 08:31) [facility] Medical History Biventricular implantable cardioverter-defibrillator (ICD) in situ Syncope Bladder cancer Cardiomyopathy Diabetes mellitus Hematuria Osteomyelitis HTN (hypertension) CHF (congestive heart failure) Afib Surgical History S/P AV jake ablation Status post cardiac catheterization History of cardiac catheterization (~01/31/21) History of urostomy Family History Father No problems noted. Mother No problems noted. Social History Household Members: Children Housing: House Alcohol intake: current Alcohol intake frequency: does not drink Alcohol type: wine Patient Tobacco Use Status: Former Tobacco user Quit Date: 30 years ago Advance Directives Date on File: 12/05/21 service: Yes Current occupational status: retired Office Procedures Cardiac Device Check Cardiac Device Check Details: Remote heart failure report generated 01/03/2023. Heart failure parameters are within normal limits [id number] Cardiac Device Interrogation, cardio physiologic monitor Procedure code (CPT) selection complete Coding Level of Care Code Procedure Only CPT Codes Cardiac Device Check - Cardiac Device 15: [id number] Cardiac Device Interrogation, cardio physiologic monitor ([id number])
== END ==
PROVIDERS: PCP Internal Medicine Endocrinology, Diabetes & Metabolism; Visit Provider Internal Medicine Cardiovascular Disease
DX: I50.20 Unspecified systolic (congestive) heart failure (principal); Z95.810 Presence of automatic (implantable) cardiac defibrillator
CPT/HCPCS: 93297

== ENCOUNTER → 2023-02-03 23:59 | Outpatient (BNV) | payer OTHER, SELFPAY ==
--- NOTE | 2023-02-05 12:06 | MHC.OFFVIS ---
Intake Intake Visit Reasons: Remote HF Monitoring- Medtronic Allergies No Known Allergies Allergy (Verified 08/20/22 08:31) [facility] Medical History Biventricular implantable cardioverter-defibrillator (ICD) in situ Syncope Bladder cancer Cardiomyopathy Diabetes mellitus Hematuria Osteomyelitis HTN (hypertension) CHF (congestive heart failure) Afib Surgical History S/P AV jake ablation Status post cardiac catheterization History of cardiac catheterization (~01/31/21) History of urostomy Family History Father No problems noted. Mother No problems noted. Social History Household Members: Children Housing: House Alcohol intake: current Alcohol intake frequency: does not drink Alcohol type: wine Patient Tobacco Use Status: Former Tobacco user Quit Date: 30 years ago Advance Directives Date on File: 12/05/21 service: Yes Current occupational status: retired Office Procedures Cardiac Device Check Cardiac Device Check Details: Remote heart failure report generated 02/03/2023. Heart failure parameters show elevated OptiVol consistent with fluid overload. [id number] Cardiac Device Interrogation, cardio physiologic monitor Procedure code (CPT) selection complete Assessment & Plan Assessment & Plan (1) Biventricular implantable cardioverter-defibrillator (ICD) in situ: Comment: Medtronic biventricular ICD placed in December 2021 for syncope with cardiomyopathic process with nonsustained VT Code(s): Z95.810 - Presence of automatic (implantable) cardiac defibrillator Plan Will follow-up with patient regards to symptoms and adjustments in diuretic therapy as needed Coding Level of Care Code Procedure Only Diagnoses Biventricular implantable cardioverter-defibrillator (ICD) in situ Z95.810 CPT Codes Cardiac Device Check - Cardiac Device 15: [id number] Cardiac Device Interrogation, cardio physiologic monitor ([id number])
== END ==
PROVIDERS: PCP Internal Medicine Endocrinology, Diabetes & Metabolism; Visit Provider Internal Medicine Cardiovascular Disease
DX: I50.20 Unspecified systolic (congestive) heart failure (principal); Z95.810 Presence of automatic (implantable) cardiac defibrillator
CPT/HCPCS: 93297

== ENCOUNTER 2023-02-14 10:07 | Inpatient (IN) | payer OTHER, SELFPAY ==
--- NOTE | ~2023-02-14 | CT_ITS ---
EXAMINATION: CT ABDOMEN AND PELVIS WITHOUT CONTRAST CLINICAL INFORMATION: Chronic kidney disease. History of bladder cancer. COMPARISON: None available. TECHNIQUE: Multidetector volumetric imaging was performed from the superior aspect of the liver through the pubic symphysis. Sagittal and coronal reformatted images were obtained on the technologist's workstation. This CT examination was performed using dose optimization techniques as appropriate, variously including the following: *Automated exposure control *Adjustment of mA and/or kV according to patient size (this includes techniques or standardized protocols for targeted exams where dose is matched to indication/reason for exam; i.e. extremities or head) *Use of iterative reconstruction technique DLP: 858 mGy-cm FINDINGS: LUNG BASES: The visualized lung bases are unremarkable. LIVER, GALLBLADDER, AND BILIARY TREE: Nodular surface contour of the liver. Decreased attenuation of the hepatic parenchyma. No biliary ductal dilatation is present. The gallbladder is surgically absent. PANCREAS: No ductal dilatation. SPLEEN: Not enlarged. ADRENAL GLANDS: No adrenal mass. KIDNEYS AND URETERS: No renal calculus or hydronephrosis. Nonspecific bilateral perinephric stranding. BLADDER: Status post cystectomy with right lower quadrant ileal conduit. GASTROINTESTINAL TRACT: No small bowel obstruction. ABDOMINAL WALL: Right lower quadrant ileal loop urinary diversion. There is a parastomal hernia measuring 9.2 x 6.2 x 8.4 cm. There is fluid in the hernia sac. The neck of the hernia measures 3.2 cm. LYMPH NODES: Few subcentimeter retroperitoneal lymph nodes. Mesenteric edema. VASCULAR: Normal caliber abdominal aorta. PELVIC VISCERA: Status post prostatectomy. OSSEOUS STRUCTURES: No destructive bone lesions. CT/CT abdomen pelvis wo IV con IMPRESSION: Status post cystoprostatectomy for bladder cancer. Mild fullness of bilateral collecting systems without hydronephrosis. Nonspecific perinephric stranding. 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 Parastomal hernia containing fat and fluid measures 9.2 x 6.2 x 8.4 cm.
--- NOTE | ~2023-02-14 | CT_ITS ---
EXAMINATION: CT head/brain wo IV con CLINICAL INFORMATION: Reason for Exam encphalopathy COMPARISON: CT head 12/03/2021 TECHNIQUE: Contiguous axial imaging was performed from the skull base to vertex without intravenous contrast. Sagittal and coronal reformatted images were obtained. This CT examination was performed using dose optimization techniques as appropriate, variously including the following: * Automated exposure control * Adjustment of mA and/or kV according to patient size (this includes techniques or standardized protocols for targeted exams where dose is matched to indication/reason for exam; i.e. extremities or head) Use of iterative reconstruction technique DLP: 869.39 mGy-cm FINDINGS: Slightly increased size of a hyperdense nodule within the anterosuperior third ventricle near the foramen of Monro measuring 6 mm, previously 5 mm, most suggestive of a colloid cyst. Further evaluation with contrast-enhanced MRI is advised. The ventricular caliber is stable with a background of mild to moderate global cerebral volume loss. Presumed minimal chronic microangiopathic changes are likewise stable. No territorial loss of butcher-white differentiation. Redemonstrated chronic lacunar infarct in the left thalamus. No acute intracranial hemorrhage or extra-axial fluid collection. No significant mass effect or herniation pattern. Calcific plaque along the carotid siphons. Lens replacements. Trace left maxillary sinus mucosal disease and small retention cyst in the right maxillary sinus. Trace bilateral mastoid effusions. Osseous structures are intact. CT/CT head/brain wo IV con IMPRESSION: Slightly increased size of a hyperdense nodule within the anterosuperior third ventricle near the foramen of Monro measuring 6 mm, previously 5 mm, most suggestive of a colloid cyst. Further evaluation with contrast-enhanced MRI is advised. Stable ventricular caliber. Otherwise no new acute intracranial process with stable chronic findings as above.
[2023-02-14 10:18] VITALS: BP 104/54; PULSE 71; RESP 20; TEMP 36.2; O2SAT 97; BMI 35.9
[2023-02-14 11:10] LABS: MANUAL DIFF FLAG NO
[2023-02-14 11:11] LABS: Basophils Absolute Auto 0.1 X10*3/uL (0.0-0.2); Basophils Percent Auto 0.8 % (0-2); Eosinophils Absolute Auto 0.4 X10*3/uL (0.0-0.4); Eosinophils Percent Auto 6.1 % (0-4); Hematocrit 38.2 % (42.0-52.0); Hemoglobin 11.7 g/dl (14.0-18.0); Imm Gran Abs Auto 0.01 X10*3/uL (0.00-0.03); Imm Gran Pct Auto 0.2 % (0.0-0.4); Lymphocytes Absolute Auto 0.6 X10*3/uL (1.2-4.9); Lymphocytes Percent Auto 9.6 % (20-40); Mean Corpuscular HGB Conc 30.6 g/dl (31.0-36.0); Mean Corpuscular Hemoglobin 26.2 pg (27.0-33.0); Mean Corpuscular Volume 85.5 fL (80.0-98.0); Mean Platelet Volume 11.9 fL (9.4-12.4); Monocytes Absolute Auto 0.8 X10*3/uL (0.1-1.2); Monocytes Percent Auto 14.2 % (2-11); Neutrophils Absolute Auto 4.1 x10*3/uL (2.0-8.3); Neutrophils Percent Auto 69.1 % (45-73); Platelet Count 118 X10*3/uL (160-400); Red Blood Count 4.47 X10*6/uL (4.60-5.80); Red Cell Distribution Width 19.2 % (11.0-16.0); White Blood Count 5.9 X10*3/uL (4.8-10.8)
[2023-02-14 11:27] LABS: Anion Gap 15 (12-20); Blood Urea Nitrogen 39 mg/dL (9-16); Calcium 9.5 mg/dL (8.4-10.2); Carbon Dioxide 26 mmol/L (22-29); Chloride 103 mmol/L (96-108); Creatinine Clr Calc Pharmacy 36.7; Estimated Glomerular Filt Rate 30; Glucose Random 242 mg/dL (60-115); Potassium 4.7 mmol/L (3.3-5.1); Sodium 139 mmol/L (135-145)
[2023-02-14 12:00] VITALS: BP 138/56; PULSE 72; RESP 18; O2SAT 98
--- NOTE | 2023-02-14 13:03 | PC.NURSE ---
patient a&ox3, iv inserted, additional lab drawn, pt on serger intact, vss, pt family at bedside, call flowers within reach, will continue to monitor.
[2023-02-14 13:06] LABS: INTERNATIONAL NORM RATIO 1.3 (0.9-1.1); Prothrombin Time 16.1 SEC (11.1-13.3)
[2023-02-14 13:24] LABS: OBS Int Ctl Valid YES; OBS1 POSITIVE (NEGATIVE)
--- NOTE | 2023-02-14 13:48 | ED.GIBLEED ---
HPI - GI Bleed General Chief complaint: GI Bleed Stated complaint: rectal bleeding Time Seen by Provider: 02/14/23 12:59 Source: patient and family Mode of arrival: ambulatory History of Present Illness HPI Narrative: 78-year-old male, history of AICD/bladder CA/atrial fibrillation who presents with onset rectal bleeding yesterday at 10:00 this is not been associated with any abdominal discomfort, nausea, vomiting and patient denies any blood thinner use. Patient thought that he was going to pass gas went to the bathroom and noted that there was blood in his underwear. Related Data Home Medications Medication Instructions Recorded Confirmed glimepiride 2 mg tablet 2 mg PO DAILY 09/02/20 02/14/23 levothyroxine 88 mcg tablet 88 mcg PO DAILY@0600 09/02/20 02/14/23 omega 8-rma-sad-fish oil 1,000 mg 1 cap PO DAILY 09/02/20 02/14/23 (120 mg-180 mg) capsule (Fish Oil) pregabalin 100 mg capsule 100 mg PO DAILY 09/02/20 02/14/23 sennosides 8.6 mg-docusate sodium 1 tab-cap PO BEDTIME PRN 09/02/20 02/14/23 50 mg tablet Constipation Previous Rx's Medication Instructions Recorded metoprolol tartrate 50 mg tablet 50 mg PO BID 90 days #180 tabs 09/19/20 atorvastatin 10 mg tablet 10 mg PO BEDTIME 90 days #90 tabs 07/26/21 bumetanide 1 mg tablet 1 mg PO DAILY #90 tabs 12/03/22 Allergies Allergy/AdvReac Type Severity Reaction Status Date / Time No Known Allergies Allergy Verified 08/20/22 08:31 Review of Systems Review of Systems: Pertinent positives and negatives as stated in HPI [facility] Past Medical History Source: nursing notes reviewed Medical History Biventricular implantable cardioverter-defibrillator (ICD) in situ Syncope Bladder cancer Cardiomyopathy Diabetes mellitus Hematuria Osteomyelitis HTN (hypertension) CHF (congestive heart failure) Afib Surgical History S/P AV jake ablation Status post cardiac catheterization History of cardiac catheterization (~01/31/21) History of urostomy Family History Family History Father No problems noted. Mother No problems noted. Social History Social History Household Members: Children Housing: House Alcohol intake: current Alcohol intake frequency: holidays/special occasions only Alcohol type: wine Patient Tobacco Use Status: Former Tobacco user Quit Date: 30 years ago Smoked in Last 30 Days: No Use of substances other than those prescribed or required for medical reasons: No Advance Directives: Yes Advance Directives on File: Yes Advance Directives Date on File: 12/05/21 service: Yes Current occupational status: retired Physical Exam Vital Signs: Vital Signs: Last Vital Signs Temp 98.2 F 02/14/23 15:10 Pulse 70 02/14/23 15:10 Resp 16 02/14/23 15:10 BP 111/71 02/14/23 15:10 Pulse Ox 98 02/14/23 15:10 O2 Del Method Room Air 02/14/23 15:10 BMI result Body Mass Index 35.9 VITAL SIGNS: Reviewed. GENERAL: Elevated BMI Well developed, well nourished, in no acute distress. HEAD: Normocephalic/atraumatic EYES: PERRLA, EOMI EARS: Ext canals without abnormality NOSE: Nares patent bilateral OROPHARYNX: no oral lesions noted, posterior pharynx clear NECK: Supple, no adenopathy LUNGS: Normal breath sounds. No adventitious sounds or accessory muscle use. SpO2<98> CARDIOVASCULAR: Regular rate and rhythm without noted murmurs ABDOMEN: Soft, non-tender, non-distended with bowel sounds, ileoconduit patent. RECTAL: stigmata of bleeding, stool mixed with blood MUSCULOSKELETAL: No tenderness, deformities, or effusions noted on gross inspection. EXTREMITIES: No cyanosis, clubbing or edema. SKIN: Inspection of the skin reveals no rashes, ulcerations, jaundice, pallor, or petechiae. NEUROLOGIC: Alert and oriented x 4. Strength and sensation to light touch were grossly intact x 4. Medical Decision Making Medical Decision Making MDM Narrative: 78-year-old male with history and clinical presentation consistent with GI bleed, he is hemodynamically stable, unable to obtain a GI bleed scan due to known CKD, there is not any brisk bleeding noted in at this time will continue laboratory workup. 1349: Discussed case with Gastroenterology, Dr. Wallace, with whom I will place a consultation. No further recommendations at this time. I reviewed all investigations and hematologic indices show a stable normocytic anemia, no leukocytosis or left shift and chronically stable thrombocytopenia. Coagulation studies demonstrate slight elevation but this appears to be chronically present when compared to prior results. Chemistry indices are grossly stable with a chronic renal dysfunction otherwise no electrolyte derangements, mild hyperglycemia without evidence to suggest DKA or HHS. Fecal occult is positive for blood. 1530: I discussed case with inpatient hospitalist who accepts admission. CT scan is pending and will follow-up Differential Diagnosis Differential Diagnoses: The differential diagnosis associated with the presentation includes Please see the discussion above Admission/Observation Consideration of admission/observation: Escalation of care including admission/observation considered Please see the discussion above Consult Healthcare Provider Management of the patient was discussed with: Hospitalist and Recruitment Assistant Lab Data MDM Lab Attestation statement: I reviewed the patient's lab results. Please see the discussion above 02/14/23 11:06 02/14/23 11:06 Labs: Lab Results 02/14/23 02/14/23 02/14/23 Range/Units 11:06 12:55 13:18 WBC 5.9 (4.8-10.8) X10*3/uL RBC 4.47 L (4.60-5.80) X10*6/uL Hgb 11.7 L (14.0-18.0) g/dl Hct 38.2 L (42.0-52.0) % MCV 85.5 (80.0-98.0) fL MCH 26.2 L (27.0-33.0) pg MCHC 30.6 L (31.0-36.0) g/dl RDW 19.2 H (11.0-16.0) % Plt Count 118 L (160-400) X10*3/uL MPV 11.9 (9.4-12.4) fL Immature Gran % (Auto) 0.2 (0.0-0.4) % Neut % (Auto) 69.1 (45-73) % Lymph % (Auto) 9.6 L (20-40) % [place] % (Auto) 14.2 H (2-11) % Eos % (Auto) 6.1 H (0-4) % Baso % (Auto) 0.8 (0-2) % Lymph # (Auto) 0.6 L (1.2-4.9) X10*3/uL [place] # (Auto) 0.8 (0.1-1.2) X10*3/uL Eos # (Auto) 0.4 (0.0-0.4) X10*3/uL Baso # (Auto) 0.1 (0.0-0.2) X10*3/uL Abs Immat Gran (auto) 0.01 (0.00-0.03) X10*3/uL Absolute Neuts (auto) 4.1 (2.0-8.3) x10*3/uL Absolute Nucleated RBC 0.000 (0.0-0.012) X10*3/uL Nucleated RBC % (auto) 0.0 (0.0-0.2) /100WBC PT 16.1 H (11.1-13.3) SEC INR 1.3 H (0.9-1.1) Sodium 139 (135-145) mmol/L Potassium 4.7 (3.3-5.1) mmol/L Chloride 103 (96-108) mmol/L Carbon Dioxide 26 (22-29) mmol/L Anion Gap 15 (12-20) BUN 39 H (9-16) mg/dL Creatinine 2.12 H (0.5-1.4) mg/dL Estim Creat Clear Calc 36.7 Estimated GFR 30 Random Glucose 242 H (60-115) mg/dL Calcium 9.5 (8.4-10.2) mg/dL Stool Occult Blood POSITIVE (NEGATIVE) Blood Type Antibody Screen 02/14/23 Range/Units 14:31 WBC (4.8-10.8) X10*3/uL RBC (4.60-5.80) X10*6/uL Hgb (14.0-18.0) g/dl Hct (42.0-52.0) % MCV (80.0-98.0) fL MCH (27.0-33.0) pg MCHC (31.0-36.0) g/dl RDW (11.0-16.0) % Plt Count (160-400) X10*3/uL MPV (9.4-12.4) fL Immature Gran % (Auto) (0.0-0.4) % Neut % (Auto) (45-73) % Lymph % (Auto) (20-40) % [place] % (Auto) (2-11) % Eos % (Auto) (0-4) % Baso % (Auto) (0-2) % Lymph # (Auto) (1.2-4.9) X10*3/uL [place] # (Auto) (0.1-1.2) X10*3/uL Eos # (Auto) (0.0-0.4) X10*3/uL Baso # (Auto) (0.0-0.2) X10*3/uL Abs Immat Gran (auto) (0.00-0.03) X10*3/uL Absolute Neuts (auto) (2.0-8.3) x10*3/uL Absolute Nucleated RBC (0.0-0.012) X10*3/uL Nucleated RBC % (auto) (0.0-0.2) /100WBC PT (11.1-13.3) SEC INR (0.9-1.1) Sodium (135-145) mmol/L Potassium (3.3-5.1) mmol/L Chloride (96-108) mmol/L Carbon Dioxide (22-29) mmol/L Anion Gap (12-20) BUN (9-16) mg/dL Creatinine (0.5-1.4) mg/dL Estim Creat Clear Calc Estimated GFR Random Glucose (60-115) mg/dL Calcium (8.4-10.2) mg/dL Stool Occult Blood (NEGATIVE) Blood Type A Positive Antibody Screen NEGATIVE Independent Interpretation I performed an independent interpretation of an: EKG Interpretation: Ventricular paced rhythm, HR-71, no STEMI, QTC is within normal limits Radiology Impression Discussion of test interpretation with radiology: I have reviewed the radiologist's reading. Radiologist Impression: Please see the discussion above External Record Review External record reviewed: Outpatient record, Prior outpatient labs and Prior outpatient radiology Chronic Conditions Patient?s care impacted by: Other CKD Critical Care Time Critical Care Time Critical Care Time: Yes Total Critical Care Time: 60 Attestation: I personally attest to this time spent taking care of the patient. Discharge Plan Discharge Clinical Impression: Acute GI bleeding Patient Disposition: Admitted As Inpatient
[2023-02-14 15:10] VITALS: BP 111/71; PULSE 70; RESP 16; TEMP 36.8; O2SAT 98
--- NOTE | 2023-02-14 15:11 | PC.NURSE ---
pt a&ox3, volunteer services coordinator intact-afib on monitor, pt denies pain/discomfort, vss, pt had CT scan awaiting results, call flowers within reach, will continue to monitor
--- NOTE | 2023-02-14 15:38 | ECG_ITS ---
Test Reason : AFIB Blood Pressure : / mmHG Vent. Rate : 071 BPM Atrial Rate : 182 BPM P-R Int : 000 ms QRS Dur : 130 ms QT Int : 450 ms P-R-T Axes : 000 131 -29 degrees QTc Int : 489 ms Ventricular paced rhythm Abnormal ECG When compared with ECG of 17-SEP-2022 08:26, No significant changes seen Referred By: Aura Redding Electronically Signed By:Arya Galicia
--- NOTE | 2023-02-14 15:44 | PHA.MEDREC ---
Pharmacy Consult ? Medication Reconciliation Pharmacy has completed the medication reconciliation. Patient daughter Leona reported medications. Report that Dr. Ramos had patient increase Bumex to 2 mg for only a few day, started on 02/12/23 per patient's daughter. I left Bumex as 1 mg since this is patient maintenance dose and the 2 mg was temporarily. Samantha Kennedy, PharmD
--- NOTE | 2023-02-14 17:12 | PM.GICN ---
History of Present Illness Data of Consult Service Date: 02/14/23 Requesting physician: Aura Redding Primary Care Provider: Fox Tran MD HPI Reason for consult: Lower GI bleeding 78 YM with nonischemic cardiomyopathy, permanent atrial fibrillation no longer on anticoagulation, HFrEF, left bundle-branch block, NSVT, bladder cancer s/p urostomy, diabetes, and CKD seen at [facility] on 02/14/23 with rectal bleeding yesterday at 10:00. Patient thought that he was going to pass gas went to the bathroom and noted that there was blood in his underwear. Blood was bright red and BM contained blood without clots or stool. Pt denies any abdominal or rectal pain. He denies fever chills, sweating, nausea vomiting or recent change in bowel habits. Patient denies having an upper endoscopy or colonoscopy in the past. Pt had a similar episode in September, and was seen in the ED, CBC was stable and was discharged home with plans for FU with GI as an outpatient (no appt scheduled) Labs in the ED showed a stable CBC and stool occult blood was positive. Pt quitted smoking 25 to 30 yrs ago and has an occasional beer. Pt [place] in [place] and worked for the [employer]. He moved to [facility] from [place] about a year ago He is and has 2 daughters who live in the area. Pt lives in a residential facility 02/14/[address] SCAN SHOWED: Status post cystoprostatectomy for bladder cancer. Mild fullness of bilateral collecting systems without hydronephrosis. Nonspecific perinephric stranding. 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 Parastomal hernia containing fat and fluid measures 9.2 x 6.2 x 8.4 cm. Review of Systems Review of Systems: Pertinent positives and negatives as stated in HPI PMFSH Past Medical History Medical History Biventricular implantable cardioverter-defibrillator (ICD) in situ Syncope Bladder cancer Cardiomyopathy Diabetes mellitus Hematuria Osteomyelitis HTN (hypertension) CHF (congestive heart failure) Afib Family History Family History Father No problems noted. Mother No problems noted. Surgical History Surgical History S/P AV jake ablation Status post cardiac catheterization History of cardiac catheterization (~01/31/21) History of urostomy Social History Social History Household Members: Children Housing: House Alcohol intake: current Alcohol intake frequency: holidays/special occasions only Alcohol type: wine Patient Tobacco Use Status: Former Tobacco user Quit Date: 30 years ago Advance Directives Date on File: 12/05/21 service: No Current occupational status: retired [employer] Allergies Allergy/AdvReac Type Severity Reaction Status Date / Time No Known Allergies Allergy Verified 08/20/22 08:31 Home Medications Medication Instructions Recorded Confirmed Last Taken Type glimepiride 2 mg tablet 2 mg PO DAILY 09/02/20 02/14/23 02/14/23 History levothyroxine 88 mcg tablet 88 mcg PO DAILY@0600 09/02/20 02/14/23 02/14/23 History omega 5-lwt-yay-fish oil 1,000 mg 1 cap PO DAILY 09/02/20 02/14/23 02/13/23 History (120 mg-180 mg) capsule (Fish Oil) pregabalin 100 mg capsule 100 mg PO DAILY 09/02/20 02/14/23 02/14/23 History sennosides 8.6 mg-docusate sodium 1 tab-cap PO BEDTIME PRN 09/02/20 02/14/23 09/01/20 History 50 mg tablet Constipation Physical Exam Vital Signs: Vital Signs: Last Vital Signs Temp 98.2 F 02/14/23 15:10 Pulse 70 02/14/23 15:10 Resp 16 02/14/23 15:10 BP 111/71 02/14/23 15:10 Pulse Ox 98 02/14/23 15:10 O2 Del Method Room Air 02/14/23 15:10 BMI result Body Mass Index 35.9 Const: General: no acute distress Nutritional Appearance: obese Orientation/consciousness: patient oriented x3 Limitations: physical limitations HEENT: Head: Yes normal to inspection Ears: hearing grossly normal bilaterally Eyes: Sclerae: sclerae normal Pupils: Equal, round and reactive pupils present Neck: Neck: Yes normal visual inspection Chest: Chest palpation & inspection: normal inspection of the chest Resp: Effort & Inspection: normal respiratory effort Auscultation: clear to auscultation bilaterally Cardio: Palpation: normal PMI Rate: regular rate Rhythm: regular rhythm Heart sounds: S1 normal heart sound present, S2 normal heart sound present and no murmurs GI: Palpation (GI): Soft to palpation, nontender and No hepatosplenomegaly present Auscultation: normal bowel sounds Rectal Exam - Male: Yes deferred Skin: General skin exam: no rashes or lesions noted Neuro: General: patient oriented x3, gait normal and moves all extremities Cranial nerves: Yes Equal, round and reactive pupils present Psych: Appearance: grossly normal Mental Status: mental status grossly normal Results Labs 02/16/23 14:49 02/15/23 06:08 Labs: Short CBC 02/14/23 Range/Units 11:06 WBC 5.9 (4.8-10.8) X10*3/uL Hgb 11.7 L (14.0-18.0) g/dl Hct 38.2 L (42.0-52.0) % Plt Count 118 L (160-400) X10*3/uL BMP 02/14/23 11:06 Sodium 139 Potassium 4.7 Chloride 103 Carbon Dioxide 26 BUN 39 H Creatinine 2.12 H Calcium 9.5 Assessment and Plan (1) Acute GI bleeding: Status: Acute Plan 78 YM with nonischemic cardiomyopathy, permanent atrial fibrillation no longer on anticoagulation, HFrEF, left bundle-branch block, NSVT, bladder cancer s/p urostomy, diabetes, and CKD seen at [facility] on 02/14/23 with rectal bleeding yesterday at 10:00. Patient thought that he was going to pass gas went to the bathroom and noted that there was blood in his underwear. Blood was bright red and BM contained blood without clots or stool. Pt denies any abdominal or rectal pain. Pt denies significant bleeding since arrival to the ER Pt had a similar episode in September, and was seen in the ED, CBC was stable and was discharged home with plans for FU with GI as an outpatient (no appt scheduled) RECOMMENDATIONS 1. Agree with IV PPI and monitor CBC twice daily x 24 hrs 2. Pt needs further evaluation with EGD and Colonoscopy. Due to multiple cardiac issues, he will need to be evaluated by Cardiology for clearance for anesthesia 02/15/23 Pt was seen by Dr Galicia, Cardiology: Pleasant 78-year-old gentleman who is here for lower GI bleed. He has background history of congestive heart failure and cardiomyopathy. Clinically appears to be stable. No orthopnea or PND. He has chronic lower extremity edema. On Bumex which should be continued. He will need endoscopy. I think he is intermediate risk for perioperative cardiovascular complications. Colonoscopy scheduled on 02/16/23 Procedures Date of Service Date of Service: 03/02/23
--- NOTE | 2023-02-14 17:48 | P.HPHOSP_ITS ---
History of Present Illness Date of Service: 02/14/23 Attending physician on admission: Tianna Quiros Chief Complaint: gi bleed. 78-year-old male, history of AICD/bladder CA/atrial fibrillation who presents with onset rectal bleeding yesterday at 10:00 this is not been associated with any abdominal discomfort, nausea, vomiting and patient denies any blood thinner use. As per review of cardiology notes patient has history of recurrent GI bleed in past, also has history if hematuria. Patient is not a good historian history was taken both from the patient and his family member. Patient thought that he was going to pass gas went to the bathroom and noted that there was blood in his underwear.He said the bleeding is happening as above from yesterday and then but he is unclear how many episode of bleeding he had, last bleeding was this morning before coming to the hospital, he says he is in the hospital since 10:00 and no further bleeding so far. Denies any nausea vomiting and haemometsis or hemoptysis. Denies any use of any blood thinner or any new medication or any sick contacts or any travel Review of Systems 2 Review of Systems: As above. [facility] Medical History Biventricular implantable cardioverter-defibrillator (ICD) in situ Syncope Bladder cancer Cardiomyopathy Diabetes mellitus Hematuria Osteomyelitis HTN (hypertension) CHF (congestive heart failure) Afib Family History Father No problems noted. Mother No problems noted. Surgical History S/P AV jake ablation Status post cardiac catheterization History of cardiac catheterization (~01/31/21) History of urostomy Social History Household Members: Children Housing: House Alcohol intake: current Alcohol intake frequency: holidays/special occasions only Alcohol type: wine Patient Tobacco Use Status: Former Tobacco user Quit Date: 30 years ago Smoked in Last 30 Days: No Use of substances other than those prescribed or required for medical reasons: No Advance Directives: Yes Advance Directives on File: Yes Advance Directives Date on File: 12/05/21 Nutrition Risks: No Nutritional Risk service: No Current occupational status: retired [employer] Allergies Allergy/AdvReac Type Severity Reaction Status Date / Time No Known Allergies Allergy Verified 08/20/22 08:31 Active Medications: Current Medications Bumetanide (Bumetanide 1 Mg Tablet) 1 mg PO DAILY [facility]; Protocol Dextrose (Dextrose 50 % 25 Gm/50 Ml Syringe) 25 gm IVPUSH Q15M PRN; Protocol PRN Reason: per Hypoglycemia Standing Ord. Glucose (Glucose Gel 15 Gm Gel..Gram.) 15 gm PO Q15M PRN; Protocol PRN Reason: per Hypoglycemia Standing Ord. Insulin Human Lispro (Insulin Lispro 100 Unit/Ml 3 Ml Vial) 0 [facility]; Protocol Levothyroxine Sodium (Levothyroxine Sodium 88 Mcg Tablet) 88 mcg PO DAILY@0600 [facility] Metoprolol Tartrate (Metoprolol Tartrate 50 Mg Tablet) 50 mg PO BID [facility]; Protocol Pantoprazole Sodium (Pantoprazole Sodium 40 Mg/10 Ml Vial) 40 mg IVPUSH DAILY [facility] Pregabalin (Pregabalin 100 Mg Capsule) 100 mg PO DAILY [facility] Senna/Docusate Sodium (Sennosides/Docusate Sodium Tablet) 1 tab PO BEDTIME PRN PRN Reason: Constipation Sodium Chloride (0.9 % Sodium Chloride Flush 3 Ml Syringe) [facility] Home Medications Medication Instructions Recorded Confirmed Last Taken Type glimepiride 2 mg tablet 2 mg PO DAILY 09/02/20 02/14/23 02/14/23 History levothyroxine 88 mcg tablet 88 mcg PO DAILY@0600 09/02/20 02/14/23 02/14/23 History omega 3-vyj-ggj-fish oil 1,000 mg 1 cap PO DAILY 09/02/20 02/14/23 02/13/23 History (120 mg-180 mg) capsule (Fish Oil) pregabalin 100 mg capsule 100 mg PO DAILY 09/02/20 02/14/23 02/14/23 History sennosides 8.6 mg-docusate sodium 1 tab-cap PO BEDTIME PRN 09/02/20 02/14/23 09/01/20 History 50 mg tablet Constipation Physical Exam 2 Vital Signs and Narrative: Vital Signs: Last Vital Signs Temp 98.2 F 02/14/23 15:10 Pulse 70 02/14/23 15:10 Resp 16 02/14/23 15:10 BP 111/71 02/14/23 15:10 Pulse Ox 98 02/14/23 15:10 O2 Del Method Room Air 02/14/23 15:10 BMI result Body Mass Index 35.9 Appearance: Alert.? Oriented X3.? not in distress.? Eyes: Pupils equal, round and reactive to light.? Sclera nonicteric.? ENT: Pharynx normal.? Moist mucous membranes. cvs: rrr, [id number] , no murmur res: clear to auscultation ,no rhonchii or wheezing abd: no rebound or guarding ,nt,right side urostomy bag , bs present. ext pulses present , no cyanosis . neuro: axo3 , nonfocal. Results Labs 02/15/23 06:08 02/15/23 06:08 Labs: Laboratory Results - last 24 hr 02/14/23 02/14/23 02/14/23 11:06 12:55 13:18 MCV 85.5 MCH 26.2 L MCHC 30.6 L RDW 19.2 H Plt Count 118 L MPV 11.9 Immature Gran % (Auto) 0.2 Neut % (Auto) 69.1 Lymph % (Auto) 9.6 L Forrest % (Auto) 14.2 H Eos % (Auto) 6.1 H Baso % (Auto) 0.8 Lymph # (Auto) 0.6 L Forrest # (Auto) 0.8 Eos # (Auto) 0.4 Baso # (Auto) 0.1 Abs Immat Gran (auto) 0.01 Absolute Neuts (auto) 4.1 Absolute Nucleated RBC 0.000 Nucleated RBC % (auto) 0.0 PT 16.1 H INR 1.3 H Anion Gap 15 Estim Creat Clear Calc 36.7 Estimated GFR 30 Random Glucose 242 H Calcium 9.5 Stool Occult Blood POSITIVE Blood Type Antibody Screen 02/14/23 14:31 MCV MCH MCHC RDW Plt Count MPV Immature Gran % (Auto) Neut % (Auto) Lymph % (Auto) Forrest % (Auto) Eos % (Auto) Baso % (Auto) Lymph # (Auto) Forrest # (Auto) Eos # (Auto) Baso # (Auto) Abs Immat Gran (auto) Absolute Neuts (auto) Absolute Nucleated RBC Nucleated RBC % (auto) PT INR Anion Gap Estim Creat Clear Calc Estimated GFR Random Glucose Calcium Stool Occult Blood Blood Type A Positive Antibody Screen NEGATIVE Imaging Radiologist's Impressions: Impressions Abdomen/Pelvis CT 02/14/23 15:03 IMPRESSION: Status post cystoprostatectomy for bladder cancer. Mild fullness of bilateral collecting systems without hydronephrosis. Nonspecific perinephric stranding. 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 Parastomal hernia containing fat and fluid measures 9.2 x 6.2 x 8.4 cm. Assessment and Plan (1) Acute GI bleeding: Status: Acute Plan 78-year-old male, history of AICD/bladder CA/atrial fibrillation who presents with onset rectal bleeding 1. possible lower gi painless bleed: Monitor H&H, as per new bleeding Less likely upper GI since patient has no nausea vomiting npo , hold ivf since has leg edema and recently bumex dose increased. GI evaluation Also surgery will recheck the CT scan for question of peristomal hernia. 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 Parastomal hernia containing fat and fluid measures 9.2 x 6.2 x 8.4 cm. Abdomen is soft, no pain, CT abdomen shows no bowel obstruction Surgery will follow-up with imaging studies 3. AFib/cardiomyopathy/AICD: Continue home meds dvt studies : gena kam Above management discussed the patient and his family member at bedside both the both understand in agreement with the plan, time spent 50 minute. Quality Stroke Does the patient have a stroke diagnosis?: No VTE Prior VTE?: No VTE Risk Level:: Medical - moderate - high VTE Device Contraindication: N/A - Device Ordered VTE Drug Contraindication: N/A - Med Ordered
[2023-02-14 18:49] VITALS: BP 123/58; PULSE 71; RESP 12; O2SAT 98
[2023-02-14 19:05] LABS: Hematocrit 36.6 % (42.0-52.0); Hemoglobin 11.3 g/dl (14.0-18.0)
[2023-02-14 19:41] VITALS: BP 137/74; PULSE 73; RESP 19; TEMP 36.6; O2SAT 98
[2023-02-14 19:59] LABS: Glucose, Whole Blood 50 mg/dL (60-115)
[2023-02-14] MEDS: Metoprolol Tartrate 50 MG TABLET PO (21:18)
[2023-02-14 21:29] LABS: Glucose, Whole Blood 128 mg/dL (60-115)
[2023-02-14 23:00] VITALS: BMI 35.9
[2023-02-14 23:01] VITALS: BP 111/60; PULSE 73; RESP 18; TEMP 36.4; O2SAT 94
[2023-02-15 03:29] VITALS: BP 112/60; PULSE 69; RESP 19; TEMP 37; O2SAT 94
[2023-02-15] MEDS: Levothyroxine Sodium 88 MCG TABLET PO (06:00)
[2023-02-15 06:51] LABS: Hematocrit 34.1 % (42.0-52.0)
[2023-02-15 07:15] LABS: Anion Gap 16 (12-20); Blood Urea Nitrogen 40 mg/dL (9-16); Calcium 9.4 mg/dL (8.4-10.2); Carbon Dioxide 25 mmol/L (22-29); Chloride 106 mmol/L (96-108); Creatinine Clr Calc Pharmacy 40.6; Estimated Glomerular Filt Rate 34; Glucose Random 100 mg/dL (60-115); Potassium 4.6 mmol/L (3.3-5.1); Sodium 142 mmol/L (135-145)
[2023-02-15 07:22] VITALS: BP 132/68; PULSE 68; RESP 18; TEMP 36.1; O2SAT 96
[2023-02-15 07:25] LABS: Glucose, Whole Blood 96 mg/dL (60-115)
--- NOTE | 2023-02-15 08:49 | PM.CNGS ---
History of Present Illness Consult details Consult date: 02/15/23 Narrative: 78-year-old male patient with a prior history of atrial fibrillation, heart failure, left bundle-branch block ,NSVT, bladder CA status post urostomy presenting with complaints of rectal bleeding. He has a known history of a parastomal hernia and was noted by CT to have some fluid within the hernia sac. Surgical consultation was requested regarding management of the parastomal hernia. He has been evaluated by Gastroenterology for the GI bleed. He is awaiting cardiology evaluation prior to endoscopy. He reports the ostomy is unchanged and he denies any symptoms. He did have a history of superficial bleeding at the ostomy site but this is now improved, Review of Systems Review of Systems: Yes all other systems are reviewed and are negative Constitutional: Constitutional: Denies chills, Denies fever(s), Denies headache(s), Denies poor appetite and Denies weakness ENT: Denies headache(s) Cardiovascular: Cardiovascular: Denies chest pain, Denies irregular heart rhythm, Denies palpitations and Denies dyspnea Respiratory: Respiratory: Denies cough, Denies excessive phlegm production and Denies dyspnea Gastrointestinal: Gastrointestinal: Denies abdominal pain, Denies bloating, Reports hematochezia, Reports change in bowel habits, Denies constipation, Denies heartburn, Denies nausea and Denies vomiting Genitourinary: Genitourinary: Denies difficulty urinating and Denies urinary frequency Musculoskeletal: Musculoskeletal: Denies back pain, Denies muscle weakness and Denies numbness Integumentary/Breasts: Skin/Breast: Denies changing lesions and Denies unusual bruising Neurologic: Denies headache(s), Denies numbness, Denies paresthesias and Denies weakness Psychiatric: Psychiatric: Denies anxiety and Denies depression Endocrine: Endocrine: Denies palpitations Hematologic/Lymphatic: Hematologic/Lymphatic: Denies lymphadenopathy PMFSH Past Medical History Medical History Biventricular implantable cardioverter-defibrillator (ICD) in situ Syncope Bladder cancer Cardiomyopathy Diabetes mellitus Hematuria Osteomyelitis HTN (hypertension) CHF (congestive heart failure) Afib Family History Family History Father No problems noted. Mother No problems noted. Surgical History Surgical History S/P AV jake ablation Status post cardiac catheterization History of cardiac catheterization (~01/31/21) History of urostomy Social History Social History Household Members: Children Housing: House Alcohol intake: current Alcohol intake frequency: holidays/special occasions only Alcohol type: wine Patient Tobacco Use Status: Former Tobacco user Quit Date: 30 years ago Smoked in Last 30 Days: No Use of substances other than those prescribed or required for medical reasons: No Advance Directives: Yes Advance Directives on File: Yes Advance Directives Date on File: 12/05/21 Nutrition Risks: No Nutritional Risk service: No Current occupational status: retired Cytoguides Allergies Allergy/AdvReac Type Severity Reaction Status Date / Time No Known Allergies Allergy Verified 08/20/22 08:31 Active Medications: Current Medications Bumetanide (Bumetanide 1 Mg Tablet) 1 mg PO DAILY [facility]; Protocol Dextrose (Dextrose 50 % 25 Gm/50 Ml Syringe) 25 gm IVPUSH Q15M PRN; Protocol PRN Reason: per Hypoglycemia Standing Ord. Glucose (Glucose Gel 15 Gm Gel..Gram.) 15 gm PO Q15M PRN; Protocol PRN Reason: per Hypoglycemia Standing Ord. Insulin Human Lispro (Insulin Lispro 100 Unit/Ml 3 Ml Vial) 0 unit SUBCUT QIDACHS [facility]; Protocol Last Admin: 02/15/23 07:59 Dose: Not Given Levothyroxine Sodium (Levothyroxine Sodium 88 Mcg Tablet) 88 mcg PO DAILY@0600 [facility] Last Admin: 02/15/23 06:00 Dose: 88 mcg Metoprolol Tartrate (Metoprolol Tartrate 50 Mg Tablet) 50 mg PO BID [facility]; Protocol Last Admin: 02/14/23 21:18 Dose: 50 mg Pantoprazole Sodium (Pantoprazole Sodium 40 Mg/10 Ml Vial) 40 mg IVPUSH DAILY [facility] Pregabalin (Pregabalin 100 Mg Capsule) 100 mg PO DAILY [facility] Senna/Docusate Sodium (Sennosides/Docusate Sodium Tablet) 1 tab PO BEDTIME PRN PRN Reason: Constipation Sodium Chloride (0.9 % Sodium Chloride Flush 3 Ml Syringe) 3 ml IVFLUSH QSHIFT [facility] Last Admin: 02/15/23 00:22 Dose: Not Given Home Medications Medication Instructions Recorded Confirmed Last Taken Type glimepiride 2 mg tablet 2 mg PO DAILY 09/02/20 02/14/23 02/14/23 History levothyroxine 88 mcg tablet 88 mcg PO DAILY@0600 09/02/20 02/14/23 02/14/23 History omega 6-knj-vel-fish oil 1,000 mg 1 cap PO DAILY 09/02/20 02/14/23 02/13/23 History (120 mg-180 mg) capsule (Fish Oil) pregabalin 100 mg capsule 100 mg PO DAILY 09/02/20 02/14/23 02/14/23 History sennosides 8.6 mg-docusate sodium 1 tab-cap PO BEDTIME PRN 09/02/20 02/14/23 09/01/20 History 50 mg tablet Constipation Physical Exam Vital Signs: Vital Signs: Last Vital Signs Temp 96.9 F 02/15/23 07:22 Pulse 68 02/15/23 07:22 Resp 18 02/15/23 07:22 BP 132/68 02/15/23 07:22 Pulse Ox 96 02/15/23 07:22 O2 Del Method Room Air 02/15/23 07:22 BMI result Body Mass Index 35.9 Const: General: cooperative and no acute distress Nutritional Appearance: well nourished Orientation/consciousness: patient oriented x3 Limitations: no limitations HEENT: Head: Yes normocephalic and Yes atraumatic Ears: hearing grossly normal bilaterally Resp: Effort & Inspection: normal respiratory effort, no audible wheezes, no cough and no respiratory distress Cardio: Jugular venous distension: no JVD GI: Other: soft, nondistended, urostomy in the RLQ with palpable parastoma hernia, no tenderness, no bleeding. Inspection: Yes normal to inspection Skin: Other: Warm, dry, no rash Neuro: General: patient oriented x3 Extrem: General: Yes no clubbing, cyanosis or edema Results Labs 02/15/23 06:08 02/15/23 06:08 Labs: Abnormal lab results 02/14/23 02/14/23 02/14/23 Range/Units 11:06 12:55 19:00 RBC 4.47 L (4.60-5.80) X10*6/uL Hgb 11.7 L 11.3 L (14.0-18.0) g/dl Hct 38.2 L 36.6 L (42.0-52.0) % MCH 26.2 L (27.0-33.0) pg MCHC 30.6 L (31.0-36.0) g/dl RDW 19.2 H (11.0-16.0) % Plt Count 118 L (160-400) X10*3/uL Lymph % (Auto) 9.6 L (20-40) % [place] % (Auto) 14.2 H (2-11) % Eos % (Auto) 6.1 H (0-4) % Lymph # (Auto) 0.6 L (1.2-4.9) X10*3/uL PT 16.1 H (11.1-13.3) SEC INR 1.3 H (0.9-1.1) BUN 39 H (9-16) mg/dL Creatinine 2.12 H (0.5-1.4) mg/dL POC Glucose (60-115) mg/dL Random Glucose 242 H (60-115) mg/dL 02/14/23 02/14/23 02/15/23 Range/Units 19:45 21:18 06:08 RBC (4.60-5.80) X10*6/uL Hgb 11.0 L (14.0-18.0) g/dl Hct 34.1 L (42.0-52.0) % MCH (27.0-33.0) pg MCHC (31.0-36.0) g/dl RDW (11.0-16.0) % Plt Count (160-400) X10*3/uL Lymph % (Auto) (20-40) % [place] % (Auto) (2-11) % Eos % (Auto) (0-4) % Lymph # (Auto) (1.2-4.9) X10*3/uL PT (11.1-13.3) SEC INR (0.9-1.1) BUN 40 H (9-16) mg/dL Creatinine 1.92 H (0.5-1.4) mg/dL POC Glucose 50 L* 128 H (60-115) mg/dL Random Glucose (60-115) mg/dL Short CBC 02/14/23 02/14/23 02/15/23 Range/Units 11:06 19:00 06:08 WBC 5.9 (4.8-10.8) X10*3/uL Hgb 11.7 L 11.3 L 11.0 L (14.0-18.0) g/dl Hct 38.2 L 36.6 L 34.1 L (42.0-52.0) % Plt Count 118 L (160-400) X10*3/uL BMP 02/14/23 02/15/23 11:06 06:08 Sodium 139 142 Potassium 4.7 4.6 Chloride 103 106 Carbon Dioxide 26 25 BUN 39 H 40 H Creatinine 2.12 H 1.92 H Calcium 9.5 9.4 All other labs normal. Imaging Abdomen CT scan report/results: image reviewed CT scan - pelvis: image reviewed Assessment and Plan (1) Parastomal hernia of ileal conduit: Status: Acute Plan 78 year old male with a long history of a parastoma hernia presenting with a history of bleeding per rectum. Surgery consult for evaluation of the parastoma hernia, confirmed on CT abdomen. The hernia is stable and asymptomatic and no surgical intervention is required . Please reconsult for any changes. Procedures Date of Service Date of Service: 02/15/23
[2023-02-15] MEDS: Pantoprazole Sodium 40 MG/10 ML VIAL IVPUSH (09:13)
[2023-02-15] MEDS: Bumetanide 1 MG TABLET PO (09:13)
[2023-02-15] MEDS: Pregabalin 100 MG CAPSULE PO (09:13)
[2023-02-15] MEDS: Metoprolol Tartrate 50 MG TABLET PO ×2 (09:13→21:06)
[2023-02-15] MEDS: 0.9 % Sodium Chloride Flush 3 ML SYRINGE IVFLUSH ×2 (09:13→21:09)
--- NOTE | 2023-02-15 09:58 | MHC.CM.PN ---
Mandy 02/15/23, cm met w/pt who reprts he lives at [facility] and has an electric scooter provided by [place] and has 3 meals day however typically only eats 2/day, pt also reports his dtr/hcp Leona manages his meds and puts them in pill organizers, pt is able to do his own ADLS. Pt reports goal for dc is to return home no services. Pt PCP and HCP on file is correct, Covid vaccx5 Antic pt will return home today vs tomorrow w/dtr for transport
[2023-02-15 11:27] VITALS: BP 140/67; PULSE 71; RESP 20; TEMP 36.1; O2SAT 98
[2023-02-15 11:29] LABS: Glucose, Whole Blood 83 mg/dL (60-115)
--- NOTE | 2023-02-15 11:37 | P.CONCA_ITS ---
History of Present Illness History of Present Illness Date of Service: 02/15/23 Chief complaint: gi bleed Narrative: [age] gentleman background history of cardiomyopathy and previous Bi V AICD placement. He is presenting with lower GI bleed. We have been asked to assess him for perioperative cardiovascular risk assessment. His denying any chest discomfort. He is saying his breathing is at his baseline. He has some peripheral edema but saying that this is chronic. No orthopnea or PND. He had gurwinder bright red blood per rectum. Not on anticoagulation currently. Has background of atrial fibrillation. [facility] Past Medical History Medical History Biventricular implantable cardioverter-defibrillator (ICD) in situ Syncope Bladder cancer Cardiomyopathy Diabetes mellitus Hematuria Osteomyelitis HTN (hypertension) CHF (congestive heart failure) Afib Family History Family History Father No problems noted. Mother No problems noted. Surgical History Surgical History S/P AV jake ablation Status post cardiac catheterization History of cardiac catheterization (~01/31/21) History of urostomy Social History Social History Household Members: Children Housing: House Alcohol intake: current Alcohol intake frequency: holidays/special occasions only Alcohol type: wine Patient Tobacco Use Status: Former Tobacco user Quit Date: 30 years ago Smoked in Last 30 Days: No Use of substances other than those prescribed or required for medical reasons: No Advance Directives: Yes Advance Directives on File: Yes Advance Directives Date on File: 12/05/21 Nutrition Risks: No Nutritional Risk service: No Current occupational status: retired Meds Allergies Allergy/AdvReac Type Severity Reaction Status Date / Time No Known Allergies Allergy Verified 08/20/22 08:31 Active Medications: Current Medications Bumetanide (Bumetanide 1 Mg Tablet) 1 mg PO DAILY [facility]; Protocol Last Admin: 02/15/23 09:13 Dose: 1 mg Dextrose (Dextrose 50 % 25 Gm/50 Ml Syringe) 25 gm IVPUSH Q15M PRN; Protocol PRN Reason: per Hypoglycemia Standing Ord. Glucose (Glucose Gel 15 Gm Gel..Gram.) 15 gm PO Q15M PRN; Protocol PRN Reason: per Hypoglycemia Standing Ord. Insulin Human Lispro (Insulin Lispro 100 Unit/Ml 3 Ml Vial) 0 unit SUBCUT QIDACHS [facility]; Protocol Last Admin: 02/15/23 07:59 Dose: Not Given Levothyroxine Sodium (Levothyroxine Sodium 88 Mcg Tablet) 88 mcg PO DAILY@0600 [facility] Last Admin: 02/15/23 06:00 Dose: 88 mcg Metoprolol Tartrate (Metoprolol Tartrate 50 Mg Tablet) 50 mg PO BID [facility]; Protocol Last Admin: 02/15/23 09:13 Dose: 50 mg Pantoprazole Sodium (Pantoprazole Sodium 40 Mg/10 Ml Vial) 40 mg IVPUSH DAILY [facility] Last Admin: 02/15/23 09:13 Dose: 40 mg Pregabalin (Pregabalin 100 Mg Capsule) 100 mg PO DAILY [facility] Last Admin: 02/15/23 09:13 Dose: 100 mg Senna/Docusate Sodium (Sennosides/Docusate Sodium Tablet) 1 tab PO BEDTIME PRN PRN Reason: Constipation Sodium Chloride (0.9 % Sodium Chloride Flush 3 Ml Syringe) 3 ml IVFLUSH QSHIFT [facility] Last Admin: 02/15/23 09:13 Dose: 3 ml Home Medications Medication Instructions Recorded Confirmed Last Taken Type glimepiride 2 mg tablet 2 mg PO DAILY 09/02/20 02/14/23 02/14/23 History levothyroxine 88 mcg tablet 88 mcg PO DAILY@0600 09/02/20 02/14/23 02/14/23 History omega 9-uuq-cxt-fish oil 1,000 mg 1 cap PO DAILY 09/02/20 02/14/23 02/13/23 History (120 mg-180 mg) capsule (Fish Oil) pregabalin 100 mg capsule 100 mg PO DAILY 09/02/20 02/14/23 02/14/23 History sennosides 8.6 mg-docusate sodium 1 tab-cap PO BEDTIME PRN 09/02/20 02/14/23 09/01/20 History 50 mg tablet Constipation Physical Exam 2 Vital Signs: Vital Signs: Last Vital Signs Temp 97 F 02/15/23 11:27 Pulse 71 02/15/23 11:27 Resp 20 02/15/23 11:27 BP 140/67 H 02/15/23 11:27 Pulse Ox 98 02/15/23 11:27 O2 Del Method Room Air 02/15/23 11:27 BMI result Body Mass Index 35.9 GENERAL APPEARANCE: in no acute distress, pleasant. Obese. NECK: no carotid bruit, no jugular venous distention. SKIN: no suspicious lesions, warm and dry. HEART: no murmurs, regular rate and rhythm. LUNGS: clear to auscultation bilaterally. ABDOMEN: soft, nontender. EXTREMITIES: + edema. PERIPHERAL PULSES: equal. NEUROLOGIC: No gross deficits, AAO X 3 Objective Labs and Meds 02/15/23 06:08 02/15/23 06:08 Lab results: Laboratory Results - last 24 hr 02/14/23 02/14/23 02/14/23 12:55 13:18 14:31 Hgb Hct PT 16.1 H INR 1.3 H Sodium Potassium Chloride Carbon Dioxide Anion Gap BUN Creatinine Estim Creat Clear Calc Estimated GFR POC Glucose Random Glucose Calcium Stool Occult Blood POSITIVE Blood Type A Positive Antibody Screen NEGATIVE 02/14/23 02/14/23 02/14/23 19:00 19:45 21:18 Hgb 11.3 L Hct 36.6 L PT INR Sodium Potassium Chloride Carbon Dioxide Anion Gap BUN Creatinine Estim Creat Clear Calc Estimated GFR POC Glucose 50 L* 128 H Random Glucose Calcium Stool Occult Blood Blood Type Antibody Screen 02/15/23 02/15/23 02/15/23 06:08 07:21 11:26 Hgb 11.0 L Hct 34.1 L PT INR Sodium 142 Potassium 4.6 Chloride 106 Carbon Dioxide 25 Anion Gap 16 BUN 40 H Creatinine 1.92 H Estim Creat Clear Calc 40.6 Estimated GFR 34 POC Glucose 96 83 Random Glucose 100 Calcium 9.4 Stool Occult Blood Blood Type Antibody Screen Imaging Radiologist's impression: Impressions Abdomen/Pelvis CT 02/14/23 15:03 IMPRESSION: Status post cystoprostatectomy for bladder cancer. Mild fullness of bilateral collecting systems without hydronephrosis. Nonspecific perinephric stranding. 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 Parastomal hernia containing fat and fluid measures 9.2 x 6.2 x 8.4 cm. Assessment and Plan (1) Acute GI bleeding: Status: Acute (2) Cardiomyopathy: Status: Acute (3) Preop cardiovascular exam: Status: Acute Plan Pleasant 78-year-old gentleman who is here for lower GI bleed. He has background history of congestive heart failure and cardiomyopathy. Clinically appears to be stable. No orthopnea or PND. He has chronic lower extremity edema. On Bumex which should be continued. He will need endoscopy. I think he is intermediate risk for perioperative cardiovascular complications. Thank you for allowing me to participate in the care of your patient. Please feel free to contact me if you have any questions. Procedures Date of Service Date of Service: 02/15/23
--- NOTE | 2023-02-15 13:10 | P.PNIM_ITS ---
Subjective Subjective Date of Service: 02/15/23 Interval History: gI Bleed Review of Systems Denies any new episode of bleeding, denies any abdominal pain or nausea vomiting Physical Exam 2 Vital Signs: Vital Signs: Last Vital Signs Temp 97 F 02/15/23 11:27 Pulse 71 02/15/23 11:27 Resp 20 02/15/23 11:27 BP 140/67 H 02/15/23 11:27 Pulse Ox 98 02/15/23 11:27 O2 Del Method Room Air 02/15/23 11:27 BMI result Body Mass Index 35.9 Appearance: Alert.? Oriented X3.? not in distress.? cvs: rrr, [id number] , no murmur res: clear to auscultation ,no rhonchii or wheezing abd: no rebound or guarding ,nt, bs present. ext pulses present , no cyanosis . neuro: axo3 , nonfocal. Objective Data Active Medications Bumetanide (Bumetanide 1 Mg Tablet) 1 mg PO DAILY [facility]; Protocol Last Admin: 02/15/23 09:13 Dose: 1 mg Documented By: MONO Dextrose (Dextrose 50 % 25 Gm/50 Ml Syringe) 25 gm IVPUSH Q15M PRN; Protocol PRN Reason: per Hypoglycemia Standing Ord. Glucose (Glucose Gel 15 Gm Gel..Gram.) 15 gm PO Q15M PRN; Protocol PRN Reason: per Hypoglycemia Standing Ord. Insulin Human Lispro (Insulin Lispro 100 Unit/Ml 3 Ml Vial) 0 unit SUBCUT QIDACHS [facility]; Protocol Last Admin: 02/15/23 11:49 Dose: Not Given Documented By: MONO Non-Admin Reason: No Insulin Coverage Levothyroxine Sodium (Levothyroxine Sodium 88 Mcg Tablet) 88 mcg PO DAILY@0600 [facility] Last Admin: 02/15/23 06:00 Dose: 88 mcg Documented By: NATHANIEL Metoprolol Tartrate (Metoprolol Tartrate 50 Mg Tablet) 50 mg PO BID [facility]; Protocol Last Admin: 02/15/23 09:13 Dose: 50 mg Documented By: MONO Pantoprazole Sodium (Pantoprazole Sodium 40 Mg/10 Ml Vial) 40 mg IVPUSH DAILY [facility] Last Admin: 02/15/23 09:13 Dose: 40 mg Documented By: MONO Pregabalin (Pregabalin 100 Mg Capsule) 100 mg PO DAILY [facility] Last Admin: 02/15/23 09:13 Dose: 100 mg Documented By: MONO Senna/Docusate Sodium (Sennosides/Docusate Sodium Tablet) 1 tab PO BEDTIME PRN PRN Reason: Constipation Sodium Chloride (0.9 % Sodium Chloride Flush 3 Ml Syringe) 3 ml IVFLUSH QSHIFT [facility] Last Admin: 02/15/23 09:13 Dose: 3 ml Documented By: MONO Labs 02/15/23 06:08 02/15/23 06:08 Labs: Laboratory Results - last 24 hr 02/14/23 02/14/23 02/14/23 13:18 14:31 19:45 Anion Gap Estim Creat Clear Calc Estimated GFR POC Glucose 50 L* Random Glucose Calcium Stool Occult Blood POSITIVE Blood Type A Positive Antibody Screen NEGATIVE 02/14/23 02/15/23 02/15/23 21:18 06:08 07:21 Anion Gap 16 Estim Creat Clear Calc 40.6 Estimated GFR 34 POC Glucose 128 H 96 Random Glucose 100 Calcium 9.4 Stool Occult Blood Blood Type Antibody Screen 02/15/23 11:26 Anion Gap Estim Creat Clear Calc Estimated GFR POC Glucose 83 Random Glucose Calcium Stool Occult Blood Blood Type Antibody Screen Assessment and Plan (1) Acute GI bleeding: Status: Acute Plan 78-year-old male, history of AICD/bladder CA/atrial fibrillation who presents with onset rectal bleeding 1. possible lower gi painless bleed: Monitor H&H, as per new bleeding Less likely upper GI since patient has no nausea vomiting CT scan for question of peristomal hernia. cardio risk stratification-intermediate risk for perioperative cardiovascular complications. h/h stable around 11 Gi -plan for colonoscopy considering rectal bleedin ,previously also has bleeding(05/09/22)-from possible ostomy site bleedin. 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 Parastomal hernia containing fat and fluid measures 9.2 x 6.2 x 8.4 cm. Abdomen is soft, no pain, CT abdomen shows no bowel obstruction Surgery will follow-up with imaging studies 3. AFib/cardiomyopathy/AICD: Continue home meds-bumex was reached recently adjusted for leg edema will continue that. dvt studies : venodyne boots Lower GI bleed : Possible lower GI bleed need monitoring with a chest H&H and need GI workup including colonoscopy-which is considered to be done in patiently since having history of GI bleed and had admission previously also some ostomy site bleeding. Quality Stroke Does the patient have a stroke diagnosis?: No VTE Prior VTE?: No VTE Risk Level:: Medical - moderate - high VTE Device Contraindication: N/A - Device Ordered VTE Drug Contraindication: N/A - Med Ordered
[2023-02-15 16:00] VITALS: BP 118/65; PULSE 73; RESP 18; TEMP 36.4; O2SAT 93
[2023-02-15] MEDS: PEG 3350/Na Sulf,Bicarb,Cl/KCL 4,000 ML SOLN.RECON 4000 ML PO (17:21)
[2023-02-15] MEDS: bisacodyL 5 MG TABLET.DR 10 MG PO (17:24)
[2023-02-15 17:33] LABS: Glucose, Whole Blood 140 mg/dL (60-115)
[2023-02-15 20:00] VITALS: BP 99/55; PULSE 69; RESP 18; TEMP 36.2; O2SAT 95
[2023-02-15 21:04] LABS: Glucose, Whole Blood 100 mg/dL (60-115)
[2023-02-15 23:41] VITALS: BP 134/70; PULSE 70; RESP 18; TEMP 36.7; O2SAT 96
[2023-02-16] VITALS (16 sets, daily range): BP systolic 121–148; BP diastolic 56–77; PULSE 68–76; RESP 18–24; TEMP 36.1–36.6; O2SAT 95–100
[2023-02-16 07:19] LABS: Glucose, Whole Blood 94 mg/dL (60-115)
--- NOTE | 2023-02-16 09:41 | P.CONAN_ITS ---
HPI - Anesthesia Eval Consult details Narrative: GI bleed PMFSH Active Problems Active Problems: All Active Problems (Updated 02/15/23 @ 12:06 by Arya Galicia MD) Preop cardiovascular exam (Acute) Parastomal hernia of ileal conduit (Acute) Acute GI bleeding (Acute) Heart failure with reduced ejection fraction (Acute) CKD (chronic kidney disease) (Acute) Anemia (Acute) Afib (Acute) Cardiomyopathy (Acute) Biventricular implantable cardioverter-defibrillator (ICD) in situ (Acute) Acute renal failure superimposed on chronic kidney disease (Acute) LBBB (left bundle branch block) (Acute) NSVT (nonsustained ventricular tachycardia) (Acute) Abnormal nuclear stress test (Acute) Past Medical History Medical History Biventricular implantable cardioverter-defibrillator (ICD) in situ Syncope Bladder cancer Cardiomyopathy Diabetes mellitus Hematuria Osteomyelitis HTN (hypertension) CHF (congestive heart failure) Afib Family History Family History Father No problems noted. Mother No problems noted. Family history of problems with anesthesia: No Surgical History Surgical History S/P AV jake ablation Status post cardiac catheterization History of cardiac catheterization (~01/31/21) History of urostomy History of Problems with Anesthesia: No Social History Social History Household Members: Children Housing: House Alcohol intake: current Alcohol intake frequency: holidays/special occasions only Alcohol type: wine Patient Tobacco Use Status: Former Tobacco user Quit Date: 30 years ago Smoked in Last 30 Days: No Use of substances other than those prescribed or required for medical reasons: No Advance Directives: Yes Advance Directives on File: Yes Advance Directives Date on File: 12/05/21 Nutrition Risks: No Nutritional Risk service: No Current occupational status: retired Meds Allergies Allergy/AdvReac Type Severity Reaction Status Date / Time No Known Allergies Allergy Verified 08/20/22 08:31 Active Medications: Current Medications Bumetanide (Bumetanide 1 Mg Tablet) 1 mg PO DAILY [facility]; Protocol Last Admin: 02/15/23 09:13 Dose: 1 mg Dextrose (Dextrose 50 % 25 Gm/50 Ml Syringe) 25 gm IVPUSH Q15M PRN; Protocol PRN Reason: per Hypoglycemia Standing Ord. Glucose (Glucose Gel 15 Gm Gel..Gram.) 15 gm PO Q15M PRN; Protocol PRN Reason: per Hypoglycemia Standing Ord. Insulin Human Lispro (Insulin Lispro 100 Unit/Ml 3 Ml Vial) 0 unit SUBCUT QIDACHS [facility]; Protocol Last Admin: 02/16/23 07:24 Dose: Not Given Levothyroxine Sodium (Levothyroxine Sodium 88 Mcg Tablet) 88 mcg PO DAILY@0600 [facility] Last Admin: 02/16/23 06:24 Dose: Not Given Metoprolol Tartrate (Metoprolol Tartrate 50 Mg Tablet) 50 mg PO BID [facility]; Protocol Last Admin: 02/15/23 21:06 Dose: 50 mg Pantoprazole Sodium (Pantoprazole Sodium 40 Mg/10 Ml Vial) 40 mg IVPUSH DAILY [facility] Last Admin: 02/15/23 09:13 Dose: 40 mg Pregabalin (Pregabalin 100 Mg Capsule) 100 mg PO DAILY [facility] Last Admin: 02/15/23 09:13 Dose: 100 mg Senna/Docusate Sodium (Sennosides/Docusate Sodium Tablet) 1 tab PO BEDTIME PRN PRN Reason: Constipation Sodium Chloride (0.9 % Sodium Chloride Flush 3 Ml Syringe) 3 ml IVFLUSH QSHIFT [facility] Last Admin: 02/15/23 21:09 Dose: 3 ml Home Medications Medication Instructions Recorded Confirmed Last Taken Type glimepiride 2 mg tablet 2 mg PO DAILY 09/02/20 02/14/23 02/14/23 History levothyroxine 88 mcg tablet 88 mcg PO DAILY@0600 09/02/20 02/14/23 02/14/23 History omega 3-nnn-vsi-fish oil 1,000 mg 1 cap PO DAILY 09/02/20 02/14/23 02/13/23 Hi story (120 mg-180 mg) capsule (Fish Oil) pregabalin 100 mg capsule 100 mg PO DAILY 09/02/20 02/14/23 02/14/23 History sennosides 8.6 mg-docusate sodium 1 tab-cap PO BEDTIME PRN 09/02/20 02/14/23 09/01/20 History 50 mg tablet Constipation Exam Height,Weight and Vital Signs: Height 5 ft 10 in Weight 113.5 kg Last Vital Signs Temp 97.8 F 02/16/23 07:44 Pulse 68 02/16/23 07:44 Resp 20 02/16/23 07:44 BP 144/65 H 02/16/23 07:44 Pulse Ox 95 02/16/23 07:44 O2 Del Method Room Air 02/16/23 07:44 Pertinent Lab Results Pertinent Lab Results: Laboratory Tests 02/14/23 02/14/23 02/14/23 11:06 12:55 13:18 WBC 5.9 RBC 4.47 L Hgb 11.7 L Hct 38.2 L MCV 85.5 MCH 26.2 L MCHC 30.6 L RDW 19.2 H Plt Count 118 L MPV 11.9 Immature Gran % (Auto) 0.2 Neut % (Auto) 69.1 Lymph % (Auto) 9.6 L [place] % (Auto) 14.2 H Eos % (Auto) 6.1 H Baso % (Auto) 0.8 Lymph # (Auto) 0.6 L [place] # (Auto) 0.8 Eos # (Auto) 0.4 Baso # (Auto) 0.1 Abs Immat Gran (auto) 0.01 Absolute Neuts (auto) 4.1 Absolute Nucleated RBC 0.000 Nucleated RBC % (auto) 0.0 PT 16.1 H INR 1.3 H Sodium 139 Potassium 4.7 Chloride 103 Carbon Dioxide 26 Anion Gap 15 BUN 39 H Creatinine 2.12 H Estim Creat Clear Calc 36.7 Estimated GFR 30 POC Glucose Random Glucose 242 H Calcium 9.5 Stool Occult Blood POSITIVE Blood Type Antibody Screen 02/14/23 02/14/23 02/14/23 14:31 19:00 19:45 WBC RBC Hgb 11.3 L Hct 36.6 L MCV MCH MCHC RDW Plt Count MPV Immature Gran % (Auto) Neut % (Auto) Lymph % (Auto) [place] % (Auto) Eos % (Auto) Baso % (Auto) Lymph # (Auto) [place] # (Auto) Eos # (Auto) Baso # (Auto) Abs Immat Gran (auto) Absolute Neuts (auto) Absolute Nucleated RBC Nucleated RBC % (auto) PT INR Sodium Potassium Chloride Carbon Dioxide Anion Gap BUN Creatinine Estim Creat Clear Calc Estimated GFR POC Glucose 50 L* Random Glucose Calcium Stool Occult Blood Blood Type A Positive Antibody Screen NEGATIVE 02/14/23 02/15/23 02/15/23 21:18 06:08 07:21 WBC RBC Hgb 11.0 L Hct 34.1 L MCV MCH MCHC RDW Plt Count MPV Immature Gran % (Auto) Neut % (Auto) Lymph % (Auto) [place] % (Auto) Eos % (Auto) Baso % (Auto) Lymph # (Auto) [place] # (Auto) Eos # (Auto) Baso # (Auto) Abs Immat Gran (auto) Absolute Neuts (auto) Absolute Nucleated RBC Nucleated RBC % (auto) PT INR Sodium 142 Potassium 4.6 Chloride 106 Carbon Dioxide 25 Anion Gap 16 BUN 40 H Creatinine 1.92 H Estim Creat Clear Calc 40.6 Estimated GFR 34 POC Glucose 128 H 96 Random Glucose 100 Calcium 9.4 Stool Occult Blood Blood Type Antibody Screen 02/15/23 02/15/23 02/15/23 11:26 17:27 20:58 WBC RBC Hgb Hct MCV MCH MCHC RDW Plt Count MPV Immature Gran % (Auto) Neut % (Auto) Lymph % (Auto) [place] % (Auto) Eos % (Auto) Baso % (Auto) Lymph # (Auto) [place] # (Auto) Eos # (Auto) Baso # (Auto) Abs Immat Gran (auto) Absolute Neuts (auto) Absolute Nucleated RBC Nucleated RBC % (auto) PT INR Sodium Potassium Chloride Carbon Dioxide Anion Gap BUN Creatinine Estim Creat Clear Calc Estimated GFR POC Glucose 83 140 H 100 Random Glucose Calcium Stool Occult Blood Blood Type Antibody Screen 02/16/23 07:10 WBC RBC Hgb Hct MCV MCH MCHC RDW Plt Count MPV Immature Gran % (Auto) Neut % (Auto) Lymph % (Auto) [place] % (Auto) Eos % (Auto) Baso % (Auto) Lymph # (Auto) [place] # (Auto) Eos # (Auto) Baso # (Auto) Abs Immat Gran (auto) Absolute Neuts (auto) Absolute Nucleated RBC Nucleated RBC % (auto) PT INR Sodium Potassium Chloride Carbon Dioxide Anion Gap BUN Creatinine Estim Creat Clear Calc Estimated GFR POC Glucose 94 Random Glucose Calcium Stool Occult Blood Blood Type Antibody Screen Airway Mallampati Class: II TM Dist: >3cm Neck ROM: Full Loose/Missing/Broken Teeth: No Heart: RRR Lungs: CTA Assessment and Plan Assessment Anesthesia Assessment: Anesthesia Plan Discussed and Chart Reviewed Final Anesthetic Review Family History of Problems with Anesthesia: No History of Problems with Anesthesia: No NPO: Yes ASA Class: III Final Preanesthetic Review: No Changes in Pt Med Stat, Meds/Allgs Chart Reviewed, Consent Obtained/Reviewed and Anes Risks/Benef Reviewed Patient Risk: Intermediate Procedure Risk: Low Anesthetic Plan Anesthetic Plan: TIVA Disposition: Standard PACU
--- NOTE | 2023-02-16 11:09 | W.PM.OPN ---
Operative Note Operative Note Date of Service: 02/16/23 Narrative: COLONOSCOPY TILL CECUM WITH SNARE POLYPECTOMY, SUBMUCOSAL INJECTION AND HEMOCLIP PLACEMENT Pre-op diagnosis: Recurrent lower GI bleeding Post-op diagnosis:?colon polyps, diverticulosis, hemorrhoids Endoscopist:? Henry Wallace MD Anesthesia:?MAC Consent: Indications for the procedure and potential complications of bleeding, perforation, reaction to medications and missed diagnosis were discussed with the patient and informed consent was obtained. Instrument: Olympus PCF H 190 L variable stiffness pediatric colonoscope Monitoring: Vital signs and clinical assessment, intermittent blood pressure monitoring, continuous EKG monitoring, Pulse oximetry and Carbon Dioxide monitoring were done throughout the procedure. Please see anesthesia flowsheet. Colon withdrawl time was 30 minutes. Procedure: The patient was placed in the left lateral decubitis position and pre-procedure medications were administered. After a digital rectal examination of the ano-rectum, the video colonoscope was inserted into the rectum and advanced through the colon to the cecum. The colonoscope was slowly withdrawn in a retrograde panoramic fashion and the colon mucosa was carefully examined including a retroflexed view of the rectum. Findings and interventions are described below. Procedure Difficulty: There was narrowing in the sigmoid colon from 25 to 30 cms which was navigated with some difficulty Findings: Terminal Ileum: Not evaluated Cecum: A 3-4 mm sessile polyp - removed with a cold snare Ascending Colon: A 3 cms elongated sessile polyp in the distal AC at 70 cms. Polyp was raised with 10 cc of Eleview and removed piecemeal with a hot snare. Polypectomy site was closed with 2 hemoclips and marked with Zonia ink Transverse Colon: Normal Descending Colon: Moderate diverticulosis Sigmoid Colon: A 10-12 mm sessile polyp - removed with a hot snare. Severe diverticulosis with luminal narrowing. Rectum: Non bleeding rectal varices. Ano-rectum: Moderate internal hemorrhoids Colon preparation: Good after some irrigation Impression and Post Procedure Diagnosis: Colonoscopy Findings: One small, one medium sized and one large polyps removed Moderate to severe diverticulosis seen in the left colon Moderate hemorrhoids on retroflexed exam. LGI bleeding likely from rectal varices or self limited diverticular bleed. Yellow stools and no blood seen in the colon during colonoscopy Plan: Pt can be discharged home today. I will send a letter with pathology results Repeat Colonoscopy interval based on path results - in 6 to 12 months if ascending colon polyp is adenomatous and patient remains in stable health and discontinue colon cancer screening if polyps are hyperplastic. Above findings were reviewed with the patient and colon polyps and diverticulosis handouts were given in PACU OF note: Pt has a prothrombin time of 1.3, low platelets and a nodular liver on CT scan indicating he has cirrhosis (likely from steatohepatitis) BIOPSIES SHOWED: A. Cecum, polypectomy: Colonic mucosa with mild surface hyperplastic changes. B. Colon, ascending, polypectomy: Fragments of tubular adenoma; negative for high-grade dysplasia or carcinoma. C. Colon, sigmoid, polypectomy: Hyperplastic mucosal polyp Letter sent advising repeat colonoscopy in 6 months
--- NOTE | 2023-02-16 12:39 | PC.NURSE ---
PATIENT STILL SLEEPY. DR. RANDALL AT BEDSIDE ASSESSING PATIENT. DR. RANDALL ORDERED AN ABG STAT. LAB STAFF AT BEDSIDE.
[2023-02-16 12:53] LABS: ABG Base Excess 1.2 mmol/L; ABG HCO3 27 mmol/L (22-26); ABG pCO2 47 mmHg (32-45); ABG pH 7.36 (7.35-7.45); ABG pO2 97 mmHg (83-108)
--- NOTE | 2023-02-16 14:22 | P.PNIM_ITS ---
Subjective Subjective Date of Service: 02/16/23 Interval History: Gi bleed,feels tired and sleepy Review of Systems no new bleeding episode, patient went for colonoscopy and after that feels more sleepy and tired. He says that he did not sleep since 01:00 am. Denies any chest pain or shortness of breath or abdominal pain. Physical Exam 2 Vital Signs: Vital Signs: Last Vital Signs Temp 97 F 02/16/23 11:13 Pulse 70 02/16/23 13:23 Resp 18 02/16/23 13:23 BP 125/67 02/16/23 13:23 Pulse Ox 98 02/16/23 13:23 O2 Del Method Nasal Cannula 02/16/23 13:23 O2 Flow Rate 2 02/16/23 13:23 BMI result Body Mass Index 35.9 Appearance: Alert.? Oriented ,seems comfortable, sleepy and tired. Eyes: Pupils equal, round and reactive to light.? Sclera nonicteric.? ENT: Pharynx normal.? Moist mucous membranes. cvs: rrr, [id number] . res: clear to auscultation ,no rhonchii or wheezing abd: no rebound or guarding ,nt, bs present. ext pulses present , no cyanosis . neuro: axo3 , nonfocal. Objective Data Active Medications Bumetanide (Bumetanide 1 Mg Tablet) 1 mg PO DAILY [facility]; Protocol Last Admin: 02/16/23 10:24 Dose: Not Given Documented By: DANTE Non-Admin Reason: Off Unit: Surgery Dextrose (Dextrose 50 % 25 Gm/50 Ml Syringe) 25 gm IVPUSH Q15M PRN; Protocol PRN Reason: per Hypoglycemia Standing Ord. Fentanyl (Fentanyl Citrate/Pf 100 Mcg/2 Ml Vial) 25 mcg IVPUSH Q5M PRN; Protocol PRN Reason: Pain, Moderate(Pain Scale 4-6) Glucose (Glucose Gel 15 Gm Gel..Gram.) 15 gm PO Q15M PRN; Protocol PRN Reason: per Hypoglycemia Standing Ord. Insulin Human Lispro (Insulin Lispro 100 Unit/Ml 3 Ml Vial) 0 unit SUBCUT QIDACHS [facility]; Protocol Last Admin: 02/16/23 12:48 Dose: Not Given Documented By: DANTE Non-Admin Reason: Off Unit: Surgery Levothyroxine Sodium (Levothyroxine Sodium 88 Mcg Tablet) 88 mcg PO DAILY@0600 [facility] Last Admin: 02/16/23 06:24 Dose: Not Given Documented By: GRACE Non-Admin Reason: NPO Metoprolol Tartrate (Metoprolol Tartrate 50 Mg Tablet) 50 mg PO BID [facility]; Protocol Last Admin: 02/16/23 10:24 Dose: Not Given Documented By: DANTE Non-Admin Reason: Off Unit: Surgery Ondansetron HCl (Ondansetron Hcl 4 Mg/2 Ml Vial) 4 mg IVPUSH ONCE PRN PRN Reason: Nausea and Vomiting Pantoprazole Sodium (Pantoprazole Sodium 40 Mg/10 Ml Vial) 40 mg IVPUSH DAILY [facility] Last Admin: 02/16/23 10:24 Dose: Not Given Documented By: DANTE Non-Admin Reason: Off Unit: Surgery Pregabalin (Pregabalin 100 Mg Capsule) 100 mg PO DAILY [facility] Last Admin: 02/16/23 10:25 Dose: Not Given Documented By: DANTE Non-Admin Reason: Off Unit: Surgery Senna/Docusate Sodium (Sennosides/Docusate Sodium Tablet) 1 tab PO BEDTIME PRN PRN Reason: Constipation Sodium Chloride (0.9 % Sodium Chloride Flush 3 Ml Syringe) 3 ml IVFLUSH QSHIFT [facility] Last Admin: 02/16/23 10:24 Dose: Not Given Documented By: DANTE Non-Urszula Reason: Off Unit: Surgery Labs 02/16/23 14:49 02/15/23 06:08 Labs: Laboratory Results - last 24 hr 02/15/23 02/15/23 02/16/23 17:27 20:58 07:10 O2 Saturation ABG pH at Pt Temp ABG pCO2 at Pt Temp ABG pO2 at Pt Temp ABG HCO3 ABG Base Excess (Actual) POC Glucose 140 H 100 94 02/16/23 12:47 O2 Saturation 97.0 ABG pH at Pt Temp 7.36 ABG pCO2 at Pt Temp 47 H ABG pO2 at Pt Temp 97 ABG HCO3 27 H ABG Base Excess (Actual) 1.2 POC Glucose Assessment and Plan (1) Acute GI bleeding: Status: Acute Plan 78-year-old male, history of AICD/bladder CA/atrial fibrillation who presents with onset rectal bleeding possible lower gi painless bleed: Monitor H&H, as per new bleeding Less likely upper GI since patient has no nausea vomiting cardio risk stratification-intermediate risk for perioperative cardiovascular complications. h/h stable around 11 Gi -plan for colonoscopy considering rectal bleedin ,previously also has bleeding(05/09/22)-from possible ostomy site bleedin. s/p colonoscopy today-colonoscopy showed polyps, diverticulosis and hemorrhoids. will moniter h/h today possible toxic encephalopathy sec to anesthesia abd noted -seems fine ct head-has possible ch collid cyst slightly increased patient is improivng-back to baseline will continue to moniter neurochecks may need neuro eval if worsen. 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 Parastomal hernia containing fat and fluid measures 9.2 x 6.2 x 8.4 cm. Abdomen is soft, no pain, CT abdomen shows no bowel obstruction,CT scan for question of peristomal hernia. seen by surgery-no acute intervention . AFib/cardiomyopathy/AICD: Continue home meds-bumex was reached recently adjusted for leg edema will continue that. dvt studies : venodyne boots Lower GI bleed : Possible lower GI bleed need monitoring with a chest H&H and need GI workup including colonoscopy-which is considered to be done in patiently since having history of GI bleed and had admission previously also some ostomy site bleeding. Quality Stroke Does the patient have a stroke diagnosis?: No VTE Prior VTE?: No VTE Risk Level:: Medical - moderate - high VTE Device Contraindication: N/A - Device Ordered VTE Drug Contraindication: N/A - Med Ordered
[2023-02-16 14:55] LABS: Hematocrit 37.9 % (42.0-52.0); Hemoglobin 11.8 g/dl (14.0-18.0)
[2023-02-16 15:58] LABS: Glucose, Whole Blood 78 mg/dL (60-115)
[2023-02-16] MEDS: 0.9 % Sodium Chloride Flush 3 ML SYRINGE IVFLUSH ×2 (17:16→21:58)
[2023-02-16 21:10] LABS: Glucose, Whole Blood 143 mg/dL (60-115)
[2023-02-16] MEDS: Metoprolol Tartrate 50 MG TABLET PO (21:57)
[2023-02-17 03:06] VITALS: BP 125/67; PULSE 85; RESP 18; TEMP 36.1; O2SAT 95
[2023-02-17] MEDS: Levothyroxine Sodium 88 MCG TABLET PO (05:22)
[2023-02-17 07:17] LABS: Glucose, Whole Blood 83 mg/dL (60-115)
[2023-02-17 07:30] VITALS: BP 130/61; PULSE 70; RESP 20; TEMP 36.4; O2SAT 96
[2023-02-17] MEDS: Bumetanide 1 MG TABLET PO (09:52)
[2023-02-17] MEDS: Metoprolol Tartrate 50 MG TABLET PO (09:52)
[2023-02-17] MEDS: Pregabalin 100 MG CAPSULE PO (09:52)
[2023-02-17] MEDS: Pantoprazole Sodium 40 MG/10 ML VIAL IVPUSH (09:53)
[2023-02-17] MEDS: 0.9 % Sodium Chloride Flush 3 ML SYRINGE IVFLUSH (09:53)
--- NOTE | 2023-02-17 10:22 | P.DS_ITS ---
DS: Providers Provider Date of Service: 02/17/23 Date of admission: 02/15/23 13:24 Date of discharge: 02/17/23 Primary care physician: Fox Tran MD Consults: 02/14/23 13:58 Consult to Gastroenterology Stat Consulting Provider: Henry Wallace Reason for consultation: GI Bleed Has provider been notified: Yes 02/14/23 17:23 Consult to Gastroenterology Routine Consulting Provider: [facility] [place] Gastroenterology Services Reason for consultation: Gi bleed possible lower Has provider been notified: No 02/14/23 18:18 Consult to General Surgery Routine Consulting Provider: [facility] [place] General Surgeons Reason for consultation: parastomal hernia Has provider been notified: No 02/15/23 09:26 Consult to Cardiology Routine Consulting Provider: [facility] [place] Cardiovascular Services Reason for consultation: Risk stratification for colonoscopy Has provider been notified: No Attending physician on discharge: Tianna Quiros Discharging clinician: Tianna Quiros DS: Diagnosis Discharge Diagnosis (1) Acute GI bleeding: Status: Acute DS: Summary Hospital Course Hospital Course: 78-year-old male, history of AICD/bladder CA/atrial fibrillation who presents with onset rectal bleeding yesterday at 10:00 this is not been associated with any abdominal discomfort, nausea, vomiting and patient denies any blood thinner use. As per review of cardiology notes patient has history of recurrent GI bleed in past, also has history if hematuria. Patient is not a good historian history was taken both from the patient and his family member. Patient thought that he was going to pass gas went to the bathroom and noted that there was blood in his underwear.He said the bleeding is happening as above from yesterday and then but he is unclear how many episode of bleeding he had, last bleeding was this morning before coming to the hospital, he says he is in the hospital since 10:00 and no further bleeding so far. Denies any nausea vomiting and haemometsis or hemoptysis. Denies any use of any blood thinner or any new medication or any sick contacts or any travel. Hospital course:Patient was admitted for pain less rectal bleeding: Possible lower GI bleeding: H&H is monitored stable around 11, seen by GI patient had colonoscopy yesterday: On colonoscopy showed polyps, diverticulosis and hemorrhoids-possible causing rectal bleed. Post colonoscopy patient was tired and sleepy-likely secondary to anesthesia- seem approved, CT head was done which shows colloid cyst(slightly icreased in size from 5 mm to 6mm)-patient is stable, he says that he has aware about the cyst , is going to follow-up with his PCP for further workup including MRI brain. Consider outpatient neurology evaluation if needed. Patient was monitored overnight seems better, going home. Monitor CBC outpatient. plan: moniter cbc and follow up withGI. CT head was done which shows colloid cyst(slightly icreased in size from 5 mm to 6mm)-patient is stable, he says that he has aware about the cyst , is going to follow-up with his PCP for further workup including MRI brain. Consider outpatient neurology evaluation if needed. Assessment plan coordination time spent 50 minute- patient understand and in agreement with the plan. Time Attestation Discharge coordination time: Greater than 30 minutes Quality: Safe Use of Opioids Does Pt have an Active Cancer Diagnosis on the Problem List?: No Quality: Stroke Does the patient have a stroke diagnosis?: No Physical Exam Vital Signs: Vital Signs: Last Vital Signs Temp 97.5 F 02/17/23 07:30 Pulse 70 02/17/23 07:30 Resp 20 02/17/23 07:30 BP 130/61 02/17/23 07:30 Pulse Ox 96 02/17/23 07:30 O2 Del Method Room Air 02/17/23 07:30 BMI result Body Mass Index 35.9 Appearance: Alert.? Oriented ,seems comfortable, sleepy and tired. Eyes: Pupils equal, round and reactive to light.? Sclera nonicteric.? ENT: Pharynx normal.? Moist mucous membranes. cvs: rrr, [id number] . res: clear to auscultation ,no rhonchii or wheezing abd: no rebound or guarding ,nt, bs present. ext pulses present , no cyanosis . neuro: axo3 , nonfocal. DS: Data Data Completed and Pending Pending studies at discharge: Pending at discharge 02/16/23 10:40 Surgical [PTH] Routine Labs on day of discharge: Laboratory Results - last 24 hr 02/16/23 02/16/23 02/16/23 12:47 14:49 15:51 Hgb 11.8 L Hct 37.9 L O2 Saturation 97.0 ABG pH at Pt Temp 7.36 ABG pCO2 at Pt Temp 47 H ABG pO2 at Pt Temp 97 ABG HCO3 27 H ABG Base Excess (Actual) 1.2 POC Glucose 78 02/16/23 02/17/23 20:24 07:12 Hgb Hct O2 Saturation ABG pH at Pt Temp ABG pCO2 at Pt Temp ABG pO2 at Pt Temp ABG HCO3 ABG Base Excess (Actual) POC Glucose 143 H 83 Imaging Chest x-ray: Radiologist's impression: ITS Impressions Abdomen/Pelvis CT 02/14/23 15:03 IMPRESSION: Status post cystoprostatectomy for bladder cancer. Mild fullness of bilateral collecting systems without hydronephrosis. Nonspecific perinephric stranding. 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 Parastomal hernia containing fat and fluid measures 9.2 x 6.2 x 8[address] 02/16/23 13:57 IMPRESSION: Slightly increased size of a hyperdense nodule within the anterosuperior third ventricle near the foramen of Monro measuring 6 mm, previously 5 mm, most suggestive of a colloid cyst. Further evaluation with contrast-enhanced MRI is advised. Stable ventricular caliber. Otherwise no new acute intracranial process with stable chronic findings as above. Discharge Plan Discharge Anticipated Discharge Date/Time: 02/17/23 10:12 Patient Disposition: Home, Self-Care Discharge Diagnosis: possible lower Gi bleed , brain cyst Referrals: Henry Wallace MD [Physician] - 1 Week Fox Tran MD [Primary Care Provider] - 1 Week Discharge Medications: Continued metoprolol tartrate 50 mg tablet 50 mg PO BID 90 Days Qty: 180 0RF Protocol: Hold for SBP/HR < HOLD for SBP < : 90 HOLD for HR < : 60 atorvastatin 10 mg tablet 10 mg PO BEDTIME 90 Days Qty: 90 2RF omega 7-cxu-vdf-fish oil [Fish Oil] 1,000 mg (120 mg-180 mg) Capsule 1 cap PO DAILY pregabalin 100 mg Capsule 100 mg PO DAILY sennosides-docusate sodium 8.6-50 mg Tablet 1 tab-cap PO BEDTIME PRN (Reason: Constipation) glimepiride 2 mg Tablet 2 mg PO DAILY levothyroxine 88 mcg Tablet 88 mcg PO DAILY@0600 bumetanide 1 mg tablet 1 mg PO DAILY Qty: 90 2RF Discharge Orders: Discharge Order (Routine); Ordered 02/17/23 Ordered By: Tianna Quiros Diet: Advance to usual diet Activity on Discharge: As tolerated Stand Alone Forms: Patient Portal Discharge page Care Plan Goals: Patient was admitted for pain less rectal bleeding: Possible lower GI bleeding: H&H is monitored stable around 11, seen by GI patient had colonoscopy yesterday: On colonoscopy showed polyps, diverticulosis and hemorrhoids- possible causing rectal bleed. Post colonoscopy patient was tired and sleepy-likely secondary to anesthesia- seem approved, CT head was done which shows colloid cyst(slightly icreased in size from 5 mm to 6mm)-patient is stable, he says that he has aware about the cyst , is going to follow-up with his PCP for further workup including MRI brain. Consider outpatient neurology evaluation if needed. Patient was monitored overnight seems better, going home. Monitor CBC outpatient. Health Concerns: As above. Plan of Treatment: As above. Assessment: As above.
--- NOTE | 2023-02-17 11:22 | MHC.CM.PN ---
PT MEDICALLY CLEARED FOR DC BACK TO [facility] NO SERVICES ORDERED, [facility] AT BEDSIDE AND WILL TRANSPORT
--- NOTE | 2023-02-17 11:36 | HO.POSTANES ---
Post Anesthesia Evaluation Post Anesthesia Evaluation Date of Service: 02/17/23 Vital Signs: Vital Signs Temp Pulse Resp BP Pulse Ox O2 Del Method 02/17/23 07:30 97.5 F 70 20 130/61 96 Room Air 02/17/23 03:06 96.9 F 85 18 125/67 95 Room Air Anesthesia: TIVA Mental Status: Awake Pain Control: Satisfactory Nausea/Vomiting: None Hydration: Adequate Anesthesia-Related Issues: No Anes. Related Issues
== END 2023-02-17 11:47 | disposition home or self-care (01) | DRG 377 ==
LOC: HO.ED 15:39 → HO.EDOVER 17:56 → HO.IMC 18:24
PROVIDERS: Internal Medicine Gastroenterology; Admitting Provider Internal Medicine; Emergency Provider Student in an Organized Health Care Education/Training Program; PCP Internal Medicine Endocrinology, Diabetes & Metabolism; Visit Provider Internal Medicine
PROC: 0DJD8ZZ Inspection of Lower Intestinal Tract, Via Natural or Artificial Opening Endoscopic (ICD-10-PCS; CPT 45378; principal; 2023-02-16 10:00)
DX: K57.31 Diverticulosis of large intestine without perforation or abscess with bleeding (principal); G92.8 Other toxic encephalopathy; I42.8 Other cardiomyopathies; I48.21 Permanent atrial fibrillation; I42.9 Cardiomyopathy, unspecified; K75.81 Nonalcoholic steatohepatitis (NASH); K74.69 Other cirrhosis of liver; K63.5 Polyp of colon; K43.5 Parastomal hernia without obstruction or gangrene; Z96.0 Presence of urogenital implants; K64.9 Unspecified hemorrhoids; E66.01 Morbid (severe) obesity due to excess calories; Z68.35 Body mass index [BMI] 35.0-35.9, adult; Z95.810 Presence of automatic (implantable) cardiac defibrillator; Z85.51 Personal history of malignant neoplasm of bladder; Z79.84 Long term (current) use of oral hypoglycemic drugs; Z79.890 Hormone replacement therapy; Z79.899 Other long term (current) drug therapy
CPT/HCPCS: 36415; 36600; 70450; 74176; 80048; 82272; 82803; 82947; 85014; 85018; 85025; 85610; 86850; 86900; 86901; 88305; 93005; 99285; C9113; J2704

== ENCOUNTER → 2023-02-14 17:47 | Outpatient (BNV) | payer OTHER, SELFPAY | PROVIDERS: Admitting Provider Internal Medicine; Emergency Provider Student in an Organized Health Care Education/Training Program; PCP Internal Medicine Endocrinology, Diabetes & Metabolism; Visit Provider Internal Medicine | DX: K92.2 Gastrointestinal hemorrhage, unspecified (principal) | CPT/HCPCS: 99222; 99232; 99239 ==

== ENCOUNTER → 2023-02-14 17:47 | Outpatient (BNV) | payer OTHER, SELFPAY | PROVIDERS: Admitting Provider Internal Medicine; Emergency Provider Student in an Organized Health Care Education/Training Program; PCP Internal Medicine Endocrinology, Diabetes & Metabolism; Visit Provider Internal Medicine Cardiovascular Disease | DX: R94.31 Abnormal electrocardiogram [ECG] [EKG] (principal) | CPT/HCPCS: 93010; 99222 ==

== ENCOUNTER → 2023-02-15 13:24 | Outpatient (BNV) | payer OTHER, SELFPAY | PROVIDERS: Admitting Provider Internal Medicine; Emergency Provider Student in an Organized Health Care Education/Training Program; PCP Internal Medicine Endocrinology, Diabetes & Metabolism; Visit Provider Internal Medicine Gastroenterology | DX: K92.2 Gastrointestinal hemorrhage, unspecified (principal) | CPT/HCPCS: 45381; 45385; 99222 ==

== ENCOUNTER → 2023-02-15 13:24 | Outpatient (BNV) | payer OTHER, SELFPAY | PROVIDERS: Admitting Provider Internal Medicine; Emergency Provider Student in an Organized Health Care Education/Training Program; PCP Internal Medicine Endocrinology, Diabetes & Metabolism; Visit Provider Surgery | DX: K43.5 Parastomal hernia without obstruction or gangrene (principal) | CPT/HCPCS: 99222 ==

== ENCOUNTER → 2023-04-06 23:59 | Outpatient (BNV) | payer OTHER, SELFPAY ==
--- NOTE | 2023-04-15 14:11 | MHC.OFFVIS ---
Intake Intake Visit Reasons: Remote ICD Check- Medtronic Allergies No Known Allergies Allergy (Verified 08/20/22 08:31) PFS Medical History Biventricular implantable cardioverter-defibrillator (ICD) in situ Syncope Bladder cancer Cardiomyopathy Diabetes mellitus Hematuria Osteomyelitis HTN (hypertension) CHF (congestive heart failure) Afib Surgical History S/P AV jake ablation Status post cardiac catheterization History of cardiac catheterization (~01/31/21) History of urostomy Family History Father No problems noted. Mother No problems noted. Social History Household Members: Children Housing: House Alcohol intake: current Alcohol intake frequency: holidays/special occasions only Alcohol type: wine Patient Tobacco Use Status: Former Tobacco user Quit Date: 30 years ago Advance Directives Date on File: 12/05/21 service: No Current occupational status: retired Office Procedures Cardiac Device Check Cardiac Device Check Details: Remote ICD report generated 04/06/2023. ICD function is adequate [id number] Cardiac Interrogation, implant defibrillator w/interim Procedure code (CPT) selection complete Assessment & Plan Assessment & Plan (1) Biventricular implantable cardioverter-defibrillator (ICD) in situ: Comment: Medtronic biventricular ICD placed in December 2021 for syncope with cardiomyopathic process with nonsustained VT Code(s): Z95.810 - Presence of automatic (implantable) cardiac defibrillator Plan: See above Coding Level of Care Code Procedure Only Diagnoses Biventricular implantable cardioverter-defibrillator (ICD) in situ Z95.810 CPT Codes Cardiac Device Check - Cardiac Device 13: [id number] Cardiac Interrogation, implant defibrillator w/interim ([id number])
== END ==
PROVIDERS: PCP Internal Medicine Endocrinology, Diabetes & Metabolism; Visit Provider Internal Medicine Cardiovascular Disease
DX: I42.9 Cardiomyopathy, unspecified (principal); Z95.810 Presence of automatic (implantable) cardiac defibrillator
CPT/HCPCS: 93295

== ENCOUNTER → 2023-04-06 23:59 | Outpatient (BNV) | payer OTHER, SELFPAY ==
--- NOTE | 2023-04-15 14:11 | MHC.OFFVIS ---
Intake Intake Visit Reasons: Remote HF Monitoring- Medtronic Allergies No Known Allergies Allergy (Verified 08/20/22 08:31) PFS Medical History Biventricular implantable cardioverter-defibrillator (ICD) in situ Syncope Bladder cancer Cardiomyopathy Diabetes mellitus Hematuria Osteomyelitis HTN (hypertension) CHF (congestive heart failure) Afib Surgical History S/P AV jake ablation Status post cardiac catheterization History of cardiac catheterization (~01/31/21) History of urostomy Family History Father No problems noted. Mother No problems noted. Social History Household Members: Children Housing: House Alcohol intake: current Alcohol intake frequency: holidays/special occasions only Alcohol type: wine Patient Tobacco Use Status: Former Tobacco user Quit Date: 30 years ago Advance Directives Date on File: 12/05/21 service: No Current occupational status: retired Office Procedures Cardiac Device Check Cardiac Device Check Details: Remote heart failure report generated 04/06/2023. Heart failure parameters are within normal limits [id number] Cardiac Device Interrogation, cardio physiologic monitor Procedure code (CPT) selection complete Assessment & Plan Assessment & Plan (1) Biventricular implantable cardioverter-defibrillator (ICD) in situ: Comment: Medtronic biventricular ICD placed in December 2021 for syncope with cardiomyopathic process with nonsustained VT Code(s): Z95.810 - Presence of automatic (implantable) cardiac defibrillator Plan: See above Coding Level of Care Code Procedure Only Diagnoses Biventricular implantable cardioverter-defibrillator (ICD) in situ Z95.810 CPT Codes Cardiac Device Check - Cardiac Device 15: [id number] Cardiac Device Interrogation, cardio physiologic monitor ([id number])
== END ==
PROVIDERS: PCP Internal Medicine Endocrinology, Diabetes & Metabolism; Visit Provider Internal Medicine Cardiovascular Disease
DX: I50.20 Unspecified systolic (congestive) heart failure (principal); Z95.810 Presence of automatic (implantable) cardiac defibrillator
CPT/HCPCS: 93297

== ENCOUNTER → 2023-05-06 10:52 | Outpatient (REF) | payer OTHER, SELFPAY ==
--- NOTE | 2023-05-06 11:03 | CA_ITS ---
Transthoracic Echocardiogram Patient (Last, First, Middle): Nagi Roblero, Gender: Male Date of : 1945 Age: 78 Procedure Date: 05/06/2023 Procedure Type: Transthoracic Echocardiogram Location: OP Height: 177.8 cm Weight: 92.99 kg BSA: 2.11 m2 Heart Rate: bpm BP: 120 / 64 mmHg Gemologist: ASIF Referring MD: Omar Ramos MD Symptoms: I50.20 - Unspecified systolic (congestive) heart failure Study Quality: Fair, contrast ECG Rhythm: Atrial Fibrillation Conclusions: - The left ventricular systolic function is low normal. The visually estimated ejection fraction is between 50-55%. - Moderate biatrial enlargement. - No obvious valvular pathology seen on this study. - There is mild dilatation of the ascending aorta measuring 4.10 cm. Findings Procedure Information Contrast agent, definity, is being given per protocol without apparent complications. Left Ventricle Normal left ventricular cavity size. The left ventricular systolic function is low normal. The visually estimated ejection fraction is between 50-55%. Regional wall motion abnormalities can not be excluded due to suboptimal endocardial definition. Diastolic function is indeterminate on the basis of available data. There is mild septal asymmetric hypertrophy. Right Ventricle Moderately increased right ventricular cavity size. There is normal right ventricular systolic function. There is a pacemaker wire seen in the right ventricle. Atria Moderate biatrial enlargement. Aortic Valve There is mild calcification of the aortic valve. There is no aortic valve stenosis. There is no aortic valve regurgitation. Mitral Valve The mitral valve appears normal. There is trace mitral valve regurgitation. There is no mitral valve stenosis. Pulmonic Valve The pulmonic valve is likely normal. Tricuspid Valve There is mild tricuspid valve regurgitation. There is no evidence of pulmonary hypertension. Great Vessels There is mild dilatation of the ascending aorta measuring 4.10 cm. Venous The inferior vena cava is mildly dilated and collapses greater than 50% with inspiration. Pericardium/Pleural There is no evidence of pericardial effusion. Prior Study Comparison Changes noted compared to prior study dated: 05/28/2022. Improved LVEF. Recommendations, Care & Conclusions No obvious valvular pathology seen on this study. Measurements 2D Linear Measurements IVSd: 1.13 0.6-0.9/0.6-1.0 cm LVIDd: 5.27 3.9-5.3/4.2-5.9 cm LVIDd Index: 2.50 2.4-3.2/2.2-3.1 cm/m2 LVIDs: 4.03 2.0-3.6 cm LVPWd: 0.97 0.7-1.1 cm LA Diam: 5.10 2.7-3.8/3.0-4.0 cm LAIDs Index: 2.42 1.5-2.3 cm/m2 LV Mass: 264.79 67-162/88-224 g LV Mass Index: 125.49 43-95/49-115 g/m2 LVOT Diam: 2.10 3.0+(-)1.3 cm 2D Systolic Function EF 4C: 43.50 >55% EF 2C: 51.20 >55% EF BiP: 48.20 >55% Mitral Valve MV Pk E: 1.04 MV Decel Time: 238.00 E'Lateral: 9.97 E'Medial: 6.31 E/E' Med: 16.50 E/E' Lat: 10.40 PHT: 70.00 MVA PHT: 3.14 Decel [place]: 4.46 Aortic Valve AoV Pk Faraz: 1.58 AoV Mn Faraz: 1.14 AoV VTI: 0.32 AoV Pk Grad: 10.00 Aov Mn Grad: 6.00 BREEZY Cont.VTI: 2.23 LVOT LVOT Pk Faraz: 1.05 LVOT Mn Faraz: 0.61 LVOT VTI: 0.21 LVOT Pk Grad: 4.00 LVOT Mn Grad: 2.00 LVOT Diam: 2.10 LVOT Area: 3.46 Diastolic Function MV Pk E: 1.04 E'Medial: 6.31 E/E' Med: 16.50 E' Laterial: 9.97 E/E' Lat: 10.40 Right Ventricle TAPSE (mm): 23.70 TVS' Faraz: 12.10 Tricuspid Valve TR Pk Faraz: 2.78 TR Pk Grad: 31.00 RA Press: 8.00 RVSP: 39.00 Great Vessels Aorta Sinus of Valsalva: 3.56 2.0-3.[address] [place]: 3.11 1.7-3.4 cm Ao Asc: 4.10 2.1-3.4 cm Updated in Other Vendor System with Status of Final Rick Chou MD electronically signed on 05/06/2023 9:43:01 AM with status of Final
== END ==
LOC: HO.CARD 10:52
PROVIDERS: PCP Internal Medicine Endocrinology, Diabetes & Metabolism; Visit Provider Internal Medicine Cardiovascular Disease
DX: I50.20 Unspecified systolic (congestive) heart failure (principal)
CPT/HCPCS: 93306; Q9957

== ENCOUNTER → 2023-05-06 11:03 | Outpatient (BNV) | payer OTHER, SELFPAY | PROVIDERS: PCP Internal Medicine Endocrinology, Diabetes & Metabolism; Visit Provider Internal Medicine | DX: I50.20 Unspecified systolic (congestive) heart failure (principal) | CPT/HCPCS: 93306 ==

== ENCOUNTER → 2023-05-07 23:59 | Outpatient (BNV) | payer OTHER, SELFPAY ==
--- NOTE | 2023-05-07 16:23 | MHC.OFFVIS ---
Intake Intake Visit Reasons: Remote HF Monitoring- Medtronic Allergies No Known Allergies Allergy (Verified 08/20/22 08:31) PFS Medical History Biventricular implantable cardioverter-defibrillator (ICD) in situ Syncope Bladder cancer Cardiomyopathy Diabetes mellitus Hematuria Osteomyelitis HTN (hypertension) CHF (congestive heart failure) Afib Surgical History S/P AV jake ablation Status post cardiac catheterization History of cardiac catheterization (~01/31/21) History of urostomy Family History Father No problems noted. Mother No problems noted. Social History Household Members: Children Housing: House Alcohol intake: current Alcohol intake frequency: holidays/special occasions only Alcohol type: wine Patient Tobacco Use Status: Former Tobacco user Quit Date: 30 years ago Advance Directives Date on File: 12/05/21 service: No Current occupational status: retired Office Procedures Cardiac Device Check Cardiac Device Check Details: Remote heart failure report generated 05/07/2023. Heart failure parameters are within normal limits [id number] Cardiac Device Interrogation, cardio physiologic monitor Procedure code (CPT) selection complete Assessment & Plan Assessment & Plan (1) Biventricular implantable cardioverter-defibrillator (ICD) in situ: Comment: Medtronic biventricular ICD placed in December 2021 for syncope with cardiomyopathic process with nonsustained VT Code(s): Z95.810 - Presence of automatic (implantable) cardiac defibrillator Plan: See above Coding Level of Care Code Procedure Only Diagnoses Biventricular implantable cardioverter-defibrillator (ICD) in situ Z95.810 CPT Codes Cardiac Device Check - Cardiac Device 15: [id number] Cardiac Device Interrogation, cardio physiologic monitor ([id number])
== END ==
PROVIDERS: PCP Internal Medicine Endocrinology, Diabetes & Metabolism; Visit Provider Internal Medicine Cardiovascular Disease
DX: I50.20 Unspecified systolic (congestive) heart failure (principal); Z95.810 Presence of automatic (implantable) cardiac defibrillator
CPT/HCPCS: 93297

== ENCOUNTER → 2023-05-20 11:07 | Outpatient (BNVA) | payer OTHER, SELFPAY | PROVIDERS: PCP Internal Medicine Endocrinology, Diabetes & Metabolism; Visit Provider Internal Medicine Cardiovascular Disease | DX: I42.9 Cardiomyopathy, unspecified (principal); Z95.810 Presence of automatic (implantable) cardiac defibrillator; I48.91 Unspecified atrial fibrillation | CPT/HCPCS: 99212 ==

== ENCOUNTER 2023-05-20 11:08 | Outpatient (AMB) | payer OTHER, SELFPAY ==
[2023-05-20 11:28] VITALS: BP 136/80; PULSE 74; BMI 34.2
--- NOTE | 2023-05-20 11:28 | A.OFFVIS_ITS ---
Intake Vital Signs 05/20/23 11:28 Height 5 ft 10 in Weight 238 lb 1.588 oz BMI 34.2 BP 136/80 Blood Pressure Location Lt brachial Position Sitting Pulse 74 Intake Visit Reasons: 6 mth fu with Medtronic Intake Note: 6 month follow-up with Medtronic feeling good [place] Developer Required: No Life Sciences Manager: Life Sciences Manager Present Accompanied by: Daughter Allergies No Known Allergies Allergy (Verified 08/20/22 08:31) Medication List - Last Reconciled 05/20/23 by Omar Ramos MD atorvastatin 10 mg PO BEDTIME 90 days bumetanide 1 mg PO DAILY glimepiride 2 mg PO DAILY levothyroxine 88 mcg PO DAILY@0600 metoprolol tartrate 50 mg See Protocol PO BID 90 days omega 4-acl-yek-fish oil 1,000 mg (120 mg-180 mg) (Fish Oil) 1 cap PO DAILY pregabalin 100 mg PO DAILY sennosides-docusate sodium 8.6-50 mg 1 tab-cap PO BEDTIME PRN HPI HPI Comments History of Present Illness Details Nagi comes for follow-up. He was admitted here in February with some salt GI bleed but this was not major. Subsequently after [place] he developed a fall and subsequently was taken to [facility] and was diagnosed with RSV and had a very prolonged hospitalization for about 2 weeks as per the daughter. He then got severely deconditioned and was sent to a subacute rehab and came home in end of March. It took him a long time to recover from this illness and is now gradually getting back to his usual functional status. Initially was very short of breath. Now he said he can walk about 2 blocks without issues. Denies any progressive heart failure syndrome. Denies any orthopnea, PND, leg edema. No palpitations, lightheadedness, syncope. No recurrent bleeding issues. As per the daughter he was started on Eliquis after discharge from [facility]. He is still taking it. She is taking at 2.5 mg b.i.d.. Denies any chest pain. [facility] Medical History Biventricular implantable cardioverter-defibrillator (ICD) in situ Syncope Bladder cancer Cardiomyopathy Diabetes mellitus Hematuria Osteomyelitis HTN (hypertension) CHF (congestive heart failure) Afib Surgical History S/P AV jake ablation Status post cardiac catheterization History of cardiac catheterization (~01/31/21) History of urostomy Family History Father No problems noted. Mother No problems noted. Social History Household Members: Children Housing: House Alcohol intake: current Alcohol intake frequency: holidays/special occasions only Alcohol type: wine Patient Tobacco Use Status: Former Tobacco user Quit Date: 30 years ago Advance Directives Date on File: 12/05/21 service: No Current occupational status: retired Review of Systems Const Denies chills, Denies fatigue, Denies fever(s), Denies frequent falls, Denies weakness, Denies weight gain and Denies weight loss ENT Denies dizziness Card Denies chest pain, Denies leg edema, Denies lightheadedness, Denies palpitations, Denies dyspnea, Denies dyspnea on exertion, Denies orthopnea and Denies other (loss of consciousness) Resp Denies cough, Denies dyspnea and Denies dyspnea on exertion GI Denies hematochezia and Denies change in stool character Musc Denies abnormal gait, Denies muscle weakness, Denies numbness, Denies radiating pain into limb and Denies tingling Neuro Denies abnormal gait, Denies dizziness, Denies frequent falls, Denies numbness, Denies tingling and Denies weakness Endo Denies fatigue and Denies palpitations Physical Exam Vital Signs: Last Vital Signs Pulse 74 05/20/23 11:28 BP 136/80 05/20/23 11:28 BMI result Body Mass Index 34.2 Const General: cooperative, comfortable and no acute distress Orientation/consciousness: patient oriented x3 Neck Neck: Yes trachea midline, Yes supple and Yes no JVD Chest Chest palpation & inspection: other (Device pocket is benign) Resp Effort & Inspection: normal respiratory effort Auscultation: clear to auscultation bilaterally, no crackles, no rales, no rhonchi and no wheezes Cardio Jugular venous distension: no JVD Rate: regular rate Rhythm: regular rhythm Heart sounds: S1 normal heart sound present, S2 normal heart sound present, no gallops, no murmurs and no rubs Peripheral pulses: Peripheral pulses 2+ throughout GI Inspection: Yes normal to inspection Neuro General: patient oriented x3 Extrem Other: No ankle edema General: Yes normal to inspection, No clubbing, No cyanosis and Yes edema Office Procedures Cardiac Device Check Cardiac Device Check Details: Medtronic biventricular ICD in place. Programmed in VVIR at 70 beats per minut e. Biventricular pacing 100% of the time. RV pacing thresholds excellent and reprogrammed to enhance battery life. LV pacing thresholds adequate. Pacing and shock lead impedance is stable. Battery life is excellent at 6.5 years. Underlying atrial fibrillation. 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 At this point time is LV ejection fraction is improved 55%. Continue current neurohormonal modulation with metoprolol. He is status post AV jake ablation as well. Currently on bumetanide 1 mg daily and is maintaining euvolemic status. At this point time no further change in therapy is recommended. Continue bumetanide therapy. Heart failure management discussed. Daily weight monitoring avoidance of salt loading was discussed. Continue participate in physical activity as tolerated. (2) Biventricular implantable cardioverter-defibrillator (ICD) in situ: Comment: Medtronic biventricular ICD placed in December 2021 for syncope with cardiomyopathic process with nonsustained VT Code(s): Z95.810 - Presence of automatic (implantable) cardiac defibrillator Plan: Biventricular ICD which is working well. Reprogrammed for adequate function. Will follow remotely for heart failure as well as device check. (3) Afib: Code(s): I48.91 - Unspecified atrial fibrillation Plan: Chronic atrial fibrillation status post ablation status post Bi V ICD placement. Continue full oral anticoagulation, currently on Eliquis 2.5 mg b.i.d.. Will follow up in the clinic in 6 months time, sooner p.r.n.. Thank you for allowing me to partake in his care Medications: New apixaban (Eliquis) 2.5 mg PO BID 60 tabs 0RF Refilled bumetanide 1 mg PO DAILY 120 tabs 1RF Coding Level of Care Code Est Pt Level 4 (10992) Diagnoses Cardiomyopathy I42.9 Biventricular implantable cardioverter-defibrillator (ICD) in situ Z95.810 Afib I48.91 CPT Codes Cardiac Device Check - Cardiac Device 6: [id number] Cardiac Device Check, multi lead implantable defibrillator ([id number])
== END 2023-05-20 11:54 | disposition home or self-care (01) ==
PROVIDERS: PCP Internal Medicine Endocrinology, Diabetes & Metabolism; Visit Provider Internal Medicine Cardiovascular Disease
DX: I42.9 Cardiomyopathy, unspecified (principal); I48.91 Unspecified atrial fibrillation; Z95.810 Presence of automatic (implantable) cardiac defibrillator
CPT/HCPCS: 93284; 99214

== ENCOUNTER → 2023-06-07 23:59 | Outpatient (BNV) | payer OTHER, SELFPAY ==
--- NOTE | 2023-06-07 14:39 | MHC.OFFVIS ---
Intake Intake Visit Reasons: Remote HF Monitoring- Medtronic Allergies No Known Allergies Allergy (Verified 08/20/22 08:31) PFS Medical History Biventricular implantable cardioverter-defibrillator (ICD) in situ Syncope Bladder cancer Cardiomyopathy Diabetes mellitus Hematuria Osteomyelitis HTN (hypertension) CHF (congestive heart failure) Afib Surgical History S/P AV jake ablation Status post cardiac catheterization History of cardiac catheterization (~01/31/21) History of urostomy Family History Father No problems noted. Mother No problems noted. Social History Household Members: Children Housing: House Alcohol intake: current Alcohol intake frequency: holidays/special occasions only Alcohol type: wine Patient Tobacco Use Status: Former Tobacco user Quit Date: 30 years ago Advance Directives Date on File: 12/05/21 service: No Current occupational status: retired Office Procedures Cardiac Device Check Cardiac Device Check Details: Remote heart failure report generated 06/07/2023. Heart failure parameters elevated. Have reached out to the patient awaiting response. [id number] Cardiac Device Interrogation, cardio physiologic monitor Procedure code (CPT) selection complete Assessment & Plan Assessment & Plan (1) Biventricular implantable cardioverter-defibrillator (ICD) in situ: Comment: Medtronic biventricular ICD placed in December 2021 for syncope with cardiomyopathic process with nonsustained VT Code(s): Z95.810 - Presence of automatic (implantable) cardiac defibrillator Plan: See above Coding Level of Care Code Procedure Only Diagnoses Biventricular implantable cardioverter-defibrillator (ICD) in situ Z95.810 CPT Codes Cardiac Device Check - Cardiac Device 15: [id number] Cardiac Device Interrogation, cardio physiologic monitor ([id number])
== END ==
PROVIDERS: PCP Internal Medicine Endocrinology, Diabetes & Metabolism; Visit Provider Internal Medicine Cardiovascular Disease
DX: Z45.02 Encounter for adjustment and management of automatic implantable cardiac defibrillator (principal)
CPT/HCPCS: 93297

== ENCOUNTER → 2023-07-08 23:59 | Outpatient (BNV) | payer OTHER, SELFPAY ==
--- NOTE | 2023-07-09 14:49 | MHC.OFFVIS ---
Intake Visit Reasons: Remote ICD check- Medtronic Allergies No Known Allergies Allergy (Verified 08/20/22 08:31) PFS Medical History Biventricular implantable cardioverter-defibrillator (ICD) in situ Syncope Bladder cancer Cardiomyopathy Diabetes mellitus Hematuria Osteomyelitis HTN (hypertension) CHF (congestive heart failure) Afib Surgical History S/P AV jake ablation Status post cardiac catheterization History of cardiac catheterization (~01/31/21) History of urostomy Family History Father No problems noted. Mother No problems noted. Social History Household Members: Children Housing: House Alcohol intake: current Alcohol intake frequency: holidays/special occasions only Alcohol type: wine Patient Tobacco Use Status: Former Tobacco user Quit Date: 30 years ago Advance Directives Date on File: 12/05/21 service: No Current occupational status: retired Office Procedures Cardiac Device Check Cardiac Device Check Details: Remote ICD report generated 07/08/2023. ICD function is adequate [id number] Cardiac Interrogation, implant defibrillator w/interim Procedure code (CPT) selection complete Assessment & Plan Assessment & Plan (1) Biventricular implantable cardioverter-defibrillator (ICD) in situ: Comment: Medtronic biventricular ICD placed in December 2021 for syncope with cardiomyopathic process with nonsustained VT Code(s): Z95.810 - Presence of automatic (implantable) cardiac defibrillator Category: Medical Plan: See above Coding Level of Care Code Procedure Only Diagnoses Biventricular implantable cardioverter-defibrillator (ICD) in situ Z95.810 CPT Codes Cardiac Device Check - Cardiac Device 13: [id number] Cardiac Interrogation, implant defibrillator w/interim ([id number])
== END ==
PROVIDERS: PCP Internal Medicine Endocrinology, Diabetes & Metabolism; Visit Provider Internal Medicine Cardiovascular Disease
DX: Z45.02 Encounter for adjustment and management of automatic implantable cardiac defibrillator (principal)
CPT/HCPCS: 93295

== ENCOUNTER → 2023-07-08 23:59 | Outpatient (BNV) | payer OTHER, SELFPAY ==
--- NOTE | 2023-07-09 14:50 | MHC.OFFVIS ---
Intake Visit Reasons: Remote HF monitoring- Medtronic Allergies No Known Allergies Allergy (Verified 08/20/22 08:31) PFS Medical History Biventricular implantable cardioverter-defibrillator (ICD) in situ Syncope Bladder cancer Cardiomyopathy Diabetes mellitus Hematuria Osteomyelitis HTN (hypertension) CHF (congestive heart failure) Afib Surgical History S/P AV jake ablation Status post cardiac catheterization History of cardiac catheterization (~01/31/21) History of urostomy Family History Father No problems noted. Mother No problems noted. Social History Household Members: Children Housing: House Alcohol intake: current Alcohol intake frequency: holidays/special occasions only Alcohol type: wine Patient Tobacco Use Status: Former Tobacco user Quit Date: 30 years ago Advance Directives Date on File: 12/05/21 service: No Current occupational status: retired Office Procedures Cardiac Device Check Cardiac Device Check Details: Remote heart failure report generated 07/08/2023. On this report patient's heart failure parameters are normal [id number] Cardiac Device Interrogation, cardio physiologic monitor Procedure code (CPT) selection complete Assessment & Plan Assessment & Plan (1) Biventricular implantable cardioverter-defibrillator (ICD) in situ: Comment: Medtronic biventricular ICD placed in December 2021 for syncope with cardiomyopathic process with nonsustained VT Code(s): Z95.810 - Presence of automatic (implantable) cardiac defibrillator Category: Medical Plan: See above Coding Level of Care Code Procedure Only Diagnoses Biventricular implantable cardioverter-defibrillator (ICD) in situ Z95.810 CPT Codes Cardiac Device Check - Cardiac Device 15: [id number] Cardiac Device Interrogation, cardio physiologic monitor ([id number])
== END ==
PROVIDERS: PCP Internal Medicine Endocrinology, Diabetes & Metabolism; Visit Provider Internal Medicine Cardiovascular Disease
DX: Z45.02 Encounter for adjustment and management of automatic implantable cardiac defibrillator (principal)
CPT/HCPCS: 93297

== ENCOUNTER → 2023-08-08 23:59 | Outpatient (BNV) | payer OTHER, SELFPAY ==
--- NOTE | 2023-08-09 13:39 | MHC.OFFVIS ---
Intake Visit Reasons: Remote HF Monitoring- Medtronic Allergies No Known Allergies Allergy (Verified 08/20/22 08:31) PFS Medical History Biventricular implantable cardioverter-defibrillator (ICD) in situ Syncope Bladder cancer Cardiomyopathy Diabetes mellitus Hematuria Osteomyelitis HTN (hypertension) CHF (congestive heart failure) Afib Surgical History S/P AV jake ablation Status post cardiac catheterization History of cardiac catheterization (~01/31/21) History of urostomy Family History Father No problems noted. Mother No problems noted. Social History Household Members: Children Housing: House Alcohol intake: current Alcohol intake frequency: holidays/special occasions only Alcohol type: wine Patient Tobacco Use Status: Former Tobacco user Advance Directives Date on File: 12/05/21 service: No Current occupational status: retired Office Procedures Cardiac Device Check Cardiac Device Check Details: Remote heart failure report generated 08/08/2023. Heart failure parameters are within normal limits [id number] Cardiac Device Interrogation, cardio physiologic monitor Procedure code (CPT) selection complete Assessment & Plan Assessment & Plan (1) Biventricular implantable cardioverter-defibrillator (ICD) in situ: Comment: Medtronic biventricular ICD placed in December 2021 for syncope with cardiomyopathic process with nonsustained VT Code(s): Z95.810 - Presence of automatic (implantable) cardiac defibrillator Category: Medical Plan: See above Coding Level of Care Code Procedure Only Diagnoses Biventricular implantable cardioverter-defibrillator (ICD) in situ Z95.810 CPT Codes Cardiac Device Check - Cardiac Device 15: [id number] Cardiac Device Interrogation, cardio physiologic monitor ([id number])
== END ==
PROVIDERS: PCP Internal Medicine Endocrinology, Diabetes & Metabolism; Visit Provider Internal Medicine Cardiovascular Disease
DX: Z45.02 Encounter for adjustment and management of automatic implantable cardiac defibrillator (principal)
CPT/HCPCS: 93297

== ENCOUNTER → 2023-09-07 23:59 | Outpatient (BNV) | payer OTHER, SELFPAY ==
--- NOTE | 2023-09-18 14:32 | MHC.OFFVIS ---
Intake Visit Reasons: Remote HF monitoring- Medtr[employer] Allergies No Known Allergies Allergy (Verified 08/20/22 08:31) PFS Medical History Biventricular implantable cardioverter-defibrillator (ICD) in situ Syncope Bladder cancer Cardiomyopathy Diabetes mellitus Hematuria Osteomyelitis HTN (hypertension) CHF (congestive heart failure) Afib Surgical History S/P AV jake ablation Status post cardiac catheterization History of cardiac catheterization (~01/31/21) History of urostomy Family History Father No problems noted. Mother No problems noted. Social History Household Members: Children Housing: House Alcohol intake: current Alcohol intake frequency: holidays/special occasions only Alcohol type: wine Patient Tobacco Use Status: Former Tobacco user Advance Directives Date on File: 12/05/21 service: No Current occupational status: retired Office Procedures Cardiac Device Check Cardiac Device Check Details: Remote heart failure report generated 09/07/2023. Heart failure parameters are within normal limits [id number] Cardiac Device Interrogation, cardio physiologic monitor Procedure code (CPT) selection complete Assessment & Plan Assessment & Plan (1) Biventricular implantable cardioverter-defibrillator (ICD) in situ: Comment: Medtronic biventricular ICD placed in December 2021 for syncope with cardiomyopathic process with nonsustained VT Code(s): Z95.810 - Presence of automatic (implantable) cardiac defibrillator Category: Medical Plan: See above Coding Level of Care Code Procedure Only Diagnoses Biventricular implantable cardioverter-defibrillator (ICD) in situ Z95.810 CPT Codes Cardiac Device Check - Cardiac Device 15: [id number] Cardiac Device Interrogation, cardio physiologic monitor ([id number])
== END ==
PROVIDERS: PCP Internal Medicine Endocrinology, Diabetes & Metabolism; Visit Provider Internal Medicine Cardiovascular Disease
DX: Z45.02 Encounter for adjustment and management of automatic implantable cardiac defibrillator (principal)
CPT/HCPCS: 93297

== ENCOUNTER 2023-09-19 19:34 | Emergency (ER) | payer OTHER, SELFPAY ==
--- NOTE | ~2023-09-19 | XR_ITS ---
EXAMINATION: XR CHEST CLINICAL INFORMATION: Shortness of breath COMPARISON: 12/03/2021 TECHNIQUE: Frontal view of the chest was obtained. FINDINGS: Left-sided cardiac pacemaker. Mildly enlarged cardiomediastinal silhouette is stable. Clear lungs without consolidation, pleural effusion or pneumothorax. XR/XR chest 1V IMPRESSION: No acute process.
[2023-09-19 19:47] VITALS: BP 148/56; PULSE 75; RESP 18; TEMP 36.3; O2SAT 99; BMI 33.0
--- NOTE | 2023-09-19 19:50 | ECG_ITS ---
Test Reason : SOB Blood Pressure : / mmHG Vent. Rate : 075 BPM Atrial Rate : 000 BPM P-R Int : 000 ms QRS Dur : 130 ms QT Int : 422 ms P-R-T Axes : 000 138 013 degrees QTc Int : 471 ms Ventricular-paced rhythm with LV pacing Abnormal ECG When compared with ECG of 14-FEB-2023 16:09, No significant changes seen Referred By: Generic ED Physician Electronically Signed By:ANABEL HAN MD
[2023-09-19 20:09] LABS: MANUAL DIFF FLAG NO
[2023-09-19 20:10] LABS: Basophils Absolute Auto 0.1 X10*3/uL (0.0-0.2); Basophils Percent Auto 0.8 % (0-2); Eosinophils Absolute Auto 0.2 X10*3/uL (0.0-0.4); Eosinophils Percent Auto 2.2 % (0-4); Hematocrit 29.2 % (42.0-52.0); Imm Gran Abs Auto 0.03 X10*3/uL (0.00-0.03); Imm Gran Pct Auto 0.4 % (0.0-0.4); Lymphocytes Absolute Auto 0.8 X10*3/uL (1.2-4.9); Lymphocytes Percent Auto 10.2 % (20-40); Mean Corpuscular HGB Conc 30.8 g/dl (31.0-36.0); Mean Corpuscular Hemoglobin 26.9 pg (27.0-33.0); Mean Corpuscular Volume 87.2 fL (80.0-98.0); Mean Platelet Volume 11.3 fL (9.4-12.4); Monocytes Absolute Auto 1.2 X10*3/uL (0.1-1.2); Monocytes Percent Auto 15.2 % (2-11); Neutrophils Absolute Auto 5.6 x10*3/uL (2.0-8.3); Neutrophils Percent Auto 71.2 % (45-73); Platelet Count 150 X10*3/uL (160-400); Red Blood Count 3.35 X10*6/uL (4.60-5.80); Red Cell Distribution Width 16.1 % (11.0-16.0); White Blood Count 7.9 X10*3/uL (4.8-10.8)
[2023-09-19 20:39] LABS: Troponin-I High Sensitivity 37.4 ng/L (<3.5-35.0)
[2023-09-19 20:52] LABS: Anion Gap 15 (12-20); Blood Urea Nitrogen 32 mg/dL (9-16); Calcium 9.3 mg/dL (8.4-10.2); Carbon Dioxide 19 mmol/L (22-29); Chloride 108 mmol/L (96-108); Creatinine Clr Calc Pharmacy 34.9; Estimated Glomerular Filt Rate 30; Glucose Random 132 mg/dL (60-115); Potassium 6.2 mmol/L (3.3-5.1); Sodium 136 mmol/L (135-145)
[2023-09-19] MEDS: Sodium Zirconium Cyclosilicate 10 GM POWD.PACK PO (21:53)
[2023-09-19] MEDS: Sodium Bicarbonate 8.4% 50 MEQ/50 ML SYRINGE IVPUSH (21:53)
[2023-09-19] MEDS: Calcium Gluconate/NaCl,Iso-Osm 1 GM/50 ML PLAST..BAG IV (21:53)
[2023-09-19 21:58] VITALS: BP 109/55; PULSE 73; RESP 20; O2SAT 100
--- NOTE | 2023-09-19 22:07 | ED_ITS ---
HPI - SOB/Dyspnea General Chief Complaint: Dyspnea Stated Complaint: sob Time Seen by Provider: 09/19/23 21:30 Source: patient and family Mode of arrival: ambulatory Limitations: no limitations History of Present Illness ED Provider: alicia FINLEY Narrative: Patient is 78 years old with history of diabetes hypertension congestive heart failure paroxysmal AFib biventricular ICD for syncope with nonsustained VT in 2021 ran out of his Bumex for last 2 weeks complaining of worsening of shortness of breath since then has gained some weight no chest discomfort workup before my evaluation showed elevated potassium of 6.2 no chest pain no palpitation Related Data Home Medications ?Medication ?Instructions ?Recorded ?Confirmed glimepiride 2 mg tablet 2 mg PO DAILY 09/02/20 05/20/23 levothyroxine 88 mcg tablet 88 mcg PO DAILY@0600 09/02/20 05/20/23 omega 5-ffy-kme-fish oil 1,000 mg 1 cap PO DAILY 09/02/20 05/20/23 (120 mg-180 mg) capsule (Fish Oil) pregabalin 100 mg capsule 100 mg PO DAILY 09/02/20 05/20/23 sennosides 8.6 mg-docusate sodium 1 tab-cap PO BEDTIME PRN 09/02/20 05/20/23 50 mg tablet Constipation Previous Rx's ?Medication ?Instructions ?Recorded metoprolol tartrate 50 mg tablet 50 mg PO BID 90 days #180 tabs 09/19/20 atorvastatin 10 mg tablet 10 mg PO BEDTIME 90 days #90 tabs 07/26/21 apixaban 2.5 mg tablet (Eliquis) 2.5 mg PO BID #60 tabs 05/20/23 bumetanide 1 mg tablet 1 mg PO DAILY #120 tabs 05/20/23 bumetanide 1 mg tablet 1 mg PO DAILY #90 tabs 09/20/23 Allergies Allergy/AdvReac Type Severity Reaction Status Date / Time No Known Allergies Allergy Verified 09/19/23 19:48 Review of Systems 2 Review of Systems: Yes all other systems are reviewed and are negative PMFSH Past Medical History Medical History Biventricular implantable cardioverter-defibrillator (ICD) in situ Syncope Bladder cancer Cardiomyopathy Diabetes mellitus Hematuria Osteomyelitis HTN (hypertension) CHF (congestive heart failure) Afib Surgical History S/P AV jake ablation Status post cardiac catheterization History of cardiac catheterization (~01/31/21) History of urostomy Family History Family History Father No problems noted. Mother No problems noted. Social History Social History Household Members: Children Housing: House Alcohol intake: current Alcohol intake frequency: holidays/special occasions only Alcohol type: wine Patient Tobacco Use Status: Former Tobacco user Smoked in Last 30 Days: No Advance Directives: No Advance Directives Information Provided: Yes Advance Directives Date on File: 12/05/21 Do you have a plan to hurt others: No Plan service: No Current occupational status: retired Physical Exam 2 Vital Signs: Vital Signs: Last Vital Signs Temp 97.3 F 09/19/23 19:47 Pulse 73 09/19/23 21:58 Resp 20 09/19/23 21:58 BP 109/55 L 09/19/23 21:58 Pulse Ox 100 09/19/23 21:58 O2 Del Method Room Air 09/19/23 21:58 BMI result Body Mass Index 33.0 Appearance: Alert. Oriented X3. No acute distress. Eyes: No pallor or icterus ENT: Pharynx normal. Oral Mucosa moist Neck: Normal inspection. Neck supple. CVS: Normal heart rate and rhythm. Pulses normal. Respiratory: No respiratory distress. Equal air entry bilateral, no wheezing/rales/rhonchi Abdomen: Soft and nontender. Bowel sounds are present, no mass palpable, no CVA tenderness Skin: Skin warm and dry. Normal skin color. Normal skin turgor. Extremities: No lower extremity edema. No calf tenderness Neuro: Oriented X 3. No motor deficit. No sensory deficit.No cerebellar signs , cranial nerves II-XII intact Medications Administered Discontinued Medications Generic Name Dose Route Start Last Admin Trade Name Freq PRN Reason Stop Dose Admin Furosemide 40 mg 09/19/23 22:06 09/19/23 22:45 Furosemide 40 Mg/4 Ml Vial IVPUSH 09/19/23 22:07 40 mg STAT STA Administration Protocol Calcium Gluconate 1 gm in 50 mls @ 50 mls/hr 09/19/23 21:32 09/19/23 22:45 Calcium Gluconate IV 09/19/23 22:31 Infused ONCE ONE Infusion Sodium Bicarbonate 50 meq 09/19/23 21:32 09/19/23 21:53 Sodium Bicarbonate 8.4% 50 Meq/50 Ml Syringe IVPUSH 09/19/23 21:33 50 meq ONCE ONE Administration Sodium Zirconium Cyclosilicate 10 gm 09/19/23 21:32 09/19/23 21:53 Sodium Zirconium Cyclosilicate 10 Gm Powd.Pack PO 09/19/23 21:33 10 gm ONCE ONE Administration Medical Decision Making Medical Decision Making MDM Narrative: Patient with CKD with hyperkalemia with shortness of breath ran out of his Bumex for last 2 weeks chest x-ray negative for fluid overload patient is saturating 97% at room will give him calcium gluconate and Lasix and bicarb 00:40Patient's repeat labs back normal at baseline creatinine of 1.93 potassium 4.3 chest x-ray negative for heart failure discharge patient home advised to continue his Bumex Differential Diagnosis Differential Diagnoses: The differential diagnosis associated with the presentation includes Admission/Observation Consideration of admission/observation: Escalation of care including admission/observation considered Lab Data [facility] Lab Attestation statement: I reviewed the patient's lab results. 09/19/23 20:00 09/19/23 23:36 Labs: Lab Results 09/19/23 09/19/23 Range/Units 20:00 23:36 WBC 7.9 (4.8-10.8) X10*3/uL RBC 3.35 L D (4.60-5.80) X10*6/uL Hgb 9.0 L D (14.0-18.0) g/dl Hct 29.2 L D (42.0-52.0) % MCV 87.2 (80.0-98.0) fL MCH 26.9 L (27.0-33.0) pg MCHC 30.8 L (31.0-36.0) g/dl RDW 16.1 H (11.0-16.0) % Plt Count 150 L D (160-400) X10*3/uL MPV 11.3 (9.4-12.4) fL Immature Gran % (Auto) 0.4 (0.0-0.4) % Neut % (Auto) 71.2 (45-73) % Lymph % (Auto) 10.2 L (20-40) % [place] % (Auto) 15.2 H (2-11) % Eos % (Auto) 2.2 (0-4) % Baso % (Auto) 0.8 (0-2) % Lymph # (Auto) 0.8 L (1.2-4.9) X10*3/uL [place] # (Auto) 1.2 (0.1-1.2) X10*3/uL Eos # (Auto) 0.2 (0.0-0.4) X10*3/uL Baso # (Auto) 0.1 (0.0-0.2) X10*3/uL Abs Immat Gran (auto) 0.03 (0.00-0.03) X10*3/uL Absolute Neuts (auto) 5.6 (2.0-8.3) x10*3/uL Absolute Nucleated RBC 0.000 (0.0-0.012) X10*3/uL Nucleated RBC % (auto) 0.0 (0.0-0.2) /100WBC Sodium 136 138 (135-145) mmol/L Potassium 6.2 H* 4.3 D (3.3-5.1) mmol/L Chloride 108 111 H (96-108) mmol/L Carbon Dioxide 19 L 18 L (22-29) mmol/L Anion Gap 15 13 (12-20) BUN 32 H 26 H (9-16) mg/dL Creatinine 2.14 H 1.93 H (0.5-1.4) mg/dL Estim Creat Clear Calc 34.9 38.7 Estimated GFR 30 34 Random Glucose 132 H 97 (60-115) mg/dL Calcium 9.3 8.4 D (8.4-10.2) mg/dL Troponin I High Sens 37.4 H 36.7 H (<3.5-35.0) ng/L B-Natriuretic Peptide 226 H (<100) pg/mL Independent Interpretation I performed an independent interpretation of an: EKG and Plain X-Ray Interpretation: Sinus rhythm with right bundle-branch block occasional PVCs no acute STT wave changes poor progression of R-wave no acute ischemia Discharge Plan Discharge Clinical Impression: Acute renal failure superimposed on chronic kidney disease, Acute hyperkalemia Patient Disposition: Home, Self-Care Instructions: Acute Kidney Injury (DC), Hyperkalemia (ED) Additional Instructions: Avoid food containing high potassium Take Bumex 1 mg daily Follow-up with your bundle collector/PCP Prescriptions: New bumetanide 1 mg tablet 1 mg PO DAILY Qty: 90 0RF No Action metoprolol tartrate 50 mg tablet 50 mg PO BID 90 Days Qty: 180 0RF Protocol: Hold for SBP/HR < HOLD for SBP < : 90 HOLD for HR < : 60 atorvastatin 10 mg tablet 10 mg PO BEDTIME 90 Days Qty: 90 2RF omega 1-xco-dgn-fish oil [Fish Oil] 1,000 mg (120 mg-180 mg) Capsule 1 cap PO DAILY pregabalin 100 mg Capsule 100 mg PO DAILY sennosides-docusate sodium 8.6-50 mg Tablet 1 tab-cap PO BEDTIME PRN (Reason: Constipation) glimepiride 2 mg Tablet 2 mg PO DAILY levothyroxine 88 mcg Tablet 88 mcg PO DAILY@0600 bumetanide 1 mg tablet 1 mg PO DAILY Qty: 120 1RF Eliquis 2.5 mg tablet 2.5 mg PO BID Qty: 60 0RF Print Language: Occitan
[2023-09-19 22:38] LABS: B Type Natriuretic Peptide 226 pg/mL (<100)
[2023-09-19] MEDS: Furosemide 40 MG/4 ML VIAL IVPUSH (22:45)
[2023-09-19 23:59] LABS: Anion Gap 13 (12-20); Blood Urea Nitrogen 26 mg/dL (9-16); Calcium 8.4 mg/dL (8.4-10.2); Carbon Dioxide 18 mmol/L (22-29); Chloride 111 mmol/L (96-108); Creatinine Clr Calc Pharmacy 38.7; Estimated Glomerular Filt Rate 34; Glucose Random 97 mg/dL (60-115); Potassium 4.3 mmol/L (3.3-5.1); Sodium 138 mmol/L (135-145)
[2023-09-20 00:03] LABS: Troponin-I High Sensitivity 36.7 ng/L (<3.5-35.0)
[2023-09-20 00:46] VITALS: BP 108/57; PULSE 74; RESP 18; TEMP 36.6; O2SAT 97
== END 2023-09-20 00:50 | disposition home or self-care (01) ==
PROVIDERS: Emergency Provider Internal Medicine; PCP Nurse Practitioner Family
DX: R06.02 Shortness of breath (principal); E11.9 Type 2 diabetes mellitus without complications; I11.0 Hypertensive heart disease with heart failure; I50.9 Heart failure, unspecified; I48.0 Paroxysmal atrial fibrillation; Z79.899 Other long term (current) drug therapy; Z95.810 Presence of automatic (implantable) cardiac defibrillator
CPT/HCPCS: 36415; 71045; 80048; 83880; 84484; 85025; 93005; 96365; 96375; 99284; 99285; J0613; J1940

== ENCOUNTER → 2023-09-19 19:50 | Outpatient (BNV) | payer OTHER, SELFPAY | PROVIDERS: Emergency Provider Internal Medicine; PCP Nurse Practitioner Family; Visit Provider Internal Medicine Cardiovascular Disease | DX: R94.31 Abnormal electrocardiogram [ECG] [EKG] (principal) | CPT/HCPCS: 93010 ==

== ENCOUNTER → 2023-10-08 23:59 | Outpatient (BNV) | payer OTHER, SELFPAY ==
--- NOTE | 2023-10-09 12:43 | A.OFFVIS_ITS ---
Intake Visit Reasons: Remote ICD check- [employer] Allergies No Known Allergies Allergy (Verified 09/19/23 19:48) [facility] Medical History Biventricular implantable cardioverter-defibrillator (ICD) in situ Syncope Bladder cancer Cardiomyopathy Diabetes mellitus Hematuria Osteomyelitis HTN (hypertension) CHF (congestive heart failure) Afib Surgical History S/P AV jaek ablation Status post cardiac catheterization History of cardiac catheterization (~01/31/21) History of urostomy Family History Father No problems noted. Mother No problems noted. Social History Household Members: Children Housing: House Alcohol intake: current Alcohol intake frequency: holidays/special occasions only Alcohol type: wine Patient Tobacco Use Status: Former Tobacco user Smoked in Last 30 Days: No Advance Directives: No Advance Directives Information Provided: Yes Advance Directives Date on File: 12/05/21 Do you have a plan to hurt others: No Plan service: No Current occupational status: retired Office Procedures Cardiac Device Check Cardiac Device Check Details: Remote ICD report generated 10/08/2023. ICD function is adequate. Biventricular pacing 97% of the time [id number] Cardiac Interrogation, implant defibrillator w/interim Procedure code (CPT) selection complete Assessment & Plan Assessment & Plan (1) Biventricular implantable cardioverter-defibrillator (ICD) in situ: Comment: Medtronic biventricular ICD placed in December 2021 for syncope with cardiomyopathic process with nonsustained VT Code(s): Z95.810 - Presence of automatic (implantable) cardiac defibrillator Category: Medical Plan: See above Coding Level of Care Code Procedure Only Diagnoses Biventricular implantable cardioverter-defibrillator (ICD) in situ Z95.810 CPT Codes Cardiac Device Check - Cardiac Device 13: [id number] Cardiac Interrogation, implant defibrillator w/interim ([id number])
== END ==
PROVIDERS: PCP Nurse Practitioner Family; Visit Provider Internal Medicine Cardiovascular Disease
DX: I47.20 Ventricular tachycardia, unspecified (principal); Z95.810 Presence of automatic (implantable) cardiac defibrillator
CPT/HCPCS: 93295

== ENCOUNTER → 2023-10-08 23:59 | Outpatient (BNV) | payer OTHER, SELFPAY ==
--- NOTE | 2023-10-09 13:56 | A.OFFVIS_ITS ---
Intake Visit Reasons: Remote HF monitoring- [employer] Allergies No Known Allergies Allergy (Verified 09/19/23 19:48) [facility] Medical History Biventricular implantable cardioverter-defibrillator (ICD) in situ Syncope Bladder cancer Cardiomyopathy Diabetes mellitus Hematuria Osteomyelitis HTN (hypertension) CHF (congestive heart failure) Afib Surgical History S/P AV jake ablation Status post cardiac catheterization History of cardiac catheterization (~01/31/21) History of urostomy Family History Father No problems noted. Mother No problems noted. Social History Household Members: Children Housing: House Alcohol intake: current Alcohol intake frequency: holidays/special occasions only Alcohol type: wine Patient Tobacco Use Status: Former Tobacco user Smoked in Last 30 Days: No Advance Directives: No Advance Directives Information Provided: Yes Advance Directives Date on File: 12/05/21 Do you have a plan to hurt others: No Plan service: No Current occupational status: retired Office Procedures Cardiac Device Check Cardiac Device Check Details: Remote heart failure report shows findings consistent with volume overload. Will follow with the patient [id number] Cardiac Device Interrogation, cardio physiologic monitor Procedure code (CPT) selection complete Assessment & Plan Assessment & Plan (1) Biventricular implantable cardioverter-defibrillator (ICD) in situ: Comment: Medtronic biventricular ICD placed in December 2021 for syncope with cardiomyopathic process with nonsustained VT Code(s): Z95.810 - Presence of automatic (implantable) cardiac defibrillator Category: Medical Plan: See above Coding Level of Care Code Procedure Only Diagnoses Biventricular implantable cardioverter-defibrillator (ICD) in situ Z95.810 CPT Codes Cardiac Device Check - Cardiac Device 15: [id number] Cardiac Device Interrogation, cardio physiologic monitor ([id number])
== END ==
PROVIDERS: PCP Nurse Practitioner Family; Visit Provider Internal Medicine Cardiovascular Disease
DX: I47.20 Ventricular tachycardia, unspecified (principal); Z95.810 Presence of automatic (implantable) cardiac defibrillator
CPT/HCPCS: 93297

== ENCOUNTER → 2023-11-08 23:59 | Outpatient (BNV) | payer OTHER, SELFPAY ==
--- NOTE | 2023-11-12 12:54 | MHC.OFFVIS ---
Intake Visit Reasons: Remote HF monitoring- [employer] Allergies No Known Allergies Allergy (Verified 09/19/23 19:48) [facility] Medical History Biventricular implantable cardioverter-defibrillator (ICD) in situ Syncope Bladder cancer Cardiomyopathy Diabetes mellitus Hematuria Osteomyelitis HTN (hypertension) CHF (congestive heart failure) Afib Surgical History S/P AV jake ablation Status post cardiac catheterization History of cardiac catheterization (~01/31/21) History of urostomy Family History Father No problems noted. Mother No problems noted. Social History Household Members: Children Housing: House Alcohol intake: current Alcohol intake frequency: holidays/special occasions only Alcohol type: wine Patient Tobacco Use Status: Former Tobacco user Smoked in Last 30 Days: No Advance Directives: No Advance Directives Information Provided: Yes Advance Directives Date on File: 12/05/21 Do you have a plan to hurt others: No Plan service: No Current occupational status: retired Office Procedures Cardiac Device Check Cardiac Device Check Details: Remote heart failure report generated 11/07/2023. OptiVol is significantly elevated. Patient did not come for his office visit yesterday. Will follow up with him [id number] Cardiac Device Interrogation, cardio physiologic monitor Procedure code (CPT) selection complete Assessment & Plan Assessment & Plan (1) Biventricular implantable cardioverter-defibrillator (ICD) in situ: Comment: [employer]tronic biventricular ICD placed in December 2021 for syncope with cardiomyopathic process with nonsustained VT Code(s): Z95.810 - Presence of automatic (implantable) cardiac defibrillator Category: Medical Plan: See above Coding Level of Care Code Procedure Only Diagnoses Biventricular implantable cardioverter-defibrillator (ICD) in situ Z95.810 CPT Codes Cardiac Device Check - Cardiac Device 15: [id number] Cardiac Device Interrogation, cardio physiologic monitor ([id number])
== END ==
PROVIDERS: PCP Nurse Practitioner Family; Visit Provider Internal Medicine Cardiovascular Disease
DX: I50.9 Heart failure, unspecified (principal); Z95.810 Presence of automatic (implantable) cardiac defibrillator
CPT/HCPCS: 93297